=== PATIENT | male | born 1950 | race Caucasian/White ===

== ENCOUNTER 2024-04-25 08:39 | Observation (INO) ==
--- NOTE | 2024-04-25 09:16 | Emergency Department Note ---
Impression & Plan Dysphagia, Phelps esophagus ED Provider Note Provider: Hardik Daley MD DATE OF SERVICE: 04/25/2024 CHIEF COMPLAINT: Problems swallowing HISTORY OF PRESENT ILLNESS: Patient is a 73-year-old gentleman history of diverticulitis, colectomy, bowel obstruction, cholecystectomy, hypertension, Phelps's esophagus, and hiatal hernia presenting here today with after being referred by GI for evaluation today. Patient has had ongoing issues with dysphagia and swallowing. States he was here about a month ago for evaluation for similar symptoms. Having difficulty swallowing and states does not feel like things are going down the symptoms getting stuck at the base of the throat and some discomfort in the mid chest to mid upper abdomen. Denies other abdominal pain. No vomiting reported. For the last 2 weeks patient and report he has had limited food intake but has been drinking some liquid and has had a few bites of watermelon as well as protein shakes. Patient has some chronic ongoing diarrhea issues. Did have a scope by records in September 2023. History of bowel obstruction in the past but does not feel similar denies significant abdominal distention. No shortness of breath reported. Has been taking his meds but today has had a little bit of difficulty swallowing them. Feels little bit dizzy with movements and really rundown and has been losing weight according to patient and . Contacted the GI office today recommended he be evaluated here and stated that the GI team was possibly rounding in the hospital this morning as well. No fevers reported. No sinus drainage or congestion reported. PAST MEDICAL HISTORY: As noted above MEDICATIONS: Reviewed medication list SOCIAL HISTORY: No alcohol use, , currently building a house PHYSICAL EXAM: GENERAL: alert and oriented in no acute distress on stretcher Head: normocephalic and atraumatic EYES: No injection, discharge or icterus. EOMI. NECK: Trachea midline. Supple. ENT: Mucous membranes pink and moist. Pharynx without erythema or exudate. LUNGS: Airway patent. No retractions. Breath sounds clear with good air entry bilaterally. HEART: Regular rate and rhythm. No chest wall tenderness ABDOMEN: Soft some very slight epigastric tenderness but no other upper or lower abdominal tenderness. Healed surgical scar. Nondistended. SKIN: Acyanotic, warm, dry, without rashes EXTREMITIES: Without swelling, tenderness or deformity NEUROLOGICAL: No focal deficits. No aphasia. No facial droop or slurred speech. Ambulatory. EK bpm normal sinus rhythm. No PVC or PAC. No acute ST segment elevation depression with QTc of 454. Patient's laboratory studies and imaging reviewed. Differential includes Reactive airway disease, pneumonia, pneumothorax, COPD, CHF, infections, cardiac ischemia, pulmonary embolism, musculoskeletal, gastrointestinal, as well as other pathologies. IMPRESSION/MEDICAL DECISION MAKING: Patient appears somewhat fatigued but no obvious distress. Vitals noted without severe abnormalities or fever or hypotension noted. Soft abdomen. Slight epigastric tenderness. Doubt diverticulitis or obstruction. EKG and troponin completed given his age but lower suspicion this is cardiac in nature. Believe more likely esophageal but denies heartburn symptoms. Significant prescription Phelps's. Reviewed prior ER note from last month as well as GI note from January 15. History of Phelps's but no dysplasia on EGD from September by that report. CT scan completed a month ago without significant abnormalities noted. No stridor or respiratory issues I doubt this is a pharyngeal issue. Notes indicate the patient is a history of some motility issues. Had a barium swallow showing moderate esophageal dysmotility. EKG and troponin unremarkable. Doubt ACS or cardiac injury. No leukocytosis or anemia. Very borderline potassium of 3.3 but no significant electrolyte abnormalities otherwise. No significant transaminitis with a chronic bilirubin 1.2 at baseline for him. Lipase 9 not elevated doubt pancreatitis or acute hepatitis. Chest and abdominal x-ray reviewed by myself and no evidence of bowel obstruction/dilated bowel loops or acute pulmonary pulmonary process. Patient again not peritoneal with benign abdomen I do not feel we need additional abdominal imaging at this time. Did reach out discussed with GI as they referred him here today. Midlevel provider from GI did come and see the patient here in the ER. Does not seem like a food impaction. Seen by the GI team and they will try to arranged EGD in the short-term. They recommended we bring the patient in for hydration given his poor p.o. intake and hospitalist team with the consulted to evaluate the patient for further care here. DIAGNOSIS: Dysphagia DISPOSITION: Hospitalist consulted for evaluation. Patient was agreeable with this plan. Past Med/Surg History Problem List (Updated 04/25/24 @ 16:04 by Hardik Daley M.D.) Abdominal pain (Acute) Dysphagia (Acute) Postprandial nausea Lumbar facet joint syndrome Chronic low back pain ANGEL (obstructive sleep apnea) Anxiety and depression Carotid artery stenosis Phelps esophagus (Acute) Lumbar spondylosis Osteopenia Hiatal hernia with gastroesophageal reflux disease (02/09/11) HTN (hypertension) S/P cholecystectomy H/O colectomy Diverticulitis Rectal bleed (Acute) Abdominal pain (Acute) Glaucoma (Chronic) Numbness of face (Acute 04/24/14) Headache (Acute) Left shoulder pain (Acute) Stomach problems (Acute) Bronchospasm (Acute) Epigastric abdominal pain (Acute) SOBOE (shortness of breath on exertion) (Acute) Shortness of breath (Acute) Medical History Bowel obstruction Surgical History S/P hernia surgery S/P sinus surgery Family History Sister Breast cancer Cancer of spine Cancer Brother Colorectal cancer Father COPD (chronic obstructive pulmonary disease) Denies family history of Ovarian cancer Prostate cancer Myocardial infarction Social History (Updated 02/14/24 @ 11:08 by Seda Chandler LPN) Smoking Status: Never smoker Second Hand Exposure: No; Do You Dip or Chew Tobacco: No; Hx Alcohol Use: No Hx Substance Use: No Preferred Language: Luxembourger Communication Ability: Effective Visual Impairment: Limited Hearing Ability: Normal marital status: Current Living Situation: Spouse Current Living Situation Comment: worked at [employer] current occupational status: retired Feels Safe at Home: Yes Childhood Exposure to Second-Hand Smoke: Yes Diet: regular caffeine: Yes Dental Care, Regularly: Yes Physical Activity Frequency: Daily Seatbelt Use: always Sunscreen Use: No Assistive Devices: BiPap and Glasses Allergies Allergies Allergy/AdvReac Type Severity Reaction Status Date / Time cefazolin Allergy Severe CP/FELT Verified 04/25/24 14:15 LIKE THROAT CLOSING Gadolinium-Containing Allergy Severe SHORTNESS Verified 04/25/24 14:15 Contrast Medi OF BREATH aspirin Allergy Unknown PATIENT Verified 04/25/24 14:15 TOLD NOT TO TAKE BY [facility] PAVER Iodinated Contrast Media Allergy Unknown Unknown Rxn Verified 04/25/24 14:15 Penicillins Allergy Unknown PT HAS Verified 04/25/24 14:15 TOLERATED MEFOXIN IN PAST shellfish derived Allergy Unknown Unknown Verified 04/25/24 14:15 Home Meds Home Medications Medication Instructions Recorded Confirmed atorvastatin 40 mg tablet 20 mg PO HS 12/31/23 04/25/24 clotrimazole-betamethasone 1 1 applic topical BID 12/31/23 04/25/24 %-0.05 % topical cream furosemide 40 mg tablet 40 mg PO QAM 01/09/24 04/25/24 brinzolamide 1 % eye 1 drp OPB BID 04/25/24 04/25/24 drops,suspension fluoxetine 10 mg capsule 30 mg PO DAILY 04/25/24 04/25/24 Previous Rx's Medication Instructions Recorded amlodipine 10 mg tablet 10 mg PO QAM #90 tabs 12/31/23 famotidine 40 mg tablet 40 mg PO QPM #90 tabs 01/16/24 omeprazole 40 mg capsule,delayed 40 mg PO BIDWMEAL 90 days #180 caps 01/16/24 release ondansetron 8 mg disintegrating 8 mg PO Q8H PRN nausea and 01/16/24 tablet vomiting 90 days #180 tabs levothyroxine 100 mcg tablet 100 mcg PO DAILYBB #90 tabs 02/21/24 tramadol 37.5 mg-acetaminophen 325 1 tab PO Q8H PRN Pain #90 tabs 03/24/24 mg tablet dicyclomine 10 mg capsule 10 mg PO BID #60 caps 04/10/24 dorzolamide 2 % eye drops 1 drp OPB BID #30 mL 04/16/24 latanoprost 0.005 % eye drops 1 drp OPB HS #7.5 mL 04/16/24 Results & Data (ED) Vital Signs Vital Signs - 24 hr 04/25/24 08:43 04/25/24 09:05 04/25/24 09:27 Temperature 36.5 C Temperature Source Temporal Artery Scan Pulse Rate 93 H 76 68 Pulse Rate [Left Finger] Pulse Rhythm [Left Finger] Pulse Strength [Left Finger] Respiratory Rate 16 16 Respiratory Effort / Characteristics Non-Labored Spontaneous Respiratory Depth Normal Respiratory Pattern Blood Pressure 129/91 Blood Pressure [Left Arm] Blood Pressure Mean 103 Blood Pressure Mean [Left Arm] Blood Pressure Position [Left Arm] Pulse Oximetry 96 98 Oxygen Delivery Method Room Air Room Air Fraction of Inspired Oxygen Sepsis Recent Fever Within 48 Hours No Sepsis New/Unexplained Change in Mental Status No Sepsis Action Taken by Nursing No Action Required 04/25/24 10:20 04/25/24 12:00 04/25/24 13:45 Temperature Temperature Source Pulse Rate Pulse Rate [Left Finger] 63 60 67 Pulse Rhythm [Left Finger] Regular Pulse Strength [Left Finger] Normal Respiratory Rate 20 20 20 Respiratory Effort / Characteristics Non-Labored Spontaneous Respiratory Depth Normal Respiratory Pattern Regular Blood Pressure Blood Pressure [Left Arm] 145/77 H 145/72 H 141/83 H Blood Pressure Mean Blood Pressure Mean [Left Arm] 99 96 102 Blood Pressure Position [Left Arm] Pulse Oximetry 94 98 95 Oxygen Delivery Method Room Air Room Air Fraction of Inspired Oxygen Sepsis Recent Fever Within 48 Hours Sepsis New/Unexplained Change in Mental Status Sepsis Action Taken by Nursing 04/25/24 14:17 04/25/24 15:08 04/25/24 15:23 Temperature 36.6 C Temperature Source Temporal Artery Scan Pulse Rate Pulse Rate [Left Finger] 70 105 H 75 Pulse Rhythm [Left Finger] Pulse Strength [Left Finger] Normal Normal Normal Respiratory Rate 16 16 20 Respiratory Effort / Characteristics Non-Labored Non-Labored Non-Labored Respiratory Depth Normal Normal Normal Respiratory Pattern Regular Regular Regular Blood Pressure Blood Pressure [Left Arm] 162/87 H 168/100 H 146/85 H Blood Pressure Mean Blood Pressure Mean [Left Arm] 112 122 105 Blood Pressure Position [Left Arm] Semi-fowlers Semi-fowlers Semi-fowlers Pulse Oximetry 97 95 98 Oxygen Delivery Method Room Air Room Air Room Air Fraction of Inspired Oxygen Sepsis Recent Fever Within 48 Hours Sepsis New/Unexplained Change in Mental Status Sepsis Action Taken by Nursing 04/25/24 15:32 04/25/24 15:38 Temperature Temperature Source Pulse Rate Pulse Rate [Left Finger] 69 9 L Pulse Rhythm [Left Finger] Pulse Strength [Left Finger] Normal Respiratory Rate 17 20 Respiratory Effort / Characteristics Non-Labored Spontaneous Non-Labored Respiratory Depth Normal Respiratory Pattern Regular Blood Pressure Blood Pressure [Left Arm] 140/66 Blood Pressure Mean Blood Pressure Mean [Left Arm] 90 Blood Pressure Position [Left Arm] Semi-fowlers Pulse Oximetry 98 97 Oxygen Delivery Method Room Air Room Air Fraction of Inspired Oxygen 21 Sepsis Recent Fever Within 48 Hours Sepsis New/Unexplained Change in Mental Status Sepsis Action Taken by Nursing Laboratory Data 04/25/24 09:26 04/25/24 09:26 Lab Results 04/25/24 Range/Units 09:26 WBC 5.72 (4.8-10.8) K/ul RBC 4.68 L (4.70-6.10) M/uL Hgb 14.6 (14.0-18.0) g/dl Hct 42.0 (42.0-52.0) % MCV 89.7 (80.0-100.0) fL MCH 31.2 (25.0-34.0) pg MCHC 34.8 (32.0-36.0) g/dL RDW Std Deviation 39.2 (36.4-46.3) fL RDW Coeff of Yolande 12.0 (11.5-14.5) % Plt Count 158 (130-400) K/uL MPV 10.6 (9.4-12.4) fL Immature Gran % (Auto) 0.2 % Neut % (Auto) 73.0 % Lymph % (Auto) 18.9 % Preston % (Auto) 5.8 % Eos % (Auto) 1.9 % Baso % (Auto) 0.2 % Neut # (Auto) 4.18 (1.40-6.50) K/uL Lymph # (Auto) 1.08 L (1.20-3.40) K/uL Preston # (Auto) 0.33 (0.11-0.59) K/uL Eos # (Auto) 0.11 (0.00-0.50) K/uL Baso # (Auto) 0.01 (0.00-0.20) K/uL Immature Gran # (Auto) 0.01 (0.01-0.20) K/uL Sodium 140 (136-145) mmol/L Potassium 3.3 L (3.5-5.1) mmol/L Chloride 106 (98-107) mmol/L Carbon Dioxide 29 (21-32) mmol/L Anion Gap 5 (3-11) BUN 19 (6-23) mg/dl Creatinine 0.80 (0.6-1.4) mg/dl Est Cr Clr Drug Dosing 97.2 ml/min Est GFR ( Amer) 101.3 ml/min Est GFR (Non-Af Amer) 87.4 ml/min BUN/Creatinine Ratio 23.8 H (10-20) Glucose 107 H (70-99(Fasting)) mg/dl Calcium 8.8 (8.6-10.3) mg/dl Total Bilirubin 1.2 H (0.2-1.0) mg/dl AST 14 (13-39) U/L ALT 17 (7-52) U/L Alkaline Phosphatase 95 (34-104) U/L Troponin I High Sens 4.0 (0-20) pg/ml Total Protein 6.6 (6.0-8.3) gm/dl Albumin 3.8 (3.4-5.0) gm/dl Globulin 2.8 (2.5-4.0) gm/dl Albumin/Globulin Ratio 1.4 (0.9-2) Lipase 9 L (11-82) U/L Administered Medications Sodium Chloride (Nss) 500 mls @ 15 mls/hr IV .Q24H LEENA Stop: 04/26/24 07:29 Last Admin: 04/25/24 14:24 Dose: 15 mls/hr Documented By: JOSE Discontinued Medications Albuterol (Albut/Ipratrop 3mg/0.5mg Neb 3 Ml Vial) 3 ml NEB NOW STA; Protocol Stop: 04/25/24 15:20 Last Admin: 04/25/24 15:31 Dose: 3 ml Documented By: [id number] Sodium Chloride (Nss) 1,000 mls @ 999 mls/hr IV .Q1H1M STA Stop: 04/25/24 10:06 Last Infusion: 04/25/24 10:26 Dose: Infused Documented By: Admin: 04/25/24 09:25 Dose: 999 mls/hr Documented By: MARTÍN Imaging Data Radiologist's Impression: Chest/Abdomen X-ray 04/25/24 09:07 CHEST AND ABDOMEN 2 VIEWS HISTORY: pain, dysphagia COMPARISON: Abdomen and pelvis CT 03/25/2024. Chest 02/28/2015. FINDINGS: The lungs are clear. The cardiomediastinal silhouette is within normal limits. There is no pneumoperitoneum or pneumatosis. The bowel gas pattern is unremarkable. No evidence for bowel obstruction. Prior cholecystectomy. No renal or ureteral calculi. Mild degenerative changes within the bilateral hips and lumbar spine. Suture material seen within the deep pelvis. IMPRESSION: No acute cardiopulmonary process. No evidence for bowel obstruction. ACT 112: Negative or not required by law. Electronically signed by: Jason Carmona M.D. 04/25/2024 11:10 AM Discharge Plan Visit Data Chief Complaint: GI Assessment Stated Complaint: STOMACH PAINS, CANT SWALLOW, CANT EAT ED Provider: Hardik Daley Discharge Problem: Dysphagia, Phelps esophagus Patient Disposition: Admitted As Inpatient Discharge Instructions Interventions: ED Discharge Assessment Last Done: 04/25/24 14:09
[2024-04-25] MEDS: SODIUM CHLORIDE 0.9% 1,000 ML IV STA (09:25)
[2024-04-25 09:49] LABS: Basophils # (auto) 0.01 K/uL (0.00-0.20); Basophils % (auto) 0.2 %; Eosinophils # (auto) 0.11 K/uL (0.00-0.50); Eosinophils % (auto) 1.9 %; Hemoglobin 14.6 g/dl (14.0-18.0); Immature Granulocytes # (auto) 0.01 K/uL (0.01-0.20); Immature Granulocytes % (auto) 0.2 %; Lymphocytes # (auto) 1.08 K/uL (1.20-3.40); Lymphocytes % (auto) 18.9 %; Mean Corpuscular Hemoglobin 31.2 pg (25.0-34.0); Mean Corpuscular Hgb Conc 34.8 g/dL (32.0-36.0); Mean Corpuscular Volume 89.7 fL (80.0-100.0); Mean Platelet Volume 10.6 fL (9.4-12.4); Monocytes # (auto) 0.33 K/uL (0.11-0.59); Monocytes % (auto) 5.8 %; Neutrophils # (auto) 4.18 K/uL (1.40-6.50); Platelet Count 158 K/uL (130-400); RDW Standard Deviation 39.2 fL (36.4-46.3); Red Blood Count 4.68 M/uL (4.70-6.10); White Blood Count 5.72 K/ul (4.8-10.8)
--- OUTSIDE RECORDS SUMMARY | 2024-04-25 09:55 | External Medical Summary | Summary of Care ---
Author Name Unknown Organization [facility] Address [address] [place] [address] Phone [phone] Care Team Providers Care Clinical Application Consultant Name Role Phone Unavailable Primary Care Provider Unavailabl e Reason for Visit * Reason Onset Date Comments Information 04/01/2024 ? Appt. Encounter Details Date Type Department Care Team (Late st Contact Info) Description 04/01/2024 Telephone Gastroenterology, [address] [phone] Luis Alberto Milligan MD [address] [place] [address] [address] Information (? Appt. ) Allergies Active Allergy Reactions Criticality Noted Date Comments Aspirin 04/30/2003 not an allery but was told not to take by commodity loan clerk Iodine Hives 06/19/2001 CT dye (Has been pretreated and did fine) Penicillins 06/25/2001 hives documented as of this encounter (statuses as of 04/02/2024) Medications Medication Sig Dispensed Refills Start Date End Date Status levothyroxine (LEVOXYL) 100 MCG Tablet Take one tablet by mouth one time daily 90 Tab 1 01/29/2015 Active PARoxetine (PAXIL) 20 MG TabletIndications:Depre ssive disorder, not elsewhere classified TAKE 1 TABLET BY MOUTH EACH DAY FOR DEPRESSION 90 Tab 3 02/16/2015 Active MIDRIN 325-65-100 MG CapsuleIndications:Migr luis 2 at onset of clemens, may repeat 1 tab hourly for max of 5 doses in 90 Cap 3 02/16/2015 Active ondansetron (ZOFRAN) 4 MG TabletIndications:Nause a alone 1 tablet every 6 hours as needed for nausea 30 Tab 3 02/16/2015 Active clopidogrel (PLAVIX) 75 MG TabletIndications:Small vessel disease, cerebrovascular Take 1 Tab by mouth daily. 90 Tab 3 02/16/2015 Active albuterol (PROVENTIL HFA) 108 (90 BASE) MCG/ACT inhaler Inhale 2 Puffs by mouth every 4 hours as needed. For shortness of breath/wheezing. 03/05/2015 Active pantoprazole (PROTONIX) 40 MG TBEC Take 1 Tab by mouth every morning. 03/05/2015 Active dorzolamide-timolol (COSOPT OCUMETER PLUS) 2.23-0.68% ophthalmic solution Instill 1 Drop into eye 2 times a day. Active ibuprofen (ADVIL) 200 MG Tablet Take 2 Tabs by mouth 3 times a day as needed. For arthritic pain. Active amLODIPine (NORVASC) 10 MG TabletIndications:Inter stitial lung disease (HCC),HTN, goal below 140/90 Take 1 Tab by mouth every morning. 90 Tab 3 03/29/2015 Active documented as of this encounter (statuses as of 04/02/2024) Active Problems Problem Noted Date Diagnosed Date Small vessel disease, cerebrovascular 05/07/2014 BPH without obstruction/lower urinary tract symp toms 12/11/2013 Enchondroma of femur 08/17/2013 Overview: Right femur, incidental finding on plain films Cellulitis of leg 06/30/2011 Ventral hernia, unspecified, without mention of obstruction or gangrene 06/29/2011 Severe obesity with body mas s index (BMI) of 35.0 to 39.9 with serious comorbidity 06/29/2011 Overview: ICD-10 update of inactive diagnosis Calculus of gallbladder with out mention of cholecystitis or obstruction 06/29/2011 ADVANCE DIRECTIVE INFORMATION 10/19/2010 Overview: Yes, Patient instructed to provide copy of advance directive for provider to review and to be scanned into Electronic Medical Record Incisional hernia 10/19/2010 ADHESIONS ABDOMINAL 03/21/2010 BMI 35-39 ISOLATED (SEE ACTUAL BMI) 02/14/2010 Overview: Per Obesity Protocol, #19 HTN, GOAL BELOW 140/90 07/26/2009 Overview: Modified per HTN protocol #16. Patient refuses FLU and PNEUMOVAX 06/13/2009 DIVERTICULOSIS OF COLON 09/17/2006 Overview: 05/16/13: open anastomosis, diverticulosis sigmoid, deformity of the cecum, done for evaluation of constiptation Due for repeat colonoscopy 08/2013 Hypothyroidism 04/11/2006 GENERAL OSTEOARTHROSIS 11/12/2001 Esophageal reflux 11/12/2001 Other specified glaucoma Overview: Dr Caicedo documented as of this encounter (statuses as of 04/02/2024) Resolved Problems Problem Noted Date Diagnosed Date Resolved Date ACTIVE CASE MANAGEMENT Jayla Navarro RN [phone] 03/18/2010 06/20/2010 Overview: ACTIVE CASE MANAGEMENT Jayla Navarro RN [phone] HYPERTENSION NOS 11/12/2001 07/26/2009 Overview: Modified per HTN protocol #16. documented as of this encounter (statuses as of 04/02/2024) Immunizations Name Administration Dates Next Due PPD 04/06/2004 Pneumococcal Polysaccharide PPV23 (Pneumovax) 05/01/2009 Seasonal Influenza, Split, I IV3, With Preserve, Inj 06/04/2013(Deferred: Patient Refused) TDAP (age 10 and older)(Boostrix) 04/30/2014 TDAP, Age 7 and older, IM (Adacel) 07/28/2008 documented as of this encounter Social History Tobacco Use Types Packs/Day Years Used Date Smoking Tobacco: Never Smokeless Tobacco: Never Alcohol Use Standard Drinks/Week Comments No 0 (1 standard drink = 0.6 oz pur e alcohol) Sex and Gender Information Value Date Recorded Sex Assigned at Not on file Gender Identity Not on file Sexual Orientation Not on file documented as of this encounter Miscellaneous Notes * Telephone Encounter - Chayo Calderon, ANGEL - 04/02/2024 11:36 AM EDT Pt is set up for an appt on 05/13/24 at [facility]. * Telephone Encounter - Chayo Calderon OSA - 04/02/2024 11:05 AM EDT Called the office and patients wants to have a second opinion. So I will lazaro patient to setup an appt. Thank you for looking . * Telephone Encounter - Luis Alberto Milligan MD - 04/02/2024 9:02 AM EDT Can you please call them back and clarify what is the referral for, is it for G- POEM, TIF or what exactly ? Thanks. * Telephone Encounter - Yash Schaefer OSA - 04/01/2024 9:36 AM EDT Records scanned. * Telephone Encounter - Chayo Calderon OSA - 04/01/2024 9:17 AM EDT Received a referral from [facility]. Please review records and see what patient needs. documented in this encounter Plan of Treatment Upcoming Encounters Date Type Department Care Team (Late st Contact Info) Description 05/13/2024 8:00 AM EDT Office Visit Gastroenterology, [facility] [address] [place] [address] [address] Megan Stephens CRNP [address] [place] [address] [phone] Health Maintenance Due Date Last Done Comments Albumin/Creatinine Ratio 1968 Hepatitis C Screening 1968 Zoster Vaccines (1 of 2) 1998 Pneumococcal Vaccine: 65+ Years (2 of 2 - PCV) 2013 05/01/2009 *ADVANCE DIRECTIVE NOT ON FILE 09/20/2014 TSH 12/11/2014 12/11/2013, 04/03, 05/25/2010, Additional history exists Depression Screening 04/30/2015 04/30/2014 GFR 02/26/2016 02/25/2015, 08/04, 05/21/2014, Additional history exists COVID-19 Vaccine (2022- season) 2023 DTaP,Tdap,and Td Vaccines (3 - Td or Tdap) 04/30/2024 04/30/2014, 07/28/2008 Influenza Vaccine (FLU shot) (#1) 2024 Colonoscopy Discontinued 05/16/2013, 05/04, 01/04/2010, Additional history exists Colorectal Cancer Screening Discontinued Cologuard Discontinued Fecal Occult Blood Test Discontinued HPV (Gardasil) Vaccine Aged Out No lo nger eligible based on patient's age to complete this topic Hepatitis B Vaccine Aged Out No longe r eligible based on patient's age to complete this topic MENINGOCOCCAL (MENACTRA/MENVEO) Aged Out No longer eligible based on patient's age to complete this topic Sigmoidoscopy Discontinued documented as of this encounter Medical Devices Implanted Type Area Black Ash Worker Device Identifier Shelf Expiration Date Model / Serial / Lot Mesh Vicryl 6 X 6 Vkm-M - [id number] Implanted:Qty: 1 on 10/02/2011 at OR [facility] N/A: Abdomen DO NOT USE 09/03/2015 VKM-M / / [id number] Mesh 10 X 14 [id number] - [id number] Implanted:Qty: 1 on 10/02/2011 at OR [facility] N/A: Abdomen [employer] 04/02/2016 [id number] / / [id number] documented as of this encounter Advance Directives * Full Code (Latest Code Status on File) Date Activated Date Inactivated Comments 10/02/2011 1:26 PM 10/06/2011 7:00 PM This order re flects the patients wishes and were consensually agreed upon. * Full Code Date Activated Date Inactivated Comments 09/06/2011 2:59 AM 09/07/2011 6:47 PM This order ref lects the patients wishes and were consensually agreed upon. * Full Code Date Activated Date Inactivated Comments 05/06/2011 4:32 PM 05/09/2011 9:14 PM This order ref lects the patients wishes and were consensually agreed upon. Question Answer Comments Discussion of Advance Directives occurred with: Not Discussed Does the patient have a Living Will? No Does the patient have Health Care Power of Attor melvin? No * Full Code Date Activated Date Inactivated Comments 02/18/2011 4:00 AM 02/20/2011 5:52 PM This order r eflects the patients wishes and were consensually agreed upon. Question Answer Comments Discussion of Advance Directives occurred with: Not Discussed Does the patient have a Living Will? No Does the patient have Health Care Power of Attor melvin? No
[2024-04-25 10:09] LABS: Albumin Globulin Ratio 1.4 (0.9-2); Albumin Level 3.8 gm/dl (3.4-5.0); BUN Creatinine Ratio 23.8 (10-20); Bilirubin,Total 1.2 mg/dl (0.2-1.0); Calcium 8.8 mg/dl (8.6-10.3); Creatinine Clr Calc Pharmacy 97.2 ml/min; Est GFR (African American) 101.3 ml/min; Est GFR (Non-African American) 87.4 ml/min; Globulin 2.8 gm/dl (2.5-4.0); Potassium 3.3 mmol/L (3.5-5.1); Total Protein 6.6 gm/dl (6.0-8.3)
--- NOTE | 2024-04-25 10:48 | Electrocardiogram Report ---
Test Reason : Blood Pressure : */* mmHG Vent. Rate : 76 BPM Atrial Rate : 76 BPM P-R Int : 172 ms QRS Dur : 80 ms QT Int : 404 ms P-R-T Axes : 49 0 38 degrees QTcB Int : 454 ms Normal sinus rhythm Normal ECG When compared with ECG of 25-Mar-2024 09:52, Premature ventricular complexes are no longer Present Confirmed by Edmar Parker ([id number]) on 04/25/2024 10:48:22 AM Referred By: Confirmed By: Edmar Parker
--- NOTE | 2024-04-25 11:11 | XRay Report ---
CHEST AND ABDOMEN 2 VIEWS HISTORY: pain, dysphagia COMPARISON: Abdomen and pelvis CT 03/25/2024. Chest 02/28/2015. FINDINGS: The lungs are clear. The cardiomediastinal silhouette is within normal limits. There is no pneumoperitoneum or pneumatosis. The bowel gas pattern is unremarkable. No evidence for b owel obstruction. Prior cholecystectomy. No renal or ureteral calculi. Mild degenerative changes with in the bilateral hips and lumbar spine. Suture material seen within the deep pelvis. IMPRESSION: No acute cardiopulmonary process. No evidence for bowel obstruction. ACT 112: Negative or not required by law. Electronically signed by: Jason Carmona M.D. 04/25/2024 11:10 AM
--- NOTE | 2024-04-25 12:31 | Gastrointestinal Consultation ---
Date of Consultation April 25, 2024 Assessment & Plan (1) Dysphagia: 73 year old male with history of glaucoma, HTN, ANGEL, hypothyroidism, anxiety/depression, Merchant's esophagus and others below who presented through the ED w/ progressively worsening dysphagia, inability to tolerate oral intake and weight loss. Barium swallow in 2023 showing dysmotility. DDX discussed: dysmotility vs jovany vs stricture/ring/stenosis vs lesion vs others Offered EGD early next week, however, he does not feel like he can maintain his hydration/nutritional status over the weekend. TT sent to ED attending to start admission process. Keep NPO today. We can attempt to arrange EGD pending schedule availability. If not able to be completed today, please keep NPO Sunday for EGD Sunday. We appreciate assistance in the management of any serological abnormality and corrections to include: hemoglobin >7, INR <2, platelets >50,000, potassium levels >3.5 but <5.3, and sodium levels within 5 points of the reference range prior to endoscopic evaluation. Thank you for allowing us to participate in the care of this patient. Please call with any acute changes, questions or concerns. Please see addendum below with additional recommendation from my supervising physician. I spent a total of 75 minutes on the date of service in review of patient's record, and previously obtained information in person and appropriate medical visit, discussion and education of plan, with patient and/or caregiver, placing orders for tests/referral/procedures as medically necessary and documentation of pertinent clinical information in patient's medical records for their visit today. Supervising Physician Co-Signing Physician Notes I personally saw and examined the patient. I have reviewed the chart and agree with the documentation provided by the PROJECT OFFICER including discussion about the assessment, treatment and plan. Briefly, 73 year old male with history of glaucoma, HTN, ANGEL, hypothyroidism, anxiety/depression, Merchant's esophagus and others below who presented through the ED w/ progressively worsening dysphagia, inability to tolerate oral intake and weight loss. Barium swallow in 2023 showing dysmotility. DDX discussed: dysmotility vs can dida vs stricture/ring/stenosis vs lesion vs others. Unclear source of acute dysphagia. ? infectious (jovany), ulceration, less risk of malignancy but possible given barretts. EGD today. If negative, will need outpt esophageal manometery. History of Present Illness Reason for Consultation: dysphaghia Requesting Physician: Thuy Attending Physician: Thuy History of Present Illness 73 year old male with history of glaucoma, HTN, ANGEL, hypothyroidism, anxiety/depression, Merchant's esophagus and others below who presented through the ED w/ progressively worsening dysphagia, inability to tolerate oral intake and weight loss. GI was asked to evaluate. He is somewhat of a poor historian. He endorses a history of merchant's esophagus dating back 10+ years. Recall his last EGD was about 1 year ago in [facility] and was told to have a recall for Merchant's in about 3 years. Suggests his reflux has been moderately controlled until recent. Endorses epigastric pain/pressure slight burning for about 1-2 month time. Around the same time he noted onset of solids dysphagia. This has progressively worsened and now repots all he is able to tolerate is small sips of liquids. No signs of impaction. Last attempted PO intake was a bite of watermelon last evening and a small sip of water this AM. Tolerating secretions. He was seen in the GI clinic for nausea, decreased appetite. GES was consistent with delayed gastric emptying. Barium swallow was arranged as he noted a history of HH. This showed reflux, eso dysmotility but no mention of HH. He was referred for motility testing at a tertiary center. Barium swallow 2023: No esophageal mass or stricture identified. 13 mm barium tablet passed into the stomach. Moderate esophageal dysmotility. Several episodes of gastroesophageal reflux. GES 2023: Minimally delayed excretion at 2 and 4 hours as above. EGD 2023: was told to have a 3 year recall Colonoscopy 2020: was told to have a 5 year recall Allergies Allergy/AdvReac Type Severity Reaction Status Date / Time cefazolin Allergy Severe CP/FELT Verified 04/25/24 10:06 LIKE THROAT CLOSING Gadolinium-Containing Allergy Severe SHORTNESS Verified 04/25/24 10:06 Contrast Medi OF BREATH aspirin Allergy Unknown PATIENT Verified 04/25/24 10:06 TOLD NOT TO TAKE BY FAMILY AND CONSUMER EDUCATION TEACHER Iodinated Contrast Media Allergy Unknown Unknown Rxn Verified 04/25/24 10:06 Penicillins Allergy Unknown PT HAS Verified 04/25/24 10:06 TOLERATED MEFOXIN IN PAST shellfish derived Allergy Unknown Unknown Verified 04/25/24 10:06 PERFUMES Allergy Severe RESP Uncoded 04/25/24 10:06 DISTRESS Unclassified Drugs Allergy Unknown CLEANING Uncoded 04/25/24 10:06 SOLUTIONS - RESP DISTRESS Home Medications Medication Instructions Recorded Confirmed Type amlodipine 10 mg tablet 10 mg PO QAM #90 tabs 12/31/23 04/25/24 Rx atorvastatin 40 mg tablet 20 mg PO HS 12/31/23 04/25/24 History clotrimazole-betamethasone 1 1 applic topical BID 12/31/23 04/25/24 History %-0.05 % topical cream furosemide 40 mg tablet 40 mg PO QAM 01/09/24 04/25/24 History famotidine 40 mg tablet 40 mg PO QPM #90 tabs 01/16/24 04/25/24 Rx omeprazole 40 mg capsule,delayed 40 mg PO BIDWMEAL 90 days #180 caps 01/16/24 04/25/24 Rx release ondansetron 8 mg disintegrating 8 mg PO Q8H PRN nausea and 01/16/24 04/25/24 Rx tablet vomiting 90 days #180 tabs levothyroxine 100 mcg tablet 100 mcg PO DAILYBB #90 tabs 02/21/24 04/25/24 Rx tramadol 37.5 mg-acetaminophen 325 1 tab PO Q8H PRN Pain #90 tabs 03/24/24 04/25/24 Rx mg tablet dicyclomine 10 mg capsule 10 mg PO BID #60 caps 04/10/24 04/25/24 Rx dorzolamide 2 % eye drops 1 drp OPB BID #30 mL 04/16/24 04/25/24 Rx latanoprost 0.005 % eye drops 1 drp OPB HS #7.5 mL 04/16/24 04/25/24 Rx brinzolamide 1 % eye 1 drp OPB BID 04/25/24 04/25/24 History drops,suspension fluoxetine 10 mg capsule 30 mg PO DAILY 04/25/24 04/25/24 History Patient History Medical History Bowel obstruction Surgical History S/P hernia surgery S/P sinus surgery Family History (Updated 02/14/24 @ 11:07 by Seda Chandler LPN) Sister Breast cancer Cancer of spine Cancer Brother Colorectal cancer Father COPD (chronic obstructive pulmonary disease) Denies family history of Ovarian cancer Prostate cancer Myocardial infarction Social History (Updated 02/14/24 @ 11:08 by Seda Chandler LPN) Smoking Status: Never smoker Second Hand Exposure: No; Do You Dip or Chew Tobacco: No; Hx Alcohol Use: No Hx Substance Use: No Preferred Language: Azeri Communication Ability: Effective Visual Impairment: Limited Hearing Ability: Normal marital status: Current Living Situation: Spouse Current Living Situation Comment: worked at [employer] current occupational status: retired Feels Safe at Home: Yes Childhood Exposure to Second-Hand Smoke: Yes Diet: regular caffeine: Yes Dental Care, Regularly: Yes Physical Activity Frequency: Daily Seatbelt Use: always Sunscreen Use: No Assistive Devices: BiPap and Glasses Review of Systems Review of Systems: All other findings negative except as noted in HPI. Physical Exam Constitutional: WD/WN, vitals as above Respiratory: normal respiratory effort, lungs clear to auscultation Cardiovascular: Rate/Rhythm: regular rate and regular rhythm Gastrointestinal (Abdomen): normal bowel sounds, soft, nontender, no hepatosplenomegaly Skin: no rashes, warm and dry Results & Data Vital Signs (Past 12 Hours) Vital Signs Temp Pulse Pulse Resp BP BP Pulse Ox 04/25/24 12:00 60 20 145/72 H 98 04/25/24 10:20 63 20 145/77 H 94 04/25/24 09:27 68 16 98 04/25/24 09:05 76 04/25/24 08:43 36.5 C 93 H 16 129/91 96 O2 Del Method 04/25/24 12:00 04/25/24 10:20 Room Air 04/25/24 09:27 Room Air 04/25/24 09:05 04/25/24 08:43 Room Air Laboratory Results 04/25/24 Range/Units 09:26 WBC 5.72 (4.8-10.8) K/ul RBC 4.68 L (4.70-6.10) M/uL Hgb 14.6 (14.0-18.0) g/dl Hct 42.0 (42.0-52.0) % MCV 89.7 (80.0-100.0) fL MCH 31.2 (25.0-34.0) pg MCHC 34.8 (32.0-36.0) g/dL RDW Std Deviation 39.2 (36.4-46.3) fL RDW Coeff of Yolande 12.0 (11.5-14.5) % Plt Count 158 (130-400) K/uL MPV 10.6 (9.4-12.4) fL Immature Gran % (Auto) 0.2 % Neut % (Auto) 73.0 % Lymph % (Auto) 18.9 % [place] % (Auto) 5.8 % Eos % (Auto) 1.9 % Baso % (Auto) 0.2 % Neut # (Auto) 4.18 (1.40-6.50) K/uL Lymph # (Auto) 1.08 L (1.20-3.40) K/uL [place] # (Auto) 0.33 (0.11-0.59) K/uL Eos # (Auto) 0.11 (0.00-0.50) K/uL Baso # (Auto) 0.01 (0.00-0.20) K/uL Immature Gran # (Auto) 0.01 (0.01-0.20) K/uL Sodium 140 (136-145) mmol/L Potassium 3.3 L (3.5-5.1) mmol/L Chloride 106 (98-107) mmol/L Carbon Dioxide 29 (21-32) mmol/L Anion Gap 5 (3-11) BUN 19 (6-23) mg/dl Creatinine 0.80 (0.6-1.4) mg/dl Est Cr Clr Drug Dosing 97.2 ml/min Est GFR ( Amer) 101.3 ml/min Est GFR (Non-Af Amer) 87.4 ml/min BUN/Creatinine Ratio 23.8 H (10-20) Glucose 107 H (70-99(Fasting)) mg/dl Calcium 8.8 (8.6-10.3) mg/dl Total Bilirubin 1.2 H (0.2-1.0) mg/dl AST 14 (13-39) U/L ALT 17 (7-52) U/L Alkaline Phosphatase 95 (34-104) U/L Troponin I High Sens 4.0 (0-20) pg/ml Total Protein 6.6 (6.0-8.3) gm/dl Albumin 3.8 (3.4-5.0) gm/dl Globulin 2.8 (2.5-4.0) gm/dl Albumin/Globulin Ratio 1.4 (0.9-2) Lipase 9 L (11-82) U/L PG Care Time/CCT Total # of Minutes Spent Total Time Spent with Patient: Total time spent is greater than 50% in coordination of care (as documented) at patient's floor/unit and/or counseling patient: Coding Level of Care Code 72472 INT INP/OBS CARE 75MIN Diagnoses Esophageal dysphagia R13.19 Dysphagia type: esophageal phase (1) Dysphagia Dysphagia type: esophageal phase Qualified Code(s): R13.19 - Other dysphagia
--- NOTE | 2024-04-25 13:27 | History & Physical Report ---
Date of Service April 25, 2024 Assessment & Plan (1) Dysphagia: Plan: -Barium swallow study in 2023 showed no esophageal mass or stricture is identified. Did show moderate esophageal dysmotility. -History of Phelps's esophagus -progressive dysphagia and L sided neck pain. -GI consulted in the ED. Admit to medicine. NPO and try to get EGD done today. -Holding all home meds until after EGD. -Unable to tolerate liquids at this time. -Will order neck soft tissue US. -Will start on LR. -Appreciate GI recommendations. (2) Phelps esophagus: Plan: -as above. (3) Abdominal pain: Plan: -as above. (4) S/P cholecystectomy: Plan: - noted (5) HTN (hypertension): Plan: - hold home meds (6) ANGEL (obstructive sleep apnea): Plan: -CPAP qhs Plan Fluids: LR Nutrition: NPO Code status: full code Consults: GI PT/OT: None Dispo: med/surg History of Present Illness Chief Complaint: dysphagia Primary Care Provider: Solo Stock DO Patient is a 73-year-old male with past medical hx of glaucoma, HTN, ANGEL, hypothyroidism, anxiety/depression, Phelps's esophagus and others below who presented through the hospital w/ progressively worsening dysphagia, inability to tolerate oral intake and weight loss. Patient has been having trouble with swallowing. He has been also having abdominal pain for the past month. He has been eating less and less over the past couple weeks. He states that he has not been having appetite. He is also been progressively decreasing the amount of food he has been able to eat. Over the last month he is lost approximately 10 pounds. Over the past week or so he started having trouble with eating solid foods. He is only able to eat some saltine crackers and some watermelon yesterday. This caused significant amount of pain in his throat and left side of his neck. Last night he was able to get some mashed potatoes down but started to have choking and throat pain. States that the throat pain is mostly on the left side of the neck. Denies any vomiting but has had significant nausea. Declines any fevers or chills. Does state that he is having significant cough at night. Allergies Allergy/AdvReac Type Severity Reaction Status Date / Time cefazolin Allergy Severe CP/FELT Verified 04/25/24 14:15 LIKE THROAT CLOSING Gadolinium-Containing Allergy Severe SHORTNESS Verified 04/25/24 14:15 Contrast Medi OF BREATH aspirin Allergy Unknown PATIENT Verified 04/25/24 14:15 TOLD NOT TO TAKE BY AUTOMOTIVE DRIVABILITY TECHNICIAN Iodinated Contrast Media Allergy Unknown Unknown Rxn Verified 04/25/24 14:15 Penicillins Allergy Unknown PT HAS Verified 04/25/24 14:15 TOLERATED MEFOXIN IN PAST shellfish derived Allergy Unknown Unknown Verified 04/25/24 14:15 Home Medications Medication Instructions Recorded Confirmed Type amlodipine 10 mg tablet 10 mg PO QAM #90 tabs 12/31/23 04/25/24 Rx atorvastatin 40 mg tablet 20 mg PO HS 12/31/23 04/25/24 History clotrimazole-betamethasone 1 1 applic topical BID 12/31/23 04/25/24 History %-0.05 % topical cream furosemide 40 mg tablet 40 mg PO QAM 01/09/24 04/25/24 History famotidine 40 mg tablet 40 mg PO QPM #90 tabs 01/16/24 04/25/24 Rx omeprazole 40 mg capsule,delayed 40 mg PO BIDWMEAL 90 days #180 caps 01/16/24 04/25/24 Rx release ondansetron 8 mg disintegrating 8 mg PO Q8H PRN nausea and 01/16/24 04/25/24 Rx tablet vomiting 90 days #180 tabs levothyroxine 100 mcg tablet 100 mcg PO DAILYBB #90 tabs 02/21/24 04/25/24 Rx tramadol 37.5 mg-acetaminophen 325 1 tab PO Q8H PRN Pain #90 tabs 03/24/24 04/25/24 Rx mg tablet dicyclomine 10 mg capsule 10 mg PO BID #60 caps 04/10/24 04/25/24 Rx dorzolamide 2 % eye drops 1 drp OPB BID #30 mL 04/16/24 04/25/24 Rx latanoprost 0.005 % eye drops 1 drp OPB HS #7.5 mL 04/16/24 04/25/24 Rx brinzolamide 1 % eye 1 drp OPB BID 04/25/24 04/25/24 History drops,suspension fluoxetine 10 mg capsule 30 mg PO DAILY 04/25/24 04/25/24 History Past Med/Surg History Problem List (Updated 04/25/24 @ 16:04 by Hardik Daley M.D.) Abdominal pain (Acute) Dysphagia (Acute) Postprandial nausea Lumbar facet joint syndrome Chronic low back pain ANGEL (obstructive sleep apnea) Anxiety and depression Carotid artery stenosis Phelps esophagus (Acute) Lumbar spondylosis Osteopenia Hiatal hernia with gastroesophageal reflux disease (02/09/11) HTN (hypertension) S/P cholecystectomy H/O colectomy Diverticulitis Rectal bleed (Acute) Abdominal pain (Acute) Glaucoma (Chronic) Numbness of face (Acute 04/24/14) Headache (Acute) Left shoulder pain (Acute) Stomach problems (Acute) Bronchospasm (Acute) Epigastric abdominal pain (Acute) SOBOE (shortness of breath on exertion) (Acute) Shortness of breath (Acute) Medical History Bowel obstruction Surgical History S/P hernia surgery S/P sinus surgery Family History Sister Breast cancer Cancer of spine Cancer Brother Colorectal cancer Father COPD (chronic obstructive pulmonary disease) Denies family history of Ovarian cancer Prostate cancer Myocardial infarction Social History (Updated 02/14/24 @ 11:08 by Seda Chandler LPN) Smoking Status: Never smoker Second Hand Exposure: Yes (Prior years, not currently.); Do You Dip or Chew Tobacco: No; Tobacco Cessation Education Requested by Patient: No Hx Alcohol Use: No Hx Substance Use: No Preferred Language: Irish Communication Ability: Effective Visual Impairment: Limited Hearing Ability: Normal Applied Computer Science Professor Required: No Beliefs That Will Affect Care: None marital status: Current Living Situation: Spouse Current Living Situation Comment: worked at [employer] current occupational status: retired Other Information That Helps Us Care for You: No Feels Safe at Home: Yes Safety Concerns: Feels Safe At This Time Childhood Exposure to Second-Hand Smoke: Yes Diet: regular caffeine: Yes Dental Care, Regularly: Yes Physical Activity Frequency: Daily Seatbelt Use: always Sunscreen Use: No Assistive Devices: Cane and Glasses Review of Systems Review of Systems: All systems reviewed & are unremarkable except as noted in Subjective Physical Exam Physical Exam: Constitutional: well-appearing, no acute distress HEENT: NCAT, no conjunctival injection, Left side neck tenderness CV: regular rhythm, no murmur appreciated, extremities well-perfused, no LE edema Resp: CTABL, no wheezes/rales/rhonchi appreciated, no increased work of breathing GI: soft, nondistended, nontender, BS normoactive MSK: no gross deformities appreciated Skin: warm, dry, no rash appreciated Neuro: alert, oriented, no focal neurologic deficit appreciated Results & Data Results & Data Vital Signs (Past 12 Hours) Vital Signs Temp Pulse Pulse Resp BP BP Pulse Ox 04/25/24 12:00 60 20 145/72 H 98 04/25/24 10:20 63 20 145/77 H 94 04/25/24 09:27 68 16 98 04/25/24 09:05 76 04/25/24 08:43 36.5 C 93 H 16 129/91 96 O2 Del Method 04/25/24 12:00 04/25/24 10:20 Room Air 04/25/24 09:27 Room Air 04/25/24 09:05 04/25/24 08:43 Room Air Supervising Physician Co-Signing Physician Notes I personally saw and examined the patient. I verified all fernandez points and agree with resident physician Dr Woo Barber, with the following exceptions and/or additions: 73-year-old male presents to the ER on advice of his road cleaner in the outpatient clinic due to unable to tolerate liquids with dysphagia and odynophagia. Patient was seen pre and post endoscopy. Esophageal candidiasis seen on endoscopy without stricture. Since he was unable to tolerate liquids prior to endoscopy decision was made to admit the patient for intravenous fluconazole and hydration overnight. Can switch diet to full liquids post endos copy and start nystatin to help with oral candidiasis. Patient wishes to trial boost drinks therefore this was ordered. High for discharge tomorrow as long as tolerating liquids and medications. O/E HS RRR, no murmurs, Chest CTAB, Abdo mild epigastric tenderness without guarding or rebound (1) Dysphagia Dysphagia type: esophageal phase Qualified Code(s): R13.19 - Other dysphagia (3) Abdominal pain Abdominal location: unspecified location Qualified Code(s): R10.9 - Unspecified abdominal pain
[2024-04-25] MEDS ORDERED: SIMETHICONE (ENDO) IR PRN (13:53)
--- NOTE | 2024-04-25 14:00 | Anesthesiology Consultation ---
Date of Service April 25, 2024 Assessment & Plan Chart Review Chart Review: Acceptable Risk for Surgery, Patient NOT seen in Pre Admission Testing and entry table operator initiated Consults Requested none Proposed Anesthesia Anesthesia Type: MAC History Surgery Operation Date: 04/25/24 18:25 Proposed Procedures p Esophagogastroduodenoscopy Merry Sousa MD Height/Weight Height: 5 ft 10 in Weight: 105.9 kg Allergies Allergy/AdvReac Type Severity Reaction Status Date / Time cefazolin Allergy Severe CP/FELT Verified 04/25/24 10:06 LIKE THROAT CLOSING Gadolinium-Containing Allergy Severe SHORTNESS Verified 04/25/24 10:06 Contrast Medi OF BREATH aspirin Allergy Unknown PATIENT Verified 04/25/24 10:06 TOLD NOT TO TAKE BY ASSISTANT DIRECTOR OF FINANCIAL AID Iodinated Contrast Media Allergy Unknown Unknown Rxn Verified 04/25/24 10:06 Penicillins Allergy Unknown PT HAS Verified 04/25/24 10:06 TOLERATED MEFOXIN IN PAST shellfish derived Allergy Unknown Unknown Verified 04/25/24 10:06 PERFUMES Allergy Severe RESP Uncoded 04/25/24 10:06 DISTRESS Unclassified Drugs Allergy Unknown CLEANING Uncoded 04/25/24 10:06 SOLUTIONS - RESP DISTRESS Medications Home Medications Medication Instructions Recorded Confirmed Last Taken amlodipine 10 mg tablet 10 mg PO QAM #90 tabs 12/31/23 04/25/24 04/25/24 atorvastatin 40 mg tablet 20 mg PO HS 12/31/23 04/25/24 04/24/24 clotrimazole-betamethasone 1 1 applic topical BID 12/31/23 04/25/24 Unknown %-0.05 % topical cream furosemide 40 mg tablet 40 mg PO QAM 01/09/24 04/25/24 04/25/24 famotidine 40 mg tablet 40 mg PO QPM #90 tabs 01/16/24 04/25/24 04/24/24 omeprazole 40 mg capsule,delayed 40 mg PO BIDWMEAL 90 days #180 caps 01/16/24 04/25/24 04/25/24 release ondansetron 8 mg disintegrating 8 mg PO Q8H PRN nausea and 01/16/24 04/25/24 Unknown tablet vomiting 90 days #180 tabs levothyroxine 100 mcg tablet 100 mcg PO DAILYBB #90 tabs 02/21/24 04/25/24 04/25/24 tramadol 37.5 mg-acetaminophen 325 1 tab PO Q8H PRN Pain #90 tabs 03/24/24 04/25/24 Unknown mg tablet dicyclomine 10 mg capsule 10 mg PO BID #60 caps 04/10/24 04/25/24 04/25/24 dorzolamide 2 % eye drops 1 drp OPB BID #30 mL 04/16/24 04/25/24 04/25/24 latanoprost 0.005 % eye drops 1 drp OPB HS #7.5 mL 04/16/24 04/25/24 04/24/24 brinzolamide 1 % eye 1 drp OPB BID 04/25/24 04/25/24 04/25/24 drops,suspension fluoxetine 10 mg capsule 30 mg PO DAILY 04/25/24 04/25/24 04/25/24 Past Medical History Medical History Bowel obstruction Past Family History Family History Sister Breast cancer Cancer of spine Cancer Brother Colorectal cancer Father COPD (chronic obstructive pulmonary disease) Denies family history of Ovarian cancer Prostate cancer Myocardial infarction Past Surgical History Surgical History S/P hernia surgery S/P sinus surgery Social History Smoking Status: Never smoker Do You Dip or Chew Tobacco: No Hx Alcohol Use: No Alcohol type: hard liquor Hx Substance Use: No Physical Exam Vital Signs Last Vital Signs Temp 36.5 C 04/25/24 08:43 Pulse 67 04/25/24 13:45 Resp 20 04/25/24 13:45 BP 141/83 H 04/25/24 13:45 Pulse Ox 95 04/25/24 13:45 O2 Del Method Room Air 04/25/24 13:45 Testing Laboratory Results 04/25/24 09:26 04/25/24 09:26 Electrocardiogram Date: 04/25/24 Findings: + NSR @ (76 - WNL); no no change from 03/25/24 PVCs no longer present
[2024-04-25] MEDS: SODIUM CHLORIDE 0.9% 500 ML IV SCH (14:24)
--- NOTE | 2024-04-25 15:13 | GI REPORT ---
[facility] [address] Patient: CASEY BATEMAN : 1950 Sex at : Male Age: 73 Years Procedure: Upper GI endoscopy Date: 04/25/2024 Attending Physician: Jairo Sousa MD Referring MD: Referred Self Indications: - Dysphagia - Weight loss Medications: - Monitored Anesthesia Care Complications: - No immediate complications. Estimated Blood Loss: - Estimated blood loss: None. - Estimated blood loss was minimal. Procedure: - Prior to the procedure, a History and Physical was performed, and patient medications and allergies were reviewed. The patient's tolerance of previous anesthesia was also reviewed. The risks and benefits of the procedure and the sedation options and risks were discussed with the patient. All questions were answered, and informed consent was obtained. Prior Anticoagulants: The patient has taken no anticoagulant or antiplatelet agents. ASA Grade Assessment: III - A patient with severe systemic disease. After reviewing the risks and benefits, the patient was deemed in satisfactory condition to undergo the procedure. - The egd scope was introduced through the mouth and advanced to the third part of the duodenum. - The upper GI endoscopy was accomplished without difficulty. - The patient tolerated the procedure well. Findings: - A 2 cm hiatal hernia was present. - LA Grade B (one or more mucosal breaks greater than 5 mm, not extending between the tops of two mucosal folds) esophagitis with no bleeding was found at the gastroesophageal junction (on retroflexion). Biopsies were taken with a cold forceps for histology. Estimated blood loss was minimal. - Patchy, white plaques were found in the middle third of the esophagus. Biopsies were taken with a cold forceps for histology. - The cardia and gastric fundus were normal on retroflexion. - The examined duodenum was normal. Impression: - 2 cm hiatal hernia. - LA Grade B reflux esophagitis with no bleeding. Rule out Phelps's esophagus. Biopsied. - Esophageal plaques were found, suspicious for candidiasis. Biopsied. - Normal examined duodenum. Recommendation: - Discharge patient to home (ambulatory). - Resume previous diet. - Continue present medications. - Await pathology results. - Return to primary care physician as previously scheduled. - Patient has a contact number available for emergencies. The signs and symptoms of potential delayed complications were discussed with the patient. Return to normal activities tomorrow. Written discharge instructions were provided to the patient. - Diflucan for candidiasis. PPI bid. Supportive care. Pt will need outpt Esophageal Manometery. Procedure Code(s): - 30514, Esophagogastroduodenoscopy, flexible, transoral; with biopsy, single or multiple Diagnosis Code(s): - R13.10, Dysphagia, unspecified - R63.4, Abnormal weight loss - K44.9, Diaphragmatic hernia without obstruction or gangrene - K21.00, Gastro-esophageal reflux disease with esophagitis, without bleeding - K22.9, Disease of esophagus, unspecified CPT(R) - 2022 copyright [employer]. All Rights Reserved. The CPT codes, CCI edits and ICD codes generated are intended as suggestions and were generated based on input data. These codes are preliminary and upon building supervisor review may be revised to meet current compliance and payer requirements. The provider is responsible for the final determination of appropriate codes, and modifiers. Jairo Sousa MD This document has been electronically signed. Note Initiated:04/25/2024 Note Completed:04/25/2024 3:12 PM \\[email or web address]\[email or web address]\[id number]
--- NOTE | 2024-04-25 15:24 | Anesthesiology Progress Note ---
Date of Service April 25, 2024 Anesthesia Post Procedure Vital Signs Vital Signs: Temp Pulse Pulse Resp BP BP Pulse Ox 04/25/24 15:08 105 H 16 168/100 H 95 04/25/24 14:17 36.6 C 70 16 162/87 H 97 04/25/24 13:45 67 20 141/83 H 95 04/25/24 12:00 60 20 145/72 H 98 04/25/24 10:20 63 20 145/77 H 94 04/25/24 09:27 68 16 98 04/25/24 09:05 76 04/25/24 08:43 36.5 C 93 H 16 129/91 96 O2 Del Method 04/25/24 15:08 Room Air 04/25/24 14:17 Room Air 04/25/24 13:45 Room Air 04/25/24 12:00 04/25/24 10:20 Room Air 04/25/24 09:27 Room Air 04/25/24 09:05 04/25/24 08:43 Room Air Pain Intensity Upper Abdomen: Pain Intensity: 7 Transfer of Care Handoff Completed per policy Notes Mental Status: alert / awake / arousable Patient Amnestic to Procedure: Yes Nausea / Vomiting: adequately controlled Pain: adequately controlled Airway Patency, RR, SpO2: stable & adequate BP & HR: stable & adequate Hydration State: stable & adequate Anesthetic Complications: no major complications apparent and Pt Satisfied with anesthetic care Notes: post op duoneb tx
[2024-04-25] MEDS: ALBUT/IPRATROP 3MG/0.5MG NEB 3 ML VIAL NEB STA (15:31)
[2024-04-25] MEDS: LACTATED RINGER'S 1,000 ML IV SCH (17:38)
[2024-04-25] MEDS: FLUCONAZOLE 200 MG/100 ML BAG IV SCH (18:30)
[2024-04-25] MEDS: PANTOprazole 40 MG in SYRINGE 0 ML IV SCH (19:51)
[2024-04-25] MEDS: NYSTATIN SUSP 500,000 U/5 ML UDC PO SCH (21:45)
[2024-04-25] MEDS: DORZOLAMIDE HCL 2% OPH SOLN 10 ML BTL OPB SCH (21:46)
[2024-04-25] MEDS: LATANOPROST 0.005% OP SOLN 2.5 ML BTL OPB SCH (21:47)
[2024-04-25] MEDS: BRINZOLAMIDE (AZOPT) OPS 10 ML BTL OPB SCH (21:48)
--- NOTE | 2024-04-25 21:55 | Billing Data ---
Date of Service April 25, 2024 Coding Level of Care Code 50942 INT INP/OBS CARE
--- NOTE | 2024-04-25 23:56 | Ultrasound Report ---
Exam(s): US SOFT TISSUE EXAM: US Soft Tissues of the Neck CLINICAL HISTORY: Reason for exam: dysphagia, L sided neck pain. TECHNIQUE: Real-time ultrasound scan of the soft tissues of the neck with image documentation. COMPARISON: No relevant prior studies available. FINDINGS: No mass, adenopathy, or fluid collection within the left cervical soft tissues. IMPRESSION: No mass, adenopathy, or fluid collection within the left cervical soft tissues. Electronically signed by: Sudheer Griffith MD 04/25/24 23:55 PM
[2024-04-26 00:51] LABS: Appearance Urine Clear (Clear); Bilirubin Urine Negative (Negative); Blood Urine Negative (Negative); Color Urine Yellow; Glucose Urine UA Negative (Negative); Ketones Urine 1+ (Negative); Leukocyte Esterase Urine Negative (Negative); Nitrite Urine Negative (Negative); Protein Urine Negative (Negative); Specific Gravity Urine 1.022 (1.000-1.030); Urobilinogen Urine Negative (Negative); pH Urine 6.5 (4.5-7.5)
[2024-04-26 06:49] LABS: Basophils # (auto) 0.01 K/uL (0.00-0.20); Basophils % (auto) 0.2 %; Eosinophils # (auto) 0.09 K/uL (0.00-0.50); Eosinophils % (auto) 1.5 %; Hematocrit (blood only) 39.1 % (42.0-52.0); Hemoglobin 13.7 g/dl (14.0-18.0); Immature Granulocytes # (auto) 0.02 K/uL (0.01-0.20); Immature Granulocytes % (auto) 0.3 %; Lymphocytes # (auto) 1.19 K/uL (1.20-3.40); Lymphocytes % (auto) 19.4 %; Mean Corpuscular Hemoglobin 31.2 pg (25.0-34.0); Mean Corpuscular Volume 89.1 fL (80.0-100.0); Monocytes # (auto) 0.37 K/uL (0.11-0.59); Neutrophils # (auto) 4.45 K/uL (1.40-6.50); Neutrophils % (auto) 72.6 %; Platelet Count 153 K/uL (130-400); RDW Coefficient of Variation 11.8 % (11.5-14.5); RDW Standard Deviation 38.4 fL (36.4-46.3); Red Blood Count 4.39 M/uL (4.70-6.10); White Blood Count 6.13 K/ul (4.8-10.8)
[2024-04-26 07:18] LABS: Albumin Globulin Ratio 1.4 (0.9-2); Albumin Level 3.5 gm/dl (3.4-5.0); BUN Creatinine Ratio 20.6 (10-20); Calcium 8.6 mg/dl (8.6-10.3); Creatinine Clr Calc Pharmacy 114.3 ml/min; Est GFR (African American) 108.3 ml/min; Est GFR (Non-African American) 93.4 ml/min; Globulin 2.5 gm/dl (2.5-4.0); Magnesium 1.8 mg/dl (1.7-2.4); Phosphorus 2.7 mg/dl (2.5-4.9); Potassium 3.4 mmol/L (3.5-5.1)
[2024-04-26 07:33] LABS: Thyroid Stimulating Hormone 2.19 uIu/ml (0.300-4.500)
[2024-04-26] MEDS: ONDANSETRON INJ 2 MG/ML 2 ML VIAL IV PRN (09:19)
[2024-04-26] MEDS: ACETAMINOPHEN 1,000 MG/100 ML VIAL IV STA (11:06)
[2024-04-26] MEDS: FLUCONAZOLE 200 MG/100 ML BAG IV SCH (16:31)
[2024-04-26] MEDS: ACETAMINOPHEN 500 MG TAB PO PRN (18:02)
[2024-04-26] MEDS: FLUoxetine HCL 10 MG CAP PO SCH (18:10)
--- NOTE | 2024-04-26 19:18 | Hospitalist Progress Note ---
Date of Service April 26, 2024 Assessment & Plan (1) Dysphagia: Plan: -Barium swallow study in 2023 showed no esophageal mass or stricture is identified. Did show moderate esophageal dysmotility. -History of Phelps's esophagus -progressive dysphagia and L sided neck pain. -GI consulted in the ED. Admit to medicine. EGD performed and shows no esophageal stricture. There is evidence of candidiasis. Patient started on nystatin swish and swallow as well as Diflucan -Continue pantoprazole 40 mg twice daily per gastroenterology -Recommendation for outpatient esophageal manometry at [facility] -Will start to reintroduce home meds as patient is currently tolerating full liquids -Nutrition consulted and patient seen by dietitian. Appreciate recommendations. Advance diet to no more than a soft diet with small bites as tolerated -Soft tissue US with no acute findings. -Continue IV hydration with lactated Ringer's for now. Will see how patient tolerates diet and modify or discontinued IV fluids tomorrow -Appreciate GI recommendations. Patient will need outpatient follow-up on discharge (2) Phelps esophagus: Plan: -as above. (3) Abdominal pain: Plan: -as above. (4) S/P cholecystectomy: Plan: - noted (5) HTN (hypertension): Plan: - Stable. Resume home medications as tolerated (6) ANGEL (obstructive sleep apnea): Plan: -CPAP qhs (7) Headache: Plan: -Patient reports history of migraines which she is treated in the past with Tylenol with codeine -IV Tylenol ordered today -Will also resume patient's tramadol/acetaminophen -Restart patient's Prozac Plan Fluids: LR Nutrition: Heart healthy diet with soft bite sized food Code status: full code Consults: GI PT/OT: None Dispo: med/surg Admission and Anticipated Discharge Date Admission Date: April 25, 2024 Supervising Physician Co-Signing Physician Notes the patient was not seen by me. The chart was reviewed. Case discussed with VIRGINIA Boyd. Agree with assessment and plan. Subjective Attending: Dr. Liao This is a 73-year-old male that was admitted 04/25/2024 for dysphagia. He was seen by gastroenterology and an EGD was performed. There is no evidence of esophageal stricture. There was evidence of candidiasis in the oral cavity and in the esophagus. Patient was started on nystatin swish and swallow as well as Diflucan. Patient is feeling better today and was actually able to complete a full protein shake. He reports a 22 pound weight loss over the last 4 to 6 weeks. Patient advises that gastroenterology has suggested that he be evaluated at [facility] with esophageal manometry. This will be coordinated as an outpatient Patient reports he has had a severe headache all morning. He was given IV Tylenol with little effect. Analgesia will be ordered. Patient does report that he has history of migraine headaches and has taken Tylenol with codeine in the past. He denies fever, chills, shakes, sweats. No B type symptoms. No night sweats. No shortness of breath or chest pain. Review of Systems 2 Review of Systems: A total of 10 systems was reviewed and is negative other than as listed in the HPI Physical Exam 2 Physical Exam: GENERAL : No acute distress EYES: No icterus, gaze conjugate NOSE: No evidence of epistaxis MOUTH: No lesions or candidiasis NECK: Supple LUNGS: CTA B/L, no wheezes, rales or rhonchi HEART: Regular, rate controlled ABDOMEN: Soft, NT, ND, BS Present EXTREMITIES: No LE edema, pedal pulses intact NEURO: A&OX3 Results & Data Results & Data Vital Signs (Past 12 Hours) Vital Signs Temp Pulse Resp BP Pulse Ox O2 Del Method 04/26/24 15:29 36.8 C 64 18 146/84 H 94 Room Air 04/26/24 11:51 36.7 C 71 18 163/92 H 95 Room Air 04/26/24 08:00 Room Air 04/26/24 07:35 37.1 C 72 18 134/79 94 Room Air Laboratory Results 04/26/24 06:13 04/26/24 06:13 Diagnostic Findings Chest/Abdomen X-ray 04/25/24 09:07 CHEST AND ABDOMEN 2 VIEWS HISTORY: pain, dysphagia COMPARISON: Abdomen and pelvis CT 03/25/2024. Chest 02/28/2015. FINDINGS: The lungs are clear. The cardiomediastinal silhouette is within normal limits. There is no pneumoperitoneum or pneumatosis. The bowel gas pattern is unremarkable. No evidence for bowel obstruction. Prior cholecystectomy. No renal or ureteral calculi. Mild degenerative changes within the bilateral hips and lumbar spine. Suture material seen within the deep pelvis. IMPRESSION: No acute cardiopulmonary process. No evidence for bowel obstruction. ACT 112: Negative or not required by law. Electronically signed by: Jason Carmona M.D. 04/25/2024 11:10 AM L Head/Neck Ultrasound 04/25/24 13:44 Exam(s): US SOFT TISSUE EXAM: US Soft Tissues of the Neck CLINICAL HISTORY: Reason for exam: dysphagia, L sided neck pain. TECHNIQUE: Real-time ultrasound scan of the soft tissues of the neck with image documentation. COMPARISON: No relevant prior studies available. FINDINGS: No mass, adenopathy, or fluid collection within the left cervical soft tissues. IMPRESSION: No mass, adenopathy, or fluid collection within the left cervical soft tissues. Electronically signed by: Sudheer Griffith MD 04/25/24 23:55 PM PG Care Time/CCT Total # of Minutes Spent Total Time Spent with Patient: Total time spent is greater than 50% in coordination of care (as documented) at patient's floor/unit and/or counseling patient: 35 minutes over 2 visits Coding Level of Care Code 62312 SUB INP/OBS CARE 2/35MIN Medical Decision Making Low Complexity Diagnoses Esophageal dysphagia R13.10 Phelps esophagus K22.70 Abdominal pain R10.9 Abdominal location: unspecified location S/P cholecystectomy Z90.49 HTN (hypertension) I10 ANGEL (obstructive sleep apnea) G47.33 Headache R51 Time Spent (min) 35 (3) Abdominal pain Abdominal location: unspecified location Qualified Code(s): R10.9 - Unspecified abdominal pain
[2024-04-26] MEDS: ATORVASTATIN 20 MG TAB PO SCH (20:15)
[2024-04-26] MEDS: traMADol HCL 50 MG TABLET PO PRN (22:38)
--- NOTE | 2024-04-27 00:53 | Communication Note ---
Date of Service: April 27, 2024 Alerted by nursing that patient having significant headache with associated light sensitivity and dizziness. Vitals stable and orthostatic vitals negative. Does have a history of migraines, but its been some time since he's had one. Typically improves with Tylenol. Did have significant improvement with IV Tylenol, but this only lasted about 45 minutes. Has gotten 2g of Tylenol in the last 24 hours. Will order Fioricet 2 tabs now. If improvement can order that PRN. If no improvement could consider abortive therapy with a triptan or IV pain medication. Has antiemetics PRN. Patient was recently found to have esophageal candidiasis. May want to consider immunodeficiency testing/screening for risk factors for opportunist infections. Will continue to follow with patient care. Resident Activity Tracking Resident Involvement: Resident Care Provided Care Provided: Adult Hospital Medicine
[2024-04-27] MEDS: BUTALBITAL/ACETAMIN/CAFFEINE TAB PO STA (01:17)
[2024-04-27] MEDS: LEVOTHYROXINE SODIUM 100 MCG TABLET PO SCH (05:19)
[2024-04-27] MEDS: BUTALBITAL/ACETAMIN/CAFFEINE TAB PO PRN (05:19)
[2024-04-27] MEDS: FUROSEMIDE 40 MG TAB PO SCH (08:20)
[2024-04-27] MEDS: amLODIPine BESYLATE 5 MG TAB PO SCH (08:20)
[2024-04-27] MEDS ORDERED: FLUoxetine HCL 10 MG CAP PO SCH (09:00)
--- NOTE | 2024-04-27 15:03 | Hospitalist Progress Note ---
Date of Service April 27, 2024 Assessment & Plan (1) Dysphagia: Plan: -Barium swallow study in 2023 showed no esophageal mass or stricture is identified. Did show moderate esophageal dysmotility. -History of Phelps's esophagus -progressive dysphagia and L sided neck pain. -GI consulted in the ED. Admit to medicine. EGD performed and shows no esophageal stricture. There is evidence of candidiasis. Patient started on nystatin swish and swallow as well as Diflucan -Continue pantoprazole 40 mg twice daily per gastroenterology -Recommendation for outpatient esophageal manometry at [facility] -Will start to reintroduce home meds as patient is currently tolerating full liquids -Nutrition consulted and patient seen by dietitian. Appreciate recommendations. Advance diet to no more than a soft diet with small bites as tolerated -Soft tissue US with no acute findings. -Discontinue IV fluids -Appreciate GI recommendations. Patient will need outpatient follow-up on discharge (2) Weakness: Plan: Anticipated discharge home today but patient had significant weakness when walking the halls Vital signs stable No neurological deficits Most likely multifactorial to poor oral intake, bedrest, and deconditioning Electrolytes balanced PT evals ordered - await recommendation Encourage ongoing activity as tolerated with assistance (per nursing protocol) (3) Phelps esophagus: Plan: -as above. (4) Abdominal pain: Plan: -as above. (5) S/P cholecystectomy: Plan: - noted (6) HTN (hypertension): Plan: - Stable. Resume home medications as tolerated (7) ANGEL (obstructive sleep apnea): Plan: -CPAP qhs (8) Headache: Plan: -Patient reports history of migraines which he is treated in the past with Tylenol with codeine -IV Tylenol ordered today -Will also resume patient's tramadol/acetaminophen -Restart patient's Prozac -Fioricet as needed Plan Fluids: LR Nutrition: Heart healthy diet with soft bite sized food Code status: full code Consults: GI PT/OT: None Dispo: med/surg Admission and Anticipated Discharge Date Admission Date: April 25, 2024 Supervising Physician Co-Signing Physician Notes The patient was not seen by me. The chart was reviewed. Case discussed with VIRGINIA Boyd. Agree with assessment and plan Subjective Attending: Dr. Liao This is a 73-year-old male that was admitted 04/25/2024 for dysphagia. He was seen by gastroenterology and an EGD was performed. There is no evidence of esophageal stricture. There was evidence of candidiasis in the oral cavity and in the esophagus. Patient was started on nystatin swish and swallow as well as Diflucan. He reports a 22 pound weight loss over the last 4 to 6 weeks. Patient advises that gastroenterology has suggested that he be evaluated at [facility] with esophageal manometry. This will be coordinated as an outpatient Patient reports he has had a severe headache all morning. He was given IV Tylenol with little effect. Patient was prescribed fiorecet with significant improvement. When ambulating, patient felt very weak and was only able to walk a short distance. He denies fever, chills, shakes, sweats. No B type symptoms. No night sweats. No shortness of breath or chest pain. Review of Systems 2 Review of Systems: A total of 10 systems was reviewed and is negative other than as listed in the HPI Physical Exam 2 Physical Exam: GENERAL : No acute distress EYES: No icterus, gaze conjugate NOSE: No evidence of epistaxis MOUTH: No lesions or candidiasis NECK: Supple LUNGS: CTA B/L, no wheezes, rales or rhonchi HEART: Regular, rate controlled ABDOMEN: Soft, NT, ND, BS Present EXTREMITIES: No LE edema, pedal pulses intact NEURO: A&OX3 Results & Data Results & Data Vital Signs (Past 12 Hours) Vital Signs Temp Pulse Resp BP Pulse Ox O2 Del Method 04/27/24 07:32 37.1 C 61 16 136/84 93 Room Air Laboratory Results 04/26/24 06:13 04/26/24 06:13 Diagnostic Findings Chest/Abdomen X-ray 04/25/24 09:07 CHEST AND ABDOMEN 2 VIEWS HISTORY: pain, dysphagia COMPARISON: Abdomen and pelvis CT 03/25/2024. Chest 02/28/2015. FINDINGS: The lungs are clear. The cardiomediastinal silhouette is within normal limits. There is no pneumoperitoneum or pneumatosis. The bowel gas pattern is unremarkable. No evidence for bowel obstruction. Prior cholecystectomy. No renal or ureteral calculi. Mild degenerative changes within the bilateral hips and lumbar spine. Suture material seen within the deep pelvis. IMPRESSION: No acute cardiopulmonary process. No evidence for bowel obstruction. ACT 112: Negative or not required by law. Electronically signed by: Jason Carmona M.D. 04/25/2024 11:10 AM L Head/Neck Ultrasound 04/25/24 13:44 Exam(s): US SOFT TISSUE EXAM: US Soft Tissues of the Neck CLINICAL HISTORY: Reason for exam: dysphagia, L sided neck pain. TECHNIQUE: Real-time ultrasound scan of the soft tissues of the neck with image documentation. COMPARISON: No relevant prior studies available. FINDINGS: No mass, adenopathy, or fluid collection within the left cervical soft tissues. IMPRESSION: No mass, adenopathy, or fluid collection within the left cervical soft tissues. Electronically signed by: Sudheer Griffith MD 04/25/24 23:55 PM PG Care Time/CCT Total # of Minutes Spent Total Time Spent with Patient: Total time spent is greater than 50% in coordination of care (as documented) at patient's floor/unit and/or counseling patient: 30 minutes Coding Level of Care Code 15234 SUB INP/OBS CARE 1/25MIN Diagnoses Esophageal dysphagia R13.10 Weakness R53.1 Phelps esophagus K22.70 Abdominal pain R10.9 Abdominal location: unspecified location S/P cholecystectomy Z90.49 HTN (hypertension) I10 ANGEL (obstructive sleep apnea) G47.33 Headache R51 Time Spent (min) 30 (4) Abdominal pain Abdominal location: unspecified location Qualified Code(s): R10.9 - Unspecified abdominal pain
[2024-04-28 07:37] LABS: Hematocrit (blood only) 41.1 % (42.0-52.0); Mean Corpuscular Hgb Conc 34.1 g/dL (32.0-36.0); Mean Corpuscular Volume 91.1 fL (80.0-100.0); Mean Platelet Volume 10.5 fL (9.4-12.4); Platelet Count 152 K/uL (130-400); RDW Standard Deviation 39.8 fL (36.4-46.3); Red Blood Count 4.51 M/uL (4.70-6.10); White Blood Count 6.73 K/ul (4.8-10.8)
[2024-04-28 07:54] LABS: BUN Creatinine Ratio 11.4 (10-20); Calcium 8.5 mg/dl (8.6-10.3); Creatinine Clr Calc Pharmacy 98.4 ml/min; Est GFR (African American) 101.8 ml/min; Est GFR (Non-African American) 87.8 ml/min; Magnesium 1.9 mg/dl (1.7-2.4); Potassium 3.6 mmol/L (3.5-5.1)
--- NOTE | 2024-04-28 08:46 | Hospitalist Progress Note ---
Date of Service April 28, 2024 Assessment & Plan (1) Dysphagia: Plan: -Barium swallow study in 2023 showed no esophageal mass or stricture is identified. Did show moderate esophageal dysmotility. -History of Phelps's esophagus -progressive dysphagia and L sided neck pain. -GI consulted in the ED. Admit to medicine. EGD performed and shows no esophageal stricture. There is evidence of candidiasis. Patient started on nystatin swish and swallow as well as Diflucan -Continue pantoprazole 40 mg twice daily per gastroenterology -Recommendation for outpatient esophageal manometry at [facility] -Will start to reintroduce home meds as patient is currently tolerating full liquids -Nutrition consulted and patient seen by dietitian. Appreciate recommendations. Advance diet to no more than a soft diet with small bites as tolerated -Soft tissue US with no acute findings. -Discontinue IV fluids -Appreciate GI recommendations. Patient will need outpatient follow-up on discharge 04/28 Continue PPI BID, full liquid diet. Nutrition consult/supplements. Diet to soft/bite size. Will need manometry w/ outpatient in follow up w/ [facility]. Navigator to assist to arrange. WBC wnl, hgb stable. Electrolyte stable/stable renal function. Mag 1.9 (2) Weakness: Plan: Anticipated discharge home today but patient had significant weakness when walking the halls Vital signs stable No neurological deficits Most likely multifactorial to poor oral intake, bedrest, and deconditioning Electrolytes balanced PT evals ordered - await recommendation Encourage ongoing activity as tolerated with assistance (per nursing protocol) (3) Phelps esophagus: Plan: -as above. (4) Abdominal pain: Plan: -as above. (5) S/P cholecystectomy: Plan: - noted (6) HTN (hypertension): Plan: - Stable. Resume home medications as tolerated (7) ANGEL (obstructive sleep apnea): Plan: -CPAP qhs (8) Headache: Plan: -Patient reports history of migraines which he is treated in the past with Tyl enol with codeine -IV Tylenol ordered today -Will also resume patient's tramadol/acetaminophen -Restart patient's Prozac -Fioricet as needed Plan Fluids: LR Nutrition: Heart healthy diet with soft bite sized food Code status: full code Consults: GI PT/OT: None Dispo: med/surg Admission and Anticipated Discharge Date Admission Date: April 25, 2024 Results & Data Results & Data Vital Signs (Past 12 Hours) Vital Signs Temp Pulse Resp BP Pulse Ox O2 Del Method 04/28/24 07:46 36.6 C 65 16 148/92 H 94 Room Air Laboratory Results 04/28/24 Range/Units 07:04 WBC 6.73 (4.8-10.8) K/ul RBC 4.51 L (4.70-6.10) M/uL Hgb 14.0 (14.0-18.0) g/dl Hct 41.1 L (42.0-52.0) % MCV 91.1 (80.0-100.0) fL MCH 31.0 (25.0-34.0) pg MCHC 34.1 (32.0-36.0) g/dL RDW Std Deviation 39.8 (36.4-46.3) fL RDW Coeff of Yolande 12.0 (11.5-14.5) % Plt Count 152 (130-400) K/uL MPV 10.5 (9.4-12.4) fL Sodium 141 (136-145) mmol/L Potassium 3.6 (3.5-5.1) mmol/L Chloride 107 (98-107) mmol/L Carbon Dioxide 30 (21-32) mmol/L Anion Gap 4 (3-11) BUN 9 (6-23) mg/dl Creatinine 0.79 (0.6-1.4) mg/dl Est Cr Clr Drug Dosing 98.4 ml/min Est GFR ( Amer) 101.8 ml/min Est GFR (Non-Af Amer) 87.8 ml/min BUN/Creatinine Ratio 11.4 (10-20) Glucose 106 H (70-99(Fasting)) mg/dl Calcium 8.5 L (8.6-10.3) mg/dl Magnesium 1.9 (1.7-2.4) mg/dl PG Care Time/CCT Total # of Minutes Spent Total Time Spent with Patient: Total time spent is greater than 50% in coordination of care (as documented) at patient's floor/unit and/or counseling patient: Coding Diagnoses Esophageal dysphagia R13.10 Weakness R53.1 Phelps esophagus K22.70 Abdominal pain R10.9 Abdominal location: unspecified location S/P cholecystectomy Z90.49 HTN (hypertension) I10 ANGEL (obstructive sleep apnea) G47.33 Headache R51 (4) Abdominal pain Abdominal location: unspecified location Qualified Code(s): R10.9 - Unspecified abdominal pain
[2024-04-28] MEDS ORDERED: hydrALAZINE HCL 20 MG/ML VIAL IV PRN (10:51)
[2024-04-28 11:24] VITALS: BP 140/82; PULSE 67; RESP 18; TEMP 98.2; O2SAT 95
--- NOTE | 2024-04-28 11:43 | Discharge Summary ---
<Statement entered by Emily Hale MD - 04/28/24 15:19> Reviewed pathology report which resulted this afternoon after dischargebiopsy of EG junction with moderate chronic active Phelps's, no carcinoma or dysplasia, PASF stain negative for fungal hyphae and spores. Midesophagus biopsy mild chronic active reflux esophagitis again fungal hyphae and spores were not seen on PASF stain. Discharge Summary Date of Service April 28, 2024 Principal Dx & Hospital Course #1 = Principal Diagnosis (1) Dysphagia: Barium swallow study in 2023 showed no esophageal mass or stricture is identified. Did show moderate esophageal dysmotility. History of Phelps's esophagus progressive dysphagia and L sided neck pain with weight loss GI consulted in the ED. Admit to medicine. EGD performed and shows no esophageal stricture. There is evidence of candidiasis. Patient started on nystatin swish and swallow as well as Diflucan Continued pantoprazole 40 mg twice daily per gastroenterology. Recommendation for outpatient esophageal manometry at [facility] Diet ordered liquid --> advanced to soft/easy to chew diet and tolerating. Soft tissue US without acute finding Nutritional supplements provided IVF discontinued and keeping up with oral intake 04/28 Continued PPI BID converted to PO BID and continued at discharge. Fluconazole IV --> 100mg PO at discharge and plan for total 10 days. Nutrition consult/supplements continued and to continue soft/bite size diet which he was able to tolerate. Director Of Home Health Services saw/education provided while inpatient WBC wnl, hgb stable. Electrolyte stable/stable renal function. Mag 1.9 Path from EGD pending Will need manometry w/ outpatient in follow up w/ [facility]. Navigator to assist to arrange -- messaged about discharge for today to assist in arranging (2) Weakness: Improving w/ improvement in PO intake. No neurological deficits. Electrolytes wnl. Suspect 2nd to bedrest/poor oral intake/deconditioning while inpatient. PT eval w/ recs for home, patient wanting cane and rx provided. Patient reports feeling stable/wanting to go home (3) Phelps esophagus: -as above, PPI/fluconazole continued at discharge (4) Abdominal pain: Improving w/ tx as above, tolerating advancement of diet without increased discomfort. (5) S/P cholecystectomy: - noted (6) HTN (hypertension): - Stable. Resumed home medications. BP 140/82 prior to dc (7) ANGEL (obstructive sleep apnea): -CPAP qhs (8) Headache: Patient reports history of migraines which he is treated in the past with Tylenol with codeine. Given tylenol IV and resumed Fioricet w/ improvement as well as prozac. No repeat migraine reported Plan discharged home with on PPI/fluconazole, soft/easy to chew diet w/ nutritional supplementations to be continued , outpatient manometry to be arranged with [facility] GI Notes For Next Care Provider ensure reading hospital GI follow up for outpatient manometry Medication Changes From Visit PPI changed to protonix BID Fluconazole 100mg PO daily (to complete total 10 days, 6 more days left of treatment) Admission HPI Per Admitting Provider Patient is a 73-year-old male with past medical hx of glaucoma, HTN, ANGEL, hypothyroidism, anxiety/depression, Phelps's esophagus and others below who presented through the hospital w/ progressively worsening dysphagia, inability to tolerate oral intake and weight loss. Patient has been having trouble with swallowing. He has been also having abdominal pain for the past month. He has been eating less and less over the past couple weeks. He states that he has not been having appetite. He is also been progressively decreasing the amount of food he has been able to eat. Over the last month he is lost approximately 10 pounds. Over the past week or so he started having trouble with eating solid foods. He is only able to eat some saltine crackers and some watermelon yesterday. This caused significant amount of pain in his throat and left side of his neck. Last night he was able to get some mashed potatoes down but started to have choking and throat pain. States that the throat pain is mostly on the left side of the neck. Denies any vomiting but has had significant nausea. Declines any fevers or chills. Does state that he is having significant cough at night. Admission Exam Per Admitting Provider Constitutional: well-appearing, no acute distress HEENT: NCAT, no conjunctival injection, Left side neck tenderness CV: regular rhythm, no murmur appreciated, extremities well-perfused, no LE chelita a Resp: CTABL, no wheezes/rales/rhonchi appreciated, no increased work of breathing GI: soft, nondistended, nontender, BS normoactive MSK: no gross deformities appreciated Skin: warm, dry, no rash appreciated Neuro: alert, oriented, no focal neurologic deficit appreciated Discharge Exam General: 73yo male sitting up in chair, NAD, wanting to go today HEENT; head atraumatic, normocephalic, mmm, trachea midline Resp: even/unlabored, no wheezing/crackles, on room air CV: RRR, no significant m/r/g, no pitting edema GI: +BS, soft/NT : no chiu MSK/Neuro: nonfocal, answering questions appropriately, not confused, strength equal bilaterally Psych: AOx3, cooperative with exam Discharge Plan Discharge Items Patient Disposition: Home - Self-Care Reason For Visit: DYSPHAGIA Discharge Diagnosis: Dysphagia, Esophagitis Goals: You have been hospitalized for an acute medical problem. During your stay at [facility], we have made an effort to correct the problem that brought you to the hospital while keeping you as comfortable as possible. Medications were used to bring your condition under control and your discharge instructions will include directions for any medications you should take after leaving the hospital. Please make sure you see your Primary Care Provider as part of your follow up plan. Activity: As commented below Non-emergency contact: Primary Care Provider and Food Service Coordinator Call non-emergency contact if: you have any medication questions, your symptoms worsen, your pain is not controlled and your pain is unusual for you Follow-up/Referrals: Solo Stock, [Primary Care Provider] - 05/07/24 11:00 am Diet: Regular Diet Texture: Easy to Chew Addtl Attending Provider Instructions: You have been hospitalized for dysphagia (inability to tolerate oral intake/swallowing difficulty) and weight loss. Gastroenterology was consulted and you underwent EGD which showed inflammation. Biopsy was taken and pending but you have been continued on protonix twice daily by mouth and should continue this at discharge. You were also given FLUCONAZOLE for possible fungal infection. You received 4 doses (once daily) while in the hospital and should continue ONCE DAILY for another 6 days for a total of 10 days per GI. You should continue boost supplementation three times daily/with meals and continue easy to chew diet. We are working to get you follow up with outpatient GI at [facility] for manometry (measuring pressures in the throat) and this will be done as an outpatient. Please follow up with primary care in the next 7-10 days after discharge. Please return to the ER with any fevers/chills, chest pain, shortness of breath, increased difficulty swallowing/keeping up with oral intake, or for any other symptoms concerning for you. It has been a pleasure being a part of the medical team providing for you while you have been in the hospital. Take care! Pending Studies at Discharge: Yes Studies:: EGD pathology Stand-Alone Forms: My [facility], Smoking Cessation Medications and DC Order Prescriptions: New pantoprazole 40 mg tablet,delayed release (DR/EC) 40 mg PO BID Qty: 60 1RF fluconazole 100 mg tablet 100 mg PO DAILY Qty: 6 0RF Continued levothyroxine 100 mcg tablet 100 mcg PO DAILYBB Qty: 90 1RF tramadol-acetaminophen 37.5-325 mg tablet 1 tab PO Q8H MDD 3 tabs/24hr PRN (Reason: Pain) Qty: 90 0RF dicyclomine 10 mg capsule 10 mg PO BID Qty: 60 2RF latanoprost 0.005 % drops 1 drp OPB HS Qty: 7.5 1RF Rx Instructions: 1 drop into each eye at night dorzolamide 2 % drops 1 drp OPB BID Qty: 30 1RF amlodipine 10 mg tablet 10 mg PO QAM Qty: 90 3RF ondansetron 8 mg tablet,disintegrating 8 mg PO Q8H PRN (Reason: nausea and vomiting) 90 Days Qty: 180 3RF famotidine 40 mg tablet 40 mg PO QPM Qty: 90 3RF brinzolamide 1 % drops,suspension 1 drp OPB BID fluoxetine 10 mg capsule 30 mg PO DAILY atorvastatin 40 mg tablet 20 mg PO HS clotrimazole-betamethasone 1-0.05 % cream 1 applic TOPICAL BID furosemide 40 mg tablet 40 mg PO QAM Discontinued omeprazole 40 mg capsule,delayed release(DR/EC) 40 mg PO BIDWMEAL 90 Days Qty: 180 3RF Rx Instructions: 40 mg orally Discharge Orders: Discharge Order (Routine); Ordered 04/28/24 Ordered By: Florencia Romero Admission Data Admit Date/Time: 04/25/24 16:38 Attending Provider: Emily Hale Admit Provider: Woo Barber Primary Care Provider: Solo Stock Other Providers: Jairo Sousa; Dipesh Guzman Other Interventions: Discharge Summary Assessment (RN) Last Done: 04/25/24 15:37 Hospital Stay Data Consultations 04/25/24 12:34 Consult Gastroenterology Routine 04/25/24 13:38 ED Decision to Admit Stat Procedures Performed Operation Date: 04/25/24 18:25 Actual Procedures p EGD Biopsy Cytology - Jairo Sousa MD Diagnostic Imagining Performed 04/25/24 13:44 US Neck [US soft tissue head and neck] Stat Discharge Instructions Given to Patient (Per Discharging Provider) You have been hospitalized for dysphagia (inability to tolerate oral intake/swallowing difficulty) and weight loss. Gastroenterology was consulted and you underwent EGD which showed inflammation. Biopsy was taken and pending but you have been continued on protonix twice daily by mouth and should continue this at discharge. You were also given FLUCONAZOLE for possible fungal infection. You received 4 doses (once daily) while in the hospital and should continue ONCE DAILY for another 6 days for a total of 10 days per GI. You should continue boost supplementation three times daily/with meals and continue easy to chew diet. We are working to get you follow up with outpatient GI at [facility] for manometry (measuring pressures in the throat) and this will be done as an outpatient. Please follow up with primary care in the next 7-10 days after discharge. Please return to the ER with any fevers/chills, chest pain, shortness of breath, increased difficulty swallowing/keeping up with oral intake, or for any other symptoms concerning for you. It has been a pleasure being a part of the medical team providing for you while you have been in the hospital. Take care! Total Time Total Time Spent Total Time Spent (In Minutes): 60 Coding Level of Care Code 09066 INP/OBS DISCH >30 MIN Diagnoses Esophageal dysphagia R13.10 Weakness R53.1 Phelps esophagus K22.70 Abdominal pain R10.9 Abdominal location: unspecified location S/P cholecystectomy Z90.49 HTN (hypertension) I10 ANGEL (obstructive sleep apnea) G47.33 Headache R51
== END 2024-04-28 13:41 | disposition home or self-care (01) | DRG 392 ==
LOC: ED 08:39 → 3W 14:10 → OR 14:10 → SUATTDRO 16:38 → INTOOBSV 16:38 → 3W 16:38

== ENCOUNTER 2024-06-25 12:11 | Inpatient (IN) ==
[2024-06-25] MEDS: OPTIRAY 320 125ml IV ONE (12:46)
[2024-06-25 12:47] LABS: iSTAT Creatinine 0.9 mg/dl (0.6-1.3); iSTAT Hemoglobin 15.6 g/dl (14.0-18.0); iSTAT Ionized Calcium 1.16 mmol/l (1.12-1.32); iSTAT Potassium 3.9 mmol/L (3.3-5.0)
[2024-06-25] MEDS: methylPREDNISolone 125 MG/2 ML VIAL IV ONE (12:56)
[2024-06-25] MEDS: diphenhydrAMINE 50 MG/ML VIAL IV ONE (12:56)
--- NOTE | 2024-06-25 13:14 | CT Scan Report ---
CT head/brain wo con CLINICAL HISTORY: 73 years-old Male with neuro deficit, acute stroke suspected. Acute shortness Nella ngton TECHNIQUE: Multiple axial CT images of the head were obtained without contrast. A dose lowering tech nique was utilized adhering to the principles of ALARA. COMPARISON: CTA head of same day FINDINGS: No acute intracranial hemorrhage, midline shift, intracranial mass, hydrocephalus, territorial ischem ia or abnormal extra-axial collection. The calvarium is intact. There is severe near complete opacification of the left maxillary sinus. Mo derate mucosal thickening of the ethmoid and frontal sinuses. Mastoid air cells are clear. Prior bila teral lens repair. Cerebrovascular calcifications are most pronounced in the distal right vertebral a rtery. IMPRESSION: No acute intracranial abnormality. ACT 112: Negative or not required by law. The above report was generated using voice recognition software. It may contain grammatical, syntax o r spelling errors. Electronically signed by: Trey Pearson M.D. 06/25/2024 1:13 PM
[2024-06-25 13:16] LABS: Basophils # (auto) 0.04 K/uL (0.00-0.20); Basophils % (auto) 0.6 %; Eosinophils # (auto) 0.17 K/uL (0.00-0.50); Eosinophils % (auto) 2.5 %; Hematocrit (blood only) 45.2 % (42.0-52.0); Hemoglobin 15.6 g/dl (14.0-18.0); Immature Granulocytes # (auto) 0.03 K/uL (0.01-0.20); Immature Granulocytes % (auto) 0.4 %; Lymphocytes # (auto) 1.89 K/uL (1.20-3.40); Lymphocytes % (auto) 27.8 %; Mean Corpuscular Hemoglobin 31.6 pg (25.0-34.0); Mean Corpuscular Hgb Conc 34.5 g/dL (32.0-36.0); Mean Corpuscular Volume 91.7 fL (80.0-100.0); Mean Platelet Volume 10.6 fL (9.4-12.4); Monocytes # (auto) 0.44 K/uL (0.11-0.59); Monocytes % (auto) 6.5 %; Neutrophils # (auto) 4.23 K/uL (1.40-6.50); Neutrophils % (auto) 62.2 %; Platelet Count 218 K/uL (130-400); RDW Coefficient of Variation 12.4 % (11.5-14.5); RDW Standard Deviation 41.6 fL (36.4-46.3); Red Blood Count 4.93 M/uL (4.70-6.10)
--- NOTE | 2024-06-25 13:21 | CT Scan Report ---
CT ANGIOGRAM OF THE BRAIN CLINICAL HISTORY: Neurological deficit. Stroke like symptoms. COMPARISON STUDY: Unenhanced CT of the brain performed concurrently on 06/25/2024. MR angiogram of t julián brain dated 05/21/2014. TECHNIQUE: Following the IV administration of 112 cc of Optiray 320, CT angiogram of the brain was pe rformed from the skull base to the vertex. Images are reviewed in the axial, sagittal, and coronal pl anes. 3-D MIPS images are created and assessed. IV contrast was administered without complication. A dose lowering technique was utilized adhering to the principles of ALARA. FINDINGS: Brain parenchyma: There is age-related change noting mild subcortical and periventricular microangiop athic disease. There is no evidence of hemorrhage, mass effect, or acute territorial ischemia noting angiographic phase technique. There is no evidence of enhancing mass lesion on the angiogram phase im ages. No extra-axial fluid collection is seen. Mujica-white matter differentiation is preserved. Ventricles, sulci, and cisterns: Normal in configuration. CT angiogram of the brain: There is atherosclerotic calcification of the cavernous carotid and verteb ral arteries. The internal carotid arteries are widely patent, as are the anterior and middle cerebra l arteries. 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 The vertebral arteries are otherwise patent at the skull bas e, the basilar artery is clear. The posterior cerebral arteries are patent. The right vertebral arter y is dominant. There is origin of the right posterior cerebral artery. A posterior communicatin g artery is seen on the left. No aneurysm is identified throughout the intracranial circulation. Dural sinuses: Clear as visualized. Orbits: The bony orbits are intact. The orbital contents are normal as visualized noting bilateral oc ular lens implant. Sinuses and mastoids: There is evidence of previous paranasal sinus surgery. There is subtotal opacif ication of the left maxillary antrum. Moderate mucosal thickening seen in the frontal and ethmoid sin uses. There is mild mucosal thickening in the left sphenoid sinus and the right maxillary antrum. The mastoid air cells are well pneumatized. Calvarium: Unremarkable. IMPRESSION: 1. There is no evidence of hemorrhage, mass effect, or acute territorial ischemia noting angiographic phase technique. 2. 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 This may be chronic. 3. Otherwise unremarkable CT angiogram of the brain. ACT 112: Negative or not required by law. Electronically signed by: Woo Espino M.D. 06/25/2024 1:20 PM
--- NOTE | 2024-06-25 13:22 | CT Scan Report ---
CT angio neck with con CLINICAL HISTORY: neuro deficit, acute stroke suspected TECHNIQUE: CT angiography of the neck was performed following intravenous administration of iodinated contrast. Coronal and sagittal MIPS were obtained from the axial data set and were submitted for rev iew. Automated dose lowering techniques and/or adjustment according to patient size were utilized fo r this examination. All measurements were calculated based on NASCET criteria. CT DOSE: 1295.6 mGy.cm Comparison: None available at the time of this dictation. FINDINGS: Lungs and soft tissues are unremarkable. CTA Neck: The left common carotid artery shares common origin with the innominate artery. There is n o significant atherosclerotic plaque in the aortic arch or the origins of the innominate, left common carotid, and left subclavian arteries. There is partial visualization of near occlusion of the righ t V4 segment of the vertebral artery. The vertebral arteries are codominant. IMPRESSION: 1. 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 Assessment of stenosis of the internal carotid arteries is based on NASCET criteria. ACT 112: Negative or not required by law. Electronically signed by: Kenneth Maldonado M.D. 06/25/2024 1:21 PM
[2024-06-25 13:30] LABS: Alanine Aminotransferase 18 U/L (7-52); Albumin Globulin Ratio 1.3 (0.9-2); Alkaline Phosphatase 115 U/L (34-104); Anion Gap 6 (3-11); Aspartate Aminotransferase 18 U/L (13-39); BUN Creatinine Ratio 9.5 (10-20); Bilirubin,Total 1.1 mg/dl (0.2-1.0); Blood Urea Nitrogen 8 mg/dl (6-23); Carbon Dioxide 30 mmol/L (21-32); Chloride 106 mmol/L (98-107); Globulin 3.2 gm/dl (2.5-4.0); Glucose 92 mg/dl (70-99(Fasting)); Magnesium 1.9 mg/dl (1.7-2.4); Sodium 142 mmol/L (136-145); Total Protein 7.2 gm/dl (6.0-8.3)
[2024-06-25 13:36] LABS: Troponin I High Sensitivity 3.8 pg/ml (0-20)
--- NOTE | 2024-06-25 14:10 | Emergency Department Note ---
Impression & Plan Left arm weakness, Headache, Stroke-like symptoms ED Provider Note NAME: CASEY BATEMAN AGE: 73 SEX: M : 1950 ARRIVES VIA: Walk-In INFORMANT: Patient, ED PROVIDER(S): Teresa Angeles MD CHIEF COMPLAINT: Stroke alert HPI: This is a 73-year-old male present for a stroke alert. Patient reportedly was last normal at 930 last night. This when he went to bed. This when he woke up feeling jittery and weak specifically on his left side. He notes quivering to his mouth and tongue which is new for him. He notes no recent changes to medication. He does not take blood thinners. Which his primary care doctor was sent in here for further workup. ROS: See above HPI for pertinent positives & negatives. A total of 10 systems reviewed and were otherwise negative. PAST MEDICAL HISTORY: See Below PAST SURGICAL HISTORY: See Below FAMILY HISTORY: See Below SOCIAL HISTORY: See Below HOME MEDICATIONS: See Below ALLERGIES: See Below VITALS: See Below PHYSICAL EXAMINATION: General: resting comfortably in no acute distress Head: Normocephalic and atraumatic Eyes: Normal inspection, extraocular muscles intact Ear, nose, throat: Normal external exam Neck: Normal range of motion Respiratory: lungs clear to auscultation bilaterally Cardiovascular: Regular rate/rhythm, no murmur GI: soft, nontender, no guarding or rebound Extremities: nontender, moves all extremities Neuro: The patient awake and alert, appropriately conversive, no focal deficits, symmetric faces, NIH 0 Skin: Warm, dry, and intact MEDICAL DECISION MAKING: This is a 73-year-old male presenting for stroke alert patient has no current neurologic deficits on my exam. He is somewhat tremulous when his mouth and tongue but no actual weakness, facial asymmetry or cranial nerve abnormalities. He is alert and oriented otherwise. Will order stroke CT imaging. He does note slight headache at this time as well as light sensitivity. -Bloodwork is reviewed showing no significant leukocytosis, anemia, electrolyte or creatinine abnormality -CTA of the head, neck and CT head reveals a right vertebral artery occlusion, near complete, possibly chronic. -Discussed Dr. Soto, stroke neurologist to evaluate the patient but otherwise would recommend typical stroke workup with anticoagulation, statin. -I did call him back after CTs were resulted about the right vertebral artery occlusion he states that this did not warrant TNKase/thrombectomy. -Discussed care with Dr. Mustafa with patient's current history. Discussed for admission. Differential diagnosis: Stroke, TIA, complex migraine ER treatment provided: See below Independent History obtained from: Diagnostics interpreted by me: ECG: ECG independently interpreted by me with normal sinus rhythm, rate of 62, normal axis, normal NC, normal QRS, normal QTc, no ST segment elevations consistent with STEMI criteria Cardiac Monitoring: An order was placed for continuous cardiac monitoring. The monitor shows a rate of 70 with sinus rhythm. Laboratory studies: As stated above and show below. Imaging studies: See below. Critical Care Note: I have personally spent 35 minutes of critical care time in the direct management of this patient. This includes bedside care, interpretation of diagnostic studies, and testing, discussion with consultants, patient, and family members, and other required patient management activities. This 35 minutes is in excess of all separately billable procedures. Past Med/Surg History Problem List (Updated 06/25/24 @ 19:39 by Teresa Angeles MD) Stroke-like symptoms (Acute) Headache (Acute) Left arm weakness (Acute) Stroke-like symptoms Abdominal pain (Acute) Dysphagia (Acute) Postprandial nausea Lumbar facet joint syndrome Chronic low back pain ANGEL (obstructive sleep apnea) Anxiety and depression Carotid artery stenosis Phelps esophagus (Acute) Lumbar spondylosis Osteopenia Hiatal hernia with gastroesophageal reflux disease (02/09/11) HTN (hypertension) S/P cholecystectomy H/O colectomy Diverticulitis Rectal bleed (Acute) Abdominal pain (Acute) Glaucoma (Chronic) Numbness of face (Acute 04/24/14) Headache (Acute) Left shoulder pain (Acute) Stomach problems (Acute) Bronchospasm (Acute) Epigastric abdominal pain (Acute) SOBOE (shortness of breath on exertion) (Acute) Shortness of breath (Acute) Medical History Bowel obstruction Surgical History S/P hernia surgery S/P sinus surgery Family History Sister Breast cancer Cancer of spine Cancer Brother Colorectal cancer Father COPD (chronic obstructive pulmonary disease) Denies family history of Ovarian cancer Prostate cancer Myocardial infarction Social History (Updated 02/14/24 @ 11:08 by Seda Chandler LPN) Smoking Status: Never smoker Second Hand Exposure: Yes (Prior years, not currently.); Do You Dip or Chew Tobacco: No; Hx Alcohol Use: No Hx Substance Use: No Preferred Language: Arabic Communication Ability: Effective Visual Impairment: Limited Hearing Ability: Normal Pre Certification Specialist Required: No Beliefs That Will Affect Care: None marital status: Current Living Situation: Spouse Current Living Situation Comment: worked at [employer] current occupational status: retired Feels Safe at Home: Yes Childhood Exposure to Second-Hand Smoke: Yes Diet: regular caffeine: Yes Dental Care, Regularly: Yes Physical Activity Frequency: Daily Seatbelt Use: always Sunscreen Use: No Assistive Devices: None Allergies Allergies Allergy/AdvReac Type Severity Reaction Status Date / Time cefazolin Allergy Severe CP/FELT Verified 05/07/24 09:11 LIKE THROAT CLOSING Gadolinium-Containing Allergy Severe SHORTNESS Verified 05/07/24 09:11 Contrast Medi OF BREATH aspirin Allergy Unknown PATIENT Verified 05/07/24 09:11 TOLD NOT TO TAKE BY BRUSH CUTTER Iodinated Contrast Media Allergy Unknown Unknown Rxn Verified 05/07/24 09:11 Penicillins Allergy Unknown PT HAS Verified 05/07/24 09:11 TOLERATED MEFOXIN IN PAST shellfish derived Allergy Unknown Unknown Verified 05/07/24 09:11 Home Meds Home Medications Medication Instructions Recorded Confirmed brinzolamide 1 % eye 1 drp OPB BID 04/25/24 06/25/24 drops,suspension fluoxetine 10 mg capsule 30 mg PO DAILY 04/25/24 06/25/24 metoclopramide HCl 5 mg tablet 5 mg PO HS 06/25/24 06/25/24 mirtazapine 7.5 mg tablet 7.5 mg PO DAILY 06/25/24 06/25/24 ondansetron 4 mg disintegrating 4 mg PO DIRECTED PRN n/v 06/25/24 06/25/24 tablet tramadol 50 mg tablet 50 mg PO BID 06/25/24 06/25/24 Previous Rx's Medication Instructions Recorded famotidine 40 mg tablet 40 mg PO QPM #90 tabs 01/16/24 ondansetron 8 mg disintegrating 8 mg PO Q8H PRN nausea and 01/16/24 tablet vomiting 90 days #180 tabs levothyroxine 100 mcg tablet 100 mcg PO DAILYBB #90 tabs 02/21/24 dicyclomine 10 mg capsule 10 mg PO BID #60 caps 04/10/24 dorzolamide 2 % eye drops 1 drp OPB BID #30 mL 04/16/24 latanoprost 0.005 % eye drops 1 drp OPB HS #7.5 mL 04/16/24 pantoprazole 40 mg tablet,delayed 40 mg PO BID #60 tabs 04/28/24 release atorvastatin 40 mg tablet 20 mg (1/2 x 40 mg) PO HS #90 tabs 05/07/24 Results & Data (ED) Vital Signs Vital Signs - 24 hr 06/25/24 12:14 06/25/24 12:30 06/25/24 12:39 Temperature 36.5 C Temperature Source Temporal Artery Scan Pulse Rate 65 59 L Pulse Rate [Right Finger] Respiratory Rate 18 16 Respiratory Effort / Characteristics Non-Labored Spontaneous Respiratory Depth Normal Blood Pressure 208/110 H 182/103 H Blood Pressure [Right Arm] Blood Pressure Mean 142 152 Blood Pressure Mean [Right Arm] Blood Pressure Position Sitting Blood Pressure Position [Right Arm] Pulse Oximetry 98 Oxygen Delivery Method Room Air Sepsis Recent Fever Within 48 Hours No Sepsis New/Unexplained Change in Mental Status No Sepsis Action Taken by Nursing No Action Required 06/25/24 12:42 06/25/24 12:54 06/25/24 13:00 Temperature Temperature Source Pulse Rate 57 L Pulse Rate [Right Finger] Respiratory Rate 16 Respiratory Effort / Characteristics Respiratory Depth Blood Pressure 181/97 H 155/92 H Blood Pressure [Right Arm] Blood Pressure Mean 139 108 Blood Pressure Mean [Right Arm] Blood Pressure Position Blood Pressure Position [Right Arm] Pulse Oximetry Oxygen Delivery Method Sepsis Recent Fever Within 48 Hours Sepsis New/Unexplained Change in Mental Status Sepsis Action Taken by Nursing 06/25/24 13:06 06/25/24 13:18 06/25/24 13:30 Temperature Temperature Source Pulse Rate 60 70 63 Pulse Rate [Right Finger] Respiratory Rate 19 16 15 Respiratory Effort / Characteristics Respiratory Depth Blood Pressure Blood Pressure [Right Arm] Blood Pressure Mean Blood Pressure Mean [Right Arm] Blood Pressure Position Blood Pressure Position [Right Arm] Pulse Oximetry Oxygen Delivery Method Sepsis Recent Fever Within 48 Hours Sepsis New/Unexplained Change in Mental Status Sepsis Action Taken by Nursing 06/25/24 13:31 06/25/24 13:32 06/25/24 14:17 Temperature Temperature Source Pulse Rate 68 Pulse Rate [Right Finger] Respiratory Rate Respiratory Effort / Characteristics Respiratory Depth Blood Pressure 179/110 H Blood Pressure [Right Arm] Blood Pressure Mean 144 Blood Pressure Mean [Right Arm] Blood Pressure Position Blood Pressure Position [Right Arm] Pulse Oximetry 98 Oxygen Delivery Method Room Air Sepsis Recent Fever Within 48 Hours Sepsis New/Unexplained Change in Mental Status Sepsis Action Taken by Nursing 06/25/24 14:17 06/25/24 16:00 06/25/24 19:00 Temperature Temperature Source Pulse Rate Pulse Rate [Right Finger] 66 68 85 Respiratory Rate 20 18 18 Respiratory Effort / Characteristics Non-Labored Non-Labored Spontaneous Non-Labored Spontaneous Respiratory Depth Normal Blood Pressure Blood Pressure [Right Arm] 144/98 H 177/90 H 158/91 H Blood Pressure Mean Blood Pressure Mean [Right Arm] 113 119 113 Blood Pressure Position Blood Pressure Position [Right Arm] Lying Lying Pulse Oximetry 97 94 95 Oxygen Delivery Method Room Air Room Air Room Air Sepsis Recent Fever Within 48 Hours Sepsis New/Unexplained Change in Mental Status Sepsis Action Taken by Nursing Laboratory Data 06/25/24 12:28 06/25/24 12:28 Lab Results 06/25/24 06/25/24 06/25/24 Range/Units 12:28 12:34 12:39 WBC 6.80 (4.8-10.8) K/ul RBC 4.93 (4.70-6.10) M/uL Hgb 15.6 (14.0-18.0) g/dl POC Hgb 15.6 (14.0-18.0) g/dl Hct 45.2 (42.0-52.0) % POC Hct 46 (42-52) % MCV 91.7 (80.0-100.0) fL MCH 31.6 (25.0-34.0) pg MCHC 34.5 (32.0-36.0) g/dL RDW Std Deviation 41.6 (36.4-46.3) fL RDW Coeff of Yolande 12.4 (11.5-14.5) % Plt Count 218 (130-400) K/uL MPV 10.6 (9.4-12.4) fL Immature Gran % (Auto) 0.4 % Neut % (Auto) 62.2 % Lymph % (Auto) 27.8 % [place] % (Auto) 6.5 % Eos % (Auto) 2.5 % Baso % (Auto) 0.6 % Neut # (Auto) 4.23 (1.40-6.50) K/uL Lymph # (Auto) 1.89 (1.20-3.40) K/uL [place] # (Auto) 0.44 (0.11-0.59) K/uL Eos # (Auto) 0.17 (0.00-0.50) K/uL Baso # (Auto) 0.04 (0.00-0.20) K/uL Immature Gran # (Auto) 0.03 (0.01-0.20) K/uL PT Cancelled INR Cancelled APTT Cancelled PTT Ratio Cancelled POC Sodium 143 (135-144) mmol/L Sodium 142 (136-145) mmol/L POC Potassium 3.9 (3.3-5.0) mmol/L Potassium 4.0 (3.5-5.1) mmol/L POC Chloride 103 (101-112) mmol/L Chloride 106 (98-107) mmol/L Carbon Dioxide 30 (21-32) mmol/L POC Total CO2 26 (24-31) mmol/L Anion Gap 6 (3-11) POC Anion Gap 19.0 (16-25) mmol/L POC BUN 7 (7-18) mg/dl BUN 8 (6-23) mg/dl Creatinine 0.84 (0.6-1.4) mg/dl POC Creatinine 0.9 (0.6-1.3) mg/dl Est Cr Clr Drug Dosing Not Reportable eGFR 90.94 BUN/Creatinine Ratio 9.5 L (10-20) Glucose 92 (70-99(Fasting)) mg/dl POC Glucose 85 (70-99) mg/dl POC Glucose (other) 93 (70-99) mg/dl Calcium 9.0 (8.6-10.3) mg/dl POC Ioniz Calcium Mary 1.16 (1.12-1.32) mmol/l Magnesium 1.9 (1.7-2.4) mg/dl Total Bilirubin 1.1 H (0.2-1.0) mg/dl AST 18 (13-39) U/L ALT 18 (7-52) U/L Alkaline Phosphatase 115 H (34-104) U/L Troponin I High Sens 3.8 (0-20) pg/ml Total Protein 7.2 (6.0-8.3) gm/dl Albumin 4.0 (3.4-5.0) gm/dl Globulin 3.2 (2.5-4.0) gm/dl Albumin/Globulin Ratio 1.3 (0.9-2) Blood Type O Positive Antibody Screen NEGATIVE 06/25/24 Range/Units 14:07 WBC (4.8-10.8) K/ul RBC (4.70-6.10) M/uL Hgb (14.0-18.0) g/dl POC Hgb (14.0-18.0) g/dl Hct (42.0-52.0) % POC Hct (42-52) % MCV (80.0-100.0) fL MCH (25.0-34.0) pg MCHC (32.0-36.0) g/dL RDW Std Deviation (36.4-46.3) fL RDW Coeff of Yolande (11.5-14.5) % Plt Count (130-400) K/uL MPV (9.4-12.4) fL Immature Gran % (Auto) % Neut % (Auto) % Lymph % (Auto) % [place] % (Auto) % Eos % (Auto) % Baso % (Auto) % Neut # (Auto) (1.40-6.50) K/uL Lymph # (Auto) (1.20-3.40) K/uL [place] # (Auto) (0.11-0.59) K/uL Eos # (Auto) (0.00-0.50) K/uL Baso # (Auto) (0.00-0.20) K/uL Immature Gran # (Auto) (0.01-0.20) K/uL PT 10.9 INR 1.0 APTT 27 PTT Ratio 1.0 POC Sodium (135-144) mmol/L Sodium (136-145) mmol/L POC Potassium (3.3-5.0) mmol/L Potassium (3.5-5.1) mmol/L POC Chloride (101-112) mmol/L Chloride (98-107) mmol/L Carbon Dioxide (21-32) mmol/L POC Total CO2 (24-31) mmol/L Anion Gap (3-11) POC Anion Gap (16-25) mmol/L POC BUN (7-18) mg/dl BUN (6-23) mg/dl Creatinine (0.6-1.4) mg/dl POC Creatinine (0.6-1.3) mg/dl Est Cr Clr Drug Dosing eGFR BUN/Creatinine Ratio (10-20) Glucose (70-99(Fasting)) mg/dl POC Glucose (70-99) mg/dl POC Glucose (other) (70-99) mg/dl Calcium (8.6-10.3) mg/dl POC Ioniz Calcium Mary (1.12-1.32) mmol/l Magnesium (1.7-2.4) mg/dl Total Bilirubin (0.2-1.0) mg/dl AST (13-39) U/L ALT (7-52) U/L Alkaline Phosphatase (34-104) U/L Troponin I High Sens (0-20) pg/ml Total Protein (6.0-8.3) gm/dl Albumin (3.4-5.0) gm/dl Globulin (2.5-4.0) gm/dl Albumin/Globulin Ratio (0.9-2) Blood Type Antibody Screen Administered Medications Discontinued Medications Diphenhydramine HCl (Diphenhydramine 50 Mg/Ml Vial) 50 mg IV ONE ONE Stop: 06/25/24 12:28 Last Admin: 06/25/24 12:56 Dose: Not Given Documented By: DOM Diphenhydramine HCl (Diphenhydramine 50 Mg/Ml Vial) 12.5 mg IV NOW STA Stop: 06/25/24 18:15 Last Admin: 06/25/24 18:59 Dose: 12.5 mg Documented By: JUS Acetaminophen (Ofirmev) 1,000 mg in 100 mls @ 400 mls/hr IV NOW STA Stop: 06/25/24 16:11 Last Infusion: 06/25/24 17:10 Dose: Infused Documented By: Admin: 06/25/24 16:03 Dose: 400 mls/hr Documented By: JUS Prochlorperazine 10 mg/ (Syringe) 10 mls @ 5 mls/min IV ONE ONE Stop: 06/25/24 18:15 Last Admin: 06/25/24 19:06 Dose: 5 mls/min Documented By: JUS Ioversol (Optiray 320 125ml) 112 ml IV ONCE ONE Stop: 06/25/24 12:47 Last Admin: 06/25/24 12:46 Dose: 112 ml Documented By: SARITA Ketorolac Tromethamine (Ketorolac Tromethamine 15 Mg/Ml Vial) 10 mg IV NOW ONE Stop: 06/25/24 16:35 Last Admin: 06/25/24 17:58 Dose: 10 mg Documented By: JUS Lorazepam (Lorazepam 2 Mg/1 Ml Vial) 0.5 mg IV NOW STA Stop: 06/25/24 17:43 Last Admin: 06/25/24 18:00 Dose: 0.5 mg Documented By: JUS Methylprednisolone (Methylprednisolone 125 Mg/2 Ml Vial) 40 mg IV NOW ONE Stop: 06/25/24 12:28 Last Admin: 06/25/24 12:56 Dose: Not Given Documented By: DOM Imaging Data Radiologist's Impression: Head CT 06/25/24 12:26 CT head/brain wo con CLINICAL HISTORY: 73 years-old Male with neuro deficit, acute stroke suspected. Acute shortness Loving TECHNIQUE: Multiple axial CT images of the head were obtained without contrast. A dose lowering technique was utilized adhering to the principles of ALARA. COMPARISON: CTA head of same day FINDINGS: No acute intracranial hemorrhage, midline shift, intracranial mass, hydrocephalus, territorial ischemia or abnormal extra-axial collection. The calvarium is intact. There is severe near complete opacification of the left maxillary sinus. Moderate mucosal thickening of the ethmoid and frontal sinuses. Mastoid air cells are clear. Prior bilateral lens repair. Cerebrovascular calcifications are most pronounced in the distal right vertebral artery. IMPRESSION: No acute intracranial abnormality. ACT 112: Negative or not required by law. The above report was generated using voice recognition software. It may contain grammatical, syntax or spelling errors. Electronically signed by: Trey Pearson M.D. 06/25/2024 1:13 PM Head CTA 06/25/24 12:26 CT ANGIOGRAM OF THE BRAIN CLINICAL HISTORY: Neurological deficit. Stroke like symptoms. COMPARISON STUDY: Unenhanced CT of the brain performed concurrently on 06/25/2024. MR angiogram of the brain dated 05/21/2014. TECHNIQUE: Following the IV administration of 112 cc of Optiray 320, CT angiogram of the brain was performed from the skull base to the vertex. Images are reviewed in the axial, sagittal, and coronal planes. 3-D MIPS images are created and assessed. IV contrast was administered without complication. A dose lowering technique was utilized adhering to the principles of ALARA. FINDINGS: Brain parenchyma: There is age-related change noting mild subcortical and periventricular microangiopathic disease. There is no evidence of hemorrhage, mass effect, or acute territorial ischemia noting angiographic phase technique. There is no evidence of enhancing mass lesion on the angiogram phase images. No extra-axial fluid collection is seen. [place]-white matter differentiation is preserved. Ventricles, sulci, and cisterns: Normal in configuration. CT angiogram of the brain: There is atherosclerotic calcification of the cavernous carotid and vertebral arteries. The internal carotid arteries are widely patent, as are the anterior and middle cerebral arteries. There is near- complete to complete focal occlusion of the right vertebral artery at the skull base, best seen on axial image #36. The vertebral arteries are otherwise patent at the skull base, the basilar artery is clear. The posterior cerebral arteries are patent. The right vertebral artery is dominant. There is origin of the right posterior cerebral artery. A posterior communicating artery is seen on the left. No aneurysm is identified throughout the intracranial circulation. Dural sinuses: Clear as visualized. Orbits: The bony orbits are intact. The orbital contents are normal as visualized noting bilateral ocular lens implant. Sinuses and mastoids: There is evidence of previous paranasal sinus surgery. There is subtotal opacification of the left maxillary antrum. Moderate mucosal thickening seen in the frontal and ethmoid sinuses. There is mild mucosal thickening in the left sphenoid sinus and the right maxillary antrum. The mastoid air cells are well pneumatized. Calvarium: Unremarkable. IMPRESSION: 1. There is no evidence of hemorrhage, mass effect, or acute territorial ischemia noting angiographic phase technique. 2. There is age indeterminant near-complete to complete focal thrombosis of the right vertebral artery at the skull base. This may be chronic. 3. Otherwise unremarkable CT angiogram of the brain. ACT 112: Negative or not required by law. Electronically signed by: Woo Espino M.D. 06/25/2024 1:20 PM Neck CTA 06/25/24 12:26 CT angio neck with con CLINICAL HISTORY: neuro deficit, acute stroke suspected TECHNIQUE: CT angiography of the neck was performed following intravenous administration of iodinated contrast. Coronal and sagittal MIPS were obtained from the axial data set and were submitted for review. Automated dose lowering techniques and/or adjustment according to patient size were utilized for this examination. All measurements were calculated based on NASCET criteria. CT DOSE: 1295.6 mGy.cm Comparison: None available at the time of this dictation. FINDINGS: Lungs and soft tissues are unremarkable. CTA Neck: The left common carotid artery shares common origin with the innominate artery. There is no significant atherosclerotic plaque in the aortic arch or the origins of the innominate, left common carotid, and left subclavian arteries. There is partial visualization of near occlusion of the right V4 segment of the vertebral artery. The vertebral arteries are codominant. IMPRESSION: 1. 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 Assessment of stenosis of the internal carotid arteries is based on NASCET criteria. ACT 112: Negative or not required by law. Electronically signed by: Kenneth Maldonado M.D. 06/25/2024 1:21 PM Brain MRI 06/25/24 16:03 MR brain wo con CLINICAL HISTORY: Left sided facial pain/sensation deficits TECHNIQUE: Multiplanar and multisequence MR images of the brain were obtained without intravenous contrast. Comparison: Comparison is made to CTA head and neck 06/25/2024 and MRI brain 05/21/2014 FINDINGS: No abnormal restricted diffusion is identified. Foci of T2 and FLAIR hyperintensity are noted in the paraventricular areas consistent with chronic small vessel ischemic disease. The ventricular system is normal in appearance. No mass is seen. There is no mass effect or midline shift. There is no evidence of acute intraparenchymal hemorrhage. No extra axial fluid collections are seen. The corpus callosum, pituitary gland, and cerebellar tonsils appear grossly unremarkable. Flow voids of the major intracranial arterial vessels are identified. Sinus mucosal thickening is seen most prominent in the left maxillary sinus. Ethmoid air cell opacification is also seen. IMPRESSION: No acute abnormality and in particular no evidence of acute infarct. ACT 112: Negative or not required by law. Electronically signed by: Kenneth Maldonado M.D. 06/25/2024 7:17 PM Discharge Plan Visit Data Chief Complaint: Confusion Stated Complaint: CONFUSED, NECK PAIN, TAKING A MED ED Provider: Teresa Angeles Discharge Problem: Left arm weakness, Headache, Stroke-like symptoms Forms Stand Alone Forms: [facility] [email or web address] Prescriptions Prescriptions: No Action levothyroxine 100 mcg tablet 100 mcg PO DAILYBB Qty: 90 1RF dicyclomine 10 mg capsule 10 mg PO BID Qty: 60 2RF latanoprost 0.005 % drops 1 drp OPB HS Qty: 7.5 1RF Rx Instructions: 1 drop into each eye at night dorzolamide 2 % drops 1 drp OPB BID Qty: 30 1RF atorvastatin 40 mg tablet 20 mg PO HS Qty: 90 3RF ondansetron 8 mg tablet,disintegrating 8 mg PO Q8H PRN (Reason: nausea and vomiting) 90 Days Qty: 180 3RF famotidine 40 mg tablet 40 mg PO QPM Qty: 90 3RF brinzolamide 1 % drops,suspension 1 drp OPB BID fluoxetine 10 mg capsule 30 mg PO DAILY pantoprazole 40 mg tablet,delayed release (DR/EC) 40 mg PO BID Qty: 60 1RF metoclopramide HCl 5 mg tablet 5 mg PO HS Rx Instructions: per pt he takes 5 mg po hs fill history has 30 for 20 day supply ondansetron 4 mg tablet,disintegrating 4 mg PO DIRECTED PRN (Reason: n/v) mirtazapine 7.5 mg tablet 7.5 mg PO DAILY Rx Instructions: 1 hour before each meal per pt fill history shows 30 for 30 day supply tramadol 50 mg tablet 50 mg PO BID Referrals Referrals: Gail Walsh M.D. [Primary Care Provider] -
[2024-06-25 14:56] LABS: Partial Thromboplastin Time 27 Seconds (21-31); Prothrombin Time 10.9 Seconds (9.0-12.0)
--- NOTE | 2024-06-25 15:19 | History & Physical Report ---
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 CBC, BMP, fasting lipid panel, A1c (2) Headache: Plan: History of complex migraine While stroke is still in the differential, significant left-sided headache is more in line with complex migraine Will trial Toradol, Compazine, and Benadryl in the ED Fioricet p.o. as needed (once patient passes dysphagia screen) DDx at this time also includes viral meningitis in the setting of recent severe COVID infection (which patient was diagnosed with 2 weeks ago) Will hold off on ASA/Plavix in the event LP is needed (MRI pending) Please see Dr. Mustafa's attestation for any changes to treatment plan overnight (3) Postprandial nausea: Plan: Continue Reglan (4) Dysphagia: Plan: Aspiration precautions once cleared for p.o. intake Plan Disposition: Obs - Admit to PCU telemetry Full code N.p.o. pending dysphagia screen VTE PPx: SCDs History of Present Illness Chief Complaint: Confusion Primary Care Provider: Gail Zamarripa is a pleasant 73-year-old male with PMH of glaucoma, rectal bleed, diverticulitis, HTN, GERD, anxiety, depression, ANGEL, and chronic low back pain. He presented on 06/25 after waking up with left-sided body weakness, sensation deficits, neck pain, confusion, and left-sided headache. Patient reports that he felt fine when he went to bed at 0930 last night. He then woke up around 0230 to let his dog out, and noted that he was stumbling and felt like the left side of his body was much weaker. He almost fell several times. He then went back to bed, and when he woke up around 0600 he had a pounding headache and left-sided facial numbness. He reports that he could not concentrate and that everything was blurry in both eyes. He was also feeling very confused. He lives with his , who noted that he was having some slurred speech and could not lift his eyebrows up. No facial droop appreciated at that time. Patient does have a history of a TIA 15 years ago, but denies history of stroke. He was recently hospitalized at [facility] for abdominal issues and dysphagia; discharged either last Sunday or ; was scheduled for a transitional care appointment with his PCP today. When he went into his PCPs office today, they sent him in the ED due to his symptoms. Patient took his regular morning medicine today. Only recent changes in medication were that he was placed on Reglan to increase his appetite and prevent sickness after eating. Patient manages his own medicine at home. No recent injuries to the head or neck. He did have a pretty severe COVID infection 2 weeks ago, from which she feels somewhat recovered. Patient has lost around 40 pounds since February due to dysphagia and difficulty with eating. He had an EGD done for esophageal dilation, but reports still having difficulty with eating and decreased appetite. For instance he has not had anything to eat since yesterday at 4 PM. Additionally, he reports that around a month ago he had a severe complex migraine while at [facility]; it would not alleviate with morphine, tramadol, or Tylenol, but did resolve after being given caffeine. His head pain today feels constant, and he characterizes it as an aching/pounding pain on the left side of his head and posterior neck. He rates the pain 8/10, but reports that his prior migraine felt more severe than this. Despite listed aspirin allergy, he reports that he has no problem taking aspirin and was previously on aspirin 81 mg daily; he is unsure why he stopped taking it. He also reports that he is able to tolerate NSAIDs such as ibuprofen without any problems. He does have chronic left shoulder pain, but no bilateral shoulder or hip girdle pain. Patient denies smoking, tobacco use, or recent alcohol use. He is mildly hypertensive at 144/98 at time of admission; vitals otherwise stable. ED course: Diphenhydramine 50 mg IV Solu-Medrol 40 mg IV ROS: Patient endorses dizziness like the room was spinning (this morning), lightheadedness, blurry vision (in the last 24h hours), photophobia, neck pain, productive cough (yellow), and weakness in the left upper and lower legs. Patient denies fever, chills, night-sweats, syncope, recent falls, loss of vision (does have hx of glaucoma in R eye; chronic), chest pain, SOB, hemoptysis, abdominal pain, NV/D, burning with urination, blood in the urine/stool, or changes in urinary/bowel habits. Allergies Allergy/AdvReac Type Severity Reaction Status Date / Time cefazolin Allergy Severe CP/FELT Verified 05/07/24 09:11 LIKE THROAT CLOSING Gadolinium-Containing Allergy Severe SHORTNESS Verified 05/07/24 09:11 Contrast Medi OF BREATH aspirin Allergy Unknown PATIENT Verified 05/07/24 09:11 TOLD NOT TO TAKE BY SILVER PLATER Iodinated Contrast Media Allergy Unknown Unknown Rxn Verified 05/07/24 09:11 Penicillins Allergy Unknown PT HAS Verified 05/07/24 09:11 TOLERATED MEFOXIN IN PAST shellfish derived Allergy Unknown Unknown Verified 05/07/24 09:11 Home Medications Medication Instructions Recorded Confirmed Type famotidine 40 mg tablet 40 mg PO QPM #90 tabs 01/16/24 06/25/24 Rx ondansetron 8 mg disintegrating 8 mg PO Q8H PRN nausea and 01/16/24 06/25/24 Rx tablet vomiting 90 days #180 tabs levothyroxine 100 mcg tablet 100 mcg PO DAILYBB #90 tabs 02/21/24 06/25/24 Rx dicyclomine 10 mg capsule 10 mg PO BID #60 caps 04/10/24 06/25/24 Rx dorzolamide 2 % eye drops 1 drp OPB BID #30 mL 04/16/24 06/25/24 Rx latanoprost 0.005 % eye drops 1 drp OPB HS #7.5 mL 04/16/24 06/25/24 Rx brinzolamide 1 % eye 1 drp OPB BID 04/25/24 06/25/24 History drops,suspension fluoxetine 10 mg capsule 30 mg PO DAILY 04/25/24 06/25/24 History pantoprazole 40 mg tablet,delayed 40 mg PO BID #60 tabs 04/28/24 06/25/24 Rx release atorvastatin 40 mg tablet 20 mg (1/2 x 40 mg) PO HS #90 tabs 09/04/24 10/23/24 Rx metoclopramide HCl 5 mg tablet 5 mg PO HS 06/25/24 06/25/24 History mirtazapine 7.5 mg tablet 7.5 mg PO DAILY 06/25/24 06/25/24 History ondansetron 4 mg disintegrating 4 mg PO DIRECTED PRN n/v 06/25/24 06/25/24 History tablet tramadol 50 mg tablet 50 mg PO BID 06/25/24 06/25/24 History Past Med/Surg History Problem List (Updated 06/25/24 @ 19:39 by Teresa Angeles MD) Stroke-like symptoms (Acute) Headache (Acute) Left arm weakness (Acute) Stroke-like symptoms Abdominal pain (Acute) Dysphagia (Acute) Postprandial nausea Lumbar facet joint syndrome Chronic low back pain ANGEL (obstructive sleep apnea) Anxiety and depression Carotid artery stenosis Phelps esophagus (Acute) Lumbar spondylosis Osteopenia Hiatal hernia with gastroesophageal reflux disease (02/09/11) HTN (hypertension) S/P cholecystectomy H/O colectomy Diverticulitis Rectal bleed (Acute) Abdominal pain (Acute) Glaucoma (Chronic) Numbness of face (Acute 04/24/14) Headache (Acute) Left shoulder pain (Acute) Stomach problems (Acute) Bronchospasm (Acute) Epigastric abdominal pain (Acute) SOBOE (shortness of breath on exertion) (Acute) Shortness of breath (Acute) Medical History Bowel obstruction Surgical History S/P hernia surgery S/P sinus surgery Family History Sister Breast cancer Cancer of spine Cancer Brother Colorectal cancer Father COPD (chronic obstructive pulmonary disease) Denies family history of Ovarian cancer Prostate cancer Myocardial infarction Social History (Updated 02/14/24 @ 11:08 by Seda Chandler LPN) Smoking Status: Never smoker Second Hand Exposure: Yes (Prior years, not currently.); Do You Dip or Chew Tobacco: No; Hx Alcohol Use: No Hx Substance Use: No Preferred Language: Slovenian Communication Ability: Effective Visual Impairment: Limited Hearing Ability: Normal Information Management Manager Required: No Beliefs That Will Affect Care: None marital status: Current Living Situation: Spouse Current Living Situation Comment: worked at [employer] current occupational status: retired Feels Safe at Home: Yes Childhood Exposure to Second-Hand Smoke: Yes Diet: regular caffeine: Yes Dental Care, Regularly: Yes Physical Activity Frequency: Daily Seatbelt Use: always Sunscreen Use: No Assistive Devices: None Review of Systems Review of Systems: See HPI above Physical Exam Physical Exam: General: no acute distress; non-toxic appearing; well-nourished; cooperative; SpO2 97% on RA HEENT: normocephalic, atraumatic; no scleral icterus; PERRLA w/ EOMs intact; vision and hearing intact; patient reports that sensation in the forehead is intact and symmetric bilaterally, but does note that sensation in his left cheek is decreased compared to the right; he has difficulty smiling and raising his eyelid brows bilaterally; he does demonstrate ability to protrude and wiggle his tongue bilaterally Neck: supple; no lymphadenopathy; trachea midline Skin: Erythematous rashes noted in the creases of the lower abdomen bilaterally; warm, dry without signs of tenting; no cyanosis; no bruising or lesions noted CV: chest wall NTP; RRR; S1/S2 normal; no murmurs/rubs/gallops; pulses intact and symmetric at radial, DP, and PT Lungs: no acute respiratory distress; symmetrical chest wall expansion; clear breath sounds across all lung soriano w/o adventitious sounds; no wheezing ABD: Soft, NTP; BS present; no rebound/guarding; no distention MSK: no tics or fasciculations; no edema noted in the LEs b/l, nonerythematous; 5/5 scuba instructor strength 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; 5/5 strength when lifting the right leg off the bed, 4/5 strength when lifting left leg off the bed Neuro: A&Ox3; normal mood and affect; fluent speech; no slurred speech; no facial droop; patient reports decrease sensation in the left upper extremity and left lower extremity when compared to the right; pain with flexion of the neck to the chest, however negative Brudzinski sign Results & Data Results & Data Vital Signs (Past 12 Hours) Vital Signs Temp Pulse Pulse Resp BP BP Pulse Ox 06/25/24 14:17 66 20 144/98 H 97 06/25/24 14:17 98 06/25/24 13:32 68 06/25/24 13:31 179/110 H 06/25/24 13:30 63 15 06/25/24 13:18 70 16 06/25/24 13:06 60 19 06/25/24 13:00 155/92 H 06/25/24 12:54 181/97 H 06/25/24 12:42 57 L 16 06/25/24 12:39 59 L 16 06/25/24 12:30 182/103 H 06/25/24 12:14 36.5 C 65 18 208/110 H 98 O2 Del Method 06/25/24 14:17 Room Air 06/25/24 14:17 Room Air 06/25/24 13:32 06/25/24 13:31 06/25/24 13:30 06/25/24 13:18 06/25/24 13:06 06/25/24 13:00 06/25/24 12:54 06/25/24 12:42 06/25/24 12:39 06/25/24 12:30 06/25/24 12:14 Room Air Laboratory Results Abnormal lab results 06/25/24 Range/Units 12:28 BUN/Creatinine Ratio 9.5 L (10-20) Total Bilirubin 1.1 H (0.2-1.0) mg/dl Alkaline Phosphatase 115 H (34-104) U/L Diagnostic Findings Head CT 06/25/24 12:26 CT head/brain wo con CLINICAL HISTORY: 73 years-old Male with neuro deficit, acute stroke suspected. Acute shortness [place] TECHNIQUE: Multiple axial CT images of the head were obtained without contrast. A dose lowering technique was utilized adhering to the principles of ALARA. COMPARISON: CTA head of same day FINDINGS: No acute intracranial hemorrhage, midline shift, intracranial mass, hydrocephalus, territorial ischemia or abnormal extra-axial collection. The calvarium is intact. There is severe near complete opacification of the left maxillary sinus. Moderate mucosal thickening of the ethmoid and frontal sinuses. Mastoid air cells are clear. Prior bilateral lens repair. Cerebrovascular calcifications are most pronounced in the distal right vertebral artery. IMPRESSION: No acute intracranial abnormality. ACT 112: Negative or not required by law. The above report was generated using voice recognition software. It may contain grammatical, syntax or spelling errors. Electronically signed by: Trey Pearson M.D. 06/25/2024 1:13 PM Head CTA 06/25/24 12:26 CT ANGIOGRAM OF THE BRAIN CLINICAL HISTORY: Neurological deficit. Stroke like symptoms. COMPARISON STUDY: Unenhanced CT of the brain performed concurrently on 06/25/2024. MR angiogram of the brain dated 05/21/2014. TECHNIQUE: Following the IV administration of 112 cc of Optiray 320, CT angiogram of the brain was performed from the skull base to the vertex. Images are reviewed in the axial, sagittal, and coronal planes. 3-D MIPS images are created and assessed. IV contrast was administered without complication. A dose lowering technique was utilized adhering to the principles of ALARA. FINDINGS: Brain parenchyma: There is age-related change noting mild subcortical and periventricular microangiopathic disease. There is no evidence of hemorrhage, mass effect, or acute territorial ischemia noting angiographic phase technique. There is no evidence of enhancing mass lesion on the angiogram phase images. No extra-axial fluid collection is seen. Mujica-white matter differentiation is pres erved. Ventricles, sulci, and cisterns: Normal in configuration. CT angiogram of the brain: There is atherosclerotic calcification of the cavernous carotid and vertebral arteries. The internal carotid arteries are widely patent, as are the anterior and middle cerebral arteries. There is near- complete to complete focal occlusion of the right vertebral artery at the skull base, best seen on axial image #36. The vertebral arteries are otherwise patent at the skull base, the basilar artery is clear. The posterior cerebral arteries are patent. The right vertebral artery is dominant. There is origin of the right posterior cerebral artery. A posterior communicating artery is seen on the left. No aneurysm is identified throughout the intracranial circulation. Dural sinuses: Clear as visualized. Orbits: The bony orbits are intact. The orbital contents are normal as visualized noting bilateral ocular lens implant. Sinuses and mastoids: There is evidence of previous paranasal sinus surgery. There is subtotal opacification of the left maxillary antrum. Moderate mucosal thickening seen in the frontal and ethmoid sinuses. There is mild mucosal thickening in the left sphenoid sinus and the right maxillary antrum. The mastoid air cells are well pneumatized. Calvarium: Unremarkable. IMPRESSION: 1. There is no evidence of hemorrhage, mass effect, or acute territorial is chemia noting angiographic phase technique. 2. There is age indeterminant near-complete to complete focal thrombosis of the right vertebral artery at the skull base. This may be chronic. 3. Otherwise unremarkable CT angiogram of the brain. ACT 112: Negative or not required by law. Electronically signed by: Woo Espino M.D. 06/25/2024 1:20 PM Neck CTA 06/25/24 12:26 CT angio neck with con CLINICAL HISTORY: neuro deficit, acute stroke suspected TECHNIQUE: CT angiography of the neck was performed following intravenous administration of iodinated contrast. Coronal and sagittal MIPS were obtained from the axial data set and were submitted for review. Automated dose lowering techniques and/or adjustment according to patient size were utilized for this examination. All measurements were calculated based on NASCET criteria. CT DOSE: 1295.6 mGy.cm Comparison: None available at the time of this dictation. FINDINGS: Lungs and soft tissues are unremarkable. CTA Neck: The left common carotid artery shares common origin with the innominate artery. There is no significant atherosclerotic plaque in the aortic arch or the origins of the innominate, left common carotid, and left subclavian arteries. There is partial visualization of near occlusion of the right V4 segment of the vertebral artery. The vertebral arteries are codominant. IMPRESSION: 1. 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 Assessment of stenosis of the internal carotid arteries is based on NASCET criteria. ACT 112: Negative or not required by law. Electronically signed by: Kenneth Maldonado M.D. 06/25/2024 1:21 PM ECG Additional Comments: ECG revealed NSR at 62 bpm; QTc 454 Code Status & VTE Plan Code Status Full code VTE Prophylaxis Plan VTE Prophylaxis will be ordered: Yes Supervising Physician Co-Signing Physician Notes Patient seen and examined, chart reviewed, case discussed with Jason Soto PA-C and I agree with the assessment and plan as above except as otherwise noted Labs and images reviewed 73yo M who presented with L sided upper and lower extremity weakness and decreased sensation with an associated L sided headache. Hendley normal last night when he went to bed last night. 2am walked his dog felt a little off balance but was groggy and went back to sleep and then felt very abnormal waking up this morning.Patient seen at bedside. Reports he is actually at around 3 days of a consistent headache on the left side but also generalized and with posterior neck discomfort.Some generalization to the back of his occiput. He reports he has had sensitivity to light both eyes for 3 days preceding this, and has had a headache in the last day. Hendley a strength was normal going to bed last night, woke up at 2 AM to let the dog out and felt off balance but went back to sleep and then upon waking up this morning had a headache upon waking up and noticed a left-sided weakness and discomfort which is never happened to him with a migraine before. He notes that his sensitivity to light has been persistent for 3 days and this preceded the headache. He had COVID 2 weeks ago which she feels was gradually improving but still does have a residual cough. He has had some intermittent chills but no fevers, although notes that he has never generally gotten fevers with illnesses in the past. He is tender overlying the vertebral prominens, but separate to this he feels he has pain radiating into his head with neck flexion which aches more deeply into his eyes and when she does not feel it is just muscular. On initial evaluation did have some worsening of his headache with flexion at t he hip and preparation for running testing, although no substantial worsening on knee extension. Was able to flex at the neck and bring his chin to his chest but noted that this worsened his headache, did not flex at the knees in response to this and does not feel flexion at the knees affected his discomfort. Initially suspected migrainous symptoms and lower likelihood of meningitis given lack of fever or leukocytosis however following additional treatment with Benadryl x 1 and prochlorperazine push his headache and proved from a 8-5, but did not resolve and feels that his neck stiffness and pain is still present. Due to photosensitivity preceding headache by 3 days, progressive symptoms with some chills, and worsened headache on attempted neck flexion and hip flexion do feel a LP to evaluate for possible viral/aseptic meningitis is indicated, lower suspicion for bacterial meningitis given lack of fever/leukocytosis. he is not on any antiplatelet or anticoagulant agents. No overlying cellulitis or infection of his spine. He does have some erythema at the folds of his abdominal folds suspicious for intertrigo otherwise denies rash and has not had any disseminated rash does have some history of spinal stenosis. At bedside evaluation patient is with increased body habitus. On consent patient reports that his last LP several years ago was not able to be achieved using a standard depth needle and did require reintervention with an extended length LP needle. Given that he is not febrile, has no leukocytosis have a low suspicion for bacterial meningitis will defer to IR guided LP in the morning and follow fever curve overnight. PG Care Time/CCT Total # of Minutes Spent Total Time Spent with Patient: Total time spent is greater than 50% in coordination of care (as documented) at patient's floor/unit and/or counseling patient: Coding [place] [address] INT INP/OBS CARE 3/75MIN Patient Type Established Medical Decision Making High Complexity Diagnoses Stroke-like symptoms R29.90 Headache R51 Postprandial nausea R11.0 Esophageal dysphagia R13.10
[2024-06-25] MEDS ORDERED: PHARMACIST DISCHARGE MED REC CONSULT PRN (16:03)
[2024-06-25] MEDS: ACETAMINOPHEN 1,000 MG/100 ML VIAL IV STA (16:03)
[2024-06-25] MEDS: KETOROLAC TROMETHAMINE 15 MG/ML VIAL IV ONE (17:58)
[2024-06-25] MEDS: LORazepam 2 MG/1 ML VIAL IV STA (18:00)
[2024-06-25] MEDS: diphenhydrAMINE 50 MG/ML VIAL IV STA (18:59)
[2024-06-25] MEDS: PROCHLORPERAZINE 10 MG in SYRINGE 8 ML IV ONE (19:06)
--- NOTE | 2024-06-25 19:19 | Magnetic Resonance Report ---
MR brain wo con CLINICAL HISTORY: Left sided facial pain/sensation deficits TECHNIQUE: Multiplanar and multisequence MR images of the brain were obtained without intravenous con trast. Comparison: Comparison is made to CTA head and neck 06/25/2024 and MRI brain 05/21/2014 FINDINGS: No abnormal restricted diffusion is identified. Foci of T2 and FLAIR hyperintensity are noted in the paraventricular areas consistent with chronic small vessel ischemic disease. The ventricular system i s normal in appearance. No mass is seen. There is no mass effect or midline shift. There is no eviden ce of acute intraparenchymal hemorrhage. No extra axial fluid collections are seen. The corpus callos um, pituitary gland, and cerebellar tonsils appear grossly unremarkable. Flow voids of the major intracranial arterial vessels are identified. Sinus mucosal thickening is see n most prominent in the left maxillary sinus. Ethmoid air cell opacification is also seen. IMPRESSION: No acute abnormality and in particular no evidence of acute infarct. ACT 112: Negative or not required by law. Electronically signed by: Kenneth Maldonado M.D. 06/25/2024 7:17 PM
[2024-06-25] MEDS ORDERED: INFLUENZA VACC TS2024-25(65y+)/PF (IIV3) 0.5mL Syr IM ONE (23:47)
[2024-06-25] MEDS: hydrALAZINE HCL 20 MG/ML VIAL IV STA (23:49)
[2024-06-25] MEDS: traMADol HCL 50 MG TABLET PO SCH (23:55)
[2024-06-25] MEDS: LATANOPROST 0.005% OP SOLN 2.5 ML BTL OPB SCH (23:56)
[2024-06-25] MEDS: FAMOTIDINE 40 MG TABLET PO SCH (23:56)
[2024-06-25] MEDS: METOCLOPRAMIDE HCL 5 MG TABLET PO SCH (23:56)
[2024-06-25] MEDS: DICYCLOMINE HCL 10 MG CAP PO SCH (23:56)
[2024-06-25] MEDS: DORZOLAMIDE HCL 2% OPH SOLN 10 ML BTL OPB SCH (23:56)
[2024-06-25] MEDS: ATORVASTATIN 20 MG TAB PO SCH (23:56)
[2024-06-25] MEDS: BRINZOLAMIDE (AZOPT) OPS 10 ML BTL OPB SCH (23:56)
[2024-06-25] MEDS: PANTOprazole 40 MG TAB PO SCH (23:57)
--- OUTSIDE RECORDS SUMMARY | 2024-06-26 00:11 | External Medical Summary ---
Author Name Unknown Address Unknown Organization [id number]:[facility] - [address] [place] [id number] Laboratory Report Ordering Provider Test Date Status TAYLOR ALAN 06/18/2024 05:55:00 Final Observation Date Value Abnormality Reference (Units ) Status WBC, Total 06/18/2024 05:55:00 3.80 Below low normal 4.00-10.80 (K/uL) Final RBC 06/18/2024 05:55:00 4.40 4.50-5.25 (M/uL) Final Hemoglobin 06/18/2024 05:55:00 13.8 Below low normal 14.0-16.8 (g/dL) Final HCT 06/18/2024 05:55:00 40.5 40.0-48.4 (%) Final MCV 06/18/2024 05:55:00 92.0 82.0-99.5 (fL) Final MCH 06/18/2024 05:55:00 31.4 27.0-34.0 (pg) Final MCHC 06/18/2024 05:55:00 34.1 32.0-36.0 (g/dL) Final RDW 06/18/2024 05:55:00 12.7 11.5-15.5 (%) Final Platelets 06/18/2024 05:55:00 149 140-400 (K/uL) Final MPV 06/18/2024 05:55:00 10.4 6.6-11.1 (fL) Final Nucleated erythrocytes/100 leukocytes [Ratio] in Blood by Automated count 06/18/2024 05:55:00 0 <=0 (/100 WBCs) Final Performing Location [facility] - [address] [place] [id number]
--- OUTSIDE RECORDS SUMMARY | 2024-06-26 00:11 | External Medical Summary ---
Author Name Unknown Address Unknown Organization K0G:[facility] [facility] [address] [place] [id number] Laboratory Report Ordering Provider Test Date Status EVERETT GAINES 06/25/2024 11:13:38 Final Observation Date Value Abnormality Reference (Units ) Status Glucose Point of Care 06/25/2024 11:13:38 87 70-120 (mg/dL) Final Performing Location [facility] [address] [place] [id number]
--- OUTSIDE RECORDS SUMMARY | 2024-06-26 00:11 | External Medical Summary ---
Author Name Unknown Address Unknown Organization [facility] [address] [id number] Laboratory Report Ordering Provider Test Date Status TAYLOR ALAN 06/18/2024 05:55:00 Final Observation Date Value Abnormality Reference (Units ) Status BUN 06/18/2024 05:55:00 9 6-20 (mg/dL) Final Creatinine 06/18/2024 05:55:00 0.9 0.6-1.2 (mg/dL) Final Glomerular filtration rate/1.73 sq M.predicted [Volume Rate/Area] in Serum, Plasma or Blood by Creatinine-based formula (CKD-EPI) 06/18/2024 05:55:00 87 >=60 (mL/min) Final eGFR is calculated based on the CKD-EPI 2020 equation. Sodium 06/18/2024 05:55:00 142 135-146 (m mol/L) Final Potassium 06/18/2024 05:55:00 3.7 3.5-5.1 (m mol/L) Final Cl 06/18/2024 05:55:00 107 98-107 (mm ol/L) Final CO2 06/18/2024 05:55:00 25 22-32 (mmo l/L) Final Anion gap 06/18/2024 05:55:00 10 7-15 (mmol /L) Final Glucose 06/18/2024 05:55:00 94 70-120 (mg /dL) Final Calcium 06/18/2024 05:55:00 8.5 8.4-10.2 ( mg/dL) Final Performing Location [facility] [address] [id number]
--- OUTSIDE RECORDS SUMMARY | 2024-06-26 00:11 | External Medical Summary ---
Author Name Unknown Address Unknown Organization [facility] [address] [id number] Laboratory Report Ordering Provider Test Date Status TAYLOR ALAN 06/18/2024 05:55:00 Final Observation Date Value Abnormality Reference (Units ) Status Magnesium 06/18/2024 05:55:00 2.1 1.5-2.6 (m g/dL) Final Performing Location [facility] [address] [id number]
--- OUTSIDE RECORDS SUMMARY | 2024-06-26 00:11 | External Medical Summary | Summary of Care ---
Author Name Unknown Organization [facility] Address [address] [facility] [place] [address] Phone [phone] Care Team Providers Care Materials Research Engineer Name Role Phone Anna Walsh MD Primary Care Provider Reason for Visit * Reason Onset Date Comments Hospital Follow-Up 06/19/2024 MAT Encounter Details Date Type Department Care Team (Late st Contact Info) Description 06/19/2024 Telephone Family Practice [facility] [address] [place] [address] Leonila Wynne, RN Hospital Follow-Up (MAT) Allergies Active Allergy Reactions Criticality Noted Date Comments Aspirin 04/30/2003 not an allery but was told not to take by parts coordinator Clindamycin Unknown Medium 09/06/2015 Pt states hand swelling Localized Gabapentin Unknown 03/21/2023 Dizziness, made me like a zombie, couldn't walk Iodine Hives 06/19/2001 CT dye (Has been pretreated and did fine) Lorazepam Neuro complications (Please comment),Other (Please comment) 04/30/2003 not an allery but was told not to take by parts coordinator hallucinates Penicillins 06/25/2001 hives Shellfish-Derived Products Anaphylaxis,Itching High 10/12/2015 Tongue swelling Tongue swelling documented as of this encounter (statuses as of 06/19/2024) Medications Medication Sig Dispensed Refills Start Date End Date Status levothyroxine (LEVOXYL) 100 MCG Tablet Take one tablet by mouth one time daily 90 Tab 1 01/29/2015 Active ondansetron (ZOFRAN) 4 MG TabletIndications:Herson sea alone 1 tablet every 6 hours as needed for nausea 30 Tab 3 02/16/2015 Active dorzolamide-timolol (COSOPT OCUMETER PLUS) 2.23-0.68% ophthalmic solution Instill 1 Drop into eye in the morning and 1 Drop before bedtime. Active Atorvastatin Calcium 40 MG Oral Tablet (Lipitor)Indications: Phelps's esophagus without dysplasia,Dysphagia, unspecified type,Unintentional weight loss Take 1 Tablet by mouth in the morning. 05/23/2023 Active Brinzolamide 1 % Ophthalmic Suspension (Azopt)Indications:Ba rrett's esophagus without dysplasia,Dysphagia, unspecified type,Unintentional weight loss Instill 1 Drop into both eyes in the morning and 1 Drop at noon and 1 Drop before bedtime. 04/18/2024 Active Latanoprost 0.005 % Ophthalmic Solution (Xalatan)Indications: Phelps's esophagus without dysplasia,Dysphagia, unspecified type,Unintentional weight loss Instill 1 Drop into both eyes at bedtime. 04/16/2024 Active Pantoprazole Sodium 40 MG Oral Tablet Delayed Release (Protonix)Indications :Phelps's esophagus without dysplasia,Dysphagia, unspecified type,Unintentional weight loss Take 1 Tablet by mouth in the morning and 1 Tablet before bedtime. 180 Tablet 3 05/09/2024 Active FLUoxetine HCl 10 MG Oral Capsule (PROzac) Take 1 Capsule by mouth in the morning. With 20 mg for total 30 mg daily. Active FLUoxetine HCl 20 MG Oral Capsule (PROzac) Take 1 Capsule by mouth in the morning. With 10 mg for total 30 mg daily. Active traMADol HCl 50 MG Oral Tablet (Ultram)Indications:C hronic low back pain without sciatica, unspecified back pain laterality Take 1 Tablet by mouth every 8 hours as needed for severe Pain 30 Tablet 05/21/2024 Active Famotidine 40 MG Oral Tablet (Pepcid)Indications:B arrett's esophagus without dysplasia,Dysphagia, unspecified type,Unintentional weight loss,Nausea,Appetite loss Take 1 Tablet by mouth at bedtime. 90 Tablet 3 06/11/2024 Active Sucralfate 1 GM Oral Tablet (Carafate)Indications :Phelps's esophagus without dysplasia,Dysphagia, unspecified type,Unintentional weight loss,Nausea,Appetite loss Take 1 Tablet by mouth 2 times a day as needed for Heartburn. 120 Tablet 3 06/11/2024 Active Metoclopramide HCl 5 MG Oral Tablet (Reglan) Take 0.5 Tablet by mouth 3 times a day as needed to help with nausea prior to meals. 30 Tablet 06/18/2024 Active Mirtazapine 7.5 MG Oral Tablet (Remeron) Take 1 Tablet by mouth every night at bedtime. 30 Tablet 06/18/2024 Active documented as of this encounter (statuses as of 06/19/2024) Active Problems Problem Noted Date Diagnosed Date COVID-19 06/17/2024 Chronic nausea 06/17/2024 Unexplained weight loss 06/16/2024 Generalized weakness 06/16/2024 Malnutrition of moderate degree 05/12/2024 Esophageal dysmotility 05/12/2024 Phelps's esophagus without dysplasia 05/12/2024 Dysphagia 05/11/2024 Hiatal hernia 05/11/2024 Unintentional weight loss 05/11/2024 Small vessel disease, cerebrovascular 05/07/2014 BPH without obstruction/lower urinary tract symp toms 12/11/2013 Enchondroma of femur 08/17/2013 Overview: Right femur, incidental finding on plain films Cellulitis of leg 06/30/2011 Ventral hernia, unspecified, without mention of obstruction or gangrene 06/29/2011 Calculus of gallbladder with out mention of cholecystitis or obstruction 06/29/2011 ADVANCE DIRECTIVE INFORMATION 10/19/2010 Overview: Yes, Patient instructed to provide copy of advance directive for provider to review and to be scanned into Electronic Medical Record Incisional hernia 10/19/2010 ADHESIONS ABDOMINAL 03/21/2010 BMI 35-39 ISOLATED (SEE ACTUAL BMI) 02/14/2010 Overview: Per Obesity Protocol, #19 Hypertension 07/26/2009 Overview: Modified per HTN protocol #16. Patient refuses FLU and PNEUMOVAX 06/13/2009 DIVERTICULOSIS OF COLON 09/17/2006 Overview: 05/16/13: open anastomosis, diverticulosis sigmoid, deformity of the cecum, done for evaluation of constiptation Due for repeat colonoscopy 08/2013 Hypothyroidism 04/11/2006 GENERAL OSTEOARTHROSIS 11/12/2001 Esophageal reflux 11/12/2001 Other specified glaucoma Overview: Dr Caicedo documented as of this encounter (statuses as of 06/19/2024) Resolved Problems Problem Noted Date Diagnosed Date Resolved Date Epigastric pain 05/12/2024 05/13/2024 Violette esophagitis 05/11/2024 05/13/20 24 Severe obesity with body mas s index (BMI) of 35.0 to 39.9 with serious comorbidity 06/29/2011 Overview: ICD-10 update of inactive diagnosis ACTIVE CASE MANAGEMENT Jayla Navarro RN [phone] 03/18/2010 06/20/2010 Overview: ACTIVE CASE MANAGEMENT Jayla Navarro RN [phone] HYPERTENSION NOS 11/12/2001 07/26/2009 Overview: Modified per HTN protocol #16. documented as of this encounter (statuses as of 06/19/2024) Immunizations Name Administration Dates Next Due COVID-19, MRNA-LNP, 23-24, P F, 30 MCG/0.3 mL, 12 YRS AND ABOVE, IM (PFIZER-Comirnaty) 11/23/2023 Pneumococcal Polysaccharide PPV23 (Pneumovax) 05/01/2009 RSV Vac., Bivalent, Perfusio n F, Pf,0.5 Ml (Abrysvo) 09/08/2023 Seasonal Influenza Vac., MDV , IM, 0.5 mL (Fluzone) 06/04/2013(Deferred: Patient Refused) TDAP (age 10 and older)(Boostrix) 01/17/2024, TDAP, Age 7 and older, IM (Adacel) 07/28/2008 documented as of this encounter Social History Tobacco Use Types Packs/Day Years Used Date Smoking Tobacco: Never Smokeless Tobacco: Never Alcohol Use Standard Drinks/Week Comments No 0 (1 standard drink = 0.6 oz pur e alcohol) Hunger Vital Sign Answer Date Recorded Within the past 12 months, y ou worried that your food would run out before you got the money to buy more. Never true 05/14/20 24 Within the past 12 months, t he food you bought just didn't last and you didn't have money to get more. Never true 05/14/2024 Childcare Answer Date Recorded Do you feel overwhelmed with taking care of a child, family member or friend? No 05/14/2024 Does your family need help f inding childcare? (Household - for ages 0-17 years) Not on file 05/14/2024 Clothing Answer Date Recorded Have you been unable to get clothing when it was really needed? No 05/14/2024 Is your family able to get c lothes or diapers when needed? (Household - for ages 0-17 years) Not on file 05/14/2024 Personal Safety Answer Date Recorded Do you feel unsafe or have concerns for your saf ety? No 06/16/2024 Do you have concerns for you r family's safety? (Household - for ages 0-17 years) Not on file 06/16/2024 Utilities Answer Date Recorded Do you have trouble paying y our heating, water, or electric bill? No 06/16/2024 Is your family able to pay t he heat, water, or electric bill? (Household - for ages 0-17 years) Not on file 06/16/2024 Does your family have access to good internet? (Household - for ages 0-17 years) Not on file 06/16/2024 Employment Status Answer Date Recorded Are you unemployed or without regular income? No 05/14/2024 Does the household have a [facility] source of income? (Household - for ages 0-17 years) Not on file 05/14/2024 Social Connections Answer Date Recorded How often do you feel lonely or isolated from th ose around you? Never 05/14/2024 Financial Resource Strain Answer Date R ecorded Do you have any trouble payi ng for your medications, or do you think you might in the future? No 05/14/2024 Does your family have troubl e paying for medicine? (Household - for ages 0-17 years) Not on file 05/14/2024 Transportation Needs Answer Date Record ed Do you have trouble getting a ride to medical visits or work? (Adult - for ages 18 years and over) Not on file 06/16/2024 Does your family have a hard time getting a ride to doctors visits? (Household - for ages 0-17 years) Not on file 06/16/2024 Has lack of transportation k ept you from medical appointments, meetings, work, or from getting things needed for daily living? Check all that apply. No 06/16/2024 Do you (or your family) have trouble finding or paying for a ride (transportation)? (Household - for ages 0-17 years) Not on file 06/16/2024 Housing Stability Answer Date Recorded Do you currently live in a s helter or have no steady place to sleep at night? No 06/16/2024 Do you think you are at risk of becoming homeless? (Adult - for ages 18 years and over) Not on file 06/16/2024 Does your family worry about paying for your home or becoming homeless? (Household - for ages 0-17 years) Not on file 1 Are you homeless or worried that you might be in the future? No 06/16/2024 Are you (or your family) dia eless or worried that you might be in the future? (Household - for ages 0-17 years) Not on file Food Insecurity Answer Date Recorded Do you need food for this week? No 06/16/2024 Are you able to get enough f ood for your family? (Household - for ages 0-17 years) Not on file 06/16/2024 Does your family need food t his week? (Household - for ages 0-17 years) Not on file 06/16/2024 Do you always have enough fo od for your family? (Household - for ages 0-17 years) Not on file 06/16/2024 Sex and Gender Information Value Date Recorded Sex Assigned at Male 05/14/2024 11:56 AM EDT Gender Identity Male 05/14/2024 11:56 AM EDT Sexual Orientation Straight 05/14/2024 11 :56 AM EDT Job Start Date Occupation Industry Not on file Not on file Not on file documented as of this encounter Functional Status Functional Status Response Date of Assess ment Are you deaf or do you have serious difficulty h earing? No 06/16/2024 Are you blind or do you have serious difficulty seeing, even when wearing glasses? No 06/16/2024 Do you have serious difficul ty walking or climbing stairs? (5 years old or older) Yes 06/16/2024 Do you have difficulty dress ing or bathing? (5 years old or older) No 06/16/2024 Because of a physical, menta l, or emotional condition, do you have difficulty doing errands alone such as visiting a doctor s office or shopping? (15 years old or older) No 06/16/20 Cognitive Status Response Date of Assessm ent Because of a physical, menta l, or emotional condition, do you have serious difficulty concentrating, remembering, or making decisions? (5 years old or older) No 06/16/2024 documented as of this encounter Miscellaneous Notes * Telephone Encounter - Leonila Wynne RN - 06/19/2024 2:21 PM EDT Transitions of Care Note Reason for Referral:Recent Admission Phone visit for follow up: MAT Admitted to: [facility], Date: 06/16/2024 Discharged to: Home, Date: 06/18/2024 Diagnosis driving hospitalization: Unexplained weight loss Source/Contact: Patient SUBJECTIVE Consent: Verbal consent for review of hospital discharge: Yes REVIEW OF SYSTEMS Patient/Other Reports: Current patient/caregiver problems or concerns: patient states that he is still a little weak, but he is eating better since being home. Patient states that he feels as if the medications are working. Patient denies n/v/d. CV: Denies problems Pulmonary: Denies problems Chills/Sweats/Fever:Denies chills/sweats Denies fever Appetite:Denies problems such as nausea, vomiting, burning, decreased appetite Patient is eating better. Patient denies nausea or vomiting. Current diet: as tolerated Bowel: denies problems date of last BM: 06/19/2024 Bladder: denies problems Wound (If applicable): N/A Pain:Denies Sleep:Denies problems FUNCTIONAL STATUS: ADL'S: Needs Assistance With:N/A as pt is independent IADL'S: Needs Assistance With:N/A as pt is independent Cognitive and Mental Health: denies problems, alert and oriented x 3, and able to communicate, understand instructions, process information. MEDICATION RECONCILIATION Medications: Discharge med list reviewed with patient or caregiver Reviewed and updated all prescription and OTC medications in Epic New medication(s) filled since hospitalization- Jordyn Reports all medications taken as prescribed. Denies side effects ASSESSMENT Medication Risk Assessment: Taking sedatives/hypnotics/narcotic analgesics and increased fall risk Did patient fail outpatient treatment? No Discharge instructions available for review? Yes PLAN Symptom Monitoring Interventions:Member/caregiver education - signs and symptoms to contact PrimaryCare (DO NOT DELETE-Three fernandez symptoms patient is to report to PCP) 1. Fever/chills 2. N/V/D 3. Abdominal pain Civil Engineering DesignerSchool Coordinator of Care interventions/Action Plan: Medication reconciliation and 5 - 7 day follow-up with PCP in place - Date: 06/25/2024 Educated on role of MAT completed with patient/caregiver. Educated patient/caregiver on patient right to have input on MAT plan of care. Verification of Home Health/DME if indicated: NO N/A Identified Care Gaps: Yes Care Gaps closed this call: Appointment made or confirmed, Life planning discussed, Medication adherence, Medication optimization, Plan of care optimization, Post discharge appointment, and Safety and self care issues addressed Re-evaluation of Plan of Care and progress towards goals achievement: Patient education this visit: Verbal, see above Plan to follow-up as previously scheduled, instructed to call Primary Care Provider with change in symptoms or as needed before next follow-up, discharge needs met, verbalizes understanding and agrees with plan. Leonila Wynne RN documented in this encounter Plan of Treatment Upcoming Encounters Date Type Department Care Team (Latest Contact Info) Description 06/25/2024 11:00 AM EDT Office Visit Family Practice [facility] [address] [place] [address] [address] Anna Walsh MD [address] [place] [address] [address] 07/02/2024 8:30 AM EDT Nurse Only Gastroenterology, [facility] [address] [place] [address] [address] Nurse Carine Sneed [facility] [address] [facility] [place] [address] 07/14/2024 8:30 AM EST Office Visit Gastroenterology, [facility] [address] [facility] [place] [address] Megan Stephens CRNP [address] [facility] [place] [address] 08/04/2024 8:00 AM EST Imaging [facility] 2nd Floor Cardiology, [address] [place] [address] 08/04/2024 9:30 AM EST Imaging [facility] 2nd Floor Cardiology, [address] [place] [address] 08/04/2024 10:30 AM EST Imaging [facility] 2nd Floor Cardiology, [address] [place] [address] 08/04/2024 12:30 PM EST Imaging [facility] 2nd Floor Cardiology, [address] [place] [address] 09/26/2024 9:20 AM EST Office Visit Family Practice [facility] [address] [facility] [place] [address] Anna Walsh MD [address] [facility] [place] [address] 10/13/2024 10:30 AM EST Office Visit [facility] [place] [facility] [address] [place] [address] Stephanie Colon PA-C [address] [place] [address] 11/12/2024 2:00 PM EDT Hospital Encounter ENDO [facility], Endoscopy Room [facility] [address] [place] [address] Latricia Howard MD [address] [place] [address] 11/12/2024 2:00 PM EDT - 11/12/2024 2:30 PM EDT Surgery ENDO [facility], Endoscopy Room [facility] [address] [place] [address] [phone] Latricia Howard MD [address] [place] [address] COLONOSCOPY FLEXIBLE PROXIMAL DIAGNOSTIC Scheduled Procedures Name Priority Associated Diagnoses Date/Ti me COLONOSCOPY FLEXIBLE PROXIMAL DIAGNOSTIC Phelps's esophagus without dysplasia Dysphagia, unspecified type Unintentional weight loss Nausea Appetite loss 11/12/2024 2:00 PM EDT Health Maintenance Due Date Last Done Comments Albumin/Creatinine Ratio 1966 Hepatitis C Screening 1966 Zoster Vaccines (1 of 2) 1998 Pneumococcal Vaccine: 65+ Years (2 of 2 - PCV) 05/01/2010 05/01/2009 Adult Wellness Visit 2014 Depression Screening 04/30/2015 04/30/2014 COVID-19 Vaccine (2 - season) 2024 11/23/2023 Influenza Vaccine (FLU shot) (#1) 2024 TSH 05/21/2025 05/21/2024, 05/2024, 12/11/2013, Additional history exists GFR 06/18/2025 06/18/2024, 06/03, 06/16/2024, Additional history exists Phelps's Esophagus Surveilance 05/12/2027 05/12/2024, 05/12/2024, 08/15/2006 DTap/Tdap Vaccines (4 - Td or Tdap) 01/16/2034 01/17/2024, 04/30/2014, 07/28/2008 Colonoscopy Discontinued 05/16/2013, 05/04, 01/04/2010, Additional history [...] this encounter Medical Devices Implanted Type Area Thermograph Operator Device Identifier Shelf Expiration Date Model / Serial / Lot Mesh Vicryl 6 X 6 Vkm-M - [id number] Implanted:Qty: 1 on 10/02/2011 at [place] [facility] [place]A: Abdomen DO NOT USE 09/03/2015 VKM-[id number] / / [id number] Mesh 10 X 14 [id number] - [id number] Implanted:Qty: 1 on 10/02/2011 at [place] [facility] [place] N/A: Abdomen [employer] [facility] 04/02/2016 [id number] / / [id number] documented as of this encounter Additional Health Concerns Infection Onset Date Last Indicated Resolved Time COVID-19 (confirmed) 06/16/2024 06/16/2024 documented as of this encounter Advance Directives * Full Code (Latest Code Status on File) Date Activated Date Inactivated Comments 06/16/2024 3:16 PM 06/18/2024 4:05 PM This order reflects the patients wishes and were consensually agreed upon. Question Answer Comments Discussion of Advance Directives occurred with: Patient * Full Code Date Activated Date Inactivated Comments 05/11/2024 1:12 PM 05/13/2024 3:45 PM This order re flects the patients wishes and were consensually agreed upon. Question Answer Comments Discussion of Advance Directives occurred with: Patient Does the patient have a Living Will? No Does the patient have Health Care Power of Attor melvin? No * Full Code Date Activated Date Inactivated Comments 10/02/2011 1:26 [...] Health Care Power of Attor melvin? No Care Teams Materials Research Engineer Relationship Specialty Start Date End Date Anna Walsh MD [address] [place] [address] [address] PCP - General Internal Medicine 05/21/24 documented as of this encounter
--- OUTSIDE RECORDS SUMMARY | 2024-06-26 00:11 | External Medical Summary | Summary of Care ---
Author Name Unknown Organization [facility] Address [address] [place] [address] Phone [phone] Care Team Providers Care Traffic Operations Engineer Name Role Phone Anna Walsh MD Primary Care Provider Reason for Visit * Reason Comments Weight Loss * Auth/Cert Specialty Diagnoses / Procedures Referred By Contadam t Referred To Contact [facility] [address] [place] [address] Phone: [phone] Emergency Medicine [facility] [address] [place] [address] Referral ID Status Reason Start Date Expiration Date Visits Re quested Visits Authorized [id number] Encounter Details Date Type Department Care Team (Late st Contact Info) Description 06/16/2024 10:42 AM EDT - 06/18/2024 12:05 PM EDT Emergency 5A [facility] 5th Floor [address] [place] [address] Maria E Donaldson DO [address] [place] [address] Yahir Felton MD [address] [facility] [place] [address] Shaunna Noonan MD [address] [facility] [address] Von Contreras MD [address] [place], [place] [address]ist Services [place] [id number] Pt Handout (on AVS) Discharge Disposition: Home - Self Care Allergies Active Allergy Reactions Criticality Noted Date Comments Aspirin 04/30/2003 not an allery but was told not to take by traffic attendant Clindamycin Unknown Medium 09/06/2015 Pt states hand swelling Localized Gabapentin Unknown 03/21/2023 Dizziness, made me like a zombie, couldn't walk Iodine Hives 06/19/2001 CT dye (Has been pretreated and did fine) Lorazepam Neuro complications (Please comment),Other (Please comment) 04/30/2003 not an allery but was told not to take by traffic attendant hallucinates Penicillins 06/25/2001 hives Shellfish-Derived Products Anaphylaxis,Itching High 10/12/2015 Tongue swelling Tongue swelling documented as of this encounter (statuses as of 06/19/2024) Medications Medication Sig Dispensed Refills Start Date End Date Status levothyroxine (LEVOXYL) 100 MCG Tablet Take one tablet by mouth one time daily 90 Tab 1 01/29/2015 Active ondansetron (ZOFRAN) 4 MG TabletIndication s:Nausea alone 1 tablet every 6 hours as needed for nausea 30 Tab 3 02/16/2015 Active dorzolamide-giuseppe lol (COSOPT OCUMETER PLUS) 2.23-0.68% ophthalmic solution Instill 1 Drop into eye in the morning and 1 Drop before bedtime. Active Atorvastatin Calcium 40 MG Oral Tablet (Lipitor)Indicat ions:Phelps's esophagus without dysplasia,Dyspha salo, unspecified type,Unintention al weight loss Take 1 Tablet by mouth in the morning. 05/23/2023 Active Brinzolamide 1 % Ophthalmic Suspension (Azopt)Indicatio ns:Phelps's esophagus without dysplasia,Dyspha salo, unspecified type,Unintention al weight loss Instill 1 Drop into both eyes in the morning and 1 Drop at noon and 1 Drop before bedtime. 04/18/2024 Active Latanoprost 0.005 % Ophthalmic Solution (Xalatan)Indicat ions:Phelps's esophagus without dysplasia,Dyspha salo, unspecified type,Unintention al weight loss Instill 1 Drop into both eyes at bedtime. 04/16/2024 Active Pantoprazole Sodium 40 MG Oral Tablet Delayed Release (Protonix)Indica tions:Phelps's esophagus without dysplasia,Dyspha salo, unspecified type,Unintention al weight loss Take 1 Tablet by mouth [...] Active traMADol HCl 50 MG Oral Tablet (Ultram)Indicati ons:Chronic low back pain without sciatica, unspecified back pain laterality Take 1 Tablet by mouth every 8 hours as needed for severe Pain 30 Tablet 05/21/2024 Active Famotidine 40 MG Oral Tablet (Pepcid)Indicati ons:Phelps's esophagus without dysplasia,Dyspha salo, unspecified type,Unintention al weight loss,Nausea,Appe tite loss Take 1 Tablet by mouth at bedtime. 90 Tablet 3 06/11/2024 Active Sucralfate 1 GM Oral Tablet (Carafate)Indica tions:Phelps's esophagus without dysplasia,Dyspha salo, unspecified type,Unintention al weight loss,Nausea,Appe tite loss Take 1 Tablet by mouth 2 [...] night at bedtime. 30 Tablet 06/18/2024 Active Clotrimazole 10 MG Mouth/Throat Vasyl (Mycelex Vasyl)Indicatio ns:Oral jovany Take 1 Lozenge by mouth 5 times a day for 14 days. Allow tablet to slowly dissolve in your mouth 70 Vasyl 05/21/2024 06/18/20 24 Discontinued Nirmatrelvir&Rit onavir 300/100 20 x 150 MG & 10 x 100MG Oral Tablet Therapy Pack (Paxlovid (300/100))Indica tions:COVID-19 virus infection Take 2 pink tablets of Nirmatrelvir and 1 white tablet of Ritonavir two times a day by mouth. Hold atorvastatin while taking Paxlovid, restart when complete. 30 Tablet 06/12/2024 06/17/20 24 Discontinued documented as of this encounter (statuses as [...] Date Resolved Date Epigastric pain 05/12/2024 05/13/2024 Jovany esophagitis 05/11/2024 05/13/20 24 Severe obesity with body mas s index (BMI) of 35.0 to 39.9 with serious comorbidity 06/29/2011 Overview: ICD-10 update of inactive diagnosis ACTIVE CASE MANAGEMENT Jayla Navarro RN [phone] 03/18/2010 06/20/2010 Overview: ACTIVE CASE MANAGEMENT Jayla Navarro RN [phone] HYPERTENSION NOS 11/12/2001 07/26/2009 Overview: Modified per [...] No 05/14/2024 Does the household have a [facility] source of income? (Household - for ages [...] on file documented as of this encounter Last Filed Vital Signs Vital Sign Reading Time Taken Comments Blood Pressure 117/71 06/18/2024 11:01 AM EDT Pulse 70 06/18/2024 11:01 AM EDT Temperature 36.6 C (97.9 F) 06/18/2024 11:01 AM E DT Respiratory Rate 18 06/18/2024 11:01 AM EDT Oxygen Saturation 96% 06/18/2024 11:01 AM EDT Inhaled Oxygen Concentration - - Weight 101.6 kg (224 lb) 06/18/2024 5:41 AM EDT Height 175.3 cm (5' 9") 06/16/2024 3:29 PM EDT Body Mass Index 33.08 06/16/2024 3:29 PM EDT documented in this encounter Functional Status Functional Status Response [...] No 06/16/2024 documented as of this encounter Discharge Summaries * Von Contreras MD - 06/18/2024 10:41 AM EDT Images from the original note were not included. [facility] [address] Admission Date: 06/16/2024 Discharge Date: 06/18/2024 RECOMMENDED TO DO FOR NEXT PROVIDER(S): Followup with PCP Follow-up with nutrition, GI Patient has esophageal manometry scheduled for next week. REASON(S) FOR MEDICATION CHANGE(S): Mirtazapine started for appetite stimulation Reglan 2.5 three times daily with meals DISPOSITION ON DISCHARGE: home Active Hospital Problems Diagnosis *Principal Diagnosis - Unexplained weight loss COVID-19 Chronic nausea Generalized weakness Phelps's esophagus without dysplasia Hiatal hernia Hypertension Hypothyroidism Esophageal reflux Resolved Hospital Problems No resolved problems to display. ADMISSION HISTORY & PHYSICAL EXAM (focused): Per Dr Felton Patient with PMHX: GERD, esophageal dysmotility, Phelps's esophagus, obesity and as listed who presents to [facility] for ongoing unintentional weight loss that has been ongoing since February 2024. Reportshe has lost about 40 lbs. He has been seeing local GI and had numerous studies done without real cause for his issues. Most recently he had his esophagus dilated which helped his dysphagia. He is swallowing without issue, but as soon as food "hits my stomach" he gets severely nauseated, some indigestion and left sided abdominal pain. He has no appetite. His has to remind his to eat something. Yesterday, he ate yogurt, applesauce and Ramen noodles. He feels very weak. He now has to use a walking stick. Ears: External ears normal Oropharynx: mucous membranes moist without erythema or exudates Neck: supple, nontender, no cervical adenopathy palpable Heart: regular rate & rhythm and no murmur appreciated Lungs: no respiratory distress, CTA, without wheeze, rhonchi or crackles Abdomen: + BS, soft, + LLQ tenderness, nondistended, no rebound tenderness or guarding HOSPITAL COURSE (focused): 73 yo M patient with hx of Barretts esophagus, Esophageal dysmotlity, hiatal hernia, hypertension, hypothyroidism, ANGEL with BiPAP noncompliance was sent from [facility] GI department for further workup - reports poor PO intake. Labs unremarkable. he is fearful that he may have cancer - MRI abdomen was unremarkable (0.6cm liver cyst noted. Patient was started on reglan PO TID with meals and mirtazipine for appetite stimulation. Patient able totolerate diet. Advised followup with GI, Nutrition outpatient. He is scheduled to get esophageal man ometry study outpatient Operations & Procedures: none Complications: none significant Significant Lab and Imaging Results: As mentioned above Results Pending at Discharge: Lab Results Pending at Discharge: None MEDICATION UPDATES AT DISCHARGE START taking these medications INSTRUCTIONS metoclopramide 5 MG Tablet Commonly known as: Reglan Take 0.5 Tablets by mouth 3 times a day as needed for Other (to help with nausea prior to meals). Mirtazapine 7.5 MG Tablet Commonly known as: Remeron Take 1 Tablet by mouth every night at bedtime. CONTINUE taking these medications INSTRUCTIONS atorvaSTATin 40 MG Tablet Commonly known as: Lipitor Take 1 Tablet by mouth in the morning. brinZOLamide 1 % ophthalmic suspension Commonly known as: Azopt Instill 1 Drop into both eyes in the morning and 1 Drop at noon and 1 Drop before bedtime. dorzolamide-timolol 2.23-0.68% ophthalmic solution Commonly known as: Cosopt Ocumeter Plus Instill 1 Drop into eye in the morning and 1 Drop before bedtime. Famotidine 40 MG Tablet Commonly known as: Pepcid Take 1 Tablet by mouth at bedtime. Latanoprost 0.005 % ophthalmic solution Commonly known as: Xalatan Instill 1 Drop into both eyes at bedtime. levothyroxine 100 MCG Tablet Commonly known as: Levoxyl Take one tablet by mouth one time daily ondansetron 4 MG Tablet Commonly known as: Zofran 1 tablet every 6 hours as needed for nausea pantoprazole 40 MG Tbec Commonly known as: Protonix Take 1 Tablet by mouth in the morning and 1 Tablet before bedtime. * PROzac 10 MG Capsule Generic drug: FLUoxetine Take 1 Capsule by mouth in the morning. With 20 mg for total 30 mg daily. * PROzac 20 MG Capsule Generic drug: FLUoxetine Take 1 Capsule by mouth in the morning. With 10 mg for total 30 mg daily. Sucralfate 1 GM Tablet Commonly known as: Carafate Take 1 Tablet by mouth 2 times a day as needed for Heartburn. traMADol 50 MG Tablet Commonly known as: Ultram Take 1 Tablet by mouth every 8 hours as needed for severe Pain * This list has 2 medication(s) that are the same as other medications prescribed for you. Read thedirections carefully, and ask your doctor or other care provider to review them with you. STOP taking these medications Clotrimazole 10 MG vasyl Commonly known as: Mycelex Vasyl SCHEDULED FOLLOW-UP: Future Appointments Appt Date/Time Provider Department 07/02/2024 8:30 AM Nurse Carine Lujan Gastroenterology, [facility] 07/14/2024 8:30 AM Megan Stephens CRNP Gastroenterology, [facility] 08/04/2024 8:00 AM [facility] [place] 08/04/2024 9:30 AM MD1 CARLOS Razo Lujan II 2nd Floor Cardiology, [place] 08/04/2024 10:30 AM NM1 CARLOS RAMÍREZS Carlos Lujan II 2nd Floor Cardiology, [place] 08/04/2024 12:[address] [facility] II 2nd Floor Cardiology, [place] 09/26/2024 9:20 AM Anna Walsh [facility] 10/13/2024 10:30 AM Stephanie Colon PA-C Allergy/Immunology [facility] Other Information Indwelling Devices: LINES ALL Duration Peripheral Line Right Hand 22 Gauge 2 days Vital Signs (last recorded): Most Recent Systolic BP: 149 mmHg (06/18/24709) Most Recent Diastolic BP: 86 mmHg (06/18/24709) Pulse: 60 (06/18/24709) Resp: 18 (06/18/24709) Most Recent Temperature: 36.89 C (06/18/24709) Weight: 101.6 kg (224 lb) (06/18/24 0541) SpO2: 97 % (06/18/24709) Allergies: Shellfish-derived products, Clindamycin, Aspirin, Gabapentin, Iodine, Lorazepam, and Penicillins Activity: as tolerated Diet: age appropriate diet Code Status: Full Code Condition on Discharge: stable Isolation status: None Cognition: normal HOSPITAL CONSULTS ORDERED: NUTRITION SERVICES (DIETITIAN) CONSULT IP ADULT PHYSICAL THERAPY CONSULT IP ADULT OCCUPATIONAL THERAPY CONSULT IP REFERRING PHYSICIAN: REF: SELF NO STREET ADDRESS AVAILABLE PRIMARY CARE PROVIDER: PCP: Anna Walsh MD [address] [place] [address] / [place] [phone] (office) [phone] (fax) Note: To contact a physician responsible for this patients hospital care, please call [facility] [phone]. I spent a total of 45 minutes coordinating, documenting, and providing care for this patient excluding time spent in the performance of separately billed services. documented in this encounter Discharge Instructions * Discharge Instr - AVS* Von Contreras MD - 06/18/2024 10:36 AM EDT Discharge Date: 06/18/2024 The information below provides you with the instructions and the list of medications you need to betaking following discharge from the hospital. If you have any questions, please ask before leaving. If you have questions after leaving, you can reach us at the numbers below. YOUR HOSPITAL PROVIDERS: Discharging Provider: Von Contreras MD Provider Department: Hospital Medicine To reach this Provider Sunday through Sunday (8:00 AM to 4:30 PM) for any questions or test results: Call [phone] For after-hours concerns: Call [phone] and have your provider paged, or the provider dimensional integration engineer for the Department of Hospital Medicine paged. Please note, the discharging provider will not be able to provide you with any medications refills.Please discuss these with your primary care provider. Worsening Symptoms: If you have new symptoms, or your symptoms get worse, please contact your Discharge Provider or Primary Care Provider (PCP). If these providers are not available, you can go to your [facility] during their business hours. In an EMERGENCY situation: Call [phone] or go to the nearest emergency room. A BRIEF SUMMARY OF YOUR HOSPITAL STAY: You came to the hospital with: poor oral intake Your main diagnosis at discharge was: Ongoing indigestion Operations & Procedures performed: none Complications: none significant Inpatient test results that are pending at discharge: none Advance Directive Documented: Advance Directive Does the Patient have an Advance Directive? Yes YOUR FOLLOW UP APPOINTMENTS: Primary Care Provider Information: PCP: Anna Walsh MD [address] [place] [address] / [place] [phone] (office) [phone] (fax) An appointment was requested with your PCP (Anna Walsh MD) within 7 days. (Please take this form to this visit with your primary care physician.) You need the following studies in the future: Esophageal manometry INSTRUCTIONS: Diet: Soft diet Activity: As tolerated - You are started on mirtazapine for appetite stimulation - You are started on reglan 2.5mg thrice a day with meals to help with nausea Additional Instructions:- Please followup with PCP, GI outpatient documented in this encounter Progress Notes * Shaunna Noonan MD - 06/17/2024 11:26 AM EDT Images from the original note were not included. [facility] 5A-5106/W INTERVAL HISTORY: 73 year old man with h/o GERD, esophageal dysmotility, Phelps's esophagus, obesity and as listed who presents to [facility] for ongoing unintentional weight loss and intractable nausea Patient has been undergoing GI workup outpatient: 05/12/2024 Upper GI: tortuous esophagus, HH, dilation performed 01/23/2024 NM gastric emptying: minimally delayed excretion at 2 and 4 hours. 02/13/2024 barium swallow: no esophageal mass or stricture. Moderate esophageal dysmotility. Severalepisodes of GERD 11/16/2023: CT AP- no acute findings. Patient seen and examined Reports intractable nausea whenever he eats even though he has appetite Reports dysphagia resolved after dilatation last month Reports GERD symptoms/heartburn occasionally Reports cough from recent COVID which he stated is improving. Denied any SOB Denied other symptoms on ROS Objective Physical Exam Most Recent Vital Signs: BP: 139 mmHg/78 mmHg (06/17/24 1052) Pulse: 56 (06/17/24 1052) Resp: 16 (06/17/24 105) Temp: 36.61 C (06/17/24 105) Temp Summary: Temp Min: 36.6 C (97.9 F) Max: 36.6 C (97.9 F) SpO2: 97 % (06/17/24 105) O2 flow rate: Supplemental O2 Delivery: Room Air, None (06/17/241051) Constitutional: no acute distress HEENT: normal: normocephalic, atraumatic; no masses, tenderness, or adenopathy Eyes: sclera and conjunctiva normal CV: normal rate, normal rhythm Chest: normal respiratory effort, lungs clear to auscultation and percussion Abdomen: normal: soft, bowel sounds normal, no masses, tenderness or organomegaly Musculoskeletal: No pedal edema Neuro: alert, oriented to person, place, and time, normal mental status exam, sensory normal Psych: normal mood and affect, nonsuicidal Peripheral Line Right Hand 22 Gauge (Active) Number of days: 1 STUDIES: Encounter Orders Labs and other studies reviewed with pertinent findings noted below: Lab results within last 7 days (see chart for full results) Units 06/17/24 0625 06/16/24 1133 SODIUM mmol/L 140 138 POTASSIUM mmol/L 3.6 3.8 CHLORIDE mmol/L 107 106 CO2 mmol/L 23 22 BUN mg/dL 7 9 CREATININE mg/dL 0.9 0.9 Lab results within last 7 days (see chart for full results) Units 06/17/24 0625 06/16/24 1133 06/11/24 1000 HGB g/dL 13.9* 14.6 14.9 HCT % 40.3 43.5 44.1 WBC K/uL 3.52* 4.14 5.25 PLT K/uL 148 144 161 MRI ABDOMEN WO CONTRAST Final Result EXAM MRI ABDOMEN WO CONTRAST-06/17/2024 7:57 am HISTORY unexplained weight loss, ongoing abdominal pain and nausea with eating little food COMPARISON CT abdomen and pelvis dated 05/06/2013 TECHNIQUE Multiplanar, multisequential MR imaging of the abdomen was performed without administration of intravenous contrast. FINDINGS The heart is normal in size. There are no pleural effusions in the visualized lung bases. The liver is normal in size. There is a tiny cyst in the left hepatic lobe measuring 0.6 cm. The gallbladder is absent. There is no biliary ductal dilation. The pancreas is unremarkable. The spleen is unremarkable. The adrenal glands are unremarkable. The kidneys are symmetric in size. There is no hydronephrosis. The abdominal aorta is normal in size. There are no enlarged lymph nodes. There are no fluid collections. The stomach is unremarkable. There is no evidence of small bowel obstruction. Colonic diverticula are noted. There is no evidence of colitis. The colon is otherwise not adequately evaluated for masses or polyps with CT. IMPRESSION IMPRESSION The exam is limited without IV contrast. The gallbladder is absent. No biliary ductal dilation. No acute abnormality seen on this exam. XR CHEST 1 VIEW Final Result PROCEDURE INFORMATION: Exam: XR Chest Exam date and time: 06/16/2024 11:22 AM Age: 73 years old Clinical indication: Other: Unexplained weight loss TECHNIQUE: Imaging protocol: Radiologic exam of the chest. Views: 1 view. COMPARISON: CT CHEST W CONTRAST 05/11/2024 10:54 AM FINDINGS: Lungs: Lungs clear. Pleural spaces: No definite pneumothorax. No pleural effusion. Heart/Mediastinum: Cardiac silhouette and pulmonary vasculature within normal limits. Bones/Joints: Osseous structures are unchanged. IMPRESSION IMPRESSION: No acute cardiopulmonary abnormality. THIS DOCUMENT HAS BEEN ELECTRONICALLY SIGNED BY PADDY HANSON MD Assessment and Plan IMPRESSION : Principal Problem: Unexplained weight loss Active Problems: Esophageal reflux Hypothyroidism Hypertension Hiatal hernia Phelps's esophagus without dysplasia Generalized weakness COVID-19 Resolved Problems: * No resolved hospital problems. * DIFFERENTIAL AND PLAN: Weight loss and persistent nausea affecting feeding Admitting team had discussed with GI who do not recommend any further inpt testing at this time. Patient has manometry planned outpatient. Nutrition consult Reports zofran not helping After discussion with pharm, will try reglan 2.5mg AC. Monitor for side effects Continue other home meds PHARMACOLOGIC VTE PROPHYLAXIS: Enoxaparin CODE STATUS: Full Code EXPECTED DISCHARGE DATE: 06/18/2024 I spent a total of 50 minutes coordinating, documenting, and providing care for this patient excluding time spent in the performance of separately billed services or time spent by another provider/QHP. documented in this encounter H&P Notes * Anya Bay CRNP - 06/16/2024 3:26 PM EDT Images from the original note were not included. [facility] 5A-5106/W PRESENTING PROBLEM: weight loss, weakness HPI: Patient with PMHX: GERD, esophageal dysmotility, Phelps's esophagus, obesity and as listed who presents to [facility] for ongoing unintentional weight loss that has been ongoing since February 2024. Reports he has lost about 40 lbs. He has been seeing local GI and had numerous studies done without real cause for his issues. Most recently he had his esophagus dilated which helped his dysphagia. He is swallowing without issue, but as soon as food "hits my stomach" he gets severely nauseated, some indigestion and left sided abdominal pain. He has no appetite. His has to remind his to eat something. Yesterday, he ate yogurt, applesauce and Ramen noodles. He feels very weak. He now has to usea walking stick. GI studies: 05/12/2024 Upper GI: tortuous esophagus, HH, dilation performed 01/23/2024 NM gastric emptying: minimally delayed excretion at 2 and 4 hours. 02/13/2024 barium swallow: no esophageal mass or stricture. Moderate esophageal dysmotility. Severalepisodes of GERD 11/16/2023: CT AP- no acute findings. Reports UTD on colonoscopy. I can't find records. Per GI- last colonoscopy 2020: "tubular adenoma. Was told to have 5 year recall" He is fearful he may have cancer. States something similar happened to his mother where she couldn't eat, lost weight and ultimately . Unclear cause. Thinks she had cancer. She at 78.His brother has end stage colon cancer and sister has end stage breast cancer with mets. States, "everyone in my family dies in August." He denies overwhelming feeling or psychological reasons for his symptoms. He denies depression. He would like his liver investigated. Reports he was at [facility] last week. He was delirious. Noted to have COVID and elevated NH3. He was d/c. He denies fever, chills, chest pain, SOB, dysuria, leg swelling. +occasional cough. + occasional LH, dizziness when moving In the ED, workup essentially unremarkable. Noted to be hypertensive. Patient reports he was recently taken off his Norvasc - unsure why- thinks maybe his blood pressure was on the low side of normal. GI plans for no further inpt testing. Subjective Patient's past history, medications, and allergies were reviewed. Objective Physical Exam Most Recent Vital Signs: BP: 165 mmHg/89 mmHg (06/16/24 1529) Pulse: 64 (06/16/24 1529) Resp: 18 (06/16/24 1529) Temp: 36.61 C (06/16/24 1529) Temp Summary: Temp Min: 36.6 C (97.9 F) Max: 37.7 C (99.9 F) SpO2: 96 % (06/16/24 1529) O2 flow rate: Supplemental O2 Delivery: Room Air, None (06/16/24 1529) General: Pt in bed, alert, in no acute distress Head: Normocephalic, No masses, lesions, tenderness or abnormalities Eye Exam: EOMI, Conjunctiva are pink and non-injected, sclera clear Ears: External ears normal Oropharynx: mucous membranes moist without erythema or exudates Neck: supple, nontender, no cervical adenopathy palpable Heart: regular rate & rhythm and no murmur appreciated Lungs: no respiratory distress, CTA, without wheeze, rhonchi or crackles Abdomen: + BS, soft, + LLQ tenderness, nondistended, no rebound tenderness or guarding Lower Extremities: without pitting edema, no calf tenderness, no stasis changes noted STUDIES: Encounter Orders Labs and other studies reviewed with pertinent findings noted below: XR CHEST 1 VIEW Final Result PROCEDURE INFORMATION: Exam: XR Chest Exam date and time: 06/16/2024 11:22 AM Age: 73 years old Clinical indication: Other: Unexplained weight loss TECHNIQUE: Imaging protocol: Radiologic exam of the chest. Views: 1 view. COMPARISON: CT CHEST W CONTRAST 05/11/2024 10:54 AM FINDINGS: Lungs: Lungs clear. Pleural spaces: No definite pneumothorax. No pleural effusion. Heart/Mediastinum: Cardiac silhouette and pulmonary vasculature within normal limits. Bones/Joints: Osseous structures are unchanged. IMPRESSION IMPRESSION: No acute cardiopulmonary abnormality. THIS DOCUMENT HAS BEEN ELECTRONICALLY SIGNED BY PADDY HANSON MD MRI ABDOMEN WO CONTRAST (Results Pending) Results for orders placed or performed during the hospital encounter of 06/16/24 COMPREHENSIVE METABOLIC PANEL Result Value Ref Range BUN 9 6 - 20 mg/dL CREATININE 0.9 0.6 - 1.2 mg/dL EGFR 89 >=60 mL/min SODIUM 138 135 - 146 mmol/L POTASSIUM 3.8 3.5 - 5.1 mmol/L CHLORIDE 106 98 - 107 mmol/L CO2 22 22 - 32 mmol/L ANION GAP 10 7 - 15 mmol/L GLUCOSE 97 70 - 120 mg/dL Albumin 3.3 (L) 3.8 - 5.0 g/dL AST 18 10 - 50 U/L Alkaline Phosphatase 99 35 - 130 U/L Bilirubin, Total 0.5 <=1.2 mg/dL CALCIUM 8.5 8.4 - 10.2 mg/dL Protein 6.2 6.0 - 8.3 g/dL ALT 17 10 - 50 U/L TROPONIN T, HIGH SENSITIVITY Result Value Ref Range Troponin T, High Sensitivity 8 <=22 ng/L LACTATE Result Value Ref Range Lactate 0.9 0.4 - 2.0 mmol/L LIPASE Result Value Ref Range Lipase 9 (L) 13 - 60 U/L CBC Result Value Ref Range WBC 4.14 4.00 - 10.80 K/uL RBC 4.64 4.50 - 5.25 M/uL HGB 14.6 14.0 - 16.8 g/dL HCT 43.5 40.0 - 48.4 % MCV 93.8 82.0 - 99.5 fL MCH 31.5 27.0 - 34.0 pg MCHC 33.6 32.0 - 36.0 g/dL RDW 12.6 11.5 - 15.5 % PLT 144 140 - 400 K/uL MPV 10.2 6.6 - 11.1 fL nRBCs 0 <=0 /100 WBCs DIFFERENTIAL, AUTOMATED Result Value Ref Range WBC 4.14 4.00 - 10.80 K/uL Neutrophils % 54.7 40.0 - 75.0 % Lymphocytes % 34.5 18.0 - 42.0 % Monocytes % 7.7 1.0 - 11.0 % Eosinophils % 2.4 0.0 - 6.0 % Basophils % 0.5 0.0 - 2.0 % Immature Granulocytes % 0.2 0.0 - 2.0 % Absolute Neutrophils 2.26 1.80 - 7.70 K/uL Absolute Lymphocytes 1.43 1.00 - 4.80 K/ul Absolute Monocytes 0.32 0.00 - 1.10 K/uL Absolute Eosinophils 0.10 0.00 - 0.70 K/uL Absolute Basophils 0.02 0.00 - 0.20 K/uL Absolute Immature Granulocytes 0.01 0.00 - 0.20 K/uL Assessment and Plan IMPRESSION/PLAN OF CARE: Principal Problem: Unexplained weight loss Active Problems: Esophageal reflux Hypothyroidism Hypertension Hiatal hernia Phelps's esophagus without dysplasia Generalized weakness Resolved Problems: * No resolved hospital problems. * Patient with PMHX: GERD, esophageal dysmotility, Phelps's esophagus, obesity and as listed p/w ongoing unintentional weight loss that has been ongoing since February 2024. Unable to eat much d/t severe nausea, dry heaving and abdominal pain shortly after eating. He has had extensive testing done by GI. Med/surg obs Secure TT with BRENT Aguilera with GI- no additional testing to be done inpatient. He has upcoming manometry. This can't be done inpatient. MRCP to see if any intraabdominal causes can be identified Encourage least restrictive diet. Nutrition Consult PRN anti emetics. GI advises caution with Reglan d/t [employer] PPI Restart Carafate- pt stopped taking. Gentle IV fluids- D5 1/ NSS Consult PT/OT for generalized weakness Will try Remeron to see if that helps stimulate his appetite. Calorie counts. Daily weights. If no other causes can be found, could consider Psych Consult Noted to be hypertensive in ED, monitor. May need to restart Norvasc that was recently d/c PHARMACOLOGIC VTE PROPHYLAXIS:Enoxaparin CODE STATUS: Full Code EXPECTED DISCHARGE DATE: 06/18/2024 I spent a total of 75 minutes coordinating, documenting, and providing care for this patient excluding time spent in the performance of separately billed services or time spent by another provider/QHP. BRENT Alfaro Associated attestation - Yahir Felton MD - 06/16/2024 7:13 PM EDT I have reviewed the advanced practitioner's documentation on the date of service referenced in note, and I agree with, and take responsibility for the plan of care. Patient with poor po tolerance. I suspect an IBS component to his symptoms. He comment that the main issue is nausea, poor appetite and abdominal pain. Mechanically he has been able to eat since his last esophageal dilation but not really holding or attempt much down due to his symptoms. He continues to drop in weight. He is concerned because a lot of people in his family have had cancer. Will get MRI abdomen. However, his symptoms are likely in part psychosomatic. Will add Remeron to stimulateappetite, and decrease Fluoxetine dose in effort to help with possible IBS. Will add emend for nausea. documented in this encounter Consult Notes * Colleen Jackson, OT - 06/18/2024 11:17 AM EDTAssociated Order(s): ADULT OCCUPATIONAL THERAPY CONSULT IP OT consult noted, chart reviewed. The pt's mobility AM-PAC score is 21. Per pt's care nurse, the ptis independent in the room. The care nurse, Derik Hatfield LPN, denied concerns indicating need for OT consult and was agreeable to discontinue OT at this time. * Tariq Syed, PT - 06/17/2024 4:19 PM EDTAssociated Order(s): ADULT PHYSICAL THERAPY CONSULT IP GENERAL EVALUATION - Physical Therapy [address] [address] Name: Dallin Reed Location: [id number] Date: 06/17/2024 Time: 1618 Dallin Reed is a/an 73 year old male. Patient Status: Observation Insurance: Payor: [employer] Plan: [employer] Product Type:*No Product type* Payor: [employer] MEDICARE ADVANTAGE Plan: [employer] PPO Product Type: *No Product type* Patient Seen: at bedside, nursing cleared patient for therapy Patient Identified By: Name, ID Band and Date Diagnosis: Gait dysfunction, generalized weakness, unexplained weight loss (06/17/241618) Status of treatment: Evaluation completed (06/17/241618) Orders: PT evaluation and treatment (06/17/241618) Weight Bearing Status: Weight bearing as tolerated (06/17/241618) Precautions: Falls;Safety;Isolation (06/17/241618) Total Treatment Time--free text: 44 minutes (06/17/241618) HPI: Per chart review: "Patient with PMHX: GERD, esophageal dysmotility, Phelps's esophagus, obesity and as listed who presents to [facility]ED for ongoing unintentional weight loss that has been ongoing since February 2024. Reports he has lost about 40 lbs. He has been seeing local GI and had numerous studies done without real cause for his issues. Most recently he had his esophagus dilated which helped his dysphagia. He is swallowing without issue, but as soon as food "hits my stomach" he gets severely nauseated, some indigestion and left sided abdominal pain. He has no appetite. His has to remind his to eat something. Yesterday, he ate yogurt, applesauce and Ramen noodles. He feels very weak. He now has to use a walking stick. GI studies: 05/12/2024 Upper GI: tortuous esophagus, HH, dilation performed 01/23/2024 NM gastric emptying: minimally delayed excretion at 2 and 4 hours. 02/13/2024 barium swallow: no esophageal mass or stricture. Moderate esophageal dysmotility. Severalepisodes of GERD 11/16/2023: CT AP- no acute findings. Reports UTD on colonoscopy. I can't find records. Per GI- last colonoscopy 2020: "tubular adenoma. Was told to have 5 year recall" He is fearful he may have cancer. States something similar happened to his mother where she couldn't eat, lost weight and ultimately . Unclear cause. Thinks she had cancer. She at 78.His brother has end stage colon cancer and sister has end stage breast cancer with mets. States, "everyone in my family dies in August." He denies overwhelming feeling or psychological reasons for his symptoms. He denies depression. He would like his liver investigated. Reports he was at [facility] last week. He was delirious. Noted to have COVID and elevated NH3. He was d/c. He denies fever, chills, chest pain, SOB, dysuria, leg swelling. +occasional cough. + occasional LH, dizziness when moving In the ED, workup essentially unremarkable. Noted to be hypertensive. Patient reports he was recently taken off his Norvasc - unsure why- thinks maybe his blood pressure was on the low side of normal. GI plans for no further inpt testing. " Past Medical History: Past Medical History: Diagnosis Date Abdominal pain, left lower quadrant 07/2005 Depressive disorder, not elsewhere classified Diverticulosis of colon 08/2007 left colon, seen on colonoscopy GERD (gastroesophageal reflux disease) HTN, goal to be determined Hypothyroidism Obesity, Class I, BMI 30.0-34.9 (see actual BMI) Other specified glaucoma 2006 Dr Caicedo Past Surgical History: Past Surgical History: Procedure Laterality Date COLONOSCOPY COLONOSCOPY, DIAGNOSTIC (RECTUM) 08/19/2008 inflammation, ulcer bed, repeat in 5 yrs COLONOSCOPY, DIAGNOSTIC (RECTUM) 01/04/2010 patent , COLONOSCOPY, DIAGNOSTIC (RECTUM) 05/16/2013 COLONOSCOPY FLEXIBLE PROXIMAL DIAGNOSTIC performed by Latricia Howard MD at [facility] COLONOSCOPY, GI REFERRAL OP 05/14/2006 diverticulosis noted, with internal hemorrhoids, repeat in 2016 EGD, FLEXIBLE, DIAGNOSTIC N/A 05/12/2024 ESOPHAGOGASTRODUODENOSCOPY (EGD), FLEXIBLE, TRANSORAL, DIAGNOSTIC performed by Dawit Fernando, DObrody [facility] EGD, FLEXIBLE, W/BIOPSY 08/15/2006 [facility], jovany esophagitis, neg for H pylori EXPLORATION OF ABDOMEN 10/06/2010 Exploratory laparotomy; extensive adhesiolysis; incisional hernia x 3 Dr Beltran 10/06/2010 [facility] EXPLORATION OF ABDOMEN 12/29/2010 1.Exploratory Laparotomy. 2. Removal of infected mesh. 3. Closure with wound VAC. Dr Beltran 12/29/2010 [facility] EXPLORATION OF ABDOMEN 02/09/2011 1.Exploratory laparotomy 2. Extensive lysis of adhesions 3. Removal of infected mesh 4. Enterotomy repair X 4 5. Closure of abdominal wound. Dr Beltran 02/09/2011 [facility] IMPLANT MESH W/ ABD HERNIA REPR/DEBRIDE 10/02/2011 IMPLANTATION MESH WITH INCISIONAL/VENTRAL HERNIA performed by NAMRATA WAGNER at [place] [facility] [place] INFORMATION fx back LAPAROSCOPY; CHOLECYSTECTOMY 08/12/2011 LAPAROSCOPIC CHOLECYSTECTOMY performed by NAMRATA WAGNER at OR [facility] [place] OTHER 07/27/2009 exploratory laparotomy. extensive adhesiolysis. Partial small bowel resection with primary anastomosis. Incision hernia repair (primary), 07/27/09, Dr. Beltran OTHER 09/15/2009 exploratory laparotomy, extensive lysis of adhesions (greater than 3 hours), partial small bowel resection with primiary anastomosis (30 cm of jejunum): partial small bowel resection with primary anastomosis (25 cm of distal ileum):incisional hernia repair (primary): omentectomy 09/15/09 [facility], Dr. Aicha harley PARTIAL COLECTOMY W/ANASTOMOSIS 08/22/2007 Sigmoid colectomy w/ primary anastomosis and completion proctoscopy/MDJOSEPH/ REMOVAL OF RUPTURED APPENDIX 09/03/1981 Appendectomy, Rupt Appendx+Abscess REPAIR INITIAL INCISIONAL OR VENTRAL HERNIA; REDUCIBLE 10/02/2011 REPAIR INITIAL INCISIONAL /VENTRAL HERNIA REDUCIBLE performed by NAMRATA WAGNER at OR [facility] [place] TMJ ARTHROSCOPY DEBRIDEMENT Right 02/2023 [facility] ENDOSCOPY Subjective: Pt expressed willingness to participate in PT consult. Pt reported that his knees felt week during gait training. Social History/Disposition Lives with: Spouse (06/17/241618) Assistance available: Yes (from spouse) (06/17/241618) Dwelling type: Other - Describe (temporarily in RV while house is being built) (06/17/241618) Entry steps: Other - Describe (7steps w/ B rails) (06/17/241618) Inside steps: None (06/17/241618) Bedroom location: 1st floor (06/17/241618) Bath location: 1st floor shower (06/17/241618) Prior Level of Function Reported by: Patient (06/17/241618) Ambulation: Ambulatory without device;Ambulatory with device (06/17/241618) Ambulatory Device: (no device inside, walking stick outside) (06/17/241618) Devices at home: Other - describe (walking stick) (06/17/241618) Observations Consciousness: Alert (06/17/241618) Orientation: Oriented times 4 (06/17/241618) Psychosocial: Patient can communicate basic needs;Patient can converse in a social setting (06/17/241618) Other Findings: Yes (06/17/241618) Findings: Light touch sensation;Coordination;Tone (06/17/241618) Light Touch Sensation Results: Intact;LUE;RUE;LLE;RLE (06/17/241618) Coordination Results: Intact;LUE;RUE;LLE;RLE (06/17/241618) Tone Results: Intact;LUE;RUE;LLE;RLE (06/17/241618) Sitting Posture: Forward head;Rounded shoulders (06/17/241618) Standing Posture: Forward head;Rounded shoulders (06/17/241618) Pain: No complaints of pain Range of Motion Range of Motion: WFL (06/17/241618) Strength Assessment Strength Assessment: Deficits noted (06/17/241618) WNL, except: LUE;RUE;LLE;RLE (06/17/241618) LUE: 4+/5;Shoulder;5/5;Elbow;Wrist;Grasp (06/17/241618) RUE: 4+/5;Shoulder;5/5;Elbow;Wrist;Grasp (06/17/241618) LLE: 4+/5;Hip;Knee;5/5;Ankle (06/17/241618) RLE: 4+/5;Hip;Knee;5/5;Ankle (06/17/241618) Transfers Sit-Stand: Modified Independent (06/17/241618) Stand-Sit: Modified Independent (06/17/241618) Ambulation: Distance ambulated (feet): 150 feet w/ rolling walker, 20 feet w/ trekking pole Assist: modified independent w/ rolling walker and CGA to supervision 1 w/ trekking pole Gait Characteristics: Decreased speed, Decreased step length, fatigues easily, but steady gait w/ no loss of balance for forward amb, turning 180 degrees in each direction and backing up to sit w/ rolling walker. However, increased trunk sway and gait slower when ambulating w/ 1 trekking pole. Balance Sit (Static): Good (06/17/241618) Sit (Dynamic): Good (06/17/241618) Stand (Static): Fair (06/17/241618) Stand (Dynamic): Fair (06/17/241618) Patient and or Family Goal(s): to get well and to return home Patient Education Review of Precautions: Safety;Fall (no amb or transfers at [facility] w/o nursing assistance w/o permission from nurse) (06/17/241618) Safety Awareness: Patient verbalizes insight of current deficits;Patient demonstrates carryover of insight during functional tasks;Patient can communicate basic needs (06/17/241618) Preferred learning method: Combination (06/17/241618) Barriers to learning: Medical Status (06/17/241618) Method of Education: Verbalized to patient;Patient demonstrated task;Written information provided to patient;Demonstrated to patient (06/17/241618) Topic of Education: Safety with mobility, Goals/plan of care, Use of assistive device, and Fall prevention at current level of function if discharged home, pt advised to use a rolling walker or rollator for transfers and ambulation. Method of Education: Verbal discussion and explanation provided to pt: verbalized understanding andor agreement of this information and demonstrated the exercise and or task Demonstrated the above task to pt: verbalized understanding and or agreement of this information and demonstrated the exercise and or task Extremity Exercise Sitting: Hip;Knee;Ankle;Isometrics (06/17/241618) Hip : Bilateral LE;Abduction;Adduction;Flexion (5 reps) (06/17/241618) Knee : Bilateral LE;Extension (5 reps) (06/17/241618) Ankle: Bilateral LE;1 set of 10;Dorsiflexion;Plantar flexion (06/17/241618) Isometrics: Bilateral LE;Quad sets;Glute sets (5 reps) (06/17/241618) Treatment Provided: Therapeutic Activities 5 minutes: transfer training Fall prevention education. Balance activity to improve strength, endurance and standing tolerance/safety: static standing w/ rolling walker and pt demonstrating modified independence and static standing w/ trekking pole and supervision 1 Gait Training 12 minutes: gait training with rolling walker and 1 trekking pole Therapeutic Exercises: 12 minutes Evaluation Moderate Complexity 15 minutes - 06682: Patient was cooperative, pleasant, motivated, and alert during treatment session. Moderate complexity evaluation performed and 1-2 personal factors or comorbidities were identified that will impact plan of care, including multiple steps at home, obesity, and evolving clinical presentation. Patient presents with limitations in strength, bed mobility, transfers, gait, elevations, balance, endurance, and safety, which will impact plan of care. These limitations will be addressed by the goals set for this patient. Alarm Status Patient positioned in: Chair (recliner, foot rest elevated, brakes locked) (06/17/241618) With: Call coleman in reach (06/17/241618) Treatment Status: Treatment at bedside (06/17/241618) Goals: Demonstrate Bed Mobility with: Supine to Sit: modified independent (with device or slow) Sit to supine: modified independent (with device or slow) Demonstrate Transfers with: Sit to stand: modified independent (with device or slow) Stand to sit: modified independent (with device or slow) Bed to chair: modified independent (with device or slow) Chair to bed: modified independent (with device or slow) Demonstrate Ambulation: assistive device: least restrictive assistive device needed distance in feet: 200 or greater level of assistance on level surface: modified independent (with device or slow) Demonstrate Stairclimbing: Number of steps: 7, two rails, and Level of Assistance: contact guard Increase Safety: w/ functional mobility Time Frame: 10 sessions Assessment: Pt presents w/ deficits in strength, balance, endurance and functional mobility but pt demonstrated modified independence for transfers and amb on level surfaces w/ rolling walker, AM PAC21. At discharge would consider post acute services which may include out patient therapy or home health. The level of care will be determined in collaboration with the patient, family/caregiver and careteam members. Skilled PT at [facility] is warranted to address deficits in strength, endurance, balance and functional mobility and to continue to assess discharge needs. Deficits requiring P.T. treatment needs: Safety;Mobility;Balance;Weakness;Endurance (06/17/241618) Equipment Needs: Equipment needs: Rolling walker;Rollator (rollator vs rolling walker vs B trekking poles) (619) Treatment Plan: Bed mobility training, Transfer training, Gait training, Elevation training, Strengthening exercises: B LE, Balance activities, and Educate on safety with functional mobility Anticipated Frequency (on eval): (1-5 times per week) (06/17/241618) AM PAC Score with Stairs: 21 * Florencia Carrillo RDN - 06/17/2024 11:02 AM EDTAssociated Order(s): NUTRITION SERVICES (DIETITIAN) CONSULT IP CLINICAL NUTRITION CONSULT/PROGRESS NOTE [facility] [address] Name: Dallin Reed Location: [facility] 5A-5106/W Date: 06/17/2024 Time: 11:02 AM How patient was identified (select 2): date and Name Discussed in interdisciplinary rounds: Yes Dallin Reed is a 73 year old male being seen for calorie count, consult by provider, reduced dietary intake, significant unintentional weight loss, and history of moderate malnutrition Primary Diagnosis: NKFA Other pertinent information: Met with patient at bedside to assess nutritional status. Patient reports that since February his intakes have not been the best due to nausea. Patient reports that he gets nauseous and dry heaves when he eats, but does not vomit. He reports that he sometimes does not even want to eat due to the nausea. Patient saw outpatient RDN in May who recommended fortified high protein foods. Patient reported that he was doing the carnation instant breakfast for a while but then he started to feel sick so he stopped. Patient reports following a softer diet due to dysphagia, however, he reports he has not been having any issues swallowing since having his esophagus stretched last month. He states he did well with the sherbet he was given on his trays. Food preferences relayed to food services. He reports consuming apple sauce, instant mashed potatoes, yogurt, and drinking Gatorade. Patient reports he has also tried Boost in the past and tolerated it. Patient is agreeable to super mashed potatoes with gravy and Boost Very High Calorie TID. Patient reports that he do es not consume a lot of meat anymore due to having issues with swallowing it previously. Encouragedpt to continue to consume high protein/fortified foods at home. Patient ordered calorie counts--will add supplements to aid in intakes. He reports his usual body weight is around 260 lbs but that he has been losing weight. Per care everywhere, pt has had 11% weight loss x ~ 6 months which is significant. Performed a nutrition focused physical exam, patient presents with mild fat loss. Due to mildfat loss, reduced intakes, and weight loss, patient currently continues to meet criteria for moderate malnutrition. Patient had no other nutritional questions or concerns at this time. Will continue to monitor pt intakes/calorie counts and weight. NUTRITION ASSESSMENT: Past medical/surgical history and medications reviewed. Food/Nutrition-Related History Nutrition Support: None Diet: Soft & Bite Sized Food, Level 6 Previously followed diet: Regular/soft foods Food Allergies/Intolerances: Shellfish Adult Energy Intake: Less than 75% of estimated energy requirement for greater than 1 month (moderate/severe, chronic illness). Percentage of meal intake: 50% Oral Nutrition Supplement (ONS): None Pertinent medications/vitamins/minerals/supplements: remeron, pantoprazole Pertinent Biochemical Data: There are no biochemical abnormalities requiring a change in the nutrition plan of care. Nutrition-Focused Physical Findings: Appearance: Ill-appearing Respiratory support: Supplemental O2 Delivery: Room Air, None Nasal/Oral: Swallow function, compromised or painful Digestive: Appetite poor and Nausea Last Bowel Movement: 06/16/24 (06/16/24 1931) Cognition: Awake, alert and Oriented Skin: Intact Enteral access: None Nutrition Focused Physical Exam: NFPE completed on 06/17/24 Subcutaneous Fat Loss: Orbital fat pads: Mild-Moderate Buccal fat: Mild Tricep: WNL Muscle Loss: Temples: WNL Clavicles: WNL Shoulders: WNL Interosseous: Mild Quadriceps: WNL Calves: WNL Anthropometrics Measurements Height: 175.3 cm (5' 9") (06/16/24 1529) Admission weight: 102.5 kg Weight: 101.9 kg (224 lb 11.2 oz) (06/17/24 0508) BMI: 33.08 (06/16/24 1529) Usual Body Weight: 118.2 kg per pt [place] weight: 76.5 kg [place] Weight Based on BMI: 24.9 Interpretation of Weight Change Prior to Admission: Greater than 10% weight loss in 6 months (Severe); 11% weight loss x ~6 months per EHR Weight Changes Since Admission: Weight stable Nutrition Prescription: Energy needs: 22-25 Kcal/kg Kcal/day: 5789-8930 Based on current weight Protein needs: 1.0-1.2 gm/kg Protein: 102-122 Based on current weight Fluid needs: 30 ml/kg Fluid: 3057 ml/day Based on current weight Malnutrition: Malnutrition Present: Yes (06/17/24 1306) Adult Malnutrition Classification: Moderate (06/17/24 1306) Malnutrition Characteristics: Fat loss;Inadequate energy intake;Weight loss (06/17/24 1306) Malnutrition Care Plan: Patient meets ASPEN/AND criteria for moderate malnutrition. Plan to meet 75% of estimated calorie and 75% of estimated protein requirements via therapeutic diet and a nutrition intervention of oral nutrition supplements. If patient unable to achieve estimatedrequirements over next 5-7 days, will need to consider enteral nutrition. Dietitian Action: Oral nutritional supplement ordered/adjusted (06/17/24 1306) Super Mashed Potatoes with Gravy (1/2 cup plus 1 oz, 265 calories, 8 grams protein, 23 grams carbohydrate) BID Boost Very High Calorie (237 mL, 530 calories, 22 grams protein, 52 grams carbohydrate) TID NUTRITION DIAGNOSIS: Malnutrition moderate related to chronic illness as evidenced by patient consuming less than 75% ofestimated energy requirements x 1 month, greater than 10% weight loss x 6 month, and mild fat loss. Swallowing difficulty related to dysphagia as evidenced by need for altered textured diet Goals: Patient to consume greater than 50 % of daily meals and 75% of daily supplements within 5 days. NUTRITION INTERVENTION/PLAN: Orders: Oral nutrition supplement added Super Mashed Potatoes with Gravy (1/2 cup plus 1 oz, 265 calories, 8 grams protein, 23 grams carbohydrate) Boost Very High Calorie (237 mL, 530 calories, 22 grams protein, 52 grams carbohydrate) TID Relayed information to food specialist Clinical Nutrition Recommendations: Diet: Continue current nutrition plan NUTRITION MONITORING AND EVALUATION: Nursing documentation flowsheets for percent meal intake Tolerance of supplement per patient/nursing report Weight for trends Plan follow-up: Will follow and adjust nutrition plan of care as medical condition requires. Please contact for change(s) in patient condition requiring earlier intervention. Florencia Carrillo MS, RDN, LDN Clinical Nutrition [facility] Available via Nav[employer] Text [phone] documented in this encounter Nursing Notes * Darcy Penny NA/KRISTIN - 06/18/2024 11:07 AM EDT Anna Walsh MD [facility] [phone] [address] [address] Tuesday June 25, 2024 @ 11:00 a.m. [facility] [phone] [address] [address] Sunday July 14, 2024 @ 8:30 a.m. * Loly Ritter RN - 06/17/2024 7:40 PM EDT Pt resting quietly in bedside chair upon entering room. Pt alert and oriented x4 with no complaintsof pain or nausea at this time. Pt notes he notices tenderness in abdomen after eating but has not ate anything since dinner time. No nausea voiced at this time. Assessment charted by this RN. No needs voiced at this time. Call coleman in reach * Michael Villasenor RN - 06/16/2024 4:06 PM EDT Pt arrived to floor @ 1527. Pt ambulated from w/c to chair and standing weight was obtained. Admission questions completed with the virtual nurse. Dual skin and admission assessments completed. Pt oriented to room and call coleman system. * Michael Villasenor RN - 06/16/2024 4:05 PM EDT Dual Licensed Skin Assessment completed by Cordell Villasenor RN and Aixa Ferro RN. The patient is/has a N/A Skin Breakdown (includes non blanchable erythema): No * Dia Farah RN - 06/16/2024 3:46 PM EDT VIRTUAL RN [facility] [id number] Name: Dallin Reed Location: [facility] [id number] Date: 06/16/2024 Time: 3:47 PM I completed the Admission Navigator. The patient was in the hospital. I was not in a hospital or clinic location. After connecting through [employer], the patient was identified by name and date of and / or wristband checked. Patient (or authorized legal customer service representative teacher) was then informed that this was a Virtual Nurse visit and was being conducted confidentially over secure lines. My office door was closed. No one else was in the room with me. Patient acknowledged consent and understanding of privacy and security of the Virtual Nurse visit. I presented the opportunity for the patient or authorized legal customer service representative teacher to ask any questions regarding the visit today. The patient or authorized legal customer service representative teacher agreed to participate. documented in this encounter ED Notes * Maria E Donaldson, - 06/16/2024 11:15 AM EDT HISTORY OF PRESENT ILLNESS Dallin Reed is a 73 year old male who presents to the ED for evaluation of Weight Loss. The patient was seen at 06/16/24 1059. Patient is a 73-year-old male who presents a chief complaint of generalized fatigue and weight loss. States he has past medical history of Phelps's esophagus, GERD, hypothyroidism, hypertension. Patient states that since February he has lost at least 40 lb if not more. Hehas had recent EGD that did show Phelps's esophagus and a tortuous esophagus. He was on Protonix and states that he was still having pain after eating small amounts. He was only eating about 500 calories. He did have scans done that did not show any abnormality of the chest or neck. States he was f eeling increasingly weak due to not eating a lot and he also was diagnosed with the COVID a week ago. He contacted the GI office who recommended he come in for evaluation to the emergency department.He was scheduled to have manometry done of his esophagus. History provided by: patient trader fixed income used: No Review of Systems Constitutional: Positive for fatigue and unexpected weight change. HENT: Negative for congestion, rhinorrhea, sinus pressure, sinus pain, sneezing and sore throat. Eyes: Negative for photophobia and visual disturbance. Respiratory: Negative for cough, shortness of breath and wheezing. Cardiovascular: Negative for chest pain and palpitations. Gastrointestinal: Positive for abdominal pain and nausea. Negative for constipation and diarrhea. Genitourinary: Negative for dysuria, frequency and hematuria. Musculoskeletal: Negative for back pain, neck pain and neck stiffness. Skin: Negative for rash and wound. Neurological: Negative for dizziness, light-headedness and headaches. The patient's allergies, past history, and medications were reviewed. PHYSICAL EXAM Initial Vitals (see all): BP 163/95 | Pulse 88 | Resp 19 | Temp 99.9 | O2 97 %, Room Air, None | Weight 102.51 kg | Height 175.3 cm | BMI 33.37 kg/m2 Initial Pain Assessment (see all): 5 (moderate pain)/10, location: abdomen ([facility] Adult Scale 0-10) Physical Exam Constitutional: General: He is not in acute distress. Appearance: He is not toxic-appearing. HENT: Head: Normocephalic. Nose: Nose normal. Mouth/Throat: Mouth: Mucous membranes are dry. Eyes: General: No scleral icterus. Pupils: Pupils are equal, round, and reactive to light. Cardiovascular: Rate and Rhythm: Normal rate. Pulmonary: Effort: No respiratory distress. Breath sounds: Normal breath sounds. No wheezing. Comments: Clear breath sounds in all lung soriano. No acute respiratory distress. Pulse ox 97% on room air. Abdominal: General: There is no distension. Palpations: Abdomen is soft. Tenderness: There is abdominal tenderness. Comments: Upper abdominal tenderness palpation. Abdomen otherwise is soft and nondistended. No guarding or rigidity. Midline scar below the umbilicus from previous surgery. Musculoskeletal: General: No swelling or deformity. Normal range of motion. Cervical back: No rigidity. Lymphadenopathy: Cervical: No cervical adenopathy. Skin: General: Skin is warm. Capillary Refill: Capillary refill takes less than 2 seconds. Coloration: Skin is not jaundiced. Findings: No bruising. Neurological: Mental Status: He is alert and oriented to person, place, and time. Cranial Nerves: No cranial nerve deficit. Motor: No weakness. PROCEDURES AND TREATMENTS ED Orders | ED Results MEDICAL DECISION MAKING Nursing notes and vital signs were reviewed. ED Course as of 06/16/24 1435 Mon Jun 16, 2024 1237 I did message GI for recommendations. [MS] 1337 I did speak with Ale AGUILA. Discussed the case. She recommends giving the patient Deepa cocktail and trialing with a p.o. challenge. States that there is an order to schedule his gastric emptying study. She reviewed his labs and also spoke with the provider that saw him in the office, does not feel that there is any criteria for admission at this time. She does recommend that he sta rt taking his Carafate which he has not been taking. [MS] 1344 I updated the patient on my conversation from GI. We will trial a GI cocktail to see if he cantolerate anything by mouth. [MS] 1404 We attempted a p.o. challenge after the GI cocktail and the patient could not tolerate and started spitting up. [MS] 1407 I did message with the hospitalist team for admission. [MS] 1430 Spoke with the hospitalist team and they are in agreement for admission observation. [MS] ED Course User Index [MS] Maria E Donaldson, DO Patient is a 73 year old male who presents with a chief complaint increasing weight loss. He was lost about 40 lb since February and states he has a down aphasia and also abdominal pain. He also admits to nausea. He has seen GI and has had a thorough workup. He has had imaging done of the neck and chest that is not show any abnormality. He had a EGD done in May that did show a torturous esophagus but otherwise stable Phelps's esophagus. He had biopsies done in April through [facility] and it did not show any evidence of dysplasia. Patient's labs are stable in the emergency department but he was not able to tolerate anything orally. I did give him a GI cocktail after speaking with GI a nd they recommendations. He was not able to tolerate p.o. intake and with his weight loss I did speak with the hospitalist team for admission. There was no plans to re scope him after speaking with GI. He was going to be set up with a gastric emptying study and he has an appointment for manometry. Amount and/or Complexity of Data Reviewed Labs: ordered. Radiology: ordered. Risk OTC drugs. Prescription drug management. Decision regarding hospitalization. Clinical Impressions Odynophagia Disposition Admitted. I discussed the management of this patient with the admitting provider and I made a decision to admit the patient. Admission Order Ordered Status . 06/16/24 1431 Assign to Observation ONCE Ordered Maria E Donaldson * Gracia Spencer RN - 06/16/2024 10:41 AM EDT Patient was sent by [facility] GI department for a further work up. Patient was recently seen by them and is to follow up in another 6 weeks. 40 lb weight loss since February. Increased weakness becauseof this. Has not been able to eat despite using zofran. Family reports patient eating less than 500calories a day. Patient reporting abdominal pain. documented in this encounter Miscellaneous Notes * Care Plan - Loly Ritter RN - 06/18/2024 6:08 AM EDT Pt will be free from falls this shift Possible barriers to meeting goal(s)/advancing plan of care: Pt wear from poor nutritional status Stability of the patient: Moderately stable - low risk of patient condition declining or worsening Summary regarding today's goal(s): Met: Pt had no falls this shift Recommendations: Remind pt to continue to ring with ambulation and to wear skid socks * Pt Handout (on AVS) - Lizy Rose RN - 06/17/2024 5:27 PM EDT [id number] Metoclopramide Brand Name(s): Clopra, Maxolon, Metozolv ODT, Reglan; also available generically IMPORTANT WARNING: Taking metoclopramide may cause you to develop a muscle problem called tardive dyskinesia. If you develop tardive dyskinesia, you will move your muscles, especially the muscles in your face in unusual ways. You will not be able to control or stop these movements. Tardive dyskinesia may not go away even after you stop taking metoclopramide. The longer you take metoclopramide, the greater the risk that you will develop tardive dyskinesia. Therefore, your doctor will probably tell you not to take metoclopramide for longer than 12 weeks. The risk that you will develop tardive dyskinesia is also greater if you are taking medications for mental illness, if you have diabetes, or if you are elderly, especially if you are a woman. Call your doctor immediately if you develop any uncontrollable bodymovements, especially lip smacking, mouth puckering, chewing, frowning, scowling, sticking out yourtongue, blinking, eye movements, or shaking arms or legs. Your doctor or pharmacist will give you the electronics teacher's patient information sheet (Medication Guide) when you begin treatment with metoclopramide and each time you refill your prescription. Read the information carefully and ask your doctor or pharmacist if you have any questions. You can also visit the Food and Drug Administration (FDA) website (https://www.fda.gov/Drugs/DrugSafety/tba296886.htm) or the electronics teacher's website to obtain the Medication Guide. Talk to your doctor about the risks of taking metoclopramide. WHY is this medicine prescribed? Metoclopramide is used to relieve heartburn and speed the healing of ulcers and sores in the esophagus (tube that connects the mouth to the stomach) in people who have gastroesophageal reflux disease(GERD; condition in which backward flow of acid from the stomach causes heartburn and injury of theesophagus) that did not get better with other treatments. Metoclopramide is also used to relieve sym ptoms caused by slow stomach emptying in people who have diabetes. These symptoms include nausea, vomiting, heartburn, loss of appetite, and feeling of fullness that lasts long after meals. Metoclopramide is in a class of medications called prokinetic agents. It works by speeding the movement of food through the stomach and intestines. HOW should this medicine be used? Metoclopramide comes as a tablet, an orally disintegrating (dissolving) tablet, and a solution (liquid) to take by mouth. It is usually taken 4 times a day on an empty stomach, 30 minutes before eachmeal and at bedtime. When metoclopramide is used to treat symptoms of GERD, it may be taken less frequently, especially if symptoms only occur at certain times of day. Follow the directions on your pr escription label carefully, and ask your doctor or pharmacist to explain any part you do not understand. Take metoclopramide exactly as directed. Do not take more or less of it or take it more often than prescribed by your doctor. If you are taking the orally disintegrating tablet, use dry hands to remove the tablet from the package just before you take your dose. If the tablet breaks or crumbles, dispose of it and remove a new tablet from the package. Gently remove the tablet and immediately place it on the top of your tongue. The tablet will usually dissolve in about one minute and can be swallowed with saliva. If you are taking metoclopramide to treat the symptoms of slow stomach emptying caused by diabetes,you should know that your symptoms will not improve all at once. You may notice that your nausea improves early in your treatment and continues to improve over the next 3 weeks. Your vomiting and loss of appetite may also improve early in your treatment, but it may take longer for your feeling of fullness to go away. Continue to take metoclopramide even if you feel well. Do not stop taking metoclopramide without talking to your doctor. You may experience withdrawal symptoms such as dizziness, nervousness, and headaches when you stop taking metoclopramide. Are there OTHER USES for this medicine? Metoclopramide is also sometimes used to treat the symptoms of slowed stomach emptying in people who are recovering from certain types of surgery, and to prevent nausea and vomiting in people who arebeing treated with chemotherapy for cancer. Ask your doctor about the risks of using this medication to treat your condition. This medication may be prescribed for other uses; ask your doctor or pharmacist for more information. What SPECIAL PRECAUTIONS should I follow? Before taking metoclopramide, tell your doctor and pharmacist if you are allergic to metoclopramide, any other medications, orany of the ingredients in metoclopramide tablets or solution. Ask your doctor or pharmacist or check the Medication Guide for a list of the ingredients. tell your doctor and pharmacist what prescription and nonprescription medications, vitamins, nutritional supplements and herbal products you are taking or plan to take. Be sure to mention any of the following: acetaminophen (Tylenol, others); antihistamines; aspirin; atropine (in Lonox, in Lomotil); cyclosporine (Gengraf, Neoral, Sandimmune); barbiturates such as pentobarbital (Nembutal), phenobarbital (Luminal), and secobarbital (Seconal); digoxin (Lanoxicaps, Lanoxin); haloperidol (Haldol);insulin; ipratropium (Atrovent); lithium (Eskalith, Lithobid); levodopa (in Sinemet, in Stalevo); medications for anxiety, blood pressure, irritable bowel disease, motion sickness, nausea, Parkinson's disease, ulcers, or urinary problems; monoamine oxidase (MAO) inhibitors, including isocarboxazid (Marplan), phenelzine (Nardil), selegiline (Eldepryl, Emsam, Zelapar), and tranylcypromine (Parnate); narcotic medications for pain; sedatives; sleeping pills; tetracycline (Bristacycline, Sumycin); or tranquilizers. Your doctor may need to change the doses of your medications or monitor you more carefully for side effects. tell your doctor if you have or have ever had blockage, bleeding, or a tear in your stomach or intestines; pheochromocytoma (tumor on a small gland near the kidneys); or seizures. Your doctor willprobably tell you not to take metoclopramide. tell your doctor if you have or have ever had Parkinson's disease (PD; a disorder of the nervoussystem that causes difficulties with movement, muscle control, and balance); high blood pressure; depression; breast cancer; asthma;svsioog-2-bcylaommx dehydrogenase (G-6PD) deficiency (an inherited blood disorder); NADH cytochrome B5 reductase deficiency (an inherited blood disorder); or heart, liver, or kidney disease. tell your doctor if you are , plan to become , or are . If you become while taking metoclopramide, call your doctor. talk to your doctor about the risks and benefits of taking metoclopramide if you are 65 years ofage or older. Older adults should not usually take metoclopramide, unless it is used to treat slow stomach emptying, because it is not as safe or effective as other medications that can be used to treat those conditions. if you are having surgery, including dental surgery, tell the doctor or dentist that you are taking metoclopramide. you should know that this medication may make you drowsy. Do not drive a car or operate machinery until you know how this medication affects you. ask your doctor about the safe use of alcohol while you are taking this medication. Alcohol can make the side effects of metoclopramide worse. What SPECIAL DIETARY instructions should I follow? Unless your doctor tells you otherwise, continue your regular diet. What should I do IF I FORGET to take a dose? Take the missed dose as soon as you remember it. However, if it is almost time for the next dose, skip the missed dose and continue your regular dosing schedule. Do not take a double dose to make up for a missed one. What SIDE EFFECTS can this medicine cause? Metoclopramide may cause side effects. Tell your doctor if any of these symptoms are severe or do not go away: drowsiness excessive tiredness weakness headache dizziness diarrhea nausea vomiting breast enlargement or discharge missed menstrual period decreased sexual ability frequent urination inability to control urination Some side effects can be serious. If you experience any of the following symptoms, or those mentioned in the IMPORTANT WARNING section, call your doctor immediately: tightening of the muscles, especially in the jaw or neck speech problems depression thinking about harming or killing yourself fever muscle stiffness confusion fast, slow, or irregular heartbeat sweating restlessness nervousness or jitteriness agitation difficulty falling asleep or staying asleep pacing foot tapping slow or stiff movements blank facial expression uncontrollable shaking of a part of the body difficulty keeping your balance rash hives swelling of the eyes, face, lips, tongue, mouth, throat, arms, hands, feet, ankles, or lower legs sudden weight gain difficulty breathing or swallowing high-pitched sounds while breathing vision problems Metoclopramide may cause other side effects. Call your doctor if you have any unusual problems while you are taking this medication. If you experience a serious side effect, you or your doctor may send a report to the Food and Drug Administration's (FDA) MedWatch Adverse Event Reporting program online (https://www.fda.gov/Safety/MedWatch) or by phone ( ). What should I know about STORAGE and DISPOSAL of this medication? Keep this medication in the container it came in, tightly closed, and out of reach of children. Store it at room temperature and away from excess heat and moisture (not in the bathroom). It is important to keep all medication out of sight and reach of children as many containers (such as weekly pill minders and those for eye drops, creams, patches, and inhalers) are not child-resistant and young children can open them easily. To protect young children from poisoning, always lock safety caps and immediately place the medication in a safe location - one that is up and away and out of their sight and reach. https://www.upandaway.org Unneeded medications should be disposed of in special ways to ensure that pets, children, and otherpeople cannot consume them. However, you should not flush this medication down the toilet. Instead,the best way to dispose of your medication is through a medicine take-back program. Talk to your pharmacist or contact your local garbage/recycling department to learn about take-back programs in your community. See the FDA's Safe Disposal of Medicines website (https://goo.gl/c4Rm4p) for more information if you do not have access to a take-back program. What should I do in case of OVERDOSE? In case of overdose, call the poison control helpline at . Information is also available online at https://www.poisonhelp.org/help. If the victim has collapsed, had a seizure, has trouble breathing, or can't be awakened, immediately call emergency services at 459. Symptoms of overdose may include the following: drowsiness confusion seizures unusual, uncontrollable movements lack of energy bluish coloring of the skin headache shortness of breath What OTHER INFORMATION should I know? Keep all appointments with your doctor. Do not let anyone else take your medication. Ask your pharmacist any questions you have about refilling your prescription. It is important for you to keep a written list of all of the prescription and nonprescription (plxw-swv-pfkhpep) medicines you are taking, as well as any products such as vitamins, minerals, or otherdietary supplements. You should bring this list with you each time you visit a doctor or if you areadmitted to a hospital. It is also important information to carry with you in case of emergencies. This report on medications is for your information only, and is not considered individual patient advice. Because of the changing nature of drug information, please consult your physician or pharmacist about specific clinical use. The [employer] represents that the information provided hereunder was formulated with a reasonable standard of care, and in conformity with professional standards in the field. The [employer] makes no representations or warranties, express or implied, including, but not limited to, any implied warranty of merchantability and/or fitness for a particular purpose, with respect to such information and specifically disclaims all such warranties. Users are advised that decisions regarding drug therapy are complex medical decisions requiring the independent, informed decision of an appropriate health child day care teacher, and the information is provided for informational purposes only. The entire monograph for a drug should be reviewed for a thorough understanding of the drug's actions, uses and side effects. The [employer] does not endorse or recommend the use of any drug.The information is not a substitute for medical care. [facility] Patient Medication Information?. Copyright, 2023. [employer], [facility], [address], [place], [place]. All Rights Reserved. Duplication for commercial use must be authorized by [facility]. Selected Revisions: June 17, 2018. [facility] Patient Medication Information?. Copyright, 2023 * Pt Handout (on AVS) - Lizy Rose RN - 06/17/2024 5:23 PM EDT [id number] Metoclopramide Injection Brand Name(s): Reglan I.V.; also available generically IMPORTANT WARNING: Receiving metoclopramide injection may cause you to develop a muscle problem called tardive dyskinesia. If you develop tardive dyskinesia, you will move your muscles, especially the muscles in your face in unusual ways. You will not be able to control or stop these movements. Tardive dyskinesia maynot go away even after you stop receiving metoclopramide injection. The longer you receive metoclopramide injection, the greater the risk that you will develop tardive dyskinesia. Therefore, your doctor will probably tell you not to receive metoclopramide injection for longer than 12 weeks. The risk that you will develop tardive dyskinesia is also greater if you are taking medications for mental illness, if you have diabetes, or if you are elderly, especially if you are a woman. Call your doctor immediately if you develop any uncontrollable body movements, especially lip smacking, mouth puckering, chewing, frowning, scowling, sticking out your tongue, blinking, eye movements, or shaking arms or legs. Your doctor or pharmacist will give you the electronics teacher's patient information sheet (Medication Guide) when you begin treatment with metoclopramide injection and each time you refill your prescription. Read the information carefully and ask your doctor or pharmacist if you have any questions. You can also visit the Food and Drug Administration (FDA) website (https://www.fda.gov/Drugs/DrugSafety/sqt355226.htm) to obtain the Medication Guide. Talk to your doctor about the risk of receiving metoclopramide injection. WHY is this medicine prescribed? Metoclopramide injection is used to relieve symptoms caused by slow stomach emptying in people who have diabetes. These symptoms include nausea, vomiting, heartburn, loss of appetite, and feeling of fullness that lasts long after meals. Metoclopramide injection is also used to prevent nausea and vomiting caused by chemotherapy or that may occur after surgery. Metoclopramide injection is also sometimes used to empty the intestines during certain medical procedures. Metoclopramide injection is letitia class of medications called prokinetic agents. It works by speeding the movement of food through the stomach and intestines. HOW should this medicine be used? Metoclopramide injection comes as a liquid to be injected into a muscle or into a vein. When metoclopramide injection is used to treat slowed stomach emptying due to diabetes, it may be given up to four times a day. When metoclopramide injection is used to prevent nausea and vomiting due to chemotherapy, it is usually given 30 minutes before the chemotherapy, then once every 2 hours for two doses, then once every 3 hours for three doses. Metoclopramide injection is also sometimes given during surgery. If you are injecting metoclopramide injection at home, inject it at around the same times every day. Follow the directions on your prescription label carefully, and ask your doctor or pharmacist to explain any part you do not understand. Use metoclopramide injection exactly as directed. Do not inject more or less of it or inject it more often than prescribed by your doctor. Are there OTHER USES for this medicine? Metoclopramide injection is also sometimes used to relieve nausea and vomiting caused by migraine headaches. Talk to your doctor about the risks of using this medication for your condition. This medication may be prescribed for other uses; ask your doctor or pharmacist for more information. What SPECIAL PRECAUTIONS should I follow? Before receiving metoclopramide injection, tell your doctor and pharmacist if you are allergic to metoclopramide injection, any other medications, or any of the ingredients in metoclopramide injection. Ask your pharmacist for a list of theingredients. tell your doctor and pharmacist what prescription and nonprescription medications, vitamins, nutritional supplements, and herbal products you are taking or plan to take while receiving metoclopramide injection. Your doctor may need to change the doses of your medications or monitor you carefullyfor side effects.. the following nonprescription products may interact with metoclopramide injection: allergy medications (diphenhydramine, loratadine, fexofenadine, chlorpheniramine, or cetirizine). Be sure to let your doctor and pharmacist know that you are taking these medications before you start receiving metoclopramide injection. Do not start any of these medications while taking metoclopramide injection without discussing with your healthcare provider. tell your doctor if you have or have ever had blockage or bleeding in your stomach or intestines, pheochromocytoma (tumor on a small gland near the kidneys); or seizures. Your doctor will probablytell you not to take metoclopramide. tell your doctor if you have or have ever had Parkinson's disease (PD; a disorder of the nervoussystem that causes difficulties with movement, muscle control, and balance); high blood pressure; depression; breast cancer; asthma;dbtofpd-1-zexuhpsng dehydrogenase (G-6PD) deficiency (an inherited blood disorder); NADH cytochrome B5 reductase deficiency (an inherited blood disorder); or heart, liver, or kidney disease. tell your doctor if you are , plan to become , or are . If you become while receiving metoclopramide injection, call your doctor. talk to your doctor about the risks and benefits of receiving metoclopramide injection if you are 65 years of age or older. Older adults should not usually receive metoclopramide injection, unlessit is used to treat slow stomach emptying, because it is not as safe or effective as other medications that can be used to treat those conditions. you should know that metoclopramide injection may make you drowsy. Do not drive a car or operateColondeehinery until you know how this medication affects you. ask your doctor about the safe use of alcoholic beverages while you are receiving metoclopramideinjection. Alcohol can make the side effects from metoclopramide injection worse. What SPECIAL DIETARY instructions should I follow? Unless your doctor tells you otherwise, continue your normal diet. What should I do IF I FORGET to take a dose? If you are injecting metoclopramide injection at home, inject the missed dose as soon as you remember it. However, if it is almost time for the next dose, skip the missed dose and continue your regular dosing schedule. Do not inject a double dose to make up for a missed one. What SIDE EFFECTS can this medicine cause? Metoclopramide injection may cause side effects. Tell your doctor if any of these symptoms are severe or do not go away: drowsiness excessive tiredness weakness headache dizziness restlessness nervousness or jitteriness agitation difficulty falling asleep or staying asleep pacing foot tapping slow or stiff movements blank facial expression diarrhea nausea breast enlargement or discharge missed menstrual period decreased sexual ability frequent urination urinary incontinence flushing Some side effects can be serious. If you experience any of these symptoms or those listed in theIMPORTANT WARNING section, call your doctor immediately: tightening of the muscles, especially in the jaw or neck speech problems depression thinking about harming or killing yourself fever muscle stiffness confusion fast, slow, or irregular heartbeat sweating seizures rash hives swelling of the eyes, face, lips, tongue, mouth, throat, arms, hands, feet, ankles, or lower legs difficulty breathing or swallowing high-pitched sounds while breathing vision problems Metoclopramide injection may cause other side effects. Call your doctor if you have any unusual problems while receiving this medication. If you experience a serious side effect, you or your doctor may send a report to the Food and Drug Administration's (FDA) MedWatch Adverse Event Reporting program online (https://www.fda.gov/Safety/MedWatch) or by phone ( ). What should I know about STORAGE and DISPOSAL of this medication? Your healthcare provider will tell you how to store your medication. Store your medication only as directed. Make sure you understand how to store your medication properly. Keep your supplies in a clean, dry place that is out of the reach of children when you are not using them. Your healthcare provider will tell you how to dispose of used needles, syringes, tubing, andcontainers to avoid accidental injury. Unneeded medications should be disposed of in special ways to ensure that pets, children, and otherpeople cannot consume them. However, you should not flush this medication down the toilet. Instead,the best way to dispose of your medication is through a medicine take-back program. Talk to your pharmacist or contact your local garbage/recycling department to learn about take-back programs in your community. See the FDA's Safe Disposal of Medicines website (https://goo.gl/c4Rm4p) for more information if you do not have access to a take-back program. What should I do in case of OVERDOSE? In case of overdose, call the poison control helpline at . Information is also available online at https://www.poisonhelp.org/help. If the victim has collapsed, had a seizure, has trouble breathing, or can't be awakened, immediately call emergency services at 711. Symptoms of overdose may include the following: drowsiness confusion unusual, uncontrollable movements What OTHER INFORMATION should I know? Keep all appointments with your doctor. Do not let anyone else use your medication. Ask your pharmacist if you have any questions about refilling your prescription. It is important for you to keep a written list of all of the prescription and nonprescription (cyum-qcj-ohgiqam) medicines you are taking, as well as any products such as vitamins, minerals, or otherdietary supplements. You should bring this list with you each time you visit a doctor or if you areadmitted to a hospital. It is also important information to carry with you in case of emergencies. This report on medications is for your information only, and is not considered individual patient advice. Because of the changing nature of drug information, please consult your physician or pharmacist about specific clinical use. The [employer] represents that the information provided hereunder was formulated with a reasonable standard of care, and in conformity with professional standards in the field. The [employer] [employer] makes no representations or warranties, express or implied, including, but not limited to, any implied warranty of merchantability and/or fitness for a particular purpose, with respect to such information and specifically disclaims all such warranties. Users are advised that decisions regarding drug therapy are complex medical decisions requiring the independent, informed decision of an appropriate health child day care teacher, and the information is provided for informational purposes only. The entire monograph for a drug should be reviewed for a thorough understanding of the drug's actions, uses and side effects. The [employer] [employer] does not endorse or recommend the use of any drug.The information is not a substitute for medical care. [facility] Patient Medication Information?. Copyright, 2023. The [employer], [address], [address], [place], [place]. All Rights Reserved. Duplication for commercial use must be authorized by [facility]. Selected Revisions: February 21, 2024. [facility] Patient Medication Information?. Copyright, 2023 * Care Plan - Lizy Roes RN - 06/17/2024 5:21 PM EDT Clinical Goal(s): Pt will have no falls this shift (06/17/24 0900) Possible barriers to meeting goal(s)/advancing plan of care: Weakness Stability of the patient: Moderately stable - low risk of patient condition declining or worsening Summary regarding today's goal(s): Met: No falls this shift Recommendations: Ensure all fall protocols are implemented * Care Plan - Batsheva Suh RN - 06/17/2024 5:00 AM EDT Clinical Goal(s): Patient will remain free from falls this shift. (06/16/24 193) Possible barriers to meeting goal(s)/advancing plan of care: weakness, nausea Stability of the patient: Moderately stable - low risk of patient condition declining or worsening Summary regarding today's goal(s): Met: Patient remained free from falls this shift. Recommendations: Maintain fall precautions when OOB. Continue plan of care. * Pt Handout (on AVS) - Mckenzie Ascencio RN - 06/16/2024 10:12 PM EDT Images from the original note were not included. [id number] Dysphagia (Adult) Dysphagia is trouble swallowing. If you have dysphagia, you may have symptoms that include: Choking or coughing when you eat or drink Food getting stuck Drooling Inability to swallow Pain behind the breastbone after swallowing Vomiting after you eat or drink Inhaling into the lungs (aspirating) foods or liquids when you swallow The main causes of dysphagia are problems that affect the mouth, throat or tongue. Dysphagia may becaused by a problem with the tube (esophagus) that carries food from the mouth to the stomach. These include blockage, swelling, or irritation from acid reflux or injury. An infection of the esophagus or an allergic reaction in the esophagus can also cause dysphagia. Problems in the brain, such as a stroke or Parkinson disease, can affect the muscles that coordinate swallowing. Dysphagia is treated by treating the cause. Your healthcare provider may evaluate you using X-ray, special esophagus monitors, a fiber optic look at swallowing, or an upper endoscopy. This test uses a thin, lighted tube (catheter) sent through your mouth to the esophagus. You may be given medicine t o reduce stomach acid or control muscle spasms. If the problem doesn't go away, you may have a procedure to widen (dilate) the esophagus. If you have muscle or nerve problems, you may be advised to see a speech or occupational therapist. They may give you exercises and instructions to help make eating safer. If you have an infection or allergic condition, your healthcare provide will prescribe medicine for it. Home care To help ease the symptoms of dysphagia: Take any medicine you?ve been given exactly as directed. Ask for thickened liquid medicines if you need them. To make eating easier: o Eat slowly. o Eat in a relaxed setting. o Don?t talk while you eat. o Take small bites. Chew slowly and completely before you swallow. o Sit upright during and after meals. Chewing food releases enzymes in your mouth that start the digestive process. Chew soft foods at least 5 to10 times. Chew more dense food, such as meats and vegetables, up to 30 times before swallowing. Count the number of times you chew until you get a sense of how soft the food needs to be before swallowing. o Don't eat dry bread products or meat fibers. o Puree solid foods if needed. Thicken liquids with milk, juice, broth, gravy, or starch to make them easier to swallow. o Ask your healthcare provider if a liquid diet may be better for you. o Ask for a referral to a information clerk cashier if you are losing weight or having trouble getting enough food each day Follow-up care Follow up with your healthcare provider or as directed. Your healthcare provider can give you information about tests you may need. When to get medical advice Call your healthcare provider or get medical care right away for any of the following: Inability to keep down food or liquid Symptoms get worse quickly Coughing that won't stop Continuing to lose weight Fever of 100.4F (38C) or higher, or as directed by your provider Other symptoms as directed by your provider Call 911 Call 911 for any of the following: Trouble breathing Inability to talk Drooling, inability to control secretions Loss of consciousness Last Reviewed Date: 2024 00:00:00 [id number] [employer]. All rights reserved. This information is not intended as a substitute for professional medical care. Always follow your healthcare professional's instructions. * Care Plan - Gracia Davidson RN - 06/16/2024 6:53 PM EDT Clinical Goal(s): Pt will have no falls this shift. (06/16/241529) Possible barriers to meeting goal(s)/advancing plan of care: hospital environment Stability of the patient: Moderately stable - low risk of patient condition declining or worsening Summary regarding today's goal(s): Met: pt free of falls during this shift Recommendations: continue to implement fall precautions * Care Plan - Michael Villasenor RN - 06/16/2024 5:17 PM EDT Clinical Goal(s): Pt will have no falls this shift. (06/16/24 1530) Possible barriers to meeting goal(s)/advancing plan of care: fall risk Stability of the patient: Moderately stable - low risk of patient condition declining or worsening Summary regarding today's goal(s): Met: pt had no falls this shift. Recommendations: continue to implement fall precautions * ED Coremaker Floor Note - James Isidro RN - 06/16/2024 2:49 PM EDT Did call and give verbal report to 5A for pts transfer to that unit. * Medical Necessity - Ruby Xiong RN - 06/16/2024 2:34 PM EDT AdmissionCare Guideline: General Observation - OBS, Observation Based on the indications selected for the patient, the bed status of Observation was determined to be MET The following indications were selected as present at the time of evaluation of the patient: - Observation Care Admission Criteria - Observation care is indicated for ALL of the following: - Clinical care needed is not appropriate for lower level of care (ie, discharge to outpatient setting not appropriate). - Clinical care (eg, testing, monitoring, or treatment) needed beyond usual emergency department time frame (eg, 3 to 4 hours) - Patient has clinical condition for which observation care is needed, as indicated by 1 or more ofthe following: - Other condition or finding (eg, laboratory test, imaging study, sign, symptom) that suggests a need for continued care, as indicated by 1 or more of the following: - Acute need to establish diagnosis (eg, repeat or continued testing or clinical assessments are needed) Additional Information: CC:generalized fatigue and weight loss AdmissionCare documentation entered by: Ruby Xiong [facility] [employer], 28th edition, Copyright 2023 [facility] [employer] All Rights Reserved. [id number]:34:22-04:00 Solely for purpose of utilization review and payment; not a diagnostic tool * ED Coremaker Floor Note - Juliet Hatfield RN - 06/16/2024 1:59 PM EDT Medicated pt per MAR at this time. Pt stated that his throat felt like it was closing and was not able to swallow secretions. Dr. Donaldson made aware. * ED Coremaker Floor Note - Juliet Hatfield RN - 06/16/2024 1:06 PM EDT Pt presents to the ED complaints of weight loss since February. Pt was sent from GI due to the 40lb weight loss. Pt states he hasn't been able to eat more than 500 calories a day and is nauseous and vomits after eating. Pt states he has needed to have his esophagus stretched in the past. Pt states he has L sided abd pain. Denies CP, SOB, fever/chills, cough, congestion. Pt is AOx4, respirations even a nd unlabored, heart regular, lungs clear, abd soft, non distended, non tender. Pt resting on stretcher with call coleman in reach. documented in this encounter Plan of Treatment Upcoming Encounters Date Type Department Care Team (Latest Contact Info) Description 06/25/2024 11:00 AM EDT Office Visit Family Practice [facility] [address] [facility] [place] [id number] Anna Walsh MD [address] [facility] [place] [address] 07/02/2024 8:30 AM EDT [facility] [address] [facility] [place] [address] Nurse Carine Lujan [address] [facility] [place] [address] 07/14/2024 8:30 AM EST Office Visit [facility], [facility] [address] Megan Stephens CRNP [address] [facility] [place] [address] 08/04/2024 8:00 AM EST Imaging [facility] 2nd Floor Cardiology, [address] [phone] 08/04/2024 9:30 AM EST Imaging [facility] 2nd Floor Cardiology, [address] [address] 08/04/2024 10:30 AM EST Imaging [facility] 2nd Floor Cardiology, [address] [place] [address] 08/04/2024 12:30 PM EST Imaging [facility] 2nd Floor Cardiology, [place] [facility] [address] 09/26/2024 9:20 AM EST Office Visit Family Practice [facility] [address] [facility] [place] [address] Anna Walsh MD [address] [facility] [place] [address] 10/13/2024 10:30 AM EST Office Visit Allergy/Immunology [facility] [address] [place] [address] Stephanie Colon PA-C [address] [place] [address] 11/12/2024 2:00 PM EDT Hospital Encounter ENDO [facility], Endoscopy Room [facility] [address] [facility] [place] [phone] Latricia Howadr MD [address] [facility] [place] [address] 11/12/2024 2:00 PM EDT - 11/12/2024 2:30 PM EDT Surgery ENDO [facility], Endoscopy Room [facility] [address] [place] [phone] Latricia Howard MD [address] [place] [address] COLONOSCOPY FLEXIBLE PROXIMAL DIAGNOSTIC Scheduled Procedures Name [...] this encounter Medical Devices Implanted Type Area Financial Institution Treasurer Device Identifier Shelf Expiration Date Model / Serial / Lot Mesh Vicryl 6 X 6 Vkm-M - [id number] Implanted:Qty: 1 on 10/02/2011 at [place] [facility] [place] N/A: Abdomen DO NOT USE 09/03/2015 VKM-M / / [id number] Mesh 10 X 14 [id number] - [id number] Implanted:Qty: 1 on 10/02/2011 at [place] [facility] [place] N/A: Abdomen [employer] 04/02/2016 [id number] / / [id number] documented as of this encounter Procedures Procedure Name Priority Date/Time Associated Diagnosis Comments BASIC METABOLIC PANEL Routine 06/18/2024 5:55 AM EDT PHOSPHORUS Routine 06/18/2024 5:55 AM EDT CBC Routine 06/18/2024 5:55 AM EDT MAGNESIUM Routine 06/18/2024 5:55 AM EDT MRI ABDOMEN WO CONTRAST Routine 06/17/2024 7:57 AM EDT COMPREHENSIVE METABOLIC PANEL Routine 06/17/2024 6:25 AM EDT PHOSPHORUS Routine 06/17/2024 6:25 AM EDT CBC Routine 06/17/2024 6:25 AM EDT MAGNESIUM Routine 06/17/2024 6:25 AM EDT URINALYSIS, REFLEX TO CULTURE STAT 06/16/2024 4:15 PM EDT URINALYSIS, REFLEX TO CULTURE (CUP ONLY) STAT 06/16/2024 4:15 PM EDT URINALYSIS, REFLEX TO CULTURE (NOT FOR NEUTROPENIC PATIENTS) STAT 06/16/2024 4:15 PM EDT CULTURE, URINE, QUANTITATIVE STAT 06/16/2024 4:15 PM EDT RESPIRATORY PATHOGEN PANEL, PCR Routine 06/16/2024 3:56 PM EDT DIFFERENTIAL, AUTOMATED STAT 06/16/2024 11:33 AM EDT TROPONIN T, HIGH SENSITIVITY STAT 06/16/2024 11:33 AM EDT COMPREHENSIVE METABOLIC PANEL STAT 06/16/2024 11:33 AM EDT CBC STAT 06/16/2024 11:33 AM EDT LIPASE STAT 06/16/2024 11:33 AM EDT LACTATE Routine 06/16/2024 11:33 AM EDT CBC STAT 06/16/2024 11:33 AM EDT XR CHEST 1 VIEW STAT 06/16/2024 11:28 AM EDT Abnormal weight loss documented in this encounter Results * PHOSPHORUS (06/18/2024 5:55 AM EDT) Phosphorus 2.9 2.5 - 4.8 mg/dL 06/18/2024 7:04 AM EDT LABORATORY [facility] Blood Venous blood specimen / Unknown Venipuncture / Unknown 06/18/2024 5:55 AM EDT 06/18/2024 6:26 AM EDT Shaunna Noonan MD LAB BLOOD OR DERABLES LABORATORY [address] [address] * MAGNESIUM (06/18/2024 5:55 AM EDT) Pathologist [facility] Magnesium 2.1 1.5 - 2.6 mg/dL 06/18/2024 7:04 AM EDT LABORATORY [facility] Blood Venous blood specimen / Unknown Venipuncture / Unknown 06/18/2024 5:55 AM EDT 06/18/2024 6:26 AM EDT Shaunna Noonan MD LAB BLOOD OR DERABLES Performing Organization Address City/[facility]/ZIP Co de Phone Number LABORATORY [facility] [address] [place], [place] [id number] * BASIC METABOLIC PANEL (06/18/2024 5:55 AM EDT) Pathologist [facility] BUN 9 6 - 20 mg/dL 06/18/2024 7:04 AM EDT LABORATORY GL CREATININE 0.9 0.6 - 1.2 mg/dL 06/18/2024 7:04 AM EDT LABORATORY [facility] EGFR 87 >=60 mL/min 06/18/2024 7:04 AM EDT LAB[facility]ATORY [facility] Comment:eGFR is calculated b ased on the CKD-EPI 2020 equation. SODIUM 142 135 - 146 mmol/L 06/18/2024 7:04 AM EDT LAB[facility]ATORY [facility] POTASSIUM 3.7 3.5 - 5.1 mmol/L 06/18/2024 7:04 AM EDT LAB[facility]ATORY [facility] CHLORIDE 107 98 - 107 mmol/L 06/18/2024 7:04 AM EDT LABORATORY [facility] CO2 25 22 - 32 mmol/L 06/18/2024 7:04 AM EDT LABORATORY [facility] ANION GAP 10 7 - 15 mmol/L 06/18/2024 7:04 AM EDT LABORATORY [facility] GLUCOSE 94 70 - 120 mg/dL 06/18/2024 7:04 AM EDT LABORATORY [facility] CALCIUM 8.5 8.4 - 10.2 mg/dL 06/18/2024 7:04 AM EDT LABORATORY [facility] Blood Venous blood specimen / Unknown Venipuncture / Unknown 06/18/2024 5:55 AM EDT 06/18/2024 6:26 AM EDT Shaunna Noonan MD LAB BLOOD OR DERABLES LABORATORY [facility] [address] [place] [address] * (ABNORMAL) CBC (06/18/2024 5:55 AM EDT) WBC 3.80(L) 4.00 - 10.80 K/uL 06/18/2024 6:33 AM EDT LABORATORY [facility] RBC 4.40 4.50 - 5.25 M/uL 06/18/2024 6:33 AM EDT LABORATORY [facility] HGB 13.8(L) 14.0 - 16.8 g/dL 06/18/2024 6:33 AM EDT LABORATORY [facility] HCT 40.5 40.0 - 48.4 % 06/18/2024 6:33 AM EDT LABORATORY [facility] MCV 92.0 82.0 - 99.5 fL 06/18/2024 6:33 AM EDT LABORATORY [facility] MCH 31.4 27.0 - 34.0 pg 06/18/2024 6:33 AM EDT LABORATORY [facility] MCHC 34.1 32.0 - 36.0 g/dL 06/18/2024 6:33 AM EDT LABORATORY [facility] RDW 12.7 11.5 - 15.5 % 06/18/2024 6:33 AM EDT LABORATORY [facility] PLT 149 140 - 400 K/uL 06/18/2024 6:33 AM EDT LABORATORY [facility] MPV 10.4 6.6 - 11.1 fL 06/18/2024 6:33 AM EDT LABORATORY [facility] nRBCs 0 <=0 /100 WBCs 06/18/2024 6:33 AM EDT LABORATORY [facility] Blood Venous blood specimen / Unknown Venipuncture / Unknown 06/18/2024 5:55 AM EDT 06/18/2024 6:26 AM EDT Shaunna Noonan MD LAB BLOOD OR DERABLES LABORATORY [facility] [address] [place] [address] * MRI ABDOMEN WO CONTRAST (06/17/2024 7:57 AM EDT) Anatomical Region Laterality Modality Abdomen Magnetic Resonan ce 06/17/2024 9:44 AM EDT Impressions 06/17/2024 9:42 AM EDT IMPRESSION The exam is limited without IV contrast. The gallbladder is absent. No biliary ductal dilation. No acute abnormality seen on this exam. Narrative 06/17/2024 9:42 AM EDT EXAM MRI ABDOMEN WO CONTRAST-06/17/2024 7:57 am HISTORY unexplained weight loss, ongoing abdominal pain and nausea with eating little food COMPARISON CT abdomen and pelvis dated 05/06/2013 TECHNIQUE Multiplanar, multisequential MR imaging of the abdomen was performed without administration of intravenous contrast. FINDINGS The heart is normal in size. There are no pleural effusions in the visualized lung bases. The liver is normal in size. There is a tiny cyst in the left hepatic lobe measuring 0.6 cm. The gallbladder is absent. There is no biliary ductal dilation. The pancreas is unremarkable. The spleen is unremarkable. The adrenal glands are unremarkable. The kidneys are symmetric in size. There is no hydronephrosis. The abdominal aorta is normal in size. There are no enlarged lymph nodes. There are no fluid collections. The stomach is unremarkable. There is no evidence of small bowel obstruction. Colonic diverticula are noted. There is no evidence of colitis. The colon is otherwise not adequately evaluated for masses or polyps with CT. Procedure Note Mouna Lopez MD - 06/17/2024 EXAM MRI ABDOMEN WO CONTRAST-06/17/2024 7:57 am HISTORY unexplained weight loss, ongoing abdominal pain and nausea with eatinglittle food COMPARISON CT abdomen and pelvis dated 05/06/2013 TECHNIQUE Multiplanar, multisequential MR imaging of the abdomen was performedwithout administration of intravenous contrast. FINDINGS The heart is normal in size. There are no pleural effusions in thevisualized lung bases. The liver is normal in size. There is a tiny cyst in the left hepaticlobe measuring 0.6 cm. The gallbladder is absent. There is no biliaryductal dilation. The pancreas is unremarkable. The spleen is unremarkable. The adrenal glands are unremarkable. The kidneys are symmetric in size. There is no hydronephrosis. The abdominal aorta is normal in size. There are no enlarged lymph nodes. There are no fluid collections. The stomach is unremarkable. There is no evidence of small bowelobstruction. Colonic diverticula are noted. There is no evidence ofcolitis. The colon is otherwise not adequately evaluated for masses orpolyps with CT. IMPRESSION IMPRESSION The exam is limited without IV contrast. The gallbladder is absent. Nobiliary ductal dilation. No acute abnormality seen on this exam. Anya Hayes Phu [facility] * (ABNORMAL) COMPREHENSIVE METABOLIC PANEL (06/17/2024 6:25 AM EDT) Pathologist [facility] BUN 7 6 - 20 mg/dL 06/17/2024 7:21 AM EDT LABORATORY [facility] CREATININE 0.9 0.6 - 1.2 mg/dL 06/17/2024 7:21 AM EDT LABORATORY [facility] EGFR 90 >=60 mL/min 06/17/2024 7:21 AM EDT LABORATORY [facility] Comment:eGFR is calculated b ased on the CKD-EPI 2020 equation. SODIUM 140 135 - 146 mmol/L 06/17/2024 7:21 AM EDT LABORATORY [facility] POTASSIUM 3.6 3.5 - 5.1 mmol/L 06/17/2024 7:21 AM EDT LABORATORY [facility] CHLORIDE 107 98 - 107 mmol/L 06/17/2024 7:21 AM EDT LABORATORY [facility] CO2 23 22 - 32 mmol/L 06/17/2024 7:21 AM EDT LABORATORY [facility] ANION GAP 10 7 - 15 mmol/L 06/17/2024 7:21 AM EDT LABORATORY [facility] GLUCOSE 98 70 - 120 mg/dL 06/17/2024 7:21 AM EDT LABORATORY [facility] Albumin 3.2(L) 3.8 - 5.0 g/dL 06/17/2024 7:21 AM EDT LABORATORY [facility] AST 17 10 - 50 U/L 06/17/2024 7:21 AM EDT LABORATORY [facility] Alkaline Phosphatase 92 35 - 130 U/L 06/17/2024 7:21 AM EDT LABORATORY [facility] Bilirubin, Total 0.6 <=1.2 mg/dL 06/17/2024 7:21 AM EDT LABORATORY [facility] CALCIUM 8.2(L) 8.4 - 10.2 mg/dL 06/17/2024 7:21 AM EDT LABORATORY [facility] Protein 5.8(L) 6.0 - 8.3 g/dL 06/17/2024 7:21 AM EDT LABORATORY [facility] ALT 16 10 - 50 U/L 06/17/2024 7:21 AM EDT LABORATORY [facility] Blood Venous blood specimen / Unknown Venipuncture / Unknown 06/17/2024 6:25 AM EDT 06/17/2024 6:43 AM EDT Anya Bergermiguel WELDING MACHINE OPERATOR [employer] LAB BLOOD OR DERABLES Performing Organization Address City/[facility]/ZIP Co de Phone Number LABORATORY [address] [address] * PHOSPHORUS (06/17/2024 6:25 AM EDT) Phosphorus 2.9 2.5 - 4.8 mg/dL 06/17/2024 7:21 AM EDT LABORATORY GL Blood Venous blood specimen / Unknown Venipuncture / Unknown 06/17/2024 6:25 AM EDT 06/17/2024 6:43 AM EDT Anya Abigail Bergermiguel WELDING MACHINE OPERATOR [employer] LAB BLOOD OR DERABLES Performing Organization Address [facility] Co de Phone Number LABORATORY [address] [address] * MAGNESIUM (06/17/2024 6:25 AM EDT) Magnesium 2.1 1.5 - 2.6 mg/dL 06/17/2024 7:21 AM EDT LABORATORY GL Blood Venous blood specimen / Unknown Venipuncture / Unknown 06/17/2024 6:25 AM EDT 06/17/2024 6:43 AM EDT Anya Bergermiguel WELDING MACHINE OPERATOR [employer] LAB BLOOD OR DERABLES Performing Organization Address City/[facility]/ZIP Co de Phone Number LABORATORY [address] [phone] * (ABNORMAL) CBC (06/17/2024 6:25 AM EDT) WBC 3.52(L) 4.00 - 10.80 K/uL 06/17/2024 6:55 AM EDT LABORATORY [facility] RBC 4.38 4.50 - 5.25 M/uL 06/17/2024 6:55 AM EDT LABORATORY [facility] HGB 13.9(L) 14.0 - 16.8 g/dL 06/17/2024 6:55 AM EDT LABORATORY [facility] HCT 40.3 40.0 - 48.4 % 06/17/2024 6:55 AM EDT LABORATORY [facility] MCV 92.0 82.0 - 99.5 fL 06/17/2024 6:55 AM EDT LABORATORY [facility] MCH 31.7 27.0 - 34.0 pg 06/17/2024 6:55 AM EDT LABORATORY [facility] MCHC 34.5 32.0 - 36.0 g/dL 06/17/2024 6:55 AM EDT LABORATORY [facility] RDW 12.7 11.5 - 15.5 % 06/17/2024 6:55 AM EDT LABORATORY [facility] PLT 148 140 - 400 K/uL 06/17/2024 6:55 AM EDT LABORATORY [facility] MPV 10.1 6.6 - 11.1 fL 06/17/2024 6:55 AM EDT LABORATORY [facility] nRBCs 0 <=0 /100 WBCs 06/17/2024 6:55 AM EDT LABORATORY [facility] Blood Venous blood specimen / Unknown Venipuncture / Unknown 06/17/2024 6:25 AM EDT 06/17/2024 6:43 AM EDT Anya KENNEDY LAB BLOOD OR DERABLES LABORATORY [facility] [address] [place] [address] * CULTURE, URINE, QUANTITATIVE (06/16/2024 4:15 PM EDT) Culture Growth No significant growth 06/17/2024 3:01 PM EDT LABORATORY [facility] Urine Urine specimen obtained by clean catch procedure / Unknown Non-blood Collection / Unknown 06/16/2024 4:15 PM EDT 06/16/2024 4:18 PM EDT Maria E Osoriokylee DO LAB MICRO - GE NERAL ORDERABLES LABORATORY [facility] [place] [address] [place] [address] * (ABNORMAL) URINALYSIS, REFLEX TO CULTURE (06/16/2024 4:15 PM EDT) Color, Urine Yellow Light Yellow, Yellow, Dark Yellow 06/16/2024 5:04 PM EDT LABORATORY [facility] Clarity, Urine Clear Clear 06/16/2024 5:04 PM EDT LABORATORY [facility] Glucose, Urine Negative Negative mg/dL 06/16/2024 5:04 PM EDT LABORATORY [facility] Bilirubin, Urine Small(A) Negative 06/16/2024 5:04 PM EDT LABORATORY [facility] Ketone, Urine Negative Negative mg/dL 06/16/2024 5:04 PM EDT LABORATORY [facility] Specific Billings[place], Urine 1.019 1.003 - 1.030 06/16/2024 5:04 PM EDT LABORATORY [facility] Blood, Urine Negative Negative 06/16/2024 5:04 PM EDT LABORATORY [facility] pH, Urine 6.0 5.0 - 7.5 Units 06/16/2024 5:04 PM EDT LABORATORY [facility] Protein, Urine Trace(A) Negative mg/dL 06/16/2024 5:04 PM EDT LABORATORY [facility] Urobilinogen, Urine 1.0 0.2, 1.0 mg/dL 06/16/2024 5:04 PM EDT LABORATORY [facility] Nitrite, Urine Negative Negative 06/16/2024 5:04 PM EDT LABORATORY [facility] Esterase, Urine Negative Negative 06/16/2024 5:04 PM EDT LABORATORY [facility] RBC, Urine 0-2 0 - 2 /HPF 06/16/2024 5:04 PM EDT LABORATORY [facility] WBC, Urine 0-2 0 - 2 /HPF 06/16/2024 5:04 PM EDT LABORATORY [facility] Bacteria, Urine 26-50(A) 0 - 25 /HPF 06/16/2024 5:04 PM EDT LABORATORY [facility] Mucus, Urine Many(A) None /HPF 06/16/2024 5:04 PM EDT LABORATORY [facility] Culture, Urine 06/16/2024 5:04 PM EDT LABORATORY [facility] Comment:Quantitative urine c ulture to be performed Urine Urine specimen obtained by clean catch procedure / Unknown Non-blood Collection / Unknown 06/16/2024 4:15 PM EDT 06/16/2024 4:18 PM EDT Maria E Donaldson [facility] URINE ORDFawad MONTES Performing Organization Address City/[facility]/ZIP Co de Phone Number LABORATORY [address] [address] * URINALYSIS, REFLEX TO CULTURE (CUP ONLY) (06/16/2024 4:15 PM EDT) Urinalysis, Reflex to Culture Specimen Specimen collected and received 06/16/2024 6:01 PM EDT LABORATORY [facility] Urine Urine specimen obtained by clean catch procedure / Unknown Non-blood Collection / Unknown 06/16/2024 4:15 PM EDT 06/16/2024 4:18 PM EDT Maria E Donaldson [facility] URINE ORDE SIMON Performing Organization Address City/[facility]/ZIP Co de Phone Number LABORATORY [address] [phone] * (ABNORMAL) RESPIRATORY PATHOGEN PANEL, PCR (06/16/2024 3:56 PM EDT) Adenovirus by PCR Negative Negative 024 5:12 PM EDT LABORATORY [facility] Coronavirus 229E by PCR Negative Negative 06/16/2024 5:12 PM EDT LABORATORY [facility] Coronavirus HKU1 by PCR Negative Negative 06/16/2024 5:12 PM EDT LABORATORY [facility] Coronavirus NL63 by PCR Negative Negative 06/16/2024 5:12 PM EDT LABORATORY [facility] Coronavirus OC43 by PCR Negative Negative 06/16/2024 5:12 PM EDT LABORATORY [facility] Coronavirus SARS-CoV-2 by PCR Positive(A) Negative 06/16/2024 5:12 PM EDT LABORATORY [facility] Comment:Coronavirus SARS det ected by PCR (amplified probe). Test results reported to [facility]. Human Metapneumovirus by PCR Negative Negative 06/16/2024 5:12 PM EDT LABORATORY [facility] Rhinovirus/Enterov irus by PCR Negative Negative 06/16/2024 5:12 PM EDT LABORATORY [facility] Influenza A Virus by PCR Negative Negative 06/16/2024 5:12 PM EDT LABORATORY [facility] Influenza B Virus by PCR Negative Negative 06/16/2024 5:12 PM EDT LABORATORY [facility] Parainfluenza Virus 1 by PCR Negative Negative 06/16/2024 5:12 PM EDT LABORATORY [facility] Parainfluenza Virus 2 by PCR Negative Negative 06/16/2024 5:12 PM EDT LABORATORY [facility] Parainfluenza Virus 3 by PCR Negative Negative 06/16/2024 5:12 PM EDT LABORATORY [facility] Parainfluenza Virus 4 by PCR Negative Negative 06/16/2024 5:12 PM EDT LABORATORY [facility] Respiratory Syncytial Virus by PCR Negative Negative 06/16/2024 5:12 PM EDT LABORATORY [facility] Bordetella pertussis by PCR Negative Negative 06/16/2024 5:12 PM EDT LABORATORY [facility] Chlamydia pneumoniae by PCR Negative Negative 06/16/2024 5:12 PM EDT LABORATORY [facility] Mycoplasma pneumoniae by PCR Negative Negative 06/16/2024 5:12 PM EDT LABORATORY [facility] Bordetella parapertussis by PCR Negative Negative 06/16/2024 5:12 PM EDT LABORATORY [facility] Comment: The primers that detect Rhinovirus may cross react with some Enterorviruses. The validation of bronchial specimens, tracheal aspirates, and throats for this assay was developed and performance characteristics determined by [employer]. The validation of alternate specimen types has not been cleared or approved by the U.S. Food and Drug Administration (FDA). It has been determined that such clearance or approval is not necessary. Upper Respiratory Mid-turbinate nasal swab / Unknown Non-blood Collection / Unknown 06/16/2024 3:56 PM EDT 06/16/2024 4:00 PM EDT Anya Hayes Phu KENNEDY LAB MICRO - GENERAL ORDERABLES LABORATORY GL [address] [place] [address] * DIFFERENTIAL, AUTOMATED (06/16/2024 11:33 AM EDT) WBC 4.14 4.00 - 10.80 K/uL 06/16/2024 11:45 AM EDT LABORATORY [facility] Neutrophils % 54.7 40.0 - 75.0 % 06/16/2024 11:45 AM EDT LABORATORY [facility] Lymphocytes % 34.5 18.0 - 42.0 % 06/16/2024 11:45 AM EDT LABORATORY [facility] Monocytes % 7.7 1.0 - 11.0 % 06/16/2024 11:45 AM EDT LABORATORY [facility] Eosinophils % 2.4 0.0 - 6.0 % 06/16/2024 11:45 AM EDT LABORATORY [facility] Basophils % 0.5 0.0 - 2.0 % 06/16/2024 11:45 AM EDT LABORATORY [facility] Immature Granulocytes % 0.2 0.0 - 2.0 % 06/16/2024 11:45 AM EDT LABORATORY [facility] Absolute Neutrophils 2.26 1.80 - 7.70 K/uL 06/16/2024 11:45 AM EDT LABORATORY [facility] Absolute Lymphocytes 1.43 1.00 - 4.80 K/ul 06/16/2024 11:45 AM EDT LABORATORY [facility] Absolute Monocytes 0.32 0.00 - 1.10 K/uL 06/16/2024 11:45 AM EDT LABORATORY [facility] Absolute Eosinophils 0.10 0.00 - 0.70 K/uL 06/16/2024 11:45 AM EDT LABORATORY [facility] Absolute Basophils 0.02 0.00 - 0.20 K/uL 06/16/2024 11:45 AM EDT LABORATORY [facility] Absolute Immature Granulocytes 0.01 0.00 - 0.20 K/uL 06/16/2024 11:45 AM EDT LABORATORY [facility] Blood Venous blood specimen / Unknown Venipuncture / Unknown 06/16/2024 11:33 AM EDT 06/16/2024 11:37 AM EDT Maria E Donaldson LAB BLOOD ORDFawad MONTES Performing Organization Address City/[facility]/ZIP Co de Phone Number LABORATORY [facility] [address] [place] [address] * CBC (06/16/2024 11:33 AM EDT) Pathologist [facility] WBC 4.14 4.00 - 10.80 K/uL 06/16/2024 11:45 AM EDT LABORATORY GL RBC 4.64 4.50 - 5.25 M/uL 06/16/2024 11:45 AM EDT LABORATORY GL HGB 14.6 14.0 - 16.8 g/dL 06/16/2024 11:45 AM EDT LABORATORY GL HCT 43.5 40.0 - 48.4 % 06/16/2024 11:45 AM EDT LABORATORY GL MCV 93.8 82.0 - 99.5 fL 06/16/2024 11:45 AM EDT LABORATORY [facility] MCH 31.5 27.0 - 34.0 pg 06/16/2024 11:45 AM EDT LABORATORY [facility] MCHC 33.6 32.0 - 36.0 g/dL 06/16/2024 11:45 AM EDT LABORATORY [facility] RDW 12.6 11.5 - 15.5 % 06/16/2024 11:45 AM EDT LABORATORY GL PLT 144 140 - 400 K/uL 06/16/2024 11:45 AM EDT LABORATORY [facility] MPV 10.2 6.6 - 11.1 fL 06/16/2024 11:45 AM EDT LABORATORY GL nRBCs 0 <=0 /100 WBCs 06/16/2024 11:45 AM EDT LABORATORY GL Blood Venous blood specimen / Unknown Venipuncture / Unknown 06/16/2024 11:33 AM EDT 06/16/2024 11:37 AM EDT Maria E Donaldson LAB BLOOD EDWINA MONTES Performing Organization Address City/[facility]/ZIP Co de Phone Number LABORATORY [address] [address] * (ABNORMAL) LIPASE (06/16/2024 11:33 AM EDT) Lipase 9(L) 13 - 60 U/L 06/16/2024 12:07 PM EDT LABORATORY [facility] Blood Venous blood specimen / Unknown Venipuncture / Unknown 06/16/2024 11:33 AM EDT 06/16/2024 11:37 AM EDT Maria E Ariadne Osoriokylee DO LAB BLOOD ORDFawad MONTES LABORATORY [address] [address] * LACTATE (06/16/2024 11:33 AM EDT) Pathologist [facility] Lactate 0.9 0.4 - 2.0 mmol/L 06/16/2024 12:01 PM EDT LABORATORY [facility] Blood Venous blood specimen / Unknown Venipuncture / Unknown 06/16/2024 11:33 AM EDT 06/16/2024 11:37 AM EDT Maria E Ariadne Osoriokylee [facility] LAB BLOOD ORDFawad MONTES LABORATORY [address] [address] * TROPONIN T, HIGH SENSITIVITY (06/16/2024 11:33 AM EDT) Pathologist [facility] Troponin T, High Sensitivity 8 <=22 ng/L 06/16/2024 12:06 PM EDT LABORATORY [facility] Blood Venous blood specimen / Unknown Venipuncture / Unknown 06/16/2024 11:33 AM EDT 06/16/2024 11:37 AM EDT Maria E Ariadne Osoriokylee [facility] LAB BLOOD ORDFawad MONTES LABORATORY [address] [address] * (ABNORMAL) COMPREHENSIVE METABOLIC PANEL (06/16/2024 11:33 AM EDT) BUN 9 6 - 20 mg/dL 06/16/2024 12:07 PM EDT LABORATORY GL CREATININE 0.9 0.6 - 1.2 mg/dL 06/16/2024 12:07 PM EDT LABORATORY GL EGFR 89 >=60 mL/min 06/16/2024 12:07 PM EDT LABORATORY GL Comment:eGFR is calculated b ased on the CKD-EPI 2020 equation. SODIUM 138 135 - 146 mmol/L 06/16/2024 12:07 PM EDT LABORATORY GLH POTASSIUM 3.8 3.5 - 5.1 mmol/L 06/16/2024 12:07 PM EDT LABORATORY GL[facility] CHLORIDE 106 98 - 107 mmol/L 06/16/2024 12:07 PM EDT LABORATORY GL[facility] CO2 22 22 - 32 mmol/L 06/16/2024 12:07 PM EDT LABORATORY GL ANION GAP 10 7 - 15 mmol/L 06/16/2024 12:07 PM EDT LABORATORY GL[facility] GLUCOSE 97 70 - 120 mg/dL 06/16/2024 12:07 PM EDT LABORATORY [facility] Albumin 3.3(L) 3.8 - 5.0 g/dL 06/16/2024 12:07 PM EDT LABORATORY GL[facility] AST 18 10 - 50 U/L 06/16/2024 12:07 PM EDT LABORATORY [facility] Alkaline Phosphatase 99 35 - 130 U/L 06/16/2024 12:07 PM EDT LABORATORY GL Bilirubin, Total 0.5 <=1.2 mg/dL 06/16/2024 12:07 PM EDT LABORATORY GL[facility] CALCIUM 8.5 8.4 - 10.2 mg/dL 06/16/2024 12:07 PM EDT LABORATORY [facility] Protein 6.2 6.0 - 8.3 g/dL 06/16/2024 12:07 PM EDT LABORATORY GL[facility] ALT 17 10 - 50 U/L 06/16/2024 12:07 PM EDT LABORATORY GL Blood Venous blood specimen / Unknown Venipuncture / Unknown 06/16/2024 11:33 AM EDT 06/16/2024 11:37 AM EDT Maria E Donaldson DO LAB BLOOD ORDE SIMON LABORATORY [address] [address] * XR CHEST 1 VIEW (06/16/2024 11:28 AM EDT) Anatomical Region Laterality Modality Chest Digital Radiogra phy 06/16/2024 11:2 2 AM EDT Impressions 06/16/2024 12:06 PM EDT IMPRESSION: No acute cardiopulmonary abnormality. THIS DOCUMENT HAS BEEN ELECTRONICALLY SIGNED BY PADDY HANSON MD Narrative 06/16/2024 12:06 PM EDT PROCEDURE INFORMATION: Exam: XR Chest Exam date and time: 06/16/2024 11:22 AM Age: 73 years old Clinical indication: Other: Unexplained weight loss TECHNIQUE: Imaging protocol: Radiologic exam of the chest. Views: 1 view. COMPARISON: CT CHEST W CONTRAST 05/11/2024 10:54 AM FINDINGS: Lungs: Lungs clear. Pleural spaces: No definite pneumothorax. No pleural effusion. Heart/Mediastinum: Cardiac silhouette and pulmonary vasculature within normal limits. Bones/Joints: Osseous structures are unchanged. Procedure Note Paddy Hanson MD - 06/16/2024 PROCEDURE INFORMATION: Exam: XR Chest Exam date and time: 06/16/2024 11:22 AM Age: 73 years old Clinical indication: Other: Unexplained weight loss TECHNIQUE: Imaging protocol: Radiologic exam of the chest. Views: 1 view. COMPARISON: CT CHEST W CONTRAST 05/11/2024 10:54 AM FINDINGS: Lungs: Lungs clear. Pleural spaces: No definite pneumothorax. No pleural effusion. Heart/Mediastinum: Cardiac silhouette and pulmonary vasculature withinnormal limits. Bones/Joints: Osseous structures are unchanged. IMPRESSION IMPRESSION: No acute cardiopulmonary abnormality. THIS DOCUMENT HAS BEEN ELECTRONICALLY SIGNED BY PADDY HANSON MD Maria E Donaldson DO RADIOLOGY (RAD GENERAL) documented in this encounter Visit Diagnoses Diagnosis Unexplained weight loss- Primary Loss of weight Odynophagia Dysphagia, unspecified Chest pain Chest pain, unspecified Abnormal weight loss Loss of weight Esophageal reflux Hypothyroidism Unspecified hypothyroidism Hypertension Unspecified essential hypertension Hiatal hernia Diaphragmatic hernia without mention of obstruction or gangrene Phelps's esophagus without dysplasia Phelps's esophagus Generalized weakness Other malaise and fatigue COVID-19 Chronic nausea Nausea alone Phelps's esophagus without dysplasia Phelps's esophagus Dysphagia, unspecified type Unintentional weight loss Loss of weight Nausea Nausea alone Appetite loss Anorexia documented in this encounter Administered Medications Inactive Administered Medications - up to 3 most recent administrations Medication Order MAR Action Action Date Dose Rate Site Acetaminophen (Tylenol) tab 975 mg 975 mg, Oral, Q6H PRN Pain, Mild, Fever >38C(100.5F), Starting on Sun06/16/24 at 1515, Until Sun06/18/24 at 1605, Maximum of 4 grams (4000 mg) per day. Aprepitant (Emend) cap 40 mg 40 mg, Oral, Q8H PRN Other, nausea, prior to food, Starting on Sun06/16/24 at 1628, Until Sun06/17/24 at 1316 Given 06/17/2024 11:38 AM EDT 40 mg Given 06/16/2024 5:09 PM EDT 40 mg atorvaSTATin (Lipitor) tab 40 mg 40 mg, Oral, Daily(AM), First dose on Sun06/17/24 at 0900, Until Discontinued Given 06/18/2024 8:35 AM EDT 40 mg Given 06/17/2024 9:30 AM EDT 40 mg Bisacodyl (Dulcolax) supp 10 mg 10 mg, Rectal, DAILY PRN Constipation, Starting on Sun06/19/24 at 1515, Until Sun06/18/24 at 1605, Administer if no bowel movement within past 72 hours and patient unable to take oral medications. Bisacodyl (Dulcolax) tab 5 mg 5 mg, Oral, DAILY PRN Constipation, Starting on Sun06/19/24 at 1515, Until Sun06/18/24 at 1605, Administer in addition to polyethylene glycol and senna-docusate if no bowel movement in past 72 hours. brinZOLamide (Azopt) 1 % ophthalmic suspension 1 Drop 1 Drop, Both eyes, TID(AM/NOON/HS), First dose on Sun06/16/24 at 2200, Until Discontinued Given 06/18/2024 8:36 AM EDT 1 Drop Given 06/18/2024 5:40 AM EDT 1 Drop Given 06/17/2024 9:07 PM EDT 1 Drop calcium CARBonate (Tums E-X) tab CHEW 750 mg 750 mg, Oral, BID PRN Indigestion, Starting on Sun06/16/24 at 1515, Until Sun06/18/24 at 1605 D51/2 NSS infusion Intravenous, at 75 mL/hr, CONTINUOUS, Starting on Sun06/16/24 at 1615, Until Sun06/17/24 at 0714 New Bag 06/16/2024 4:31 PM EDT 75 mL/hr dorzolamide-timolol (Cosopt Ocumeter Plus) ophthalmic solution 1 Drop 1 Drop, Both eyes, BID (.AM/PM), First dose on Sun06/16/24 at 2100, Until Discontinued Given 06/18/2024 8:37 AM EDT 1 Drop Given 06/17/2024 9:31 AM EDT 1 Drop Enoxaparin (Lovenox) inj 40 mg 40 mg, Subcutaneous, Daily(AM), First dose on Sun06/17/24 at 0900, Until Discontinued, If patient is on warfarin, inform provider if daily INR value is 2 or greater! Given 06/18/2024 8:36 AM EDT 40 mg Abdom en Left Lower Given 06/17/2024 9:31 AM EDT 40 mg Ab domen Right Lower Famotidine (Pepcid) tab 20 mg 20 mg, Oral, HS, First dose on Sun06/16/24 at 2200, Until Discontinued Given 06/16/2024 9:07 PM EDT 20 mg Famotidine (Pepcid) tab 40 mg 40 mg, Oral, HS, First dose (after last modification) on Sun06/17/24 at 2200, Until Discontinued Given 06/17/2024 9:06 PM EDT 40 mg FLUoxetine (PROzac) cap 20 mg 20 mg, Oral, Daily(AM), First dose (after last modification) on Sun06/17/24 at 0900, Until Discontinued Given 06/18/2024 8:35 AM EDT 20 mg Given 06/17/2024 9:30 AM EDT 20 mg house antacid (Mi-Acid II) oral susp 30 mL 30 mL, Oral, ONCE, On Sun06/16/24 at 1415, For 1 dose, SHAKE WELL Given 06/16/2024 1:46 PM EDT 30 mL hydrOXYzine HCl tab 25 mg 25 mg, Oral, Q8H PRN Anxiety, Other, FOR MRI, Starting on Sun06/16/24 at 1627, Until Sun06/18/24 at 1605 Given 06/16/2024 4:39 PM EDT 25 mg Latanoprost (Xalatan) 0.005 % ophthalmic solution 1 Drop 1 Drop, Both eyes, HS, First dose on Sun06/16/24 at 2200, Until Discontinued Given 06/17/2024 9:08 PM EDT 1 Drop Given 06/16/2024 9:32 PM EDT 1 Drop levothyroxine (Levoxyl) tab 100 mcg 100 mcg, Oral, [id number], First dose on Sun06/17/24 at 0630, Until Discontinued Given 06/18/2024 5:39 AM EDT 100 mcg Given 06/17/2024 5:33 AM EDT 100 mcg Lidocaine Viscous 2 % topical solution 15 mL 15 mL, Oral mucosal membrane, ONCE, On Sun06/16/24 at 1415, For 1 dose, See nursing care plan. Dose not to exceed 4.5 mg/kg/dose. MAX dose 300 mg (15 mL). Given 06/16/2024 1:46 PM EDT 15 mL melatonin tab 3 mg 3 mg, Oral, HS PRN Insomnia, Starting on Sun06/16/24 at 1515, Until Sun06/18/24 at 1605 metoclopramide (Reglan) oral soln 2.5 mg 2.5 mg, Oral, AC, First dose on Sun06/17/24 at 1630, Until Discontinued, WASTE INFO: Return waste medication to pharmacy in zip lock bag - SPC container. Given 06/18/2024 11:23 AM EDT 2.5 mg Given 06/18/2024 5:39 AM EDT 2.5 mg Given 06/17/2024 4:15 PM EDT 2.5 mg Mirtazapine (Remeron) tab 7.5 mg 7.5 mg, Oral, QHS, First dose on Sun06/16/24 at 2200, Until Discontinued Given 06/17/2024 9:06 PM EDT 7.5 mg Given 06/16/2024 9:07 PM EDT 7.5 mg NSS 0.9% 1,000 mL bolus infusion Intravenous, at 1,000 mL/hr Administer over 60 Minutes, Administer entire volume within 60 minutes or less., ONCE, 1 dose, On Sun06/16/24 at 1200 New Bag 06/16/2024 1:04 PM EDT 1,000 mL 1000 mL/hr ondansetron (Zofran) inj 4 mg 4 mg, IV Push, ONCE, On Sun06/16/24 at 1200, For 1 dose Given 06/16/2024 1:00 PM EDT 4 mg ondansetron (Zofran) inj 4 mg 4 mg, IV Push, Q6H PRN Nausea, Starting on Sun06/16/24 at 1515, Until Sun06/18/24 at 1605 Given 06/16/2024 10:32 PM EDT 4 mg pantoprazole (Protonix) tab 40 mg 40 mg, Oral, BID (.AM/PM), First dose on Sun06/16/24 at 2100, Until Discontinued, This med should NOT be Crushed or Chewed Given 06/18/2024 8:36 AM EDT 40 mg Given 06/17/2024 9:06 PM EDT 40 mg Given 06/17/2024 9:30 AM EDT 40 mg Polyethylene Glycol 3350 (Miralax) oral powder 17 g 17 g (1 Packet), Oral, DAILY PRN Constipation, Starting on Sun06/16/24 at 1515, Until Sun06/18/24 at 1605, Administer if no bowel movement within past 24 hours. senna-docusate (Senokot-S) 1 Tablet 1 Tablet, Oral, BID PRN Constipation, Starting on Sun06/18/24 at 1515, Until Sun06/18/24 at 1605, Administer in addition to polyethylene glycol if no bowel movement within past 48 hours. sodium chloride 0.9 % flush/inj 3 mL 3 mL, IV Push, PRN Other, Line Patency, Starting on Sun06/16/24 at 1514, Until Sun06/18/24 at 1605, Do not flush if lock, PICC, or central line not in place, IV infusing or unable to flush Sucralfate (Carafate) tab 1 g 1 g, Oral, BID (0730,1630), First dose on Sun06/16/24 at 1630, Until Discontinued Given 06/18/2024 5:39 AM EDT 1 g Given 06/17/2024 4:15 PM EDT 1 g Given 06/17/2024 6:40 AM EDT 1 g traMADol (Ultram) tab 50 mg 50 mg, Oral, Q8H PRN Pain, Severe, Starting on Sun06/16/24 at 1511, Until Sun06/18/24 at 1605 Given 06/18/2024 10:23 AM EDT 50 mg Given 06/16/2024 4:22 PM EDT 50 mg documented in this encounter Active and Recently Administered Medications Times are shown in EDT. Scheduled Medication Order 06/16/2024 06/17/2024 06/18/2024 atorvaSTATin (Lipitor) tab 40 mg 40 mg, Oral, Daily(AM), First dose on Sun06/17/24 at 0900, Until Discontinued 929 (Given - Provider: Lizy Rose RN) 0835 (Given - Provider: Marni Hatfield LPN) brinZOLamide (Azopt) 1 % ophthalmic suspension 1 Drop 1 Drop, Both eyes, TID(AM/NOON/HS), First dose on Sun06/16/24 at 2200, Until Discontinued 2107 (Given - Provider: Batsheva Suh RN) 0534 (Given - Provider: Batsheva Suh RN)1133 (Given - Provider: Lizy Rose RN)2106 (Given - Provider: Loly Ritter RN) 0540 (Given - Provider: Loly Ritter RN)0836 (Given - Provider: Marni Hatfield LPN) dorzolamide-timolol (Cosopt Ocumeter Plus) ophthalmic solution 1 Drop 1 Drop, Both eyes, BID (.AM/PM), First dose on Sun06/16/24 at 2100, Until Discontinued 2107 (Not Given - Provider: Batsheva Suh RN - Reason: Refused-Notify Provider) 0931 (Given - Provider: Lizy Rose RN)2100 (Not Given - Provider: Loly Ritter RN - Reason: Refused-Notify Provider - Comment: pt takes daily) 0837 (Given - Provider: Marni Hatfield LPN) Enoxaparin (Lovenox) inj 40 mg 40 mg, Subcutaneous, Daily(AM), First dose on Sun06/17/24 at 0900, Until Discontinued, If patient is on warfarin, inform provider if daily INR value is 2 or greater! 0931 (Given - Provider: Lizy Rose RN) 0836 (Given - Provider: Marni Hatfield LPN) Famotidine (Pepcid) tab 20 mg (CANCELED) 20 mg, Oral, HS, First dose on Sun06/16/24 at 2200, Until Discontinued 2106 (Given - Provider: Batsheva Suh RN) Famotidine (Pepcid) tab 40 mg 40 mg, Oral, HS, First dose (after last modification) on Sun06/17/24 at 2200, Until Discontinued 2105 (Given - Provider: Loly Ritter RN) FLUoxetine (PROzac) cap 20 mg 20 mg, Oral, Daily(AM), First dose (after last modification) on Sun06/17/24 at 0900, Until Discontinued 929 (Given - Provider: Lizy Rose RN) 0835 (Given - Provider: Marni Hatfield LPN) house antacid (Mi-Acid II) oral susp 30 mL (COMPLETED) 30 mL, Oral, ONCE, On Sun06/16/24 at 1415, For 1 dose, SHAKE WELL 1346 (Given - Provider: Juliet Hatfield RN) Latanoprost (Xalatan) 0.005 % ophthalmic solution 1 Drop 1 Drop, Both eyes, HS, First dose on Sun06/16/24 at 2200, Until Discontinued 2131 (Given - Provider: Batsheva Suh RN) 2107 (Given - Provider: Loly Ritter RN) levothyroxine (Levoxyl) tab 100 mcg 100 mcg, Oral, [id number], First dose on Sun06/17/24 at 0630, Until Discontinued 532 (Given - Provider: Batsheva Suh RN) 538 (Given - Provider: Loly Ritter RN) Lidocaine Viscous 2 % topical solution 15 mL (COMPLETED) 15 mL, Oral mucosal membrane, ONCE, On Sun06/16/24 at 1415, For 1 dose, See nursing care plan. Dose not to exceed 4.5 mg/kg/dose. MAX dose 300 mg (15 mL). 1346 (Given - Provider: Juliet Hatfield RN) metoclopramide (Reglan) oral soln 2.5 mg 2.5 mg, Oral, AC, First dose on Sun06/17/24 at 1630, Until Discontinued, WASTE INFO: Return waste medication to pharmacy in zip lock bag - SPC container. 1615 (Given - Provider: Lizy Rose RN) 0539 (Given - Provider: Loly Ritter RN)1123 (Given - Provider: Marni Hatfield LPN) Mirtazapine (Remeron) tab 7.5 mg 7.5 mg, Oral, QHS, First dose on Sun06/16/24 at 2200, Until Discontinued 2106 (Given - Provider: Batsheva Suh RN) 2105 (Given - Provider: Loly Ritter RN) NSS 0.9% 1,000 mL bolus infusion (COMPLETED) Intravenous, at 1,000 mL/hr Administer over 60 Minutes, Administer entire volume within 60 minutes or less., ONCE, 1 dose, On Sun06/16/24 at 1200 1304 (New Bag - Provider: Juliet Hatfield RN)2011 (Stopped - Provider: Batsheva Suh RN) ondansetron (Zofran) inj 4 mg (COMPLETED) 4 mg, IV Push, ONCE, On Sun06/16/24 at 1200, For 1 dose 1300 (Given - Provider: Juliet Hatfield RN) pantoprazole (Protonix) tab 40 mg 40 mg, Oral, BID (.AM/PM), First dose on Sun06/16/24 at 2100, Until Discontinued, This med should NOT be Crushed or Chewed 2106 (Given - Provider: Batsheva Suh RN) 0930 (Given - Provider: Lizy Rose RN)2105 (Given - Provider: Loly Ritter RN) 0836 (Given - Provider: Marni Hatfield LPN) Sucralfate (Carafate) tab 1 g 1 g, Oral, BID (0730,1630), First dose on Sun06/16/24 at 1630, Until Discontinued 1622 (Given - Provider: Michael Villasenor RN) 0640 (Given - Provider: Batsheva Suh, MARGARET)1615 (Given - Provider: Lizy Rose, MARGARET) 0539 (Given - Provider: Loly Ritter RN) Continuous Medication Order 06/16/2024 06/17/2024 06/18/2024 D51/2 NSS infusion Intravenous, at 75 mL/hr, CONTINUOUS, Starting on Sun06/16/24 at 1615, Until Sun06/17/24 at 0714 1631 (New Bag - Provider: Michael Villasenor RN) PRN Medication Order 06/16/2024 06/17/2024 06/18/2024 Acetaminophen (Tylenol) tab 975 mg 975 mg, Oral, Q6H PRN Pain, Mild, Fever >38C(100.5F), Starting on Sun06/16/24 at 1515, Until Sun06/18/24 at 1605, Maximum of 4 grams (4000 mg) per day. Aprepitant (Emend) cap 40 mg (CANCELED) 40 mg, Oral, Q8H PRN Other, nausea, prior to food, Starting on Sun06/16/24 at 1628, Until Sun06/17/24 at 1316 1709 (Given - Provider: Michael Villasenor RN) 1138 (Given - Provider: Lizy Rose RN) Bisacodyl (Dulcolax) supp 10 mg(Linked Group 1) 10 mg, Rectal, DAILY PRN Constipation, Starting on Sun06/19/24 at 1515, Until Sun06/18/24 at 1605, Administer if no bowel movement within past 72 hours and patient unable to take oral medications. Bisacodyl (Dulcolax) tab 5 mg(Linked Group 1) 5 mg, Oral, DAILY PRN Constipation, Starting on Sun06/19/24 at 1515, Until Sun06/18/24 at 1605, Administer in addition to polyethylene glycol and senna-docusate if no bowel movement in past 72 hours. calcium CARBonate (Tums E-X) tab CHEW 750 mg 750 mg, Oral, BID PRN Indigestion, Starting on Sun06/16/24 at 1515, Until Sun06/18/24 at 1605 hydrOXYzine HCl tab 25 mg 25 mg, Oral, Q8H PRN Anxiety, Other, FOR MRI, Starting on Sun06/16/24 at 1627, Until Sun06/18/24 at 1605 1639 (Given - Provider: Michael Villasenor RN) melatonin tab 3 mg 3 mg, Oral, HS PRN Insomnia, Starting on Sun06/16/24 at 1515, Until Sun06/18/24 at 1605 ondansetron (Zofran) inj 4 mg 4 mg, IV Push, Q6H PRN Nausea, Starting on Sun06/16/24 at 1515, Until Sun06/18/24 at 1605 1400 (Not Given - Provider: Michael Villasenor RN - Reason: Other- Please add reason in Comments - Comment: pulled med and sue up, not given d/t another nausea order added that pt would prefer)2231 (Given - Provider: Batsheva Suh RN) Polyethylene Glycol 3350 (Miralax) oral powder 17 g(Linked Group 1) 17 g (1 Packet), Oral, DAILY PRN Constipation, Starting on Sun06/16/24 at 1515, Until Sun06/18/24 at 1605, Administer if no bowel movement within past 24 hours. senna-docusate (Senokot-S) 1 Tablet(Linked Group 1) 1 Tablet, Oral, BID PRN Constipation, Starting on Sun06/18/24 at 1515, Until Sun06/18/24 at 1605, Administer in addition to polyethylene glycol if no bowel movement within past 48 hours. sodium chloride 0.9 % flush/inj 3 mL 3 mL, IV Push, PRN Other, Line Patency, Starting on Sun06/16/24 at 1514, Until Sun06/18/24 at 1605, Do not flush if lock, PICC, or central line not in place, IV infusing or unable to flush traMADol (Ultram) tab 50 mg 50 mg, Oral, Q8H PRN Pain, Severe, Starting on Sun06/16/24 at 1511, Until Sun06/18/24 at 1605 1622 (Given - Provider: Michael Villasenor RN) 1023 (Given - Provider: Marni Hatfield LPN) Linked Groups Order Group 1: Polyethylene Glycol 3350 (Miralax) oral powder 17 gJump to med 17 g (1 Packet), Oral, DAILY PRN Constipation, Starting on 06/16/24 at 1515, Until 06/18/24 at 1605, Administer if no bowel movement within past 24 hours. And senna-docusate (Senokot-S) 1 TabletJump to med 1 Tablet, Oral, BID PRN Constipation, Starting on 06/18/24 at 1515, Until Sun06/18/24 at 1605, Administer in addition to polyethylene glycol if no bowel movement within past 48 hours. And Bisacodyl (Dulcolax) tab 5 mgJump to med 5 mg, Oral, DAILY PRN Constipation, Starting on Karime 06/19/24 at 1515, Until Sun06/18/24 at 1605, Administer in addition to polyethylene glycol and senna- docusate if no bowel movement in past 72 hours. And Bisacodyl (Dulcolax) supp 10 mgJump to med 10 mg, Rectal, DAILY PRN Constipation, Starting on Karime 06/19/24 at 1515, Until Sun06/18/24 at 1605, Administer if no bowel movement within past 72 hours and patient unable to take oral medications. documented in this encounter Additional Health Concerns Infection Onset Date Last Indicated Resolved Time Respiratory Rule-Out 06/16/2024 06/16/2024 024 5:12 PM EDT COVID-19 (confirmed) 06/16/2024 06/16/2024 documented as of [...] Power of Attor melvin? No Care Teams Traffic Operations Engineer Relationship Specialty Start Date End Date Anna Walsh MD [address] [place] [address] [id number] PCP - General Internal Medicine 05/21/24 documented as of this encounter
--- OUTSIDE RECORDS SUMMARY | 2024-06-26 00:12 | External Medical Summary | Summary of Care ---
Author Name Unknown Organization [facility] [address] [facility] [address] Phone [phone] Care Team Providers Care Tug Boat Engineer Name Role Phone Anna Walsh MD Primary Care Provider Reason for Visit * Reason Onset Date Comments Advice 06/16/2024 Encounter Details Date Type Department Care Team (Late st Contact Info) Description 06/16/2024 Telephone Gastroenterology, [facility] [address] [place] [address] [address] AngeloMegan pérez CRNP [address] [place] [address] Advice Allergies Active Allergy Reactions Criticality Noted Date Comments Aspirin 04/30/2003 not an allery but was told not to take by him coder Clindamycin Unknown Medium 09/06/2015 Pt states hand swelling Localized Gabapentin Unknown 03/21/2023 Dizziness, made me like a zombie, couldn't walk Iodine Hives 06/19/2001 CT dye (Has been pretreated and did fine) Lorazepam Neuro complications (Please comment),Other (Please comment) 04/30/2003 not an allery but was told not to take by him coder hallucinates Penicillins 06/25/2001 hives Shellfish-Derived Products Anaphylaxis,Itching High 10/12/2015 Tongue swelling Tongue swelling documented as of this encounter (statuses as of 06/17/2024) Medications Medication Sig Dispensed Refills Start Date End Date Status levothyroxine (LEVOXYL) 100 MCG Tablet Take one tablet by mouth one time daily 90 Tab 1 01/29/2015 Suspended Additional Information ondansetron (ZOFRAN) 4 MG TabletIndications :Nausea alone 1 tablet every 6 hours as needed for nausea 30 Tab 3 02/16/2015 Suspended Additional Information dorzolamide-timol ol (COSOPT OCUMETER PLUS) 2.23-0.68% ophthalmic solution Instill 1 Drop into eye in the morning and 1 Drop before bedtime. Suspended Atorvastatin Calcium 40 MG Oral Tablet (Lipitor)Indicati ons:Phelps's esophagus without dysplasia,Dysphag ia, unspecified type,Unintentiona l weight loss Take 1 Tablet by mouth in the morning. 05/23/2023 Suspended Brinzolamide 1 % Ophthalmic Suspension (Azopt)Indication s:Phelps's esophagus without dysplasia,Dysphag ia, unspecified type,Unintentiona l weight loss Instill 1 Drop into both eyes in the morning and 1 Drop at noon and 1 Drop before bedtime. 04/18/2024 Suspended Latanoprost 0.005 % Ophthalmic Solution (Xalatan)Indicati ons:Phelps's esophagus without dysplasia,Dysphag ia, unspecified type,Unintentiona l weight loss Instill 1 Drop into both eyes at bedtime. 04/16/2024 Suspended Pantoprazole Sodium 40 MG Oral Tablet Delayed Release (Protonix)Indicat ions:Phelps's esophagus without dysplasia,Dysphag ia, unspecified type,Unintentiona l weight loss Take 1 Tablet by mouth in the morning and 1 Tablet before bedtime. 180 Tablet 3 05/09/2024 Suspended Additional Information FLUoxetine HCl 10 MG Oral Capsule (PROzac) Take 1 Capsule by mouth in the morning. With 20 mg for total 30 mg daily. Suspended FLUoxetine HCl 20 MG Oral Capsule (PROzac) Take 1 Capsule by mouth in the morning. With 10 mg for total 30 mg daily. Suspended traMADol HCl 50 MG Oral Tablet (Ultram)Indicatio ns:Chronic low back pain without sciatica, unspecified back pain laterality Take 1 Tablet by mouth every 8 hours as needed for severe Pain 30 Tablet 05/21/2024 Suspended Additional Information Famotidine 40 MG Oral Tablet (Pepcid)Indicatio ns:Phelps's esophagus without dysplasia,Dysphag ia, unspecified type,Unintentiona l weight loss,Nausea,Appet ite loss Take 1 Tablet by mouth at bedtime. 90 Tablet 3 06/11/2024 Suspended Additional Information Sucralfate 1 GM Oral Tablet (Carafate)Indicat ions:Phelps's esophagus without dysplasia,Dysphag ia, unspecified type,Unintentiona l weight loss,Nausea,Appet ite loss Take 1 Tablet by mouth 2 times a day as needed for Heartburn. 120 Tablet 3 06/11/2024 Suspended Additional Information Nirmatrelvir&Tab navir 300/100 20 x 150 MG & 10 x 100MG Oral Tablet Therapy Pack (Paxlovid (300/100))Indicat ions:COVID-19 virus infection Take 2 pink tablets of Nirmatrelvir and 1 white tablet of Ritonavir two times a day by mouth. Hold atorvastatin while taking Paxlovid, restart when complete. 30 Tablet 06/12/2024 Suspended Additional Information documented as of this encounter (statuses as of 06/17/2024) Active Problems Problem Noted Date Diagnosed Date COVID-19 06/17/2024 Unexplained weight loss 06/16/2024 Generalized weakness [...] as of this encounter (statuses as of 06/17/2024) Resolved Problems Problem Noted Date Diagnosed Date Resolved Date Epigastric pain 05/12/2024 05/13/2024 Violette esophagitis 05/11/2024 05/13/20 24 Severe obesity with body mas s index (BMI) of 35.0 to 39.9 with serious comorbidity 06/29/2011 Overview: ICD-10 update of inactive diagnosis ACTIVE CASE MANAGEMENT Jayla Navarro RN [phone] 03/18/2010 06/20/2010 Overview: ACTIVE CASE MANAGEMENT Jayla Navarro RN [phone] HYPERTENSION NOS 11/12/2001 07/26/2009 Overview: Modified per HTN protocol #16. documented as of this encounter (statuses as of 06/17/2024) Immunizations Name Administration Dates Next Due COVID-19, MRNA-LNP, 23-24, P F, 30 MCG/0.3 mL, 12 YRS AND ABOVE, IM (PFIZER-Comirnaty) 11/23/2023 PPD 04/06/2004 Pneumococcal Polysaccharide PPV23 (Pneumovax) 05/01/2009 RSV Vac., [...] No 05/14/2024 Does the household have a re gular source of income? (Household - for ages [...] encounter Miscellaneous Notes * Telephone Encounter - Felicity Heredia LPN - 06/17/2024 10:46 AM EDT Admitted to [facility] * Telephone Encounter - Felicity Heredia LPN - 06/16/2024 9:08 AM EDT Spoke with Yvonne. She reports that Dallin has continued to lose another 5-7 pounds in the past 5 days. He is only able to eat roughly 500 calories/day. He is weak and is having difficulty walking. She requested that he be seen. I advised that she take him to [place] ED for evaluation. She agreedand will transport him to [facility] ED. Report called to Johnson in [facility] ED. documented in this encounter Plan of Treatment Upcoming Encounters Date Type Department Care Team (Latest Contact Info) Description 07/02/2024 8:30 AM EDT Nurse [facility] [address] [facility] [place] [address] Nurse Carine Sneed Dung [address] [facility] [place] [address] 07/14/2024 8:30 AM EST [facility] [address] [facility] [place] [address] Megan Stephens CRNP [address] [facility] [address] 08/04/2024 8:00 AM EST Imaging [facility] 2nd Floor Cardiology, [place] [facility] [address] [address] [address] 08/04/2024 9:30 AM EST Imaging [facility] 2nd Floor Cardiology, [place] [address] [facility] [address] 08/04/2024 10:30 AM EST Imaging [facility] 2nd Floor Cardiology, [address] [place] [address] 08/04/2024 12:30 PM EST Imaging [facility] 2nd Floor Cardiology, [address] [address] 09/26/2024 9:20 AM EST Office Visit Family Practice [facility] [address] [facility] [place] [address] Anna Walsh MD [address] [facility] [place] [address] [address] 10/13/2024 10:30 AM EST Office Visit Allergy/Immunology [facility] [place] [address] [place] [address] Stephanie Colon PA-C [address] [place] [address] 11/12/2024 2:00 PM EDT Hospital Encounter ENDO [facility], Endoscopy Room [facility] [address] [place], [place] [phone] Latricia Howard MD [address] [place] [address] 11/12/2024 2:00 PM EDT - 11/12/2024 2:30 PM EDT Surgery ENDO [facility], Endoscopy Room [facility] [address] [place] [phone] Latricia Howard MD [address] [place] [address] COLONOSCOPY FLEXIBLE PROXIMAL DIAGNOSTIC Scheduled Procedures Name [...] 05/21/2024, 05/2024, 12/11/2013, Additional history exists GFR 06/17/2025 06/17/2024, 06/03, 05/13/2024, Additional history exists Phelps's Esophagus Surveilance 05/12/2027 [...] this encounter Medical Devices Implanted Type Area Product Safety Technician Device Identifier Shelf Expiration Date Model / Serial / Lot Mesh Vicryl 6 X 6 Vkm-M - [id number] [place]02[place] [facility] [place] Abdomen DO NOT USE 09/03/2015 VKM-M / / [id number] Mesh 10 X 14 [id number] - [id number] [place]planted:Qty: 1 on 10/02/2011 [place] [facility] [place]: Abdomen [employer] 04/02/2016 [id number] / / [id number] documented as of this encounter Additional Health Concerns Infection Onset Date Last Indicated Resolved Time Respiratory Rule-Out 06/16/2024 06/16/2024 024 5:12 PM EDT COVID-19 (confirmed) 06/16/2024 06/16/2024 documented as of this encounter Advance Directives * Full Code (Latest Code Status on File) Date Activated Date Inactivated Comments 06/16/2024 3:16 PM This order re flects the patients [...] Power of Attor melvin? No Care Teams Tug Boat Engineer Relationship Specialty Start Date End Date Anna Walsh MD [address] [place] [address] [address] PCP - General Internal Medicine 05/21/24 documented as of this encounter
--- OUTSIDE RECORDS SUMMARY | 2024-06-26 00:12 | External Medical Summary ---
Author Name Unknown Address Unknown Organization [facility] - [address] [address] Laboratory Report Ordering Provider Test Date Status NEFTALI BERMUDEZ 06/17/2024 06:25:00 Final Observation Date Value Abnormality Reference (Units ) Status Phosphate 06/17/2024 06:25:00 2.9 2.5-4.8 (m g/dL) Final Performing Location [facility] - [address] [address]
--- OUTSIDE RECORDS SUMMARY | 2024-06-26 00:12 | External Medical Summary ---
Author Name Unknown Address Unknown Organization [facility] - [address] [facility] [place] [address] Laboratory Report Ordering Provider Test Date Status SHYAM LARIOS 06/16/2024 11:33:00 Final Observation Date Value Abnormality Reference (Units ) Status SYNC LEUKOCYTES IN BLOOD BY AUTOMATED COUNT 06/16/2024 11:33:00 4.14 4.00-10.80 (K/uL) Final Segs 06/16/2024 11:33:00 54.7 40.0-75.0 (%) Final Lymphs % 06/16/2024 11:33:00 34.5 18.0-42.0 (%) Final Monos 06/16/2024 11:33:00 7.7 1.0-11.0 (%) Final Eosinophils 06/16/2024 11:33:00 2.4 0.0-6.0 (%) Final Basos 06/16/2024 11:33:00 0.5 0.0-2.0 (%) Final Immature Granulocyte, Percent 06/16/2024 11:33:00 0.2 0.0-2.0 (%) Final Absolute Segs 06/16/2024 11:33:00 2.26 1.80-7.70 (K/uL) Final Lymphs, absolute 06/16/2024 11:33:00 1.43 1.00-4.80 (K/ul) Final Monos, Abs 06/16/2024 11:33:00 0.32 0.00-1.10 (K/uL) Final Eos, Abs 06/16/2024 11:33:00 0.10 0.00-0.70 (K/uL) Final Basos, Abs 06/16/2024 11:33:00 0.02 0.00-0.20 (K/uL) Final Immature Granulocytes, Number 06/16/2024 11:33:00 0.01 0.00-0.20 (K/uL) Final Performing Location [facility]ORY [facility] - [address] [place] [address]
--- OUTSIDE RECORDS SUMMARY | 2024-06-26 00:12 | External Medical Summary | Summary of Care ---
Author Name Unknown Organization [facility] Address [address] [facility] [facility] [place] [address] Phone [phone] Care Team Providers Care Agricultural Sciences Professor Name Role Phone Anna Walsh MD Primary Care Provider Encounter Details Date Type Department Care Team (Late st Contact Info) Description 06/13/2024 Orders Only PATIENT PORTAL DO NOT DELETE THIS DEPT USED BY [place] [phone] Allergies Active Allergy Reactions Criticality Noted Date Comments Aspirin 04/30/2003 not an allery but was told not to take by sales development coordinator Clindamycin Unknown Medium 09/06/2015 Pt states hand swelling Localized Gabapentin Unknown 03/21/2023 Dizziness, made me like a zombie, couldn't walk Iodine Hives 06/19/2001 CT dye (Has been pretreated and did fine) Lorazepam Neuro complications (Please comment),Other (Please comment) 04/30/2003 not an allery but was told not to take by sales development coordinator hallucinates Penicillins 06/25/2001 hives Shellfish-Derived Products Anaphylaxis,Itching High 10/12/2015 Tongue swelling Tongue swelling documented as of this encounter (statuses as of 06/13/2024) Medications Medication Sig Dispensed Refills Start Date End Date Status levothyroxine (LEVOXYL) 100 MCG Tablet Take one tablet by mouth one time daily 90 Tab 1 01/29/2015 Active ondansetron (ZOFRAN) 4 MG TabletIndications: Nausea alone 1 tablet every 6 hours as needed for nausea 30 Tab 3 02/16/2015 Active dorzolamide-timolo l (COSOPT OCUMETER PLUS) 2.23-0.68% ophthalmic solution Instill 1 Drop into eye in the morning and 1 Drop before bedtime. Active Atorvastatin Calcium 40 MG Oral Tablet (Lipitor)Indicatio ns:Phelps's esophagus without dysplasia,Dysphagi a, unspecified type,Unintentional weight loss Take 1 Tablet by mouth in the morning. 05/23/2023 Active Brinzolamide 1 % Ophthalmic Suspension (Azopt)Indications :Phelps's esophagus without dysplasia,Dysphagi a, unspecified type,Unintentional weight loss Instill 1 Drop into both eyes in the morning and 1 Drop at noon and 1 Drop before bedtime. 04/18/2024 Active Latanoprost 0.005 % Ophthalmic Solution (Xalatan)Indicatio ns:Phelps's esophagus without dysplasia,Dysphagi a, unspecified type,Unintentional weight loss Instill 1 Drop into both eyes in the morning. 04/16/2024 Active Pantoprazole Sodium 40 MG Oral Tablet Delayed Release (Protonix)Indicati ons:Phelps's esophagus without dysplasia,Dysphagi a, unspecified type,Unintentional weight loss Take 1 Tablet [...] Active traMADol HCl 50 MG Oral Tablet (Ultram)Indication s:Chronic low back pain without sciatica, unspecified back pain laterality Take 1 Tablet by mouth every 8 hours as needed for severe Pain 30 Tablet 05/21/2024 Active Famotidine 40 MG Oral Tablet (Pepcid)Indication s:Phelps's esophagus without dysplasia,Dysphagi a, unspecified type,Unintentional weight loss,Nausea,Appeti te loss Take 1 Tablet by mouth at bedtime. 90 Tablet 3 06/11/2024 Active Sucralfate 1 GM Oral Tablet (Carafate)Indicati ons:Phelps's esophagus without dysplasia,Dysphagi a, unspecified type,Unintentional weight loss,Nausea,Appeti te loss Take 1 Tablet by mouth 2 times a day as needed for Heartburn. 120 Tablet 3 06/11/2024 Active Nirmatrelvir&Riton avir 300/100 20 x 150 MG & 10 x 100MG Oral Tablet Therapy Pack (Paxlovid (300/100))Indicati ons:COVID-19 virus infection Take 2 pink tablets of Nirmatrelvir and 1 white tablet of Ritonavir two times a day by mouth. Hold atorvastatin while taking Paxlovid, restart when complete. 30 Tablet 06/12/2024 Active documented as of this encounter (statuses as of 06/13/2024) Active Problems Problem Noted Date Diagnosed Date Malnutrition of moderate degree 05/12/2024 Esophageal dysmotility [...] as of this encounter (statuses as of 06/13/2024) Resolved Problems Problem Noted Date Diagnosed Date Resolved Date Epigastric pain 05/12/2024 05/13/2024 Violette esophagitis 05/11/2024 05/13/20 Severe obesity with body mas s index (BMI) of 35.0 to 39.9 with serious comorbidity 06/29/2011 Overview: ICD-10 update of inactive diagnosis ACTIVE CASE MANAGEMENT Jayla Navarro RN [phone] 03/18/2010 06/20/2010 Overview: ACTIVE CASE MANAGEMENT Jayla Navarro RN [phone] HYPERTENSION NOS 11/12/2001 07/26/2009 Overview: Modified per HTN protocol #16. documented as of this encounter (statuses as of 06/13/2024) Immunizations Name Administration Dates Next Due COVID-19, [...] have concerns for your saf ety? No 05/14/2024 Do you have concerns for you r family's safety? (Household - for ages 0-17 years) Not on file 05/14/2024 Utilities Answer Date Recorded Do you have trouble paying y our heating, water, or electric bill? No 05/14/2024 Is your family able to pay t he heat, water, or electric bill? (Household - for ages 0-17 years) Not on file 05/14/2024 Does your family have access to good internet? (Household - for ages 0-17 years) Not on file 05/14/2024 Employment Status Answer Date Recorded Are you [...] 18 years and over) Not on file 05/14/2024 Does your family have a hard time getting a ride to doctors visits? (Household - for ages 0-17 years) Not on file 05/14/2024 Has lack of transportation k ept you from medical appointments, meetings, work, or from getting things needed for daily living? Check all that apply. No 05/14/2024 Do you (or your family) have trouble finding or paying for a ride (transportation)? (Household - for ages 0-17 years) Not on file 05/14/2024 Housing Stability Answer Date Recorded Do you currently live in a s helter or have no steady place to sleep at night? No 05/14/2024 Do you think you are at risk of becoming homeless? (Adult - for ages 18 years and over) Not on file 05/14/2024 Does your family worry about paying for your home or becoming homeless? (Household - for ages 0-17 years) Not on file 0 05/14/2024 Are you homeless or worried that you might be in the future? No 05/14/2024 Are you (or your family) dia eless or worried that you might be in the future? (Household - for ages 0-17 years) Not on file Food Insecurity Answer Date Recorded Do you need food for this week? No 05/14/2024 Are you able to get enough f ood for your family? (Household - for ages 0-17 years) Not on file 05/14/2024 Does your family need food t his week? (Household - for ages 0-17 years) Not on file 05/14/2024 Do you always have enough fo od for your family? (Household - for ages 0-17 years) Not on file 05/14/2024 Sex and Gender Information Value Date Recorded [...] you have serious difficulty h earing? No 05/11/2024 Are you blind or do you have serious difficulty seeing, even when wearing glasses? Yes 05/11/2024 Do you have serious difficul ty walking or climbing stairs? (5 years old or older) Yes 05/11/2024 Do you have difficulty dress ing or bathing? (5 years old or older) No 05/11/2024 Because of a physical, menta l, or emotional condition, do you have difficulty doing errands alone such as visiting a doctor s office or shopping? (15 years old or older) Yes 05/11/20 Cognitive Status Response Date of Assessm ent Because of a physical, menta l, or emotional condition, do you have serious difficulty concentrating, remembering, or making decisions? (5 years old or older) No 05/11/2024 documented as of this encounter Plan of Treatment Upcoming Encounters Date Type Department Care Team (Latest Contact Info) Description 06/18/2024 8:30 AM EDT [facility] [address] [place] [address] Naren Nurse Carine [facility] [address] [place] [address] 08/04/2024 8:00 AM EST Imaging [facility] 2nd Floor Cardiology, [place] [address] [place] [address] 08/04/2024 9:30 AM EST Imaging [facility] 2nd Floor Cardiology, [place] [address] 08/04/2024 10:30 AM EST Imaging [facility] 2nd Floor Cardiology, [place] [address] 08/04/2024 12:30 PM EST Imaging [facility] 2nd Floor Cardiology, [place] [phone] 09/26/2024 9:20 AM EST Office Visit Family Practice [facility] [place] [address] Anna Walsh MD [address] [place] [address] 10/13/2024 10:30 AM EST Office Visit Allergy/Immunology [employer] [address] [place], [place] [address] Stephanie Colon PA-C [address] [place] [address] 11/12/2024 2:00 PM EDT Hospital Encounter [facility], Endoscopy Room [facility] [address] [place] [address] Latricia Howard MD [address] [place] [address] 11/12/2024 2:00 PM EDT - 11/12/2024 2:30 PM EDT Surgery [facility]O [facility], Endoscopy Room [facility] [address] [place] [phone] Latricia Howard MD [address] [place] [address] COLONOSCOPY FLEXIBLE PROXIMAL DIAGNOSTIC Scheduled Procedures Name [...] 11/23/2023 Influenza Vaccine (FLU shot) (#1) 2024 GFR 05/13/2025 05/13/2024, 05/2024, 05/11/2024, Additional history exists TSH 05/21/2025 05/21/2024, 05/2024, 12/11/2013, Additional history exists Phelps's Esophagus Surveilance 05/12/2027 [...] this encounter Medical Devices Implanted Type Area Photocomposing Keyboard Operator Device Identifier Shelf Expiration Date Model / Serial / Lot Mesh Vicryl 6 X 6 Vkm-M - [id number] Implanted:Q[place]: 1 on 10[place]02[place]2011 [place] [facility] [place] Abdomen DO NOT USE 09/03/2015 VKM-M / / [id number] Mesh 10 X 14 [id number] - [id number] Implanted:Qty: 1 on 10/02/2011 [place] [facility] [place]: [facility]domen [facility] 04/02/2016 [id number] / / [id number] documented as of this encounter Advance Directives * Full Code (Latest Code Status on File) Date Activated Date Inactivated Comments 05/11/2024 1:12 [...] Power of Attor melvin? No Care Teams Agricultural Sciences Professor Relationship Specialty Start Date End Date Anna Walsh MD [address] [place] [address] PCP - General Internal Medicine 05/21/24 documented as of this encounter
--- OUTSIDE RECORDS SUMMARY | 2024-06-26 00:12 | External Medical Summary ---
Author Name Unknown Address Unknown Organization K1F:LAB[facility]ATORY [facility] - [address] [facility] [place] [address] Laboratory Report Ordering Provider Test Date Status NEFTALI BERMUDEZ 06/16/2024 15:56:01 Final Observation Date Value Abnormality Reference (Units ) Status Adenovirus DNA [Presence] in Nasopharynx by ABRAM with non-probe detection 06/16/2024 15:56:01 Negative Negative Final Human coronavirus 229E RNA [Presence] in Nasopharynx by ABRAM with non-probe detection 06/16/2024 15:56:01 Negative Negative Final Human coronavirus HKU1 RNA [Presence] in Nasopharynx by ABRAM with non-probe detection 06/16/2024 15:56:01 Negative Negative Final Human coronavirus NL63 RNA [Presence] in Nasopharynx by ABRAM with non-probe detection 06/16/2024 15:56:01 Negative Negative Final Human coronavirus OC43 RNA [Presence] in Nasopharynx by ABRAM with non-probe detection 06/16/2024 15:56:01 Negative Negative Final SARS-CoV-2 (COVID-19) RNA [Presence] in Nasopharynx by ABRAM with non-probe detection 06/16/2024 15:56:01 Positive Abnormal Negative Final Coronavirus SARS detected by PCR (amplified probe). Test results reported to [facility]. Human metapneumovirus RNA [P resence] in Nasopharynx by ABRAM with non-probe detection 06/16/2024 15:56:01 Negative Negative Final Rhinovirus+Enterovirus RNA [ Presence] in Nasopharynx by ABRAM with non-probe detection 06/16/2024 15:56:01 Negative Negative Final Influenza virus A RNA [Prese nce] in Nasopharynx by ABRAM with non-probe detection 06/16/2024 15:56:01 Negative Negative Final Influenza virus B RNA [Prese nce] in Nasopharynx by ABRAM with non-probe detection 06/16/2024 15:56:01 Negative Negative Final Parainfluenza virus 1 RNA [P resence] in Nasopharynx by ABRAM with non-probe detection 06/16/2024 15:56:01 Negative Negative Final Parainfluenza virus 2 RNA [P resence] in Nasopharynx by ABRAM with non-probe detection 06/16/2024 15:56:01 Negative Negative Final Parainfluenza virus 3 RNA [P resence] in Nasopharynx by ABRAM with non-probe detection 06/16/2024 15:56:01 Negative Negative Final Parainfluenza virus 4 RNA [P resence] in Nasopharynx by ABRAM with non-probe detection 06/16/2024 15:56:01 Negative Negative Final Respiratory syncytial virus RNA [Presence] in Nasopharynx by ABRAM with non-probe detection 06/16/2024 15:56:01 Negative Negative F inal Bordetella pertussis.pertuss is toxin promoter region [Presence] in Nasopharynx by ABRAM with non-probe detection 06/16/2024 15:56:01 Negative Negative Final Chlamydophila pneumoniae DNA [Presence] in Nasopharynx by ABRAM with non-probe detection 06/16/2024 15:56:01 Negative Negative Final Mycoplasma pneumoniae DNA [P resence] in Nasopharynx by ABRAM with non-probe detection 06/16/2024 15:56:01 Negative Negative Final Bordetella parapertussis IS1 001 DNA [Presence] in Nasopharynx by ABRAM with non-probe detection 06/16/2024 15:56:01 Negative Negative F inal
The primers that detect Rhinovirus may cross react with some Enterorviruses. The validation of bronchial specimens, tracheal aspirates, and throats for this assay was developed and performance characteristics determined by [employer]. The validation of alternate specimen types has not been cleared or approved by the U.S. Food and Drug Administration (FDA). It has been determined that such clearance or approval is not necessary. [place] [id number] [place] [address]
--- OUTSIDE RECORDS SUMMARY | 2024-06-26 00:12 | External Medical Summary ---
Author Name Unknown Address Unknown Organization K1F:LABORATORY [facility] - [address] [place] [address] Laboratory Report Ordering Provider Test Date Status NEFTALI BERMUDEZ 06/17/2024 06:25:00 Final Observation Date Value Abnormality Reference (Units ) Status BUN 06/17/2024 06:25:00 7 6-20 (mg/dL) Final Creatinine 06/17/2024 06:25:00 0.9 0.6-1.2 (mg/dL) Final Glomerular filtration rate/1.73 sq M.predicted [Volume Rate/Area] in Serum, Plasma or Blood by Creatinine-based formula (CKD-EPI) 06/17/2024 06:25:00 90 >=60 (mL/min) Final eGFR is calculated based on the CKD-EPI 2020 equation. Sodium 06/17/2024 06:25:00 140 135-146 (m mol/L) Final Potassium 06/17/2024 06:25:00 3.6 3.5-5.1 (m mol/L) Final Cl 06/17/2024 06:25:00 107 98-107 (mm ol/L) Final CO2 06/17/2024 06:25:00 23 22-32 (mmo l/L) Final Anion gap 06/17/2024 06:25:00 10 7-15 (mmol /L) Final Glucose 06/17/2024 06:25:00 98 70-120 (mg /dL) Final Albumin 06/17/2024 06:25:00 3.2 Below low normal 3.8 -5.0 (g/dL) Final AST (Aspartate aminotransferase) 06/17/2024 06:25:00 17 10-50 (U/L) Fin al Alk Phos 06/17/2024 06:25:00 92 35-130 (U/ L) Final Bilirubin, Total 06/17/2024 06:25:00 0.6 <=1 .2 (mg/dL) Final Calcium 06/17/2024 06:25:00 8.2 Below low normal 8.4 -10.2 (mg/dL) Final Protein 06/17/2024 06:25:00 5.8 Below low normal 6.0 -8.3 (g/dL) Final ALT (Alanine aminotransferase) 06/17/2024 06:25:00 16 10-50 (U/L) Gama goodson Performing Location LABORATORY [facility] - [address] [place], [place] [address]j[address] [place] [address]
--- OUTSIDE RECORDS SUMMARY | 2024-06-26 00:12 | External Medical Summary ---
Author Name Unknown Address Unknown Organization K1F:LABORATORY [facility] - [address] [place] [address] Laboratory Report Ordering Provider Test Date Status SHYAM LARIOS 06/16/2024 11:33:00 Final Observation Date Value Abnormality Reference (Units ) Status Troponin T 06/16/2024 11:33:00 8 <=22 (ng/ L) Final Performing Location LAB[facility]ATORY [facility] - [address] [place] [address]
--- OUTSIDE RECORDS SUMMARY | 2024-06-26 00:12 | External Medical Summary ---
Author Name Unknown Address Unknown Organization K1F:[facility] - [address] [facility] [place] [address] Laboratory Report Ordering Provider Test Date Status SHYAM LARIOS 06/16/2024 16:15:01 Final Observation Date Value Abnormality Reference (Units ) Status Color of Urine by Auto 06/16/2024 16:15:01 Yellow Light Yellow, Yellow, Dark Yellow Final Clarity, Urine 06/16/2024 16:15:01 Clear Clear Final Glucose [Mass/volume] in Urine by Automated test strip 06/16/2024 16:15:01 Negative Negative (mg/dL) Final Bilirubin.total [Presence] in Urine by Automated test strip 06/16/2024 16:15:01 Small Abnormal Negative Final Ketones [Mass/volume] in Urine by Automated test strip 06/16/2024 16:15:01 Negative Negative (mg/dL) Final Specific gravity, Urine 06/16/2024 16:15:01 1.019 1.003-1.030 Final Hemoglobin [Presence] in Urine by Automated test strip 06/16/2024 16:15:01 Negative Negative Final pH, Urine 06/16/2024 16:15:01 6.0 5.0-7.5 (Units) Final Protein [Mass/volume] in Urine by Automated test strip 06/16/2024 16:15:01 Trace Abnormal Negative (mg/dL) Final Urobilinogen [Mass/volume] in Urine by Automated test strip 06/16/2024 16:15:01 1.0 0.2, 1.0 (mg/dL) Final Nitrite [Presence] in Urine by Automated test strip 06/16/2024 16:15:01 Negative Negative Final Leukocyte esterase [Presence] in Urine by Automated test strip 06/16/2024 16:15:01 Negative Negative Final RBC, Urine 06/16/2024 16:15:01 0-2 0-2 (/HPF) Final WBC, Urine 06/16/2024 16:15:01 0-2 0-2 (/HPF) Final Bacteria [#/area] in Urine sediment by Microscopy high power field 06/16/2024 16:15:01 26-50 Abnormal 0-25 (/HPF) Final Mucus, Urine 06/16/2024 16:15:01 Many Abnormal None (/HPF) Final CULTURE, URINE - [facility] 06/16/2024 16:15:01 Final Quantitative urine culture t o be performed Performing Location LABORATORY [facility] - [facility] [place] [address]
--- OUTSIDE RECORDS SUMMARY | 2024-06-26 00:12 | External Medical Summary ---
Author Name Unknown Address Unknown Organization K1F:LAB[facility]ATORY [facility] - [address] [place] [address] Laboratory Report Ordering Provider Test Date Status SHYAM LARIOS 06/16/2024 11:33:00 Final Observation Date Value Abnormality Reference (Units ) Status Lactic Acid 06/16/2024 11:33:00 0.9 0.4-2.0 (mmol/L) Final Performing Location LABORATORY [facility] - [address] [place] [address]
--- OUTSIDE RECORDS SUMMARY | 2024-06-26 00:12 | External Medical Summary ---
Author Name Unknown Address Unknown Organization K1F:LAB[facility]ORY [facility] - [address] [place] [address] Laboratory Report Ordering Provider Test Date Status NEFTALI BERMUDEZ 06/17/2024 06:25:00 Final Observation Date Value Abnormality Reference (Units ) Status Magnesium 06/17/2024 06:25:00 2.1 1.5-2.6 (m g/dL) Final Performing Location LABORATORY [facility] - [address] [place] [address]
--- OUTSIDE RECORDS SUMMARY | 2024-06-26 00:12 | External Medical Summary ---
Author Name Unknown Address Unknown Organization K1F:LABORATORY [facility] - [address] [place] [address] Laboratory Report Ordering Provider Test Date Status SHYAM LARIOS 06/16/2024 11:33:00 Final Observation Date Value Abnormality Reference (Units ) Status Lipase 06/16/2024 11:33:00 9 Below low normal 13- 60 (U/L) Final Performing Location LABORATORY [facility] - [address] [place] [address]
--- OUTSIDE RECORDS SUMMARY | 2024-06-26 00:12 | External Medical Summary | Summary of Care ---
Author Name Unknown Organization [facility] Address [address] [facility] [place] [address] Phone [phone] Care Team Providers Care Distribution Specialist Name Role Phone Anna Walsh MD Primary Care Provider Reason for Visit * Reason Onset Date Comments Advice 06/16/2024 Encounter Details Date Type Department Care Team (Late st Contact Info) Description 06/16/2024 Telephone Gastroenterology, [facility] [address] [place] [address] AngeloMegan pérez CRNP [address] [place] [address] [address] Advice Allergies Active Allergy Reactions Criticality Noted Date Comments Aspirin 04/30/2003 not an allery but was told not to take by card room manager Clindamycin Unknown Medium 09/06/2015 Pt states hand swelling Localized Gabapentin Unknown 03/21/2023 Dizziness, made me like a zombie, couldn't walk Iodine Hives 06/19/2001 CT dye (Has been pretreated and did fine) Lorazepam Neuro complications (Please comment),Other (Please comment) 04/30/2003 not an allery but was told not to take by card room manager hallucinates Penicillins 06/25/2001 hives Shellfish-Derived Products Anaphylaxis,Itching High 10/12/2015 Tongue swelling Tongue swelling documented as of this encounter (statuses as of 06/16/2024) Medications Medication Sig Dispensed Refills Start Date [...] as of this encounter (statuses as of 06/16/2024) Active Problems Problem Noted Date Diagnosed Date [...] as of this encounter (statuses as of 06/16/2024) Resolved Problems Problem Noted Date Diagnosed Date Resolved Date Epigastric pain 05/12/2024 05/13/2024 Violette esophagitis 05/11/2024 05/13/20 Severe obesity with body mas s index (BMI) of 35.0 to 39.9 with serious comorbidity 06/29/2011 Overview: ICD-10 update of inactive diagnosis ACTIVE CASE MANAGEMENT Jayla Navarro RN [phone] 03/18/2010 06/20/2010 Overview: ACTIVE CASE MANAGEMENT Jayla Navarro RN [phone] HYPERTENSION NOS 11/12/2001 07/26/2009 Overview: Modified per HTN protocol #16. documented as of this encounter (statuses as of 06/16/2024) Immunizations Name Administration Dates Next Due COVID-19, [...] No 05/11/2024 documented as of this encounter Miscellaneous Notes [...] I advised that she take him to [facility] for evaluation. She agreedand will transport him to [facility]. Report called to Johnson in [facility]. documented in this encounter Plan of Treatment Upcoming Encounters Date Type Department Care Team (Latest Contact Info) Description 07/02/2024 8:30 AM EDT [facility] [address] [facility] [place] [address] Nurse Carine Sneed [facility] [place] [address] 08/04/2024 8:00 AM EST Imaging [facility] 2nd Floor Cardiology, [place] [address] [place] [address] 08/04/2024 9:30 AM EST Imaging [facility] 2nd Floor Cardiology, [place] [address] [place], [place] [address] 08/04/2024 10:30 AM EST Imaging [facility] 2nd [facility], [place] [address] [place] [address] 08/04/2024 12:30 PM EST Imaging [address] Cardiology, [place] [address] [place] [address] 09/26/2024 9:20 AM EST Office Visit Family [facility] [address] [place] [address] [address] Anna Walsh MD [address] [place] [address] 10/13/2024 10:30 AM EST Office Visit Allergy/Immunology [facility] [place] [address] [place] [address] Stephanie Colon PA-C [address] [place] [address] 11/12/2024 2:00 PM EDT Hospital Encounter ENDO [facility], Endoscopy Room [facility] [address] [place] [address] Latricia Howard MD [address] [place] [address] 11/12/2024 2:00 PM EDT - 11/12/2024 2:30 PM EDT Surgery ENDO [facility], Endoscopy Room [facility] [address] [place] [phone] Latricia Howard MD [address] [place] [address] COLONOSCOPY FLEXIBLE PROXIMAL DIAGNOSTIC Scheduled Procedures Name [...] this encounter Medical Devices Implanted Type Area Drawer In Jacquard Loom Device Identifier Shelf Expiration Date Model / Serial / Lot Mesh Vicryl 6 X 6 Vkm-M - [id number] Implanted:Qty: 1 on 10/02/2011 [place] [facility] [place] N/A: Abdomen DO NOT USE 09/03/2015 VKM-M / / [id number] Mesh 10 X 14 [id number] - [id number] Implanted:Qty: 1 on 10/02/2011 at [place] [facility] [place] N/A: Abdomen [facility] [facility] 04/02/2016 [id number] / / [id number] documented as of this encounter Advance Directives [...] Power of Attor melvin? No Care Teams Distribution Specialist Relationship Specialty Start Date End Date Anna Walsh MD [address] [place] [address] PCP - General Internal Medicine 05/21/24 documented as of this encounter
--- OUTSIDE RECORDS SUMMARY | 2024-06-26 00:12 | External Medical Summary ---
Author Name Unknown Address Unknown Organization K1F:LABORATORY [facility] - [address] [address] Laboratory Report Ordering Provider Test Date Status NEFTALI BERMUDEZ 06/17/2024 06:25:00 Final Observation Date Value Abnormality Reference (Units ) Status WBC, Total 06/17/2024 06:25:00 3.52 Below low normal 4.00-10.80 (K/uL) Final RBC 06/17/2024 06:25:00 4.38 4.50-5.25 (M/uL) Final Hemoglobin 06/17/2024 06:25:00 13.9 Below low normal 14.0-16.8 (g/dL) Final HCT 06/17/2024 06:25:00 40.3 40.0-48.4 (%) Final MCV 06/17/2024 06:25:00 92.0 82.0-99.5 (fL) Final MCH 06/17/2024 06:25:00 31.7 27.0-34.0 (pg) Final MCHC 06/17/2024 06:25:00 34.5 32.0-36.0 (g/dL) Final RDW 06/17/2024 06:25:00 12.7 11.5-15.5 (%) Final Platelets 06/17/2024 06:25:00 148 140-400 (K/uL) Final MPV 06/17/2024 06:25:00 10.1 6.6-11.1 (fL) Final Nucleated erythrocytes/100 leukocytes [Ratio] in Blood by Automated count 06/17/2024 06:25:00 0 <=0 (/100 WBCs) Final Performing Location LABORATORY [facility] - [address] [address]
--- OUTSIDE RECORDS SUMMARY | 2024-06-26 00:12 | External Medical Summary ---
Author Name Unknown Address Unknown Organization K1F:[facility]ORY [facility] - [address] [facility] [address] [place] [address] Laboratory Report Ordering Provider Test Date Status SHYAM LARIOS 06/16/2024 11:33:00 Final Observation Date Value Abnormality Reference (Units ) Status BUN 06/16/2024 11:33:00 9 6-20 (mg/dL) Final Creatinine 06/16/2024 11:33:00 0.9 0.6-1.2 (mg/dL) Final Glomerular filtration rate/1.73 sq M.predicted [Volume Rate/Area] in Serum, Plasma or Blood by Creatinine-based formula (CKD-EPI) 06/16/2024 11:33:00 89 >=60 (mL/min) Final eGFR is calculated based on the CKD-EPI 2020 equation. Sodium 06/16/2024 11:33:00 138 135-146 (m mol/L) Final Potassium 06/16/2024 11:33:00 3.8 3.5-5.1 (m mol/L) Final Cl 06/16/2024 11:33:00 106 98-107 (mm ol/L) Final CO2 06/16/2024 11:33:00 22 22-32 (mmo l/L) Final Anion gap 06/16/2024 11:33:00 10 7-15 (mmol /L) Final Glucose 06/16/2024 11:33:00 97 70-120 (mg /dL) Final Albumin 06/16/2024 11:33:00 3.3 Below low normal 3.8 -5.0 (g/dL) Final AST (Aspartate aminotransferase) 06/16/2024 11:33:00 18 10-50 (U/L) Fin al Alk Phos 06/16/2024 11:33:00 99 35-130 (U/ L) Final Bilirubin, Total 06/16/2024 11:33:00 0.5 <=1 .2 (mg/dL) Final Calcium 06/16/2024 11:33:00 8.5 8.4-10.2 ( mg/dL) Final Protein 06/16/2024 11:33:00 6.2 6.0-8.3 (g /dL) Final ALT (Alanine aminotransferase) 06/16/2024 11:33:00 17 10-50 (U/L) Gama goodson Performing Location LABORATORY [facility] - [address] [place], [place] [address] [address]
--- OUTSIDE RECORDS SUMMARY | 2024-06-26 00:12 | External Medical Summary ---
Author Name Unknown Address Unknown Organization K01:LABORATORY [facility] - [address] [place] [id number] Laboratory Report Ordering Provider Test Date Status SHYAM LARIOS 06/16/2024 16:15:01 Final Observation Date Value Abnormality Reference (Units) Status Bacteria identified in Specimen by Culture 06/16/2024 16:15:01 No significant growth Final Test: Culture, Urine, Quanti tative
Specimen Source: Urine, Clean Catch
Specimen Type: Urine
Specimen Date: 06/16/2024 1615
Result Date: 06/17/2024 1501
Result Status: Final result
Resulting Lab: LABORATORY [facility]
[address]
[place] [address]

CULTURE

No significant growth

null Performing Location LABORATORY [facility] - [address] [place] [id number]
--- OUTSIDE RECORDS SUMMARY | 2024-06-26 00:12 | External Medical Summary ---
Author Name Unknown Address Unknown Organization K1F:LABORATORY [facility] - [address] [address] Laboratory Report Ordering Provider Test Date Status SHYAM LARIOS 06/16/2024 11:33:00 Final Observation Date Value Abnormality Reference (Units ) Status WBC, Total 06/16/2024 11:33:00 4.14 4.00-10.80 (K/uL) Final RBC 06/16/2024 11:33:00 4.64 4.50-5.25 (M/uL) Final Hemoglobin 06/16/2024 11:33:00 14.6 14.0-16.8 (g/dL) Final HCT 06/16/2024 11:33:00 43.5 40.0-48.4 (%) Final MCV 06/16/2024 11:33:00 93.8 82.0-99.5 (fL) Final MCH 06/16/2024 11:33:00 31.5 27.0-34.0 (pg) Final MCHC 06/16/2024 11:33:00 33.6 32.0-36.0 (g/dL) Final RDW 06/16/2024 11:33:00 12.6 11.5-15.5 (%) Final Platelets 06/16/2024 11:33:00 144 140-400 (K/uL) Final MPV 06/16/2024 11:33:00 10.2 6.6-11.1 (fL) Final Nucleated erythrocytes/100 leukocytes [Ratio] in Blood by Automated count 06/16/2024 11:33:00 0 <=0 (/100 WBCs) Final Performing Location LABORATORY [facility] - [address] [address]
--- OUTSIDE RECORDS SUMMARY | 2024-06-26 00:12 | External Medical Summary | Summary of Care ---
Author Name Unknown Organization [facility] Address [address] [facility] [place] [address] Phone [phone] Care Team Providers Care Trimmer Loader Name Role Phone Anna Walsh MD Primary Care Provider Reason for Visit * Reason Onset Date Comments Med Request 06/12/2024 Covid + Encounter Details Date Type Department Care Team (Late st Contact Info) Description 06/12/2024 Telephone Family Practice [facility] [address] [place] [address] [address] nAna Walsh MD [address] [place] [address] [address] Med Request (Covid + ) Allergies Active Allergy Reactions Criticality Noted Date Comments Aspirin 04/30/2003 not an allery but was told not to take by system support specialist Clindamycin Unknown Medium 09/06/2015 Pt states hand swelling Localized Gabapentin Unknown 03/21/2023 Dizziness, made me like a zombie, couldn't walk Iodine Hives 06/19/2001 CT dye (Has been pretreated and did fine) Lorazepam Neuro complications (Please comment),Other (Please comment) 04/30/2003 not an allery but was told not to take by system support specialist hallucinates Penicillins 06/25/2001 hives Shellfish-Derived Products Anaphylaxis,Itching [...] diagnosis ACTIVE CASE MANAGEMENT Jayla Navarro RN [phone] 03/18/2010 06/20/2010 Overview: ACTIVE CASE MANAGEMENT Jayla Navarro RN [phone] HYPERTENSION NOS 11/12/2001 07/26/2009 Overview: Modified per [...] (15 years old or older) Yes 05/11/20 24 Cognitive Status Response Date of Assessm ent Because of a physical, menta l, or emotional condition, do you have serious difficulty concentrating, remembering, or making decisions? (5 years old or older) No 05/11/2024 documented as of this encounter Miscellaneous Notes * Telephone Encounter - Ame Quinones LPN - 06/13/2024 12:15 PM EDT Called , says that pt calculated his days wrong and technically yesterday was day five, and decided he would power through without med. Cancelled script at pharmacy. * Telephone Encounter - Anna Walsh MD - 06/12/2024 5:56 PM EDT High-risk by age, BMI, hypertension Normal renal function We have evidence of 1 COVID-19 vaccine On atorvastatin, hold while taking. Prescription sent * Telephone Encounter - Danelle Alford OSA - 06/12/2024 4:58 PM EDT Patient calling in to check on the status of previous message. * Telephone Encounter - Emily Griffin LPN - 06/12/2024 3:26 PM EDT Patient calling to request Paxlovid. Date of positive Covid test: 06/11 Symptoms started: 06/09 What symptoms are you experiencing? Headache congestion cough body aches nausea Date of last fever:today Did you have 2 vaccines: Yes Boosters: Yes What have you tried OTC: tylenol What pharmacy do you use: confirmed * Telephone Encounter - Elmer Hoffmann OSA - 06/12/2024 3:25 PM EDT Reason for patient's call: Pt's calling regarding Paxlovid for pt. Caller was transferred to Emily at the nurse line. * Telephone Encounter - Tameka Espitia OSA - 06/12/2024 2:37 PM EDT Pt goes to [facility], unable to reach dedicated nurse line to help with covid call, please call pt back to help with medication request. * Telephone Encounter - Drea Smith LPN - 06/12/2024 12:30 PM EDT Please route to correct dept. * Telephone Encounter - Tameka Espitia OSA - 06/12/2024 12:22 PM EDT Reason for patient call/what is patient requesting? medication Have you had symptoms of COVID-19 such as fever, sore throat, shortness of breath? COVID19 Symptoms:yes Date of first symptoms: 4 days ago Date of last fever: 06/11 Date of last symptoms: current Have you had close exposure to someone who tested positive for COVID-19? COVID19 Exposure: yes Date of first exposure: lives with who is + Date of last exposure: current Testing location requested: [facility] Positive COVID 19 test in the past 90 days? Clinic Test [facility] Did you have 2 vaccines yes Boosters yes Call Details are Required documented in this encounter Plan of Treatment Upcoming Encounters Date Type Department Care Team (Latest Contact Info) Description 06/18/2024 8:30 AM EDT Nurse Only Gastroenterology, [facility] [address] [facility] [place] [address] [place], Nurse Gastro [address] [place] [address] [address] 08/04/2024 8:00 AM EST Imaging [facility] 2nd Floor Cardiology, [address] [place] [address] [address] 08/04/2024 9:30 AM EST Imaging [facility] 2nd Floor Cardiology, [address] [place] [address] 08/04/2024 10:30 AM EST Imaging [facility] 2nd Floor Cardiology, [place] [address] [facility] [place] [address] [address] 08/04/2024 12:30 PM EST Imaging [facility] 2nd Floor Cardiology, [address] [place] [address] 09/26/2024 9:20 AM EST Office Visit Family Practice [facility] [address] [facility] [place] [address] [address] Anna Walsh MD [address] [place] [address] [address] 10/13/2024 10:30 AM EST Office Visit Allergy/Immunology [facility] [address] [facility] [address] [place], [place] [address] Stephanie Colon PA-C [address] [place] [address] 11/12/2024 2:00 PM EDT Hospital Encounter ENDO [facility], Endoscopy Room [facility] [address] [place], [place] [phone] Latricia Howard MD [address] [place], [place] [address] 11/12/2024 2:00 PM EDT - 11/12/2024 2:30 PM EDT Surgery ENDO [facility], Endoscopy Room [facility] [address] [place] [address] Latricia Howard MD [address] [place], [place] [address] COLONOSCOPY FLEXIBLE PROXIMAL DIAGNOSTIC Scheduled Procedures Name [...] 05/11/2024, Additional history exists TSH 05/21/2025 05/21/2024, 0 05/2024, 12/11/2013, Additional history exists Phelps's Esophagus [...] this encounter Medical Devices Implanted Type Area Extrusion Die Template Maker Device Identifier Shelf Expiration Date Model / Serial / Lot Mesh Vicryl 6 X 6 Vkm-M - [id number] Implanted:Qty: 1 on 10[place]02[place] [facility]: Abdomen DO NOT USE 09/03/2015 VKM-M / / [id number] Mesh 10 X 14 [id number] - [id number] Implanted:Qty: 1 on 10/02/2011 [place] [facility] [place]A: Abdomen [employer] 04/02/2016 [id number] / / [id number] documented as of this encounter Visit Diagnoses Diagnosis COVID-19 virus infection- Primary Phelps's esophagus without dysplasia Phelps's esophagus Dysphagia, unspecified type Unintentional weight loss Loss of weight Nausea Nausea alone Appetite loss Anorexia documented in this encounter Advance Directives * Full Code [...] Power of Attor melvin? No Care Teams Trimmer Loader Relationship Specialty Start Date End Date Anna Walsh MD [address] [place] [address] [address] PCP - General Internal Medicine 05/21/24 documented as of this encounter
--- OUTSIDE RECORDS SUMMARY | 2024-06-26 00:12 | External Medical Summary ---
Author Name Unknown Address Unknown Organization K1F:LABORATORY [facility] - [address] [address] Laboratory Report Ordering Provider Test Date Status TAYLOR ALAN 06/18/2024 05:55:00 Final Observation Date Value Abnormality Reference (Units ) Status Phosphate 06/18/2024 05:55:00 2.9 2.5-4.8 (m g/dL) Final Performing Location LABORATORY [facility] - [address] [address]
--- OUTSIDE RECORDS SUMMARY | 2024-06-26 00:12 | External Medical Summary | Summary of Care ---
Author Name Unknown Organization [facility] Address [address] [facility] [place] [address] Phone [phone] Care Team Providers Care Environmental Projects Advisor Name Role Phone Anna Walsh MD Primary Care Provider Reason for Visit * Reason Onset Date Comments Medication Problem 06/11/2024 Encounter Details Date Type Department Care Team (Late st Contact Info) Description 06/11/2024 Telephone Gastroenterology, [facility] [address] [place] [address] [address] AngeloMegan pérez CRNP [address] [place] [address] [address] Medication Problem Allergies Active Allergy Reactions Criticality Noted Date Comments Aspirin 04/30/2003 not an allery but was told not to take by field care coordinator Clindamycin Unknown Medium 09/06/2015 Pt states hand swelling Localized Gabapentin Unknown 03/21/2023 Dizziness, made me like a zombie, couldn't walk Iodine Hives 06/19/2001 CT dye (Has been pretreated and did fine) Lorazepam Neuro complications (Please comment),Other (Please comment) 04/30/2003 not an allery but was told not to take by field care coordinator hallucinates Penicillins 06/25/2001 hives Shellfish-Derived Products Anaphylaxis,Itching High 10/12/2015 Tongue swelling Tongue swelling documented as of this encounter (statuses as of 06/11/2024) Medications Medication Sig Dispensed Refills Start Date [...] for Heartburn. 120 Tablet 3 06/11/2024 Active documented as of this encounter (statuses as of 06/11/2024) Active Problems Problem Noted Date Diagnosed Date [...] as of this encounter (statuses as of 06/11/2024) Resolved Problems Problem Noted Date Diagnosed Date Resolved Date Epigastric pain 05/12/2024 05/13/2024 Violette esophagitis 05/11/2024 05/13/20 Severe obesity with body mas s index (BMI) of 35.0 to 39.9 with serious comorbidity 06/29/2011 Overview: ICD-10 update of inactive diagnosis ACTIVE CASE MANAGEMENT Jayla Navarro RN [phone] 03/18/2010 06/20/2010 Overview: ACTIVE CASE MANAGEMENT Jayal Navarro RN [phone] HYPERTENSION NOS 11/12/2001 07/26/2009 Overview: Modified per HTN protocol #16. documented as of this encounter (statuses as of 06/11/2024) Immunizations Name Administration Dates Next Due COVID-19, [...] No 05/14/2024 Does the household have a [facility] hospit[facility] source of income? (Household - for [...] Telephone Encounter - Felicity Heredia LPN - 06/11/2024 3:53 PM EDT Phone call placed to [facility]. They cannot fill the Sucralfate d/t it was filled by anotherpharmacy on 05/13/2024. They will fill when they are able * Telephone Encounter - Nia Nguyen OSA - 06/11/2024 9:19 AM EDT Frequency for he medicine as they need something to bill insurance on the medication documented in this encounter Plan of Treatment Upcoming Encounters Date Type Department Care Team (Latest Contact Info) Description 06/18/2024 8:30 AM EDT Nurse Only Gastroenterology, [facility] [address] [place] [address] Nurse Carine [place] [place] [address] [address] 08/04/2024 8:00 AM EST Imaging [facility] 2nd Floor Cardiology, [address] [place] [phone] 08/04/2024 9:30 AM EST Imaging [facility] 2nd Floor Cardiology, [address] [place] [phone] 08/04/2024 10:30 AM EST Imaging [facility] 2nd Floor Cardiology, [address] [place] [address] [address] 08/04/2024 12:30 PM EST Imaging [facility] [address] [place] [address] [address] 09/26/2024 9:20 AM EST Office Visit Family Practice [facility] [address] [place] [address] [address] Anna Walsh MD [address] [place] [address] [address] 10/13/2024 10:30 AM EST Office Visit Allergy/Immunology [facility] [address] [place] [address] Stephanie Colon PA-C [address] [place] [address] 11/12/2024 2:00 PM EDT Hospital Encounter ENDO [facility], Endoscopy Room [facility] [address] [place] [phone] Latricia Howard MD [address] [place] [address] [address] 11/12/2024 2:00 PM EDT - 11/12/2024 2:30 PM EDT Surgery ENDO [facility], Endoscopy Room [facility] [address] [place] [address] [phone] Latricia Howard MD [address] [place] [address] [address] COLONOSCOPY FLEXIBLE PROXIMAL DIAGNOSTIC Scheduled Procedures Name [...] (FLU shot) (#1) 2024 GFR 05/13/2025 05/13/2024, /0 05/2024, 05/11/2024, Additional history exists TSH 05/21/2025 05/21/2024, 09/0 05/2024, 12/11/2013, Additional history exists Phelps's Esophagus [...] this encounter Medical Devices Implanted Type Area Syrup Maker Cook Device Identifier Shelf Expiration Date Model / Serial / Lot Mesh Vicryl 6 X 6 Vkm-M - [id number] Implanted:Qty: 1 on 10/02/2011 at [place] [facility] N/A: Abdomen DO NOT USE 09/03/2015 VKM-M / / [id number] Mesh 10 X 14 [id number] - [id number] Implanted:Qty: 1 on 10/02/2011 at [place] [facility] N/A: Abdomen [employer] 04/02/2016 [id number] / / [id number] documented as of this encounter Advance Directives [...] Power of Attor melvin? No Care Teams Environmental Projects Advisor Relationship Specialty Start Date End Date Anna Walsh MD [address] [place] [address] [address] PCP - General Internal Medicine 05/21/24 documented as of this encounter
--- OUTSIDE RECORDS SUMMARY | 2024-06-26 00:13 | External Medical Summary | Summary of Care ---
Author Name Unknown Organization [facility] Address [address] [place] [address] Phone [phone] Care Team Providers Care Emulsion Operator Name Role Phone Eder Walsh MD Primary Care Provider Reason for Visit * Reason Comments Allergy New Pt * Evaluate & Treat - Unlimited Visits (Within 10 days (routine)) - Pending Review Specialty Diagnoses / Procedures Referred By Contac t Referred To Contact Allergy & Immunology / Allergy and Immunology Diagnoses Esophageal candidiasis (HCC) Eder Walsh MD [address] [place] [address] Referral ID Status Reason Start Date Expiration Date Visits Requested Visits Authorized [id number] Pending Review Specialty Services Required 05/25/[phone] Encounter Details Date Type Department Care Team (Late st Contact Info) Description 06/10/2024 1:00 PM EDT Office [facility] [address] [facility] [place] [address] Edmond Saleem MD [address] [facility] [place] [address] Selective IgM deficiency (HCC)*; Candidiasis Allergies Active Allergy Reactions Criticality Noted Date Comments Aspirin 04/30/2003 not an allery but was told not to take by women's health care nurse practitioner Clindamycin Unknown Medium 09/06/2015 Pt states hand swelling Localized Gabapentin Unknown 03/21/2023 Dizziness, made me like a zombie, couldn't walk Iodine Hives 06/19/2001 CT dye (Has been pretreated and did fine) Lorazepam Neuro complications (Please comment),Other (Please comment) 04/30/2003 not an allery but was told not to take by women's health care nurse practitioner hallucinates Penicillins 06/25/2001 hives Shellfish-Derived Products Anaphylaxis,Itching High 10/12/2015 Tongue swelling Tongue swelling documented as of this encounter (statuses as of 06/10/2024) Medications Medication Sig Dispensed Refills Start Date [...] mg for total 30 mg daily. Active Dicyclomine HCl 10 MG Oral Capsule (Bentyl) Take 1 Capsule by mouth in the morning and 1 Capsule before bedtime. 05/12/2024 Active Famotidine 40 MG Oral Tablet (Pepcid) Take 1 Tablet by mouth daily. Active traMADol HCl 50 MG Oral Tablet (Ultram)Indications:C hronic low back pain without sciatica, unspecified back pain laterality Take 1 Tablet by mouth every 8 hours as needed for severe Pain 30 Tablet 05/21/2024 Active documented as of this encounter (statuses as of 06/10/2024) Active Problems Problem Noted Date Diagnosed Date [...] as of this encounter (statuses as of 06/10/2024) Resolved Problems Problem Noted Date Diagnosed Date Resolved Date Epigastric pain 05/12/2024 05/13/2024 Jovany esophagitis 05/11/2024 05/13/20 Severe obesity with body mas s index (BMI) of 35.0 to 39.9 with serious comorbidity 06/29/2011 Overview: ICD-10 update of inactive diagnosis ACTIVE CASE MANAGEMENT Jayla Navarro RN [phone] 03/18/2010 06/20/2010 Overview: ACTIVE CASE MANAGEMENT Jayla Navarro RN [phone] HYPERTENSION NOS 11/12/2001 07/26/2009 Overview: Modified per HTN protocol #16. documented as of this encounter (statuses as of 06/10/2024) Immunizations Name Administration Dates Next Due COVID-19, [...] Date Smoking Tobacco: Never Smokeless Tobacco: Never Tobacco Cessation:Counseling Given: Not Answered Alcohol Use Standard Drinks/Week Comments No 0 [...] Sign Reading Time Taken Comments Blood Pressure 128/76 06/10/2024 12:22 PM EDT Pulse 63 06/10/2024 12:22 PM EDT Temperature - - Respiratory Rate 16 06/10/2024 12:22 PM EDT Oxygen Saturation 97% 06/10/2024 12:22 PM EDT Inhaled Oxygen Concentration - - Weight 103.4 kg (228 lb) 06/10/2024 12:22 PM EDT Height - - Body Mass Index 35.71 05/21/2024 8:58 AM EDT documented in this encounter Functional Status [...] No 05/11/2024 documented as of this encounter Progress Notes * Edmond Saleem MD - 06/10/2024 12:26 PM EDT REASON FOR VISIT: Chief Complaint Patient presents with Allergy New Pt HPI: Dallin is a pleasant 73-year-old male who presents to our office as a new patient after being referred by Eder Walsh MD for initial consultation of abnormal blood work. The patient reports that over the course of the last 12 months, he has had recurrent bouts of candidiasis. He states that he has had oral candidiasis in addition to candidiasis of his esophagus, sinuses, and possibly lungs. However he was unsure in regards to candidiasis of the lungs. Per chart review, he has had multiple chest x-rays and multiple CTs of the chest which did show pneumonia on 1 occasion around 1 year ago but we could not finding definitive evidence of candidiasis of the lungs. He states that he has been treated around 8-10 times for this including most recently Mycelex troches around 3 weeks ago. The primarily reason for today's visit is that he was found to have a low IgM level of 23 around 3 weeks ago. IgG level returned normal. IgA level was slightly elevated at 407. HIV testing returned negative. Upon further questioning, he has had documented pneumonias just once about 1 year ago. He does get sinus infections around 1-2 times per year. He was not prone to getting viral upper respiratory infections. He has never had sepsis, endocarditis, bacteremia, meningitis, osteomyelitis, nor recurrent cellulitis. The patient does have a history of being on an inhaled corticosteroid but this was discontinued 1 year ago. He states that his oral candidiasis at that time may have been secondary to the inhaled corticosteroid. However he has not been on any inhaled corticosteroid since then. He does not wear any dentures and he has not been treated with antibiotics, chemotherapy nor radiation therapy to the head and neck. 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 He will be seeing them tomorrow and there is an upcoming GI motility test planned. He did have a recent hospital admission to [facility] for dysphagia in early May. There he was diagnosed with Jovany esophagitis and was put on IV Diflucan for 5 days. Repeat upper endoscopy showed no evidence of candidiasis but there was evidence of a tortuous esophagus and a hiatal hernia. Dilation was performed and the oral Diflucan was discontinued. REVIEW OF SYSTEMS Skin: No history of hives or atopic dermatitis. Eyes: negative Ears/Nose/Throat: negative Respiratory: No history of cough, wheezing, chest tightness or shortness of breath Cardiovascular: negative Gastrointestinal: Positive history of acid reflux disease., dysphagia Genitourinary: prostate enlargement Musculoskeletal: pt denies significant joint pain or stiffness Neurologic: negative Psychiatric: negative Hematologic/Lymphatic/Immunologic: negative Endocrine: negative Constitutional: none Past Medical History: Diagnosis Date Abdominal pain, left lower quadrant 07/2005 Depressive disorder, not elsewhere classified Diverticulosis of colon 08/2007 left colon, seen on colonoscopy GERD (gastroesophageal reflux disease) HTN, goal to be determined Hypothyroidism Obesity, Class I, BMI 30.0-34.9 (see actual BMI) Other specified glaucoma 2006 Dr Caicedo Past Surgical History: Procedure Laterality Date COLONOSCOPY COLONOSCOPY, DIAGNOSTIC (RECTUM) 08/19/2008 inflammation, ulcer bed, repeat in 5 yrs COLONOSCOPY, DIAGNOSTIC (RECTUM) 01/04/2010 patent , COLONOSCOPY, DIAGNOSTIC (RECTUM) 05/16/2013 COLONOSCOPY FLEXIBLE PROXIMAL DIAGNOSTIC performed by Latricia Howard MD at [facility] COLONOSCOPY, GI REFERRAL OP 05/14/2006 diverticulosis noted, with internal hemorrhoids, repeat in 2016 EGD, FLEXIBLE, DIAGNOSTIC N/A 05/12/2024 ESOPHAGOGASTRODUODENOSCOPY (EGD), FLEXIBLE, TRANSORAL, DIAGNOSTIC performed by Dawit Fernando, [facility] EGD, FLEXIBLE, W/BIOPSY 08/15/2006 [facility], jovany esophagitis, neg for H pylori EXPLORATION OF ABDOMEN 10/06/2010 Exploratory laparotomy; extensive adhesiolysis; incisional hernia x 3 Dr Beltran 10/06/2010 [facility] EXPLORATION OF ABDOMEN 12/29/2010 1.Exploratory Laparotomy. 2. Removal of infected mesh. 3. Closure with wound VAC. Dr Beltran 12/29/2010 [facility] EXPLORATION OF ABDOMEN 02/09/2011 1.Exploratory laparotomy 2. Extensive lysis of adhesions 3. Removal of infected mesh 4. Enterotomy repair X [address] 5. Closure of abdominal wound. Dr Beltran 02/09/2011 [facility] IMPLANT MESH W/ ABD HERNIA REPR/DEBRIDE 10/02/2011 IMPLANTATION MESH WITH INCISIONAL/VENTRAL HERNIA performed [place] NAMRATA WAGNER [place] [facility] INFORMATION fx back LAPAROSCOPY; CHOLECYSTECTOMY 08/12/2011 LAPAROSCOPIC CHOLECYSTECTOMY performed [place] NAMRATA WAGNER [place] [facility] OTHER 07/27/2009 exploratory laparotomy. extensive adhesiolysis. Partial small bowel resection with primary anastomosis. Incision hernia repair (primary), 07/27/09, Dr. Beltran OTHER 09/15/2009 exploratory laparotomy, extensive lysis of adhesions (greater than 3 hours), partial small bowel resection with primiary anastomosis (30 cm of jejunum): partial small bowel resection with primary anastomosis (25 cm of distal ileum):incisional hernia repair (primary): omentectomy 09/15/09 [facility], Dr. Aicha harley PARTIAL COLECTOMY W/ANASTOMOSIS 08/22/2007 Sigmoid colectomy w/ primary anastomosis and completion proctoscopy/[facility]/ REMOVAL OF RUPTURED APPENDIX 09/03/1981 Appendectomy, Rupt Appendx+Abscess REPAIR INITIAL INCISIONAL OR VENTRAL HERNIA; REDUCIBLE 10/02/2011 REPAIR INITIAL INCISIONAL /VENTRAL HERNIA REDUCIBLE performed [place] NAMRATA WAGNER [place] [facility]J ARTHROSCOPY DEBRIDEMENT Right 02/2023 [facility] GI ENDOSCOPY Current Outpatient Medications Medication Sig Dispense Refill levothyroxine (LEVOXYL) 100 MCG Tablet Take one tablet by mouth one time daily 90 Tab 1 ondansetron (ZOFRAN) 4 MG Tablet 1 tablet every 6 hours as needed for nausea 30 Tab 3 dorzolamide-timolol (COSOPT OCUMETER PLUS) 2.23-0.68% ophthalmic solution Instill 1 Drop into eye in the morning and 1 Drop before bedtime. Atorvastatin Calcium 40 MG Oral Tablet (Lipitor) Take 1 Tablet by mouth in the morning. Brinzolamide 1 % Ophthalmic Suspension (Azopt) Instill 1 Drop into both eyes in the morning and 1 Drop at noon and 1 Drop before bedtime. Latanoprost 0.005 % Ophthalmic Solution (Xalatan) Instill 1 Drop into both eyes in the morning. Pantoprazole Sodium 40 MG Oral Tablet Delayed Release (Protonix) Take 1 Tablet by mouth in the morning and 1 Tablet before bedtime. 180 Tablet 3 FLUoxetine HCl 10 MG Oral Capsule (PROzac) Take 1 Capsule by mouth in the morning. With 20 mg for total 30 mg daily. FLUoxetine HCl 20 MG Oral Capsule (PROzac) Take 1 Capsule by mouth in the morning. With 10 mg for total 30 mg daily. Dicyclomine HCl 10 MG Oral Capsule (Bentyl) Take 1 Capsule by mouth in the morning and 1 Capsule before bedtime. Famotidine 40 MG Oral Tablet (Pepcid) Take 1 Tablet by mouth daily. traMADol HCl 50 MG Oral Tablet (Ultram) Take 1 Tablet by mouth every 8 hours as needed for severe Pain 30 Tablet 0 No current facility-administered medications for this visit. Allergies as of 06/10/2024 - Reviewed 06/10/2024 Allergen Reaction Noted Shellfish-derived products Anaphylaxis and Itching 10/12/2015 Clindamycin Unknown 09/06/2015 Aspirin 04/30/2003 Gabapentin Unknown 03/21/2023 Iodine Hives 06/19/2001 Lorazepam Neuro complications (Please comment) and Other (Please comment) 04/30/2003 Penicillins 06/25/2001 Family History Problem Relation Name Age of Onset Cancer Mother type unknown Diabetes Mother Lung cancer Father Macular degeneration Father Diabetes Father Breast Cancer Sister 65 Bone cancer Sister 68 Colon cancer Brother 78 stage 4 Cancer Grandfather (Paternal) colon Diabetes Son Brando No Known Problems Son No Known Problems Son Social History Socioeconomic History Marital status: Spouse name: Angelica Russell Number of children: 3 Years of education: Not on file Highest education level: Not on file Occupational History Occupation: retired Employer: [employer] Comment: [employer] Occupation: unknown Employer: [employer] Tobacco Use Smoking status: Never Smokeless tobacco: Never Vaping Use Vaping status: Never Used Substance and Sexual Activity Alcohol use: No Drug use: No Sexual activity: Not Currently Other Topics Concern Service Not Asked Blood Transfusions Yes Caffeine Concern Not Asked Occupational Exposure No Hobby Hazards Not Asked Sleep Concern Not Asked Stress Concern Not Asked Weight Concern Not Asked Special Diet Not Asked Back Care Not Asked Exercise Not Asked Bike Helmet Not Asked Seat Belt Not Asked Self-Exams Not Asked Social History Narrative Lives with spouse Retired from [employer], works at [employer] Social Determinants of Health Financial Resource Strain: Low Risk (05/14/2024) Financial Resource Strain Do you have any trouble paying for your medications, or do you think you might in the future? (Adult - for ages 18 years and over): No Does your family have trouble paying for medicine? (Household - for ages 0-17 years): Not on file Food Insecurity: No Food Insecurity (05/14/2024) Food Insecurity Do you need food for this week? (Adult - for ages 18 years and over): No Are you able to get enough food for your family? (Household - for ages 0-17 years): Not on file Does your family need food this week? (Household - for ages 0-17 years): Not on file Do you always have enough food for your family? (Household - for ages 0-17 years): Not on file Transportation Needs: No Transportation Needs (05/14/2024) Transportation Needs Do you have trouble getting a ride to medical visits or work? (Adult - for ages 18 years and over):Not on file Does your family have a hard time getting a ride to doctors visits? (Household - for ages 0-17 years): Not on file Has lack of transportation kept you from medical appointments, meetings, work, or from getting things needed for daily living? Check all that apply. (Adult - for ages 18 years and over): No Do you (or your family) have trouble finding or paying for a ride (transportation)? (Household - for ages 0-17 years): Not on file Social Connections: Socially Integrated (05/14/2024) Social Connections How often do you feel lonely or isolated from those around you? (Adult - for ages 18 years and over): Never Housing Stability: Low Risk (05/14/2024) Housing Stability Do you currently live in a intermediate or have no steady place to sleep at night? (Adult - for ages 18 years and over): No Do you think you are at risk of becoming homeless? (Adult - for ages 18 years and over): Not on file Does your family worry about paying for your home or becoming homeless? (Household - for ages 0-17 years): Not on file Are you homeless or worried that you might be in the future? (Adult - for ages 18 years and over): No Are you (or your family) homeless or worried that you might be in the future? (Household - for ages0-17 years): Not on file Social history: The patient is currently retired. He did live in [facility] then moved [facility] prior to moving back to [place] 1 year ago. BP 128/76 | Pulse 63 | Resp 16 | Wt 103.4 kg (228 lb) | SpO2 97% | BMI 35.71 kg/m | BSA 2.21 m PHYSICAL EXAM: GENERAL: No acute distress. HEAD AND FACE: No sinus tenderness noted EYES: EOMI, PERRLA; Conjunctiva- normal; Eyelids - normal EARS: TM's - clear NOSE:Pale mucosa; mild turbinate edema; no nasal polyps or mucopus; Septum - normal OROPHARYNX: Teeth and gums - normal; Mild erythema, no cobblestoning; No lesions, exudates NECK: Supple; No thyroid enlargment or cervical adenopathy RESPIRATORY: Clear to A and P; No wheezes; Good air movement bilaterally; No intercostal retractions or accessory muscle use CARDIOVASCULAR: RRR; No gallops, rubs, clicks, or murmurs. GASTROINTESTINAL: Abdomen is soft and non-tender; BS - normal; No palpable masses or organomegaly LYMPHATIC: No significant adenopathy noted MUSCULOSKELETAL: No significant joint swelling, tenderness EXTREMITIES: No cyanosis, clubbing or peripheral edema SKIN: No evidence atopic dermatitis; no urticaria or angioedema; Normal skin quality NEUROLOGIC/PSYCHIATRIC: Mental status - Oriented x's 3; Mood and affect - normal OBJECTIVE DATA: Component Latest Ref Rng 05/13/2024 05/21/2024 WBC 4.00 - 10.80 K/uL 5.66 RBC 4.50 - 5.25 M/uL 4.71 HGB 14.0 - 16.8 g/dL 15.1 HCT 40.0 - 48.4 % 44.1 MCV 82.0 - 99.5 fL 93.6 MCH 27.0 - 34.0 pg 32.1 MCHC 32.0 - 36.0 g/dL 34.2 RDW 11.5 - 15.5 % 12.2 PLT 140 - 400 K/uL 209 MPV 6.6 - 11.1 fL 10.5 nRBCs <=0 /100 WBCs 0 HIV Antigen & Antibody Negative Negative IgA 70 - 400 mg/dL 407 (H) IgG 700 - 1,600 mg/dL 822 IgE <=214.0 kU/L 21.5 IgM 40 - 230 mg/dL 23 (L) ASSESSMENT AND PLAN: ICD-10-CM 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 Candidiasis B37.9 In summary, Dallin presents with selective IgM deficiency given his low IgM level and normal IgG level and mildly elevated IgA level. In regards to the mildly elevated IgA level, this is likely compensating for the slightly low IgM level. The patient himself has not had a significant amount of bacterial nor viral infections and he has not had any severe infections in general. Many patients with IgM or IgA deficiency are often asymptomatic overall. In addition we did review that there is no replacement for IgM antibodies. In regards to his recurrent candidiasis, this is likely not related to a low IgM level. If recurrent infections or seen, this is likely due to increased susceptibility to use Staphylococcus aureus, encapsulated pathogens, and viral infections and not necessarily fungal infections. We will continue to monitor for any frequent sinopulmonary infections. For further evaluation and management, we will recheck his quantitative immunoglobulins, recheck a CBC with differential, and assess his response to vaccines by checking pneumococcal titers, diphtheria titers and pertussis titers. Of note, he did get the pneumonia vaccine in September of 2023 to his k nowledge even though it is not listed in our system. He did have a Tdap vaccine in January of 2024. At the present moment it was unclear if he has had truly recurrent bouts of candidiasis. He states that he had candidiasis in his lungs but we could not clarify that overall. He will continue to follow up with Gastroenterology both for his GI motility issues and for Shyann of the esophagus. He is unlikely to have chronic mucocutaneous candidiasis as this is a rare syndrome that usually occurs in childhood. In addition, the patient does not wear dentures and he was not been treated with antibiotics often nor chemotherapy nor radiation therapy to the head and neck. He previously was on inhaled glucocorticoids but this was discontinued 12 months ago. However to complete his immune workup, we will be checking a CBC with differential as noted above in addition to checking a T4 T8 lymphocyte subset panel. Of note, HIV testing has already returned negative. Thank you very much for allowing myself to participate in the care of your patient. Please do not hesitate to contact our office should you have any questions or concerns. Edmond Saleem MD Allergy/Immunology I spent a total of Greater than 55 mins (exact time 62 mins) on the date of service in preparation,delivery, and documentation of the care provided to Dallin Reed excluding any time spent in the performance of separately billed services or time spent by another provider/QHP. (This note was completed using the dictation program Fluency Direct. As such, there may be misspellings, word substitutions, or other variations that should not change the essence of the clinical content of this encounter note.If there is need for further clarification, please direct questions to the provider listed above.) PCP: EDER WALSH [address] [place] [address] [phone] documented in this encounter Nursing Notes * Poppy Feliz LPN - 06/10/2024 12:19 PM EDT The pt has been properly identified by confirmation of name and date of . Pt presents as a new pt. documented in this encounter Plan of Treatment Upcoming Encounters Date Type Department Care Team (Late st Contact Info) Description 06/11/2024 9:00 AM EDT Office Visit Gastroenterology, [facility] [address] [facility] [place] [address] Megan Stephens [facility] [place] [address] 09/26/2024 9:20 AM EST Office Visit [facility] [address] [facility] [place] [address] Eder Walsh MD [address] [facility] [place] [address] 10/13/2024 10:30 AM EST Office Visit Allergy/Immunology [facility] [address] [facility] [address] Stephanie Colon PA-C [address] [place] [address] Scheduled Orders Name Type Priority Associated Diagnoses Orde r Schedule IMMUNOGLOBULIN QUANTITATIVE Lab Routine Selective IgM deficiency (HCC) Expected: 06/10/2024, Expires: 06/10/2025 DIPHTHERIA AND TETANUS ANTITOXOIDS Lab Routine Selective IgM deficiency (HCC) Expected: 06/10/2024, Expires: 06/10/2025 S. PNEUMONIAE AB (IGG) (23 SEROTYPES), MAID Lab Routine Selective IgM deficiency (HCC) Expected: 06/10/2024, Expires: 06/10/2025 CBC WITH WBC DIFFERENTIAL Lab Routine Selective IgM deficiency (HCC) Expected: 06/10/2024, Expires: 06/10/2025 T4 T8 LYMPHOCYTE SUBSET PANEL, FLOW CYTOMETRY PANEL Lab Routine Selective IgM deficiency (HCC) Expected: 06/10/2024, Expires: 06/10/2025 Health Maintenance Due Date Last Done Comments [...] this encounter Medical Devices Implanted Type Area Passenger Car Upholsterer Apprentice Device Identifier Shelf Expiration Date Model / Serial / Lot Mesh Vicryl 6 X 6 Vkm-M - [id number] Implanted:Qty: 1 on 10/02/2011 [place] [facility] N/A: Abdomen DO NOT USE 09/03/2015 VKM-M / / [id number] Mesh 10 X 14 [id number] - [id number] Implanted:Qty: 1 on 10/02/2011 at [facility] N/A: Abdomen [employer] 04/02/2016 [id number] / / [id number] documented as of this encounter Visit Diagnoses Diagnosis 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 No Care Teams Emulsion Operator Relationship Specialty Start Date End Date Eder Walsh MD [address] [place] [id number] PCP - General Internal Medicine 05/21/24 documented as of this encounter"
--- OUTSIDE RECORDS SUMMARY | 2024-06-26 00:13 | External Medical Summary ---
Author Name Unknown Address Unknown Organization [id number] [address] [place] [address] Laboratory Report Ordering Provider Test Date Status EVERETT GAINES 05/21/2024 10:17:32 Final Observation Date Value Abnormality Reference (Units ) Status PSA 05/21/2024 10:17:32 1.20 <4.10 (ng/ mL) Final Performing Location [facility] [address] [place] [address] [address]
--- OUTSIDE RECORDS SUMMARY | 2024-06-26 00:13 | External Medical Summary ---
Author Name Unknown Address Unknown Organization [id number] [address] [place] [address] Laboratory Report Ordering Provider Test Date Status PAKO DELAROSA 06/11/2024 10:00:05 Final Observation Date Value Abnormality Reference (Units ) Status IgG 06/11/2024 10:00:05 [phone] ( mg/dL) Final IgA 06/11/2024 10:00:05 387 70-400 (mg /dL) Final IgM 06/11/2024 10:00:05 23 Below low normal 40- 230 (mg/dL) Final Performing Location [facility] [address] [place] [address]
--- OUTSIDE RECORDS SUMMARY | 2024-06-26 00:13 | External Medical Summary | Summary of Care ---
Author Name Unknown Organization [facility] Address [address] [facility] [facility] [place] [address] Phone [phone] Care Team Providers Care Entry Level Lab Technician Name Role Phone Anna Walsh MD Primary Care Provider Reason for Visit * Reason Comments NEW PATIENT Encounter Details Date Type Department Care Team (Late st Contact Info) Description 05/21/2024 9:00 AM EDT Office Visit Family [facility] [address] [place] [address] [address] Anna Walsh MD [address] [place] [address] [address] Esophageal candidiasis (HCC)*; Oral jovany; Phelps's esophagus without dysplasia; Dysphagia, unspecified type; Unintentional weight loss; Chronic low back pain without sciatica, unspecified back pain laterality; Hypothyroidism, unspecified type; Screening for prostate cancer; B12 deficiency Allergies Active Allergy Reactions Criticality Noted Date Comments Aspirin 04/30/2003 not an allery but was told not to take by 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 loader operator Clindamycin Unknown Medium 09/06/2015 Pt states hand swelling Localized Gabapentin Unknown 03/21/2023 Dizziness, made me like a zombie, couldn't walk Iodine Hives 06/19/2001 CT dye (Has been pretreated and did fine) Lorazepam Neuro complications (Please comment),Other (Please comment) 04/30/2003 not an allery but was told not to take by 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 loader operator hallucinates Penicillins 06/25/2001 hives Shellfish-Derived Products Anaphylaxis,Itching High 10/12/2015 Tongue swelling Tongue swelling documented as of this encounter (statuses as of 05/21/2024) Medications Medication Sig Dispensed Refills Start Date End Date Status levothyroxine (LEVOXYL) 100 MCG Tablet Take one tablet by mouth one time daily 90 Tab 1 01/29/2015 Active ondansetron (ZOFRAN) 4 MG TabletIndications :Nausea alone 1 tablet every 6 hours as needed for nausea 30 Tab 3 02/16/2015 Active dorzolamide-timol ol (COSOPT OCUMETER PLUS) 2.23-0.68% ophthalmic solution Instill 1 Drop into eye in the morning and 1 Drop before bedtime. Active Atorvastatin Calcium 40 MG Oral Tablet (Lipitor)Indicati ons:Phelps's esophagus without dysplasia,Dysphag ia, unspecified type,Unintentiona l weight loss Take 1 Tablet by mouth in the morning. 05/23/2023 Active Brinzolamide 1 % Ophthalmic Suspension (Azopt)Indication s:Phelps's esophagus without dysplasia,Dysphag ia, unspecified type,Unintentiona l weight loss Instill 1 Drop into both eyes in the morning and 1 Drop at noon and 1 Drop before bedtime. 04/18/2024 Active Latanoprost 0.005 % Ophthalmic Solution (Xalatan)Indicati ons:Phelps's [...] Take 1 Tablet by mouth daily. 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 Allow tablet to slowly dissolve in your mouth 70 Acacia 05/21/2024 4 Active traMADol HCl 50 MG Oral Tablet (Ultram)Indicatio ns:Chronic low back pain without sciatica, unspecified back pain laterality Take 1 Tablet by mouth every 8 hours as needed for severe Pain 30 Tablet 05/21/2024 Active traMADol-Acetamin ophen 37.5-325 MG Oral Tablet (Ultracet)Indicat ions:Phelps's esophagus without dysplasia,Dysphag ia, unspecified type,Unintentiona l weight loss Take 1 Tablet by mouth every 4 hours as needed. 4 Discontinued amLODIPine Besylate 10 MG Oral Tablet (Norvasc)Indicati ons:Interstitial lung disease (HCC),HTN, goal below 140/90 Take 0.5 Tablets by mouth every morning. 05/13/2024 4 Discontinued Sucralfate 1 GM Oral Tablet (Carafate)Indicat ions:Unintentiona l weight loss,Phelps's esophagus without dysplasia,Dysphag ia, unspecified type Take 1 Tablet by mouth 2 times a day as needed for Other (abdominal pain or acid reflux). 120 Tablet 3 05/13/2024 4 Discontinued documented as of this encounter (statuses as of 05/21/2024) Active Problems Problem Noted Date Diagnosed Date [...] as of this encounter (statuses as of 05/21/2024) Resolved Problems Problem Noted Date Diagnosed Date Resolved Date Epigastric pain 05/12/2024 05/13/2024 Jovany esophagitis 05/11/2024 05/13/20 24 Severe obesity with body mas s index (BMI) of 35.0 to 39.9 with serious comorbidity 06/29/2011 Overview: ICD-10 update of inactive diagnosis ACTIVE CASE MANAGEMENT Jayla Navarro RN [phone] 03/18/2010 06/20/2010 Overview: ACTIVE CASE MANAGEMENT Jayla Navarro RN [phone] HYPERTENSION NOS 11/12/2001 07/26/2009 Overview: Modified per HTN protocol #16. documented as of this encounter (statuses as of 05/21/2024) Immunizations Name Administration Dates Next Due COVID-19, MRNA-LNP, 23-24, P F, 30 MCG/0.3 mL, 12 YRS AND ABOVE, IM (PFIZER-Comirnaty) 11/23/2023 Pneumococcal Polysaccharide PPV23 (Pneumovax) 05/01/2009 RSV Vac., Bivalent, Perfusio n F, Pf,0.5 Ml (Abrysvo) 09/08/2023 Seasonal Influenza, Trivalen t, (IIV3), with Preserv, (Fluzone) 06/04/2013(Deferred: Patient Refused) TDAP (age 8 [...] Sign Reading Time Taken Comments Blood Pressure 104/60 05/21/2024 8:58 AM EDT Pulse 75 05/21/2024 8:58 AM EDT Temperature 36.7 C (98 F) 05/21/2024 8:58 AM EDT Respiratory Rate 16 05/21/2024 8:58 AM EDT Oxygen Saturation 98% 05/21/2024 8:58 AM EDT Inhaled Oxygen Concentration - - Weight 102.4 kg (225 lb 12.8 oz) 05/21/2024 8:58 AM EDT Height 170.2 cm (5' 7") 05/21/2024 8:58 AM EDT Body Mass Index 35.37 05/21/2024 8:58 AM EDT documented in this [...] No 05/11/2024 documented as of this encounter Patient Instructions * Patient Instructions* Anna Walsh MD - 05/21/2024 9:29 AM EDT Look into using [place] Instant Breakfast with Whole Milk or use Boost Plus or Boost High Calorieor Boost High Protein. Those are good ways to increase calories. documented in this encounter Progress Notes * Anna Walsh MD - 05/21/2024 9:08 AM EDT Images from the original note were not included. History of Present Illness Dallin Reed is a 73 year old male that presents for NEW PATIENT Recent hospital admission to [facility] for dysphagia. This was after an admission to [facility] 2 weeks prior for dysphagia, diagnosed with Jovany esophagitis, IV Diflucan X 5 days. Repeat EGD showed no evidence of Jovany but a tortuous esophagus and hiatal hernia. Dilation performed, able to tolerate liquids, scrambled eggs ingrown meat without pain afterwards. Oral Diflucan was stopped. HIV negative. Has follow-up with GI in a few weeks. Eating solid foods, appetite not back yet. Nothing getting stuck. Energy levels fair, not yet back to normal. Mouth feels like thrush is returning. Notes that this has been a problem ongoing since the beginning of the year, prior to returning from [place] in December. No night sweats. No fevers. Occasional coughing spell at night. Honey cough drop helps. Hoarse all the time. Occasional reflux pain. Moving bowels, diarrhea 90% of the time. New since dysphagia issue. ANGEL - stopped wearing BiPap in December when moved back. Plans to restart when they are in their house. Currently living in an . Hypertension - amlodipine 5. No positional orthostasis. Hypothyroidism - levothyroxine 100, TSH 3.1 in November Barretts esophagus - famotidine 40, pantoprazole 40 Esophageal dysmotility Vitamin-D deficiency - level 28 in November Vitamin B12 deficiency - used to give shots. level 303 in November Low back pain - Tramadol for back pain. Takes 1-2x/day. Bad fall 2000, fracture, hospitalized. Anxiety: Prozac 30mg. 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 February 2023. PSA - doesn't think has been checked recently Colonoscopy - 3yrs ago in [place], Dr Connor [place]. Thinks was repeat 5yrs. Nicotine: none Cannabis: none. Hx medical MJ, didn't help, 4yrs ago. Alcohol: none. Never a problem. Current medications and allergies reviewed. Past medical history and problem list reviewed. Physical Exam Vitals: 05/21/24 0858 Temp: 36.7 C (98 F) Pulse: 75 Resp: 16 SpO2: 98% BP: 104/60 BMI: 35.36 BP Readings from Last 3 Encounters: 05/21/24 104/60 05/13/24 122/78 05/09/24 125/79 Wt Readings from Last 3 Encounters: 05/21/24 102.4 kg (225 lb 12.8 oz) 05/16/24 104 kg (229 lb 4.8 oz) 05/13/24 102.9 kg (226 lb 12.8 oz) Physical Exam Vitals and nursing note reviewed. Constitutional: General: He is not in acute distress. Appearance: Normal appearance. He is not ill-appearing. HENT: Head: Normocephalic and atraumatic. Right Ear: Tympanic membrane, ear canal and external ear normal. There is no impacted cerumen. Left Ear: Tympanic membrane, ear canal and external ear normal. There is no impacted cerumen. Nose: Nose normal. Mouth/Throat: Mouth: Mucous membranes are moist. Pharynx: Oropharynx is clear. No oropharyngeal exudate. Comments: Tonsils surgically absent Small flesh-colored plaque on posterior oropharynx Eyes: General: No scleral icterus. Right eye: No discharge. Left eye: No discharge. Conjunctiva/sclera: Conjunctivae normal. Pupils: Pupils are equal, round, and reactive to light. Neck: Thyroid: No thyroid mass, thyromegaly or thyroid tenderness. Cardiovascular: Rate and Rhythm: Normal rate and regular rhythm. Heart sounds: No murmur heard. Pulmonary: Effort: Pulmonary effort is normal. Breath sounds: Normal breath sounds. Musculoskeletal: Right lower leg: No edema. Left lower leg: No edema. Lymphadenopathy: Cervical: No cervical adenopathy. Skin: General: Skin is warm and dry. Neurological: Mental Status: He is alert. Psychiatric: Mood and Affect: Mood normal. Behavior: Behavior normal. I have reviewed the following results: CMP, Hemoglobin A1C, TSH, and CBC HIV EGD report Assessment and Plan Esophageal candidiasis (HCC) HIV is negative. CBC with differential normal. No clear reason for why he is getting recurrent or Jovany or esophageal Jovany. Will start by getting IgG levels. Will send Ask-A-Doc once we have results. May need to see Allergy/immunology. - IGA; Future - IGG; Future - IGE; Future - IGM; Future Oral jovany Start with clotrimazole acacia. If symptoms worsen can consider restarting Diflucan orally. 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 Allow tablet to slowly dissolve in your mouth Phelps's esophagus without dysplasia Dysphagia, unspecified type Has follow-up with GI in a few weeks Unintentional weight loss Imaging of neck, chest and abdomen does not show any masses or malignancies that maybe the cause. Will update TSH. May be result of dysphagia. Chronic low back pain without sciatica, unspecified back pain laterality I have reviewed the patient's controlled substance dispensing history in the Prescription Drug Monitoring Program in compliance with the [facility] regulations before prescribing a controlled substance. Medication management agreement reviewed and signed. Patient given copy to take home for his review. Switched to formulation that is tramadol alone so that can mix with Tylenol if needed. Slight increase in tramadol dose as there is not a plain 37.5 mg dose. - traMADol HCl 50 MG Oral Tablet (Ultram); Take 1 Tablet by mouth every 8 hours as needed for severe Pain Hypothyroidism, unspecified type - TSH WITH FREE T4 IF INDICATED; Future Screening for prostate cancer - PSA; Future B12 deficiency - VITAMIN B12; Future - METHYLMALONIC ACID, SERUM; Future Wrap-Up Follow Up: Return in about 4 months (around 09/20/2024) for Labs Today, Return with Nico. | For: Labs Today, Return with Nico Time: I spent a total of Greater than 55 mins (exact time 60 mins) on the date of service in preparation,delivery, and documentation of the care provided to Dallin Reed excluding any time spent in the performance of separately billed services. documented in this encounter Nursing Notes * Yoli Grissom LPN - 05/21/2024 8:51 AM EDT Establish care documented in this encounter Plan of Treatment Upcoming Encounters Date Type Department Care Team (Late st Contact Info) Description 06/11/2024 9:00 AM EDT Office Visit Gastroenterology, [facility] [address] [place] [address] Megan Stephens CRNP [address] [place] [address] [address] 07/18/2024 9:30 AM EST Nutrition Services Nutrition, [facility] [address] [place] [address] Marilee Escudero RDN [address] [address] [address] 09/26/2024 9:20 AM EST Office Visit Family Practice [facility] [address] [address] Anna Walsh MD [address] [address] [address] Pending Results Name Type Priority Associated Diagnoses Date /Time VITAMIN B12 Lab Routine B12 deficiency 05/21/2024 10:17 AM EDT METHYLMALONIC ACID, SERUM Lab Routine B12 deficiency 05/21/2024 10:17 AM EDT PSA Lab Routine Screening for prostate cancer 05/21/2024 10:17 AM EDT TSH WITH FREE T4 IF INDICATED Lab Routine Hypothyroidism, unspecified type 05/21/2024 10:17 AM EDT IGA Lab Routine Esophageal candidiasis (HCC) 05/21/2024 10:17 AM EDT IGG Lab Routine Esophageal candidiasis (HCC) 05/21/2024 10:17 AM EDT IGE Lab Routine Esophageal candidiasis (HCC) 05/21/2024 10:17 AM EDT IGM Lab Routine Esophageal candidiasis (HCC) 05/21/2024 10:17 AM EDT Scheduled Orders Name Type Priority Associated Diagnoses Orde r Schedule VITAMIN B12 Lab Routine B12 deficiency Expected: 05/21/2024, Expires: 05/21/2025 METHYLMALONIC ACID, SERUM Lab Routine B12 deficiency Expected: 05/21/2024 (Approximate), Expires: 05/21/2025 PSA Lab Routine Screening for prostate cancer Expected: 05/21/2024 (Approximate), Expires: 05/21/2025 TSH WITH FREE T4 IF INDICATED Lab Routine Hypothyroidism, unspecified type Expected: 05/21/2024, Expires: 05/21/2025 IGA Lab Routine Esophageal candidiasis (HCC) Expected: 05/21/2024 (Approximate), Expires: 05/21/2025 IGG Lab Routine Esophageal candidiasis (HCC) Expected: 05/21/2024 (Approximate), Expires: 05/21/2025 IGE Lab Routine Esophageal candidiasis (HCC) Expected: 05/21/2024 (Approximate), Expires: 05/21/2025 IGM Lab Routine Esophageal candidiasis (HCC) Expected: 05/21/2024 (Approximate), Expires: 05/21/2025 Health Maintenance Due Date Last Done Comments Albumin/Creatinine Ratio 1968 Hepatitis C Screening 1968 Zoster Vaccines (1 of 2) 1998 Pneumococcal Vaccine: 65+ Years (2 of 2 - PCV) 05/01/2010 05/01/2009 Depression Screening 04/30/2015 04/30/2014 COVID-19 Vaccine (2 - season) 2024 11/23/2023 Influenza Vaccine (FLU shot) (#1) 2024 TSH 05/12/2025 05/12/2024, 04/, 04/12/2012, Additional history exists GFR 05/13/2025 05/13/2024, 0905/2024, 05/11/2024, Additional history exists Phelps's Esophagus Surveilance 05/12/2027 05/12/2024, 08/15/2006 DTap/Tdap Vaccines (4 - Td [...] this encounter Medical Devices Implanted Type Area Decorative Cutting Machine Tender Device Identifier Shelf Expiration Date Model / Serial / Lot Mesh Vicryl 6 X 6 Vkm-M - [id number] Implanted:Qty: 1 on 10/02/2011 at [facility] [place] [place] N/A: Abdomen DO NOT USE 09/03/2015 VKM-M / / [id number] Mesh 10 X 14 [id number] - [id number] Implanted:Qty: 1 on 10/02/2011 at [facility] [place] [place] N/A: Abdomen [employer] 04/02/2016 [id number] / / [id number] documented as of this encounter Visit Diagnoses Diagnosis Esophageal candidiasis (HCC)- Primary Candidiasis of the esophagus Oral jovany Candidiasis of mouth Phelps's esophagus without dysplasia Phelps's esophagus Dysphagia, unspecified type Unintentional weight loss Loss of weight Chronic low back pain without sciatica, unspecified back pain laterality Hypothyroidism, unspecified type Screening for prostate cancer Special screening for malignant neoplasm of prostate B12 deficiency Other B-complex deficiencies documented in this encounter Advance Directives * Full Code (Latest Code Status on File) Date Activated Date Inactivated Comments 05/11/2024 1:12 PM 05/13/2024 3:45 PM This order r eflects the patients wishes and were consensually agreed upon. Question Answer Comments Discussion of Advance Directives occurred with: Patient Does the patient have a Living Will? No Does the patient have Health Care Power of Attor melvin? No * Full Code Date Activated Date Inactivated Comments 10/02/2011 1:26 PM 10/06/2011 7:00 PM This order r eflects the patients [...] Power of Attor melvin? No Care Teams Entry Level Lab Technician Relationship Specialty Start Date End Date Anna Walsh MD [address] [address] PCP - General Internal Medicine 05/21/24 documented as of this encounter
--- OUTSIDE RECORDS SUMMARY | 2024-06-26 00:13 | External Medical Summary ---
Author Name Unknown Address Unknown Organization [id number][facility] [place] [address] [facility] [address] [place] [address] Laboratory Report Ordering Provider Test Date Status PAKO DELAROSA 06/11/2024 10:00:05 Final Observation Date Value Abnormality Reference (Units ) Status WHITE BLOOD CELL COUNT FLOW 06/11/2024 10:00:05 5.2 4.0-10.8 (K/uL) Final PERCENT LYMPHS FLOW 06/11/2024 10:00:05 19.0 18.0-42.0 (%) Final ABSOLUTE LYMPHS FLOW 06/11/2024 10:00:05 988 Below low normal [phone] (cells/uL) Final CD3 (T Cells), percent 06/11/2024 10:00:05 84 61-88 (%) Final CD3 (T Cells), absolute 06/11/2024 10:00:05 [phone] (cells/uL) Final CD3+CD8+ (T8 suppressor cells) cells/100 cells in Blood 06/11/2024 10:00:05 31 13-35 (%) Final CD3+CD8+ (T8 suppressor cells) cells [#/volume] in Blood 06/11/2024 10:00:05 307 150-790 (cells/uL) Final CD3+CD4+ (T4 helper) cells/100 cells in Blood 06/11/2024 10:00:05 52 35-62 (%) Final CD3+CD4+ (T4 helper) cells [#/volume] in Blood 06/11/2024 10:00:05 [phone] (cells/uL) Final CD3+CD4+ (T4 helper) cells/CD3+CD8+ (T8 suppressor cells) cells [# Ratio] in Blood 06/11/2024 10:00:05 1.7 0.8-3.5 (%) Final CD3-CD16+CD56+ (Natural killer) cells/100 cells in Blood 06/11/2024 10:00:05 12 3-21 (%) Final CD3-CD16+CD56+ (Natural killer) cells [#/volume] in Blood 06/11/2024 10:00:05 123 50-400 (cells/uL) Final CD3-CD19+ cells/100 cells in Blood 06/11/2024 10:00:05 2 Below low normal 4-21 (%) Final CD3-CD19+ cells [#/volume] in Blood 06/11/2024 10:00:05 25 Below low normal 33-550 (cells/uL) Final Performing Location [facility] [place] [address] [facility] [address]
--- OUTSIDE RECORDS SUMMARY | 2024-06-26 00:13 | External Medical Summary | Summary of Care ---
Author Name Unknown Organization [facility] Address [address] [facility] [place] [address] Phone [phone] Care Team Providers Care Fitter Hand Name Role Phone Unavailable Primary Care Provider Unavailabl e Reason for Visit * Reason Comments Medical Nutrition Therapy * Evaluate & Treat - Unlimited Visits (Within 10 days (routine)) - Pending Review Specialty Diagnoses / Procedures Referred By Contadam t Referred To Contact Dietitian / Nutrition Services Diagnoses Malnutrition of moderate degree (HCC) Unintentional weight loss Hiatal hernia Shana Ellison PA-C [address] [place] [address] [place] [address] Referral ID Status Reason Start Date Expiration Date Visits Requested Visits Authorized [id number] Pending Review Specialty Services Required 05/13/[phone] Encounter Details Date Type Department Care Team (Latest Contact Info) Description 05/16/2024 9:00 AM EDT Nutrition Services [facility] [address] [place] [address] [address] Marilee Escudero RDN [address] [place] [address] [address] Malnutrition of moderate degree (HCC)*; Esophageal dysphagia; Unintentional weight loss; Esophageal dysmotility; Phelps's esophagus without dysplasia; Hiatal hernia [K44.9] Allergies Active Allergy Reactions Criticality Noted Date Comments Aspirin 04/30/2003 not an allery but was told not to take by wastewater plant operator Clindamycin Unknown Medium 09/06/2015 Pt states hand swelling Localized Gabapentin Unknown 03/21/2023 Dizziness, made me like a zombie, couldn't walk Iodine Hives 06/19/2001 CT dye (Has been pretreated and did fine) Lorazepam Neuro complications (Please comment),Other (Please comment) 04/30/2003 not an allery but was told not to take by wastewater plant operator hallucinates Penicillins 06/25/2001 hives Shellfish-Derived Products Anaphylaxis,Itching High 10/12/2015 Tongue swelling Tongue swelling documented as of this encounter (statuses as of 05/16/2024) Medications Medication Sig Dispensed Refills Start Date [...] both eyes in the morning. 04/16/2024 Active traMADol-Acetaminophe n 37.5-325 MG Oral Tablet (Ultracet)Indications :Phelps's esophagus without dysplasia,Dysphagia, unspecified type,Unintentional weight loss Take 1 Tablet by mouth every 4 hours as needed. Active Pantoprazole Sodium 40 MG Oral Tablet [...] and 1 Capsule before bedtime. 05/12/2024 Active amLODIPine Besylate 10 MG Oral Tablet (Norvasc)Indications: Interstitial lung disease (HCC),HTN, goal below 140/90 Take 0.5 Tablets by mouth every morning. 05/13/2024 Active Sucralfate 1 GM Oral Tablet (Carafate)Indications :Unintentional weight loss,Phelps's esophagus without dysplasia,Dysphagia, unspecified type Take 1 Tablet by mouth 2 times a day as needed for Other (abdominal pain or acid reflux). 120 Tablet 3 05/13/2024 Active documented as of this encounter (statuses as of 05/16/2024) Active Problems Problem Noted Date Diagnosed Date [...] as of this encounter (statuses as of 05/16/2024) Resolved Problems Problem Noted Date Diagnosed Date Resolved Date Epigastric pain 05/12/2024 05/13/2024 Violette esophagitis 05/11/2024 05/13/20 24 ACTIVE CASE MANAGEMENT Jayla Navarro RN [phone] 03/18/2010 06/20/2010 Overview: ACTIVE CASE MANAGEMENT Jayla Navarro RN [phone] HYPERTENSION NOS 11/12/2001 07/26/2009 Overview: Modified per HTN protocol #16. documented as of this encounter (statuses as of 05/16/2024) Immunizations Name Administration Dates Next Due Pneumococcal Polysaccharide PPV23 (Pneumovax) 05/01/2009 Seasonal Influenza, Trivalen t, (IIV3), with Preserv, [...] 05/14/2024 Does the household have a re lar source of income? (Household - for ages [...] Sign Reading Time Taken Comments Blood Pressure - - Pulse - - Temperature - - Respiratory Rate - - Oxygen Saturation - - Inhaled Oxygen Concentration - - Weight 104 kg (229 lb 4.8 oz) 05/16/2024 9:07 AM EDT Height 172.7 cm (5' 8") 05/16/2024 9:07 AM EDT Body Mass Index 34.86 05/16/2024 9:07 AM EDT documented in this encounter Functional [...] this encounter Patient Instructions * Patient Instructions* Marilee Escudero RDN - 05/16/2024 9:55 AM EDT Patient will consume at least 2 servings of [place] shakes or homemade shake daily (see recipes for other ideas). Patient will include high-calorie, high-fat foods to what you are already eating, such as butter topotatoes or macaroni & cheese, or whipping topping to fruit or pudding or cheese to potatoes ormacaroni & cheese, or non-fat milk powder to milk shakes. (See handout for other ideas.) Patient will continue to drink high-calorie fluids such as "flat" sodas, milk, milk shakes, proteindrinks, smoothies, juice, Gatorade, etc. documented in this encounter Progress Notes * Marilee Escudero RDN - 05/16/2024 9:07 AM EDT NUTRITION CONSULT - OUTPATIENT [facility] Name: Dallin Reed Location: [facility] Date: 05/16/2024 Time: 9:07 AM Patient was identified by name and date. Patient was seen [id number] in the clinic. Reason for Referral: Malnutrition, Phelps's esophagus NUTRITION ASSESSMENT: Client History Patient is a 73 year old male being seen for above issues. He is accompanied by his , Angelica. He had a hospital stay at [facility] due to dysphagia and esophagitis; he was discharged home on Sunday05/13/24. Support System: Spouse Barriers To Learning: Impaired vision Special Education Needs: None, can read regular print most of the time, sometimes needs large print Food/Nutrition-Related History Describes typical diet history/24 hr recall Breakfast: [place] shake and applesauce Snacks: none Lunch: leftover spaghetti with sauce and a little tuna Snacks: none Dinner: instant mashed potatoes, macaroni & cheese, rice pudding Snacks: none Drinks: mode mercedes, coke, Gatorade Restaurant meals: rare Alcohol: None Tobacco Use: No Diet Recall/Food Logs Indicate: AREAS FOR IMPROVEMENT: Poor meal distribution Inadequate calorie intake Inadequate protein intake Food and Nutrient Intake and other pertinent information: Patient reports he has no appetite; states he has to force himself to eat. States his esophagus was stretched recently. reports they arecurrently living in an -they are building another house. Her meal preparation is limited to a stove (no oven). Patient reports his oral intake has improved slightly since being discharged home. Food allergies and/or food intolerances: shellfish Pertinent Medications (Current): Current Outpatient Medications Medication Sig Dispense Refill levothyroxine (LEVOXYL) 100 MCG Tablet Take one tablet by mouth one time daily 90 Tab 1 ondansetron (ZOFRAN) 4 MG Tablet 1 tablet every 6 hours as needed for nausea 30 Tab 3 dorzolamide-timolol (COSOPT OCUMETER PLUS) 2.23-0.68% ophthalmic solution Instill 1 Drop into eye in the morning and 1 Drop before bedtime. (Patient not taking: Reported on 05/11/2024) Atorvastatin Calcium 40 MG Oral Tablet (Lipitor) Take 1 Tablet by mouth in the morning. Brinzolamide 1 % Ophthalmic Suspension (Azopt) Instill 1 Drop into both eyes in the morning and 1 Drop at noon and 1 Drop before bedtime. Latanoprost 0.005 % Ophthalmic Solution (Xalatan) Instill 1 Drop into both eyes in the morning. traMADol-Acetaminophen 37.5-325 MG Oral Tablet (Ultracet) Take 1 Tablet by mouth every 4 hours as needed. Pantoprazole Sodium 40 MG Oral Tablet Delayed [...] the morning and 1 Capsule before bedtime. amLODIPine Besylate 10 MG Oral Tablet (Norvasc) Take 0.5 Tablets by mouth every morning. Sucralfate 1 GM Oral Tablet (Carafate) Take 1 Tablet by mouth 2 times a day as needed for Other (abdominal pain or acid reflux). 120 Tablet 3 No current facility-administered medications for this visit. Patient states he is not taking sucralfate. Supplements: None. [place] Instant Breakfast with whole milk 2-3 servings daily Prior Nutrition Counseling: saw dietitian at [facility] and [facility] while an inpatient Physical Activity: decreased due to decreased oral intake but improving since hospital stay Anthropometric Measurements Ht 1.727 m (5' 8") | Wt 104 kg (229 lb 4.8 oz) | BMI 34.86 kg/m | BSA 2.23 m Wt Readings from Last 5 Encounters: 05/16/24 104 kg (229 lb 4.8 oz) 05/13/24 102.9 kg (226 lb 12.8 oz) 05/09/24 103.4 kg (228 lb) 03/29/15 124.8 kg (275 lb 1.3 oz) 02/16/15 123.8 kg (273 lb) Weight Change: decreased by 30 pounds in the past 3 months Interpretation of weight change: greater than 7.5% weight loss in 3 months (severe)-11.7% in past 3months per pt report BMI: BMI Readings from Last 1 Encounters: 05/16/24 34.86 kg/m Nutrition-Focused Physical Findings Overall appearance: overweight/obese Digestive system: Abdominal pain/tenderness, Appetite: fair, Early satiety, Epigastric pain, Feeling of food 'stuck', Swallow function, compromised or painful Nerves and cognition: Awake, alert and Oriented Biochemical Data, Medical Tests, and Procedures Hospital labs from 05/13/24 all WNL NUTRITION DIAGNOSIS Suboptimal oral intake related to lack of appetite, dysphagia, pain with eating as evidenced by Reported diet and/or activity recall, weight loss of 30 lbs in past 3 months per pt report NUTRITION INTERVENTION: NUTRITION EDUCATION Initial/brief nutrition education NUTRITION COUNSELING Strategies Other Education Material: Academy [employer] Nutrition Care Manual Handout -Minced and Moist Nutrition Therapy, Underweight Nutrition Therapy , How to Make a High Calorie, High Protein Shake Other: High calorie beverage recipes Nutrition Prescription: Diet: Good Nutrition High calorie/High protein Minced & Moist Daily Calorie Needs: 5006-7489 Kcals Daily Protein Needs: 80-85 Grams protein Goals: Patient will consume at least 2 servings of [place] shakes or homemade shake daily (see recipes for other ideas). Patient will include high-calorie, high-fat foods to what you are already eating, such as butter topotatoes or macaroni & cheese, or whipping topping to fruit or pudding or cheese to potatoes ormacaroni & cheese, or non-fat milk powder to milk shakes. (See handout for other ideas.) Patient will continue to drink high-calorie fluids such as "flat" sodas, milk, milk shakes, proteindrinks, smoothies, juice, Gatorade, etc. Dietitian Action: Encouraged patient to eat small amounts frequently throughout the day. Encouragedhim to consume at last 2 servings of [place] shakes or other high-protein supplements. Discussed ways to increase calories to foods he is already eating-suggestions provided. Reviewed foods allowedand those to avoid on Minced & Moist diet. Encouraged him to choose foods that can be easily mas hed with a fork and that can be cut into small, bite-sized pieces. Encouraged him to drink fluids that contain calories. Encouraged him to let carbonation in soda go flat before drinking. Recommendations to Ordering Provider: Continue current plan of nutrition care. NUTRITION MONITORING AND EVALUATION: The following will be monitored and evaluated at the next visit: Monitor weight. Monitor goals and progress. Plan:Patient scheduled to return in 2 months; Encouraged pt to contact me via My G if any questionsor concerns arise. 60 minutes Medical Nutrition Therapy 15 min (8-22 min) 30 min (23-37 min) 45 min (38-52 min) 60 min (53-67 min) 75 min (68-82 min) 90 min (83-97 min) 105 min (98-113 min) Time In: 0906 (05/16/24 1045) Time Out: 1004 (05/16/24 1045) Marilee Escudero RDN NUTRITION, [facility] documented in this encounter Plan of Treatment Upcoming Encounters Date Type Department Care Team (Late st Contact Info) Description 05/21/2024 9:00 AM EDT Office Visit Family Practice [facility] [address] [place] [address] [address] Anna Walsh MD [address] [place] [address] [address] 06/11/2024 9:00 AM EDT Office Visit Gastroenterology, [facility] [address] [place] [address] [address] Megan Stephens CRNP [address] [place] [address] [address] 07/18/2024 9:30 AM EST [facility] [address] [place] [address] [address] Marilee Escudero, RDN [address] [place] [address] Scheduled Referrals Name Type Priority Associated Diagnoses Orde r Schedule NUTRITION-CLINICAL DIETITIAN REFERRAL OP Referral Within 10 days (routine) Malnutrition of moderate degree (HCC) Unintentional weight loss Hiatal hernia Ordered: 05/13/2024 Health Maintenance Due Date Last Done Comments Albumin/Creatinine Ratio 1968 Hepatitis C Screening 1968 Zoster Vaccines (1 of 2) 1998 Pneumococcal Vaccine: 65+ Years (2 of 2 - PCV) 05/01/2010 05/01/2009 Depression Screening 04/30/2015 04/30/2014 DTap/Tdap Vaccines (3 - Td or Tdap) 04/30/2024 04/30/2014, 07/28/2008 COVID-19 Vaccine ( season) 2024 Influenza Vaccine (FLU shot) (#1) 2024 TSH 05/12/2025 05/12/2024, 12/02, 04/12/2012, Additional history exists GFR 05/13/2025 05/13/2024, 05/2024, 05/11/2024, Additional history exists Phelps's Esophagus Surveilance 05/12/2027 05/12/2024, 08/15/2006 Colonoscopy Discontinued 05/16/2013, 05/04, 01/04/2010, Additional history [...] this encounter Medical Devices Implanted Type Area Tourist Agent Device Identifier Shelf Expiration Date Model / Serial / Lot Mesh Vicryl 6 X 6 Vkm-M - [id number] Implanted:Qty: 1 on 10/02/2011 [place] [facility] [place]/A: Abdomen DO NOT USE 09/03/2015 VKM-M / / [id number] Mesh 10 X 14 [id number] - [id number] Implanted:Qty: 1 on 10/02/2011 at [place] [facility] N/A: Abdomen [employer] 04/02/2016 [id number] / / [id number] documented as of this encounter Visit Diagnoses Diagnosis Malnutrition of moderate degree (HCC)- Primary Malnutrition of moderate degree Esophageal dysphagia Dysphagia, pharyngoesophageal phase Unintentional weight loss Loss of weight Esophageal dysmotility Dyskinesia of esophagus Phelps's esophagus without dysplasia Phelps's esophagus Hiatal hernia [K44.9] Diaphragmatic hernia without mention of obstruction or gangrene documented in this encounter Advance Directives * [...]
--- OUTSIDE RECORDS SUMMARY | 2024-06-26 00:13 | External Medical Summary | Summary of Care ---
Author Name Unknown Organization [facility] Address [address] [facility] [place] [address] Phone [phone] Care Team Providers Care Resident Care Technician Name Role Phone Anna Walsh MD Primary Care Provider Reason for Visit * Reason Comments Outpatient Testing Encounter Details Date Type Department Care Team (Late st Contact Info) Description 06/11/2024 10:40 AM EDT Laboratory [facility], [facility] [address] [facility] [place] [address] [facility] [address] [facility] [place] [address] Hypertension; Selective IgM deficiency (HCC) Allergies Active Allergy Reactions Criticality Noted Date Comments Aspirin 04/30/2003 not an allery but was told not to take by bear keeper Clindamycin Unknown Medium 09/06/2015 Pt states hand swelling Localized Gabapentin Unknown 03/21/2023 Dizziness, made me like a zombie, couldn't walk Iodine Hives 06/19/2001 CT dye (Has been pretreated and did fine) Lorazepam Neuro complications (Please comment),Other (Please comment) 04/30/2003 not an allery but was told not to take by bear keeper hallucinates Penicillins 06/25/2001 hives Shellfish-Derived Products Anaphylaxis,Itching [...] diagnosis ACTIVE CASE MANAGEMENT Jayla Navarro RN [phone] 03/18/2010 06/20/2010 Overview: ACTIVE CASE MANAGEMENT Jayla Navarro RN [phone] HYPERTENSION NOS 11/12/2001 07/26/2009 Overview: Modified per [...] No 05/14/2024 Does the household have a [facility] hospitall[facility] source of income? (Household - [...] 06/18/2024 8:30 AM EDT Nurse Only Gastroenterology, [address] [place] [address] Naren Nurse Carine [address] [place] [address] 08/04/2024 8:00 AM EST Imaging [facility] 2nd Floor Cardiology, [address] [place] [address] [address] 08/04/2024 9:30 AM EST Imaging [facility] 2nd Floor Cardiology, [address] [place] [address] [address] 08/04/2024 10:30 AM EST Imaging [facility] 2nd Floor Cardiology, [address] [place] [address] [address] 08/04/2024 12:30 PM EST Imaging [facility] 2nd Floor Cardiology, [place] [facility] [place] [address] [address] 09/26/2024 9:20 AM EST Office Visit Family Practice [facility] [address] [facility] [place] [address] Anna Walsh MD [address] [place] [address] [address] 10/13/2024 10:30 AM EST Office Visit [facility] [address] [place], [place] [address] Stephanie Colon PA-C [address] [facility] [address] 11/12/2024 2:00 PM EDT Hospital Encounter ENDO [facility], Endoscopy Room [facility] [address] [place], [place] [phone] Latricia Howard MD [address] [place] [address] 11/12/2024 2:00 PM EDT - 11/12/2024 2:30 PM EDT Surgery ENDO [facility], Endoscopy Room [facility] [address] [place], [place] [phone] Latricia Howard MD [address] [place] [address] COLONOSCOPY FLEXIBLE PROXIMAL DIAGNOSTIC Pending Results Name Type Priority Associated Diagnoses Date /Time IMMUNOGLOBULIN QUANTITATIVE Lab Routine Selective IgM deficiency ([facility]) 06/11/2024 10:00 AM EDT DIPHTHERIA AND TETANUS ANTITOXOIDS Lab Routine Selective IgM deficiency ([facility]) 06/11/2024 10:00 AM EDT S. PNEUMONIAE AB (IGG) (23 SEROTYPES), MAID Lab Routine Selective IgM deficiency ([facility]) 06/11/2024 10:00 AM EDT CBC WITH WBC DIFFERENTIAL Lab Routine Selective IgM deficiency ([facility]) 06/11/2024 10:00 AM EDT T4 T8 LYMPHOCYTE SUBSET PANEL, FLOW CYTOMETRY PANEL Lab Routine Selective IgM deficiency ([facility]) 06/11/2024 10:00 AM EDT CBC Lab Routine Selective IgM deficiency ([facility]) 06/11/2024 10:00 AM EDT DIFFERENTIAL, AUTOMATED Lab Routine Selective IgM deficiency ([facility]) 06/11/2024 10:00 AM EDT T4 T8 LYMPHOCYTE SUBSET PANEL, FLOW CYTOMETRY Lab Routine Selective IgM deficiency ([facility]) 06/11/2024 10:00 AM EDT WBC/%LYMPH, FLOW CYTOMETRY Lab Routine Selective IgM deficiency ([facility]) 06/11/2024 10:00 AM EDT Scheduled Orders Name Type Priority Associated Diagnoses Orde r Schedule ALBUMIN / CREATININE RATIO, URINE Lab Routine Hypertension Expected: 06/11/2024, Expires: 06/11/2025 Scheduled Procedures Name Priority Associated Diagnoses Date/Ti [...] (FLU shot) (#1) 2024 GFR 05/13/2025 05/13/2024, 0 05/2024, 05/11/2024, Additional history exists TSH 05/21/2025 [...] this encounter Medical Devices Implanted Type Area Professional Golf Tournament Player Device Identifier Shelf Expiration Date Model / Serial / Lot Mesh Vicryl 6 X 6 Vkm-M - [id number] Implanted:Qty: 1 on 10[place]02/2011 [place] [facility] [place]/A: Abdomen DO NOT USE 09/03/2015 VKM-M / / [id number] Mesh 10 X 14 [id number] - [id number] Implanted:Qty: 1 on 10/02/2011 [place] [facility] N/A: Abdomen [employer] 04/02/2016 [id number] / / [id number] documented as of this encounter Visit Diagnoses Diagnosis Hypertension Unspecified essential hypertension 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 No Care Teams Resident Care Technician Relationship Specialty Start Date End Date Anna Walsh MD [address] [place] [address] [address] PCP - General Internal Medicine 05/21/24 documented as of this encounter
--- OUTSIDE RECORDS SUMMARY | 2024-06-26 00:13 | External Medical Summary ---
Author Name Unknown Address Unknown Organization [facility] [address] [place] [address] Laboratory Report Ordering Provider Test Date Status EVERETT GAINES 05/21/2024 10:17:32 Final Observation Date Value Abnormality Reference (Units ) Status IgM 05/21/2024 10:17:32 23 Below low normal 40- 230 (mg/dL) Final Performing Location [facility] [address] [place] [address]
--- OUTSIDE RECORDS SUMMARY | 2024-06-26 00:13 | External Medical Summary ---
Author Name Unknown Address Unknown Organization [facility] [address] [place] [address] Laboratory Report Ordering Provider Test Date Status EVERETT GAINES 05/21/2024 10:17:32 Final Observation Date Value Abnormality Reference (Units ) Status Vitamin B12 05/21/2024 10:17:32 736 082-1139 (pg/mL) Final Performing Location [facility] [address] [place] [address]
--- OUTSIDE RECORDS SUMMARY | 2024-06-26 00:13 | External Medical Summary ---
Author Name Unknown Address Unknown Organization [facility] [address] [place] [address] Laboratory Report Ordering Provider Test Date Status EVERETT GAINES 05/21/2024 10:17:32 Final Observation Date Value Abnormality Reference (Units ) Status IgG 05/21/2024 10:17:32 [phone] ( mg/dL) Final Performing Location [facility] [address] [place] [address]
--- OUTSIDE RECORDS SUMMARY | 2024-06-26 00:13 | External Medical Summary | Summary of Care ---
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 [place] [address] [address] Referral ID Status Reason Start Date Expiration Date V isits Requested Visits Authorized [id number] Pending Review 06/11/2024 999 999 Reason for Visit * Reason Comments Follow Up Pt reports that noth ing has changed. He is still not eating, because he does not have an appetite. He feels that everything just lays in his stomach, then he gets nauseous. Encounter Details Date Type Department Care Team (Late st Contact Info) Description 06/11/2024 9:00 AM EDT Office Visit Gastroenterology, [facility] [address] [address] Megan Stephens CRNP [address] [address] [address] Phelps's esophagus without dysplasia*; Dysphagia, unspecified type; Unintentional weight loss; Nausea; Appetite loss Allergies Active Allergy Reactions Criticality Noted Date Comments Aspirin 04/30/2003 not an allery but was told not to take by quality assurance analyst Clindamycin Unknown Medium 09/06/2015 Pt states hand swelling Localized Gabapentin Unknown 03/21/2023 Dizziness, made me like a zombie, couldn't walk Iodine Hives 06/19/2001 CT dye (Has been pretreated and did fine) Lorazepam Neuro complications (Please comment),Other (Please comment) 04/30/2003 not an allery but was told not to take by quality assurance analyst hallucinates Penicillins 06/25/2001 hives Shellfish-Derived Products Anaphylaxis,Itching [...] for Heartburn. 120 Tablet 3 06/11/2024 Active Dicyclomine HCl 10 MG Oral Capsule (Bentyl) Take 1 Capsule by mouth in the morning and 1 Capsule before bedtime. 05/12/2024 4 Discontinued(Mary ent preference/discon tinuation) Famotidine 40 MG Oral Tablet (Pepcid) Take 1 Tablet by mouth daily. 4 Discontinued(Refi ll) Sucralfate 1 GM Oral Tablet (Carafate)Indica tions:Phelps's esophagus without dysplasia,Dyspha salo, unspecified type,Unintention al weight loss,Nausea,Appe tite loss Take 1 Tablet by mouth as needed for Heartburn. 120 Tablet 3 06/11/2024 4 Discontinued documented as of this encounter [...] diagnosis ACTIVE CASE MANAGEMENT Jayla Navarro RN [phone] 03/18/2010 06/20/2010 Overview: ACTIVE CASE MANAGEMENT Jayla Navarro RN [phone] HYPERTENSION NOS 11/12/2001 07/26/2009 Overview: Modified per [...] Sign Reading Time Taken Comments Blood Pressure 150/91 06/11/2024 8:52 AM EDT Pulse 80 06/11/2024 8:52 AM EDT Temperature 36.7 C (98.1 F) 06/11/2024 8:52 AM ED T Respiratory Rate - - Oxygen Saturation - - Inhaled Oxygen Concentration - - Weight 102.6 kg (226 lb 1.6 oz) 06/11/2024 8:52 AM EDT Height - - Body Mass Index 35.41 05/21/2024 8:58 AM EDT documented in this [...] this encounter Patient Instructions * Patient Instructions* Megan Stephens CRNP - 06/11/2024 9:10 AM EDT Gastroparesis diet: Eat 4 to 5 small meals during the day, instead of 2 or 3 big ones. Put food in the blender snuff before eating it. Cut down on foods that have a lot of fat, such as cheese and fried foods. Cut down on foods that have a lot of "insoluble" fiber, such as some fruits, vegetables, and beans. Avoid fizzy drinks, like soda. They can cause more bloating and gas. Recommend lean meats. Instead of large chunks of chicken and turkey try ground chicken and turkey or lean ground beef. Other dietary tips to help ease gastroparesis symptoms include: eating foods low in salt avoiding hard, chewy foods chewing your food well before swallowing it drinking plenty of water throughout the day walking after eating to promote digestion Heres a list of suggested foods that may help keep your gastroparesis in check: Protein: eggs, poultry, smooth or creamy peanut butter, lean ground meat, low fat yogurt Carbohydrates: white breads, low fiber or refined cereals, low fat crackers Fruits and vegetables (canned, peeled, cooked, or pureed): cherries, mangos, melon, plums, pineapple, zucchini, [place] peppers, carrots, white potatoes Beverages: soups, smoothies, meal replacement shakes, protein shakes Foods to avoid if you have gastroparesis: high fat meats nuts and seeds whole grains high fiber fruits, such as apples, coconuts, berries, and figs high fiber vegetables, such as broccoli, cauliflower, beets, and [place] sprouts beans and legumes carbonated beverages high fat dairy, such as butter, cheese, and heavy cream Acid reflux recommendations Lifestyle and dietary modification: Selective limitation of dietary triggers - Common dietary triggers include carbonated beverages, spicy foods, fatty or fried foods, excess coffee, and peppermint Behavioral changes for nocturnal symptoms Avoid late meals - Patients with symptoms when recumbent should maintain a three-hour interval between a meal and lying down. Sleeping in the left side moves the puddle of gastric contents away from the gastroesophageal junction and may minimize reflux that occurs while supine Elevation of the head of the bed - Elevation of the head end of the bed may improve nocturnal reflux-like symptoms.Patients can use six- to eight-inch blocks under the legs at the head of the bed or a foam wedge under the mattress. Weight loss - We encourage weight loss for individuals with overweight or obesity and those who have recently gained weight. Evidence suggests that weight loss reduces reflux-like symptoms Smoking cessation - We encourage all individuals who smoke tobacco to quit. Tobacco smoking increases the risk of reflux-like symptoms by reducing lower esophageal sphincter pressure, triggering coughing, and diminishing salivation. Avoidance of alcohol-- which reduces lower esophageal sphincter pressure Avoidance of tight-fitting garments to prevent increases in intragastric pressure and the gastroesophageal pressure gradient (see "Pathophysiology of gastroesophageal reflux disease", section on 'Theantireflux barrier') documented in this encounter Progress Notes * Megan Stephens CRNP - 06/11/2024 9:00 AM EDT Images from the original note were not included. Gastroenterology Outpatient Visit 06/11/2024 Referring physician:Tameka Ruiz PA-C PCP: Solo Stock DO Past medical history: Barretts esophagus, dx approximally 2013 Dysphagia status post esophageal dilation, 05/2024 Esophageal dysmotility per barium swallow, 2023 Hiatal hernia Diverticulosis Status post cholecystectomy Hypertension Hypothyroidism CC: Esophageal reflux and dysphagia HPI: Very pleasant 73-year-old male presents today to the gastroenterology office in routine follow-up. In April 22, 2024 patient had worsening dysphagia and was admitted to [facility]. A upper endoscopy was performed (04/2024) showing a 2 cm, LA grade B reflux esophagitis with no bleeding. Biopsies taken- results showed moderate chronic active Phelps's esophagitis with diffuse intestinal metaplasia, no dysplasia or carcinoma seen. Esophageal plaque was suspicious for candidiasis-- biopsy taken; fungal spores were not seen Duodenum was normal. Patient was placed on PPI twice daily as well as Diflucan (x10 days) for candidiasis, recommendations for an esophageal manometry noted. At his last appointment on 05/09/2024 he was having significant dysphagia and painful swallowing. Because of this he had a very poor appetite and was losing a significant amount of weight, down 30 lbsince February. Pantoprazole was increased to 40 mg twice daily, famotidine was continued at 20 mg daily. Diflucan was continued for thrush. Carafate was added. Presented to [facility] on 05/11/2024 and was admitted until05/13/2024. Patient was initially started on IV fluconazole. Underwent an EGD on 05/12/2024--imaging revealed a tortuous esophagus with a 2 cm hiatal hernia. Prior esophagitis resolved. No evidence of esophageal candidiasis. No specimens were collected. Patient was dilated with improvement in symptoms. Today the patient presents with concerns regarding ongoing nausea and low appetite. Following his esophageal dilation swallowing difficulty significantly improved but he does still have a globus sensation. He continues to eat a soft diet mostly in carbs. Notes that he has not eaten any protein or meats in quite some time. He tried protein shakes but thought that they may be makinghim more gassy. He was evaluated by dietary nutrition on 05/16. Feels when he does eat the food sits in his stomach and he becomes nauseated about 10-30 minutes after eating. Does not vomit. Zofran resolves his symptoms. He has been trying to eat small snacks every 3 hours. His weight has been stable between 225 and 226 lb over the last month. He continues to have some indigestion-- has been on PPI twice daily and famotidine nightly. Not been using the Carafate. Moves bowels 2 to 3 times a week. Can be formed or loose. No diarrhea. GI studies: Last colonoscopy: 05/12/2024 Last EGD: 09/2019 in [place], per the patient polyp removal--records not available for review. Current Outpatient Medications Medication Sig Dispense Refill [...] 10 mg for total 30 mg daily. traMADol HCl 50 MG Oral Tablet (Ultram) Take 1 Tablet by mouth every 8 hours as needed for severe Pain 30 Tablet 0 Famotidine 40 MG Oral Tablet (Pepcid) Take 1 Tablet by mouth at bedtime. 90 Tablet 3 Sucralfate 1 GM Oral Tablet (Carafate) Take 1 Tablet by mouth 2 times a day as needed for Heartburn. 120 Tablet 3 No current facility-administered medications for this visit. Past Medical History: Diagnosis Date Abdominal pain, [...] by Latricia Howard MD at [facility] COLONOSCOPY, GI REFERRAL OP 05/14/2006 diverticulosis noted, with internal hemorrhoids, repeat in 2016 EGD, FLEXIBLE, DIAGNOSTIC N/A 05/12/2024 ESOPHAGOGASTRODUODENOSCOPY (EGD), FLEXIBLE, TRANSORAL, DIAGNOSTIC performed by Dawit Fernando DOat [facility] EGD, FLEXIBLE, W/BIOPSY 08/15/2006 [facility], jovany esophagitis, neg for H pylori EXPLORATION OF ABDOMEN 10/06/2010 Exploratory laparotomy; extensive adhesiolysis; incisional hernia x 3 Dr Beltran 10/06/2010 [facility] EXPLORATION OF ABDOMEN 12/29/2010 1.Exploratory Laparotomy. 2. Removal of infected mesh. 3. Closure with wound VAC. Dr Beltran 12/29/2010 [facility] EXPLORATION OF ABDOMEN 02/09/2011 1.Exploratory laparotomy 2. Extensive lysis of adhesions 3. Removal of infected mesh 4. Enterotomy repair X 4 5. Closure of abdominal wound. Dr Beltran 02/09/2011 [facility] IMPLANT MESH W/ ABD HERNIA REPR/DEBRIDE 10/02/2011 IMPLANTATION MESH WITH INCISIONAL/VENTRAL HERNIA performed by NAMRATA WAGNER at [facility] INFORMATION fx back LAPAROSCOPY; CHOLECYSTECTOMY 08/12/2011 LAPAROSCOPIC CHOLECYSTECTOMY performed by NAMRATA WAGNER at OR [facility] OTHER 07/27/2009 exploratory laparotomy. extensive adhesiolysis. Partial small bowel resection with primary anastomosis. Incision hernia repair (primary), 07/27/09, Dr. Beltran OTHER 09/15/2009 exploratory laparotomy, extensive lysis of adhesions (greater than 3 hours), partial small bowel resection with primiary anastomosis (30 cm of jejunum): partial small bowel resection with primary anastomosis (25 cm of distal ileum):incisional hernia repair (primary): omentectomy 09/15/09 [facility], Dr. Aicha harley PARTIAL COLECTOMY W/ANASTOMOSIS 08/22/2007 Sigmoid colectomy w/ primary anastomosis and completion proctoscopy/[facility]/ REMOVAL OF RUPTURED APPENDIX 09/03/1981 Appendectomy, Rupt Appendx+Abscess REPAIR INITIAL INCISIONAL OR VENTRAL HERNIA; REDUCIBLE 10/02/2011 REPAIR INITIAL INCISIONAL /VENTRAL HERNIA REDUCIBLE performed by NAMRATA WAGNER at OR [facility] TMJ ARTHROSCOPY DEBRIDEMENT Right 02/2023 UPPER GI ENDOSCOPY Social History Tobacco Use Smoking status: Never Smokeless tobacco: Never Vaping Use Vaping status: Never Used Substance Use Topics Alcohol use: No Drug use: No Review of patient's allergies indicates: Allergen Reactions Shellfish-Derived Products Anaphylaxis and Itching Tongue swelling Tongue swelling Clindamycin Unknown Pt states hand swelling Localized Aspirin not an allery but was told not to take by quality assurance analyst Gabapentin Unknown Dizziness, made me like a zombie, couldn't walk Iodine Hives CT dye (Has been pretreated and did fine) Lorazepam Neuro complications (Please comment) and Other (Please comment) not an allery but was told not to take by quality assurance analyst hallucinates Penicillins hives Review of Systems: See HPI for pertinent positives. All others negative, other than those noted in HPI. Physical Exam: BP 150/91 | Pulse 80 | Temp 36.7 C (98.1 F) | Wt 102.6 kg (226 lb 1.6 oz) | BMI 35.41 kg/m | BSA 2.2 m GENERAL: No acute distress. SKIN: No rashes, ulcers, jaundice or spider angiomata. HEENT: Normocephalic, sclera clear, pharynx normal. NECK: Supple, no lymphadenopathy, no masses or thyroid enlargement. LUNGS: Clear to auscultation bilaterally, no respiratory distress or accessory muscles used. HEART: Regular rate & rhythm, no murmurs and no gallops. ABDOMEN: Normal bowel sounds, soft. Non-tender. No masses or hepatosplenomegaly. EXTREMITIES: No palmar erythema, no ankle edema, no skin discoloration, no clubbing, no cyanosis. NEURO: No lateralizing findings. Sensory/Motor grossly normal. Lab data/imaging study review: EGD 05/12/2024 Impression: - Tortuous esophagus. - 2 cm hiatal hernia. - Normal gastric fundus, gastric body, incisura and antrum. - Normal examined duodenum. - No specimens collected. - Dilation performed EGD at [facility] 04/25/2024 EGD Biopsy at [facility] 04/25/2024 Impression/Plan: This is a(n) 73 year old male who is being evaluated in the office for ongoing care/risk managementfor the below diagnoses. 1. Phelps's esophagus without dysplasia 2. Dysphagia, unspecified type -Chronic active Phelps's esophagitis with diffuse intestinal metaplasia, no dysplasia or carcinomaseen, per EGD 04/2024 -Worsening dysphagia and throat discomfort, status post dilation with improvement in symptoms. Ongoing indigestion symptoms. Continue pantoprazole to 40 mg twice daily, PPI will be lifelong. Continue famotidine 40 mg nightly Restart Carafate 1 g as needed for indigestion. Now that dysphagia has resolved will proceed with esophageal manometry. Given Barretts esophagus will need EGD every 3 years, possibly sooner pending clinical course. Can consider re dilation with return of dysphagia symptoms. 3. Unintentional weight loss 4. Nausea 5. Appetite loss -30 lb weight loss since 02/2024--weight has been steady over the month of May (225-226 lbs) -CT of abdomen and pelvis at [facility] 03/2024 negative for acute findings - No contrast used due to contrast dye allergy Thankfully weight loss has stabilized--recommend increase in protein intake and small frequent meals. We did discuss gastroparesis diet and GERD interventions for indigestion. Gastric emptying study ordered to assess for gastroparesis Colonoscopy ordered due to unintentional weight loss. Encouraged high-protein snacks, meals, and drinks. Okay to use Zofran as needed. Will defer to PCP regarding appetite stimulant. The patient agrees to the above plan and will call with additional questions or concerns. ER with all emergencies advised. Follow-up: Return in about 6 weeks (around 07/23/2024). | Check-out note: -KUB today -GES & Esophageal manometry-- follow up after -Colon -Print instructions I spent a total of 40-54 minutes (exact time 40 mins) on the date of service in preparation, delivery, and documentation of the care provided to Dallin Reed excluding any time spent in the performance of separately billed services or time spent by another provider/QHP. BRENT Gutierrez [facility] Gastroenterology, [facility] This chart was completed in part utilizing [employer] Speech Voice Recognition Software. Grammatical errors, random word insertions, prounoun errors, and incomplete sentences are an occasional consequence of this system due to software limitations, ambient noise, and hardware issues. Any formal questions or concerns about the content, text, or information contained within the body of this dictation should be directly addressed to the provider for clarification. documented in this encounter Nursing Notes * Felicity Heredia LPN - 06/11/2024 8:53 AM EDT Chief Complaint Patient presents with Follow Up Pt reports that nothing has changed. He is still not eating, because he does not have an appetite. He feels that everything just lays in his stomach, then he gets nauseous. documented in this encounter Plan of Treatment Upcoming Encounters Date Type Department Care Team (Latest Contact Info) Description 06/11/2024 10:40 AM EDT Laboratory Laboratory, James Sneed [address] [place] [address] [address] Naren Lab Dung Yane[address] [facility] [address] [address] [address] Arrived 06/18/2024 8:30 AM EDT Nurse Only Gastroenterology, James Sneed [address] [place] [address] Naren Nurse Gastro Dung Yane[facility] [address] [address] 08/04/2024 8:00 AM EST Imaging Dung [facility] 2nd Floor Cardiology, [address] [address] [address] 08/04/2024 9:30 AM EST [facility], [address] [address] [address] 08/04/2024 10:30 AM EST [facility], [address] [address] [address] 08/04/2024 12:30 PM EST [facility], [address] [address] [address] 09/26/2024 9:20 AM EST Office Visit [facility] [address] [address] [address] Anna Walsh MD [address] [address] [address] 10/13/2024 10:30 AM EST Office Visit Allergy/Immunology [facility] [place] [address] [place] [address] Stephanie Colon PA-C [address] [place] [address] 11/12/2024 2:00 PM EDT Hospital Encounter ENDO [facility], Endoscopy Room [facility] [address] [phone] Latricia Howard MD [address] [place] [address] 11/12/2024 2:00 PM EDT - 11/12/2024 2:30 PM EDT Surgery ENDO [facility], Endoscopy Room [facility] [address] [phone] Latricia Howard MD [address] [place] [address] COLONOSCOPY FLEXIBLE PROXIMAL DIAGNOSTIC Pending Results Name Type Priority Associated Diagnoses Date /Time XR ABDOMEN 1 VIEW Medical Imaging Routine Phelps's esophagus without dysplasia Dysphagia, unspecified type Unintentional weight loss Nausea Appetite loss 06/11/2024 9:36 AM EDT Scheduled Orders Name Type Priority Associated Diagnoses Orde r Schedule COLONOSCOPY, DIAGNOSTIC (RECTUM) Procedures Routine Phelps's esophagus without dysplasia Dysphagia, unspecified type Unintentional weight loss Nausea Appetite loss Ordered: 06/11/2024 NM GASTRIC EMPTYING STUDY SOLID Medical Imaging Routine Phelps's esophagus without dysplasia Dysphagia, unspecified type Unintentional weight loss Nausea Appetite loss Expected: 06/11/2024, Expires: 07/12/2025 MANOMETRY (GI) Gastro Upper Routine Phelps's esophagus without dysplasia Dysphagia, unspecified type Unintentional weight loss Nausea Appetite loss Ordered: 06/11/2024 Scheduled Procedures Name Priority Associated Diagnoses Date/Ti [...] (FLU shot) (#1) 2024 GFR 05/13/2025 05/13/2024, 09/0 05/2024, 05/11/2024, Additional history exists TSH 05/21/2025 [...] this encounter Medical Devices Implanted Type Area Residential Interior Designer Device Identifier Shelf Expiration Date Model / Serial / Lot Mesh Vicryl 6 X 6 Vkm-M - [id number] Implanted:Qty: 1 on 10/02/2011 at OR [facility] N/A: Abdomen DO NOT USE 09/03/2015 [id number] / / [id number] Mesh 10 X 14 [id number] - [id number] Implanted:Qty: 1 on 10/02/2011 at OR [facility] N/A: Abdomen [employer] 04/02/2016 [id number] / / [id number] documented as of this encounter Visit Diagnoses Diagnosis Phelps's esophagus without dysplasia- Primary Phelps's esophagus Dysphagia, unspecified type Unintentional weight loss Loss of weight Nausea Nausea alone Appetite loss Anorexia Phelps's esophagus without dysplasia Phelps's esophagus Dysphagia, [...] Power of Attor melvin? No Care Teams Electronic Organ Technician Relationship Specialty Start Date End Date Anna Walsh MD [address] [place] [address] PCP - General Internal Medicine 05/21/24 documented as of this encounter
--- OUTSIDE RECORDS SUMMARY | 2024-06-26 00:13 | External Medical Summary | Summary of Care ---
Author Name Unknown Organization [facility] Address [address] [facility] [place] [address] Phone [phone] Care Team Providers Care Registered Nursing Professor Name Role Phone Unavailable Primary Care Provider Unavailabl e Reason for Visit * Reason Comments Outpatient Testing Encounter Details Date Type Department Care Team (Late st Contact Info) Description 05/21/2024 10:20 AM EDT Laboratory Laboratory, [facility] [address] [facility] [place] [id number] [facility] 132 [facility] [place] [address] B12 deficiency; Screening for prostate cancer; Hypothyroidism, unspecified type; Esophageal candidiasis (HCC) Allergies Active Allergy Reactions Criticality Noted Date Comments Aspirin 04/30/2003 not an allery but was told not to take by security control center operator Clindamycin Unknown Medium 09/06/2015 Pt states hand swelling Localized Gabapentin Unknown 03/21/2023 Dizziness, made me like a zombie, couldn't walk Iodine Hives 06/19/2001 CT dye (Has been pretreated and did fine) Lorazepam Neuro complications (Please comment),Other (Please comment) 04/30/2003 not an allery but was told not to take by security control center operator hallucinates Penicillins 06/25/2001 hives Shellfish-Derived Products Anaphylaxis,Itching High 10/12/2015 Tongue swelling Tongue swelling documented as of this encounter (statuses as of 05/21/2024) Medications Medication Sig Dispensed Refills Start Date End Date Status levothyroxine (LEVOXYL) 100 MCG Tablet Take one tablet by mouth one time daily 90 Tab 1 01/29/2015 Active ondansetron (ZOFRAN) 4 MG TabletIndications:N ausea alone 1 tablet every 6 hours as needed for nausea 30 Tab 3 02/16/2015 Active dorzolamide-timolol (COSOPT OCUMETER PLUS) 2.23-0.68% ophthalmic solution Instill 1 Drop into eye in the morning and 1 Drop before bedtime. Active Atorvastatin Calcium 40 MG Oral Tablet (Lipitor)Indication s:Phelps's esophagus without dysplasia,Dysphagia , unspecified type,Unintentional weight loss Take 1 Tablet by mouth in the morning. 05/23/2023 Active Brinzolamide 1 % Ophthalmic Suspension (Azopt)Indications: Phelps's esophagus without dysplasia,Dysphagia , unspecified type,Unintentional weight loss Instill 1 Drop into both eyes in the morning and 1 Drop at noon and 1 Drop before bedtime. 04/18/2024 Active Latanoprost 0.005 % Ophthalmic Solution (Xalatan)Indication s:Phelps's esophagus without dysplasia,Dysphagia , unspecified type,Unintentional weight loss Instill 1 Drop into both eyes in the morning. 04/16/2024 Active Pantoprazole Sodium 40 MG Oral Tablet Delayed Release (Protonix)Indicatio ns:Phelps's esophagus without dysplasia,Dysphagia , unspecified type,Unintentional weight loss Take 1 Tablet [...] and 1 Capsule before bedtime. 05/12/2024 Active Sucralfate 1 GM Oral Tablet (Carafate)Indicatio ns:Unintentional weight loss,Phelps's esophagus without dysplasia,Dysphagia , unspecified type Take 1 Tablet by mouth 2 times a day as needed for Other (abdominal pain or acid reflux). 120 Tablet 3 05/13/2024 Active Additional Information Patient not taking.Reported on 05/21/2024 Famotidine 40 MG Oral Tablet (Pepcid) Take 1 Tablet by mouth daily. Active documented as of this encounter (statuses [...] 24 ACTIVE CASE MANAGEMENT Jayla Navarro RN [phone] 03/18/2010 06/20/2010 Overview: ACTIVE CASE MANAGEMENT Jayla Navarro RN [phone] HYPERTENSION NOS 11/12/2001 07/26/2009 Overview: Modified per [...] No 05/14/2024 Does the household have a [facility] source of income? (Household - for ages [...] Office Visit Gastroenterology, [facility] [address] [place] [address] Megan Stephens CRNP [address] [place] [address] 07/18/2024 9:30 AM EST Nutrition Services Nutrition, [facility] [address] [place] [address] Marilee Escudero RDN [address] [place] [address] 09/26/2024 9:20 AM EST Office Visit Family Practice [facility] [address] [place] [address] Anna Walsh MD [address] [place] [address] Pending Results Name Type Priority Associated Diagnoses [...] AM EDT IGM Lab Routine Esophageal candidiasis ([facility]) 05/21/2024 10:17 AM EDT Health Maintenance Due Date Last Done [...] this encounter Medical Devices Implanted Type Area Distribution Tech Device Identifier Shelf Expiration Date Model / Serial / Lot Mesh Vicryl 6 X 6 Vkm-M - [id number] Implanted:Qty: 1 on 10/02/2011 at OR [facility] N/A: Abdomen DO NOT USE 09/03/2015 VKM-M / / [id number] Mesh 10 X 14 [id number] - [id number] Implanted:Qty: 1 on 10/02/2011 at OR [facility] N/A: Abdomen [employer] 04/02/2016 [id number] / / [id number] documented as of this encounter Visit Diagnoses Diagnosis B12 deficiency Other B-complex deficiencies Screening for prostate cancer Special screening for malignant neoplasm of prostate Hypothyroidism, unspecified type Esophageal candidiasis (HCC) Candidiasis of the esophagus documented in this encounter Advance Directives * [...]
--- OUTSIDE RECORDS SUMMARY | 2024-06-26 00:13 | External Medical Summary ---
Author Name Unknown Address Unknown Organization K01[place] [facility] [place] [address] [place] [address] Laboratory Report Ordering Provider Test Date Status PAKO DELAROSA 06/11/2024 10:00:05 Final Observation Date Value Abnormality Reference (Units ) Status WBC, Total 06/11/2024 10:00:05 5.25 4.00-10.80 (K/uL) Final RBC 06/11/2024 10:00:05 4.57 4.50-5.25 (M/uL) Final Hemoglobin 06/11/2024 10:00:05 14.9 14.0-16.8 (g/dL) Final HCT 06/11/2024 10:00:05 44.1 40.0-48.4 (%) Final MCV 06/11/2024 10:00:05 96.5 82.0-99.5 (fL) Final MCH 06/11/2024 10:00:05 32.6 27.0-34.0 (pg) Final MCHC 06/11/2024 10:00:05 33.8 32.0-36.0 (g/dL) Final RDW 06/11/2024 10:00:05 12.6 11.5-15.5 (%) Final Platelets 06/11/2024 10:00:05 161 140-400 (K/uL) Final MPV 06/11/2024 10:00:05 11.8 6.6-11.1 (fL) Final Nucleated erythrocytes/100 leukocytes [Ratio] in Blood by Automated count 06/11/2024 10:00:05 0 <=0 (/100 WBCs) Final Performing Location [facility] [place] [address] [place] [address] [address]
--- OUTSIDE RECORDS SUMMARY | 2024-06-26 00:13 | External Medical Summary ---
Author Name Unknown Address Unknown Organization K01:LAB[facility]ATORY [facility] - [address] [place] [address] Laboratory Report Ordering Provider Test Date Status EVERETT GAINES 05/21/2024 10:17:32 Final Observation Date Value Abnormality Reference (Units ) Status IgE 05/21/2024 10:17:32 21.5 <=214.0 (k U/L) Final Performing Location [facility] - [address] [address]
--- OUTSIDE RECORDS SUMMARY | 2024-06-26 00:13 | External Medical Summary ---
Author Name Unknown Address Unknown Organization K01:[facility] - [address] [place] [address] Laboratory Report Ordering Provider Test Date Status EVERETT GAINES 05/21/2024 10:17:32 Final Observation Date Value Abnormality Reference (Units ) Status IgA 05/21/2024 10:17:32 407 Above high normal 70 -400 (mg/dL) Final Performing Location [facility] - [address] [place] [address]
--- OUTSIDE RECORDS SUMMARY | 2024-06-26 00:13 | External Medical Summary ---
Author Name Unknown Address Unknown Organization : Laboratory Report Ordering Provider Test Date Status PAKO DELAROSA 06/11/2024 10:00:05 Final Observation Date Value Abnormality Reference (Units ) Status Corynebacterium diphtheriae Ab [Units/volume] in Serum by Immunoassay 06/11/2024 10:00:05 0.71 (IU/mL) Final Reference Range: 0.10 IU/mL or greater
Interpretive Criteria:
<0.10 IU/mL Nonprotective Antibody Level
> Or = 0.10 IU/mL Protective Antibody Level
Antibody levels >= 0.10 IU/mL are considered
protective. After a primary series of three properly
spaced diphtheria toxoid doses in adults or four doses
in infants, a protective level of antitoxin (defined as
> or = 0.10 IU of antitoxin/mL) is reached in more
than 95% of immunized persons.
This test was developed and its analytical performance
characteristics have been determined by [facility], [place], [place]. It has
not been cleared or approved by the U.S. Food and Drug
Administration. This assay has been validated pursuant
to the CLIA regulations and is used for clinical
purposes. Clostridium tetani toxoid Ab [Units/volume] in Serum 06/11/2024 10:00:05 0.63 (IU/mL) Final Reference range (Healthy Imm unized):
0.10 IU/mL or greater
Antibody levels of >= 0.10 IU/mL are considered
protective. However, tetanus can still occur in some
individuals with such antibody levels. These results
should not be used to determine the necessity to
administer antitoxin when clinically indicated.
This test was developed and its analytical performance
characteristics have been determined by [facility], [place], [place]. It has
not been cleared or approved by the U.S. Food and Drug
Administration. This assay has been validated pursuant
to the CLIA regulations and is used for clinical
purposes.

Test Performed at:
[facility]
[address] [facility]
[place] [address]
Jason Raman M.D., Ph.D.,Director of Laboratories Performing Location
--- OUTSIDE RECORDS SUMMARY | 2024-06-26 00:13 | External Medical Summary ---
Author Name Unknown Address Unknown Organization K01:[facility]ATORY [facility] - [address] [facility] [place] [address] Laboratory Report Ordering Provider Test Date Status PAKO DELAROSA 06/11/2024 10:00:05 Final Observation Date Value Abnormality Reference (Units ) Status SYNC LEUKOCYTES IN BLOOD BY AUTOMATED COUNT 06/11/2024 10:00:05 5.25 4.00-10.80 (K/uL) Final Segs 06/11/2024 10:00:05 72.0 40.0-75.0 (%) Final Lymphs % 06/11/2024 10:00:05 19.0 18.0-42.0 (%) Final Monos 06/11/2024 10:00:05 6.1 1.0-11.0 (%) Final Eosinophils 06/11/2024 10:00:05 1.9 0.0-6.0 (%) Final Basos 06/11/2024 10:00:05 0.8 0.0-2.0 (%) Final Immature Granulocyte, Percent 06/11/2024 10:00:05 0.2 0.0-2.0 (%) Final Absolute Segs 06/11/2024 10:00:05 3.78 1.80-7.70 (K/uL) Final Lymphs, absolute 06/11/2024 10:00:05 1.00 1.00-4.80 (K/ul) Final Monos, Abs 06/11/2024 10:00:05 0.32 0.00-1.10 (K/uL) Final Eos, Abs 06/11/2024 10:00:05 0.10 0.00-0.70 (K/uL) Final Basos, Abs 06/11/2024 10:00:05 0.04 0.00-0.20 (K/uL) Final Immature Granulocytes, Number 06/11/2024 10:00:05 0.01 0.00-0.20 (K/uL) Final Performing Location [facility] [place] [address] [facility] [address]
--- OUTSIDE RECORDS SUMMARY | 2024-06-26 00:13 | External Medical Summary ---
Author Name Unknown Address Unknown Organization : Laboratory Report Ordering Provider Test Date Status EVERETT GAINES 05/21/2024 10:17:32 Final Observation Date Value Abnormality Reference (Units ) Status METHYLMALONIC ACID 05/21/2024 10:17:32 393 Above high normal 69-390 (nmol/L) Final Serum methylmalonic acid (MM A) levels are used to
diagnose and monitor several rare inborn errors of
metabolism, including methylmalonic aciduria. The
enzymatic conversion of MMA to succinic acid requires
vitamin B12 (adenosyl-cobalamin) as a cofactor. Serum
MMA levels are also used for assessing functional
vitamin B12 deficiency. Vitamin B12 is essential for
neurodevelopment, particularly early in
. Undiagnosed maternal vitamin B12 deficiency
may be associated with adverse / outcomes,
such as neural tube defects and intrauterine growth
restriction.
[facility] utilized Multi-Modal Decomposition
(MMD) analysis to establish first and second trimester-
specific MMA reference intervals in , as given
below:
MMA, First trimester (<13 wks gestation): 58-167 nmol/L
MMA, Second trimester (13-23 wks gestation):
63-241 nmol/L
This test was developed and its analytical performance
characteristics have been determined by [facility]. It has not been cleared or approved by the
FDA. This assay has been validated pursuant to the CLIA
regulations and is used for clinical purposes.

Test Performed at:
[facility]
[address] [facility]
[place] [address]
Jason Raman M.D., Ph.D.,Director of Laboratories Performing Location
--- OUTSIDE RECORDS SUMMARY | 2024-06-26 00:13 | External Medical Summary ---
Author Name Unknown Address Unknown Organization K01:LAB[facility]ATORY [facility] [place] - [address] [facility] [address] Laboratory Report Ordering Provider Test Date Status EDERFLOYD 05/21/2024 10:17:32 Final Observation Date Value Abnormality Reference (Units ) Status TSH 05/21/2024 10:17:32 2.28 0.27-4.20 (uIU/mL) Final Performing Location LAB[facility] [address] [facility] [address]
--- OUTSIDE RECORDS SUMMARY | 2024-06-26 00:14 | External Medical Summary ---
Author Name Unknown Address Unknown Organization K1F:LABORATORY [facility] - [address] [place] [address] Laboratory Report Ordering Provider Test Date Status ARNIE COLMENARES 05/11/2024 10:20:00 Final Observation Date Value Abnormality Reference (Units ) Status WBC, Total 05/11/2024 10:20:00 5.45 4.00-10.80 (K/uL) Final RBC 05/11/2024 10:20:00 5.01 4.50-5.25 (M/uL) Final Hemoglobin 05/11/2024 10:20:00 15.7 14.0-16.8 (g/dL) Final HCT 05/11/2024 10:20:00 47.0 40.0-48.4 (%) Final MCV 05/11/2024 10:20:00 93.8 82.0-99.5 (fL) Final MCH 05/11/2024 10:20:00 31.3 27.0-34.0 (pg) Final MCHC 05/11/2024 10:20:00 33.4 32.0-36.0 (g/dL) Final RDW 05/11/2024 10:20:00 12.0 11.5-15.5 (%) Final Platelets 05/11/2024 10:20:00 187 140-400 (K/uL) Final MPV 05/11/2024 10:20:00 10.3 6.6-11.1 (fL) Final Nucleated erythrocytes/100 leukocytes [Ratio] in Blood by Automated count 05/11/2024 10:20:00 0 <=0 (/100 WBCs) Final Performing Location LABORATORY [facility] - [address] [place] [address]
--- OUTSIDE RECORDS SUMMARY | 2024-06-26 00:14 | External Medical Summary ---
Author Name Unknown Address Unknown Organization : Laboratory Report Ordering Provider Test Date Status SUKUMAR JACOBO 05/11/2024 21:47:02 Final Observation Date Value Abnormality Reference (Units ) Status Glucose Point of Care 05/11/2024 21:47:02 89 70-120 (mg/dL) Final Performing Location
--- OUTSIDE RECORDS SUMMARY | 2024-06-26 00:14 | External Medical Summary ---
Author Name Unknown Address Unknown Organization K1F:LABORATORY [facility] - [address] [place] [address] Laboratory Report Ordering Provider Test Date Status MIN,MAW 05/12/2024 05:35:00 Final Observation Date Value Abnormality Reference (Units ) Status WBC, Total 05/12/2024 05:35:00 6.53 4.00-10.80 (K/uL) Final RBC 05/12/2024 05:35:00 5.28 4.50-5.25 (M/uL) Final Hemoglobin 05/12/2024 05:35:00 16.6 14.0-16.8 (g/dL) Final HCT 05/12/2024 05:35:00 49.1 Above high normal 40.0-48.4 (%) Final MCV 05/12/2024 05:35:00 93.0 82.0-99.5 (fL) Final MCH 05/12/2024 05:35:00 31.4 27.0-34.0 (pg) Final MCHC 05/12/2024 05:35:00 33.8 32.0-36.0 (g/dL) Final RDW 05/12/2024 05:35:00 12.4 11.5-15.5 (%) Final Platelets 05/12/2024 05:35:00 187 140-400 (K/uL) Final MPV 05/12/2024 05:35:00 10.9 6.6-11.1 (fL) Final Nucleated erythrocytes/100 leukocytes [Ratio] in Blood by Automated count 05/12/2024 05:35:00 0 <=0 (/100 WBCs) Final Performing Location LABORATORY [facility] - [address] [place] [address]
--- OUTSIDE RECORDS SUMMARY | 2024-06-26 00:14 | External Medical Summary ---
Author Name Unknown Address Unknown Organization K1F:LABORATORY [facility] - [address] [place] [address] Laboratory Report Ordering Provider Test Date Status DAVIDSON LOZA 05/13/2024 06:13:00 Final Observation Date Value Abnormality Reference (Units ) Status WBC, Total 05/13/2024 06:13:00 5.66 4.00-10.80 (K/uL) Final RBC 05/13/2024 06:13:00 4.71 4.50-5.25 (M/uL) Final Hemoglobin 05/13/2024 06:13:00 15.1 14.0-16.8 (g/dL) Final HCT 05/13/2024 06:13:00 44.1 40.0-48.4 (%) Final MCV 05/13/2024 06:13:00 93.6 82.0-99.5 (fL) Final MCH 05/13/2024 06:13:00 32.1 27.0-34.0 (pg) Final MCHC 05/13/2024 06:13:00 34.2 32.0-36.0 (g/dL) Final RDW 05/13/2024 06:13:00 12.2 11.5-15.5 (%) Final Platelets 05/13/2024 06:13:00 209 140-400 (K/uL) Final MPV 05/13/2024 06:13:00 10.5 6.6-11.1 (fL) Final Nucleated erythrocytes/100 leukocytes [Ratio] in Blood by Automated count 05/13/2024 06:13:00 0 <=0 (/100 WBCs) Final Performing Location LABORATORY [facility] - [address] [place] [address]
--- OUTSIDE RECORDS SUMMARY | 2024-06-26 00:14 | External Medical Summary | Summary of Care ---
Author Name Unknown Organization [facility] Address [address] [facility] [place] [address] Phone [phone] Care Team Providers Care Floral Designer Salesperson Name Role Phone Solo Stock DO Primary Care Provider Reason for Visit * Reason Onset Date Comments Advice 05/09/2024 Encounter Details Date Type Department Care Team (Late st Contact Info) Description 05/09/2024 Telephone Gastroenterology, [facility] [address] [facility] [place] [address] Megan Stephens, transfer worker Allergies Active Allergy Reactions Criticality Noted Date Comments Aspirin 04/30/2003 not an allery but was told not to take by straight edger Clindamycin Unknown Medium 09/06/2015 Pt states hand swelling Localized Gabapentin Unknown 03/21/2023 Dizziness, made me like a zombie, couldn't walk Iodine Hives 06/19/2001 CT dye (Has been pretreated and did fine) Lorazepam Neuro complications (Please comment),Other (Please comment) 04/30/2003 not an allery but was told not to take by straight edger hallucinates Penicillins 06/25/2001 hives Shellfish-Derived Products Anaphylaxis,Itching High 10/12/2015 Tongue swelling Tongue swelling documented as of this encounter (statuses as of 05/09/2024) Medications Medication Sig Dispensed Refills Start Date End Date Status levothyroxine (LEVOXYL) 100 MCG Tablet Take one tablet by mouth one time daily 90 Tab 1 01/29/2015 Active ondansetron (ZOFRAN) 4 MG TabletIndications:Na usea alone 1 tablet every 6 hours as needed for nausea 30 Tab 3 02/16/2015 Active albuterol (PROVENTIL HFA) 108 (90 BASE) MCG/ACT inhaler Inhale 2 Puffs by mouth every 4 hours as needed. For shortness of breath/wheezing. 03/05/2015 Active dorzolamide-timolol (COSOPT OCUMETER PLUS) 2.23-0.68% ophthalmic solution Instill 1 Drop into eye in the morning and 1 Drop before bedtime. Active amLODIPine (NORVASC) 10 MG TabletIndications:In terstitial lung disease (HCC),HTN, goal below 140/90 Take 1 Tab by mouth every morning. 90 Tab 3 03/29/2015 Active Atorvastatin Calcium 40 MG Oral Tablet (Lipitor)Indications :Phelps's esophagus without dysplasia,Dysphagia, unspecified type,Unintentional weight loss Take 1 Tablet by mouth in the morning. 05/23/2023 Active Brinzolamide 1 % Ophthalmic Suspension (Azopt)Indications:B arrett's esophagus without dysplasia,Dysphagia, unspecified type,Unintentional weight loss Instill 1 Drop into both eyes in the morning and 1 Drop at noon and 1 Drop before bedtime. 04/18/2024 Active Famotidine 40 MG Oral Tablet (Pepcid)Indications: Phelps's esophagus without dysplasia,Dysphagia, unspecified type,Unintentional weight loss Take 0.5 Tablets by mouth at bedtime as needed. Active Furosemide 40 MG Oral Tablet (Lasix)Indications:B arrett's esophagus without dysplasia,Dysphagia, unspecified type,Unintentional weight loss Take 1 Tablet by mouth in the morning. 04/23/2024 Active Latanoprost 0.005 % Ophthalmic Solution (Xalatan)Indications :Phelps's esophagus without dysplasia,Dysphagia, unspecified type,Unintentional weight loss Instill 1 Drop into both eyes in the morning. 04/16/2024 Active traMADol-Acetaminoph en 37.5-325 MG Oral Tablet (Ultracet)Indication s:Phelps's esophagus without dysplasia,Dysphagia, unspecified type,Unintentional weight loss Take 1 Tablet by mouth every 4 hours as needed. Active Pantoprazole Sodium 40 MG Oral Tablet Delayed Release (Protonix)Indication s:Phelps's esophagus without dysplasia,Dysphagia, unspecified type,Unintentional weight loss Take 1 Tablet by mouth in the morning and 1 Tablet before bedtime. 180 Tablet 3 05/09/2024 Active Sucralfate 1 GM Oral Tablet (Carafate)Indication s:Phelps's esophagus without dysplasia,Dysphagia, unspecified type,Unintentional weight loss Take 1 Tablet by mouth in the morning and 1 Tablet before bedtime. 120 Tablet 3 05/09/2024 Active documented as of this encounter (statuses as of 05/09/2024) Active Problems Problem Noted Date Diagnosed Date [...] as of this encounter (statuses as of 05/09/2024) Resolved Problems Problem Noted Date Diagnosed Date Resolved Date ACTIVE CASE MANAGEMENT Jayla Ramon RN [phone] 03/18/2010 06/20/2010 Overview: ACTIVE CASE MANAGEMENT Jayla Ramon RN [phone] HYPERTENSION NOS 11/12/2001 07/26/2009 Overview: Modified per HTN protocol #16. documented as of this encounter (statuses as of 05/09/2024) Immunizations Name Administration Dates Next Due Pneumococcal [...] on file Sexual Orientation Not on file Job Start Date Occupation Industry Not on file Not on file Not on file documented as of this encounter Miscellaneous Notes * Telephone Encounter - Jessica Posey CMA - 05/09/2024 3:50 PM EDT This was addressed in another TE by GI office. * Telephone Encounter - Dayana Danielson OSA - 05/09/2024 3:19 PM EDT Patients is calling in pt [facility] to pt having a hard time to swallowing and provider said she was going to prescribe a liquid for patient they went to the pharmacy and the medication was in pill form but it a "huge Pill" that is going to be hard for patient to swallow name of the medication is sucralfate 1 gram tablet Pt asked for it to be shaina and urgent documented in this encounter Plan of Treatment Upcoming Encounters Date Type Department Care Team (Late st Contact Info) Description 05/14/2024 9:00 AM EDT Office Visit Gastroenterology, [facility] [address] [place] [address] [place] Stephens CRNP [address] [place] [address] 05/21/2024 9:00 AM EDT Office Visit Family Practice [facility] [address] [place] [address] [place] MD [address] [place] [address] Health Maintenance Due Date Last Done Comments Albumin/Creatinine Ratio 1968 Hepatitis C Screening 1968 Zoster Vaccines (1 of 2) 1998 Pneumococcal Vaccine: 65+ Years (2 of 2 - PCV) 2013 05/01/2009 TSH 12/11/2014 12/11/2013, 04/03, 05/25/2010, Additional history exists Depression Screening 04/30/2015 04/30/2014 DTap/Tdap Vaccines (3 - Td or Tdap) 04/30/2024 04/30/2014, 07/28/2008 COVID-19 Vaccine ( - 2022- season) 2024 Influenza Vaccine (FLU shot) (#1) 2024 GFR 06/05/2024 06/05/2023, 10/2022, 05/10/2023, Additional history exists Colonoscopy Discontinued 05/16/2013, 05/04, 01/04/2010, Additional history [...] this encounter Medical Devices Implanted Type Area Assistant County Attorney Device Identifier Shelf Expiration Date Model / Serial / Lot Mesh Vicryl 6 X 6 Vkm-M - [id number] Implanted:Qty: 1 on 10/02/2011 at OR [facility] N/A: Abdomen DO NOT USE 09/03/2015 VKM-M / / [id number] Mesh 10 X 14 [id number] - [id number] Implanted:Qty: 1 on 10/02/2011 at OR [facility] N/A: Abdomen [employer] 04/02/2016 [id number] / / [id number] documented as of this encounter Advance Directives [...] Power of Attor melvin? No Care Teams Floral Designer Salesperson Relationship Specialty Start Date End Date Solo Stock DO [address] [place] [address] PCP - General Family Medicine 04/25/24 documented as of this encounter
--- OUTSIDE RECORDS SUMMARY | 2024-06-26 00:14 | External Medical Summary ---
Author Name Unknown Address Unknown Organization K1F:LABORATORY [facility] - [address] [place] [address] Laboratory Report Ordering Provider Test Date Status MINMAAdi 05/12/2024 05:35:00 Final Observation Date Value Abnormality Reference (Units ) Status Phosphate 05/12/2024 05:35:00 3.4 2.5-4.8 (m g/dL) Final Performing Location LABORATORY [facility] - [address] [place] [address]
--- OUTSIDE RECORDS SUMMARY | 2024-06-26 00:14 | External Medical Summary ---
Author Name Unknown Address Unknown Organization K1F:[facility] - [address] [address] Laboratory Report Ordering Provider Test Date Status DAVIDSON LOZA 05/13/2024 06:13:00 Final Observation Date Value Abnormality Reference (Units ) Status BUN 05/13/2024 06:13:00 15 6-20 (mg/dL) Final Creatinine 05/13/2024 06:13:00 0.9 0.6-1.2 (mg/dL) Final Glomerular filtration rate/1.73 sq M.predicted [Volume Rate/Area] in Serum, Plasma or Blood by Creatinine-based formula (CKD-EPI) 05/13/2024 06:13:00 86 >=60 (mL/min) Final eGFR is calculated based on the CKD-EPI 2020 equation. Sodium 05/13/2024 06:13:00 138 135-146 (m mol/L) Final Potassium 05/13/2024 06:13:00 4.9 3.5-5.1 (m mol/L) Final Cl 05/13/2024 06:13:00 102 98-107 (mm ol/L) Final CO2 05/13/2024 06:13:00 28 22-32 (mmo l/L) Final Anion gap 05/13/2024 06:13:00 8 7-15 (mmol /L) Final Glucose 05/13/2024 06:13:00 101 70-120 (mg /dL) Final Calcium 05/13/2024 06:13:00 9.1 8.4-10.2 ( mg/dL) Final Performing Location [facility] - [address] [address]
--- OUTSIDE RECORDS SUMMARY | 2024-06-26 00:14 | External Medical Summary ---
Author Name Unknown Address Unknown Organization K01:LABORATORY [facility] - [address] [facility] [address] Laboratory Report Ordering Provider Test Date Status DAVIDSON LOZA 05/12/2024 05:35:00 Final Observation Date Value Abnormality Reference (Units ) Status HbA1C 05/12/2024 05:35:00 5.6 4.0-5.6 (% ) Final The use of HbA1c to monitor glycemic status is based on normal hemoglobin and HbA composition. This test should not be used in patients with abnormal hemoglobin that affects the half life of the red blood cell or the in vivo glycation rates. Glucose, estimated average 05/12/2024 05:35:00 114 <126 (mg/dL) Final Performing Location LABORATORY [facility] - [address] [facility] [address]
--- OUTSIDE RECORDS SUMMARY | 2024-06-26 00:14 | External Medical Summary ---
Author Name Unknown Address Unknown Organization K1F:LABORATORY [facility] - [address] [address] Laboratory Report Ordering Provider Test Date Status SUKUMAR JACOBO 05/12/2024 05:35:00 Final Observation Date Value Abnormality Reference (Units ) Status BUN 05/12/2024 05:35:00 15 6-20 (mg/dL) Final Creatinine 05/12/2024 05:35:00 0.9 0.6-1.2 (mg/dL) Final Glomerular filtration rate/1.73 sq M.predicted [Volume Rate/Area] in Serum, Plasma or Blood by Creatinine-based formula (CKD-EPI) 05/12/2024 05:35:00 89 >=60 (mL/min) Final eGFR is calculated based on the CKD-EPI 2020 equation. Sodium 05/12/2024 05:35:00 138 135-146 (m mol/L) Final Potassium 05/12/2024 05:35:00 3.9 3.5-5.1 (m mol/L) Final Cl 05/12/2024 05:35:00 102 98-107 (mm ol/L) Final CO2 05/12/2024 05:35:00 25 22-32 (mmo l/L) Final Anion gap 05/12/2024 05:35:00 11 7-15 (mmol /L) Final Glucose 05/12/2024 05:35:00 89 70-120 (mg /dL) Final Calcium 05/12/2024 05:35:00 9.4 8.4-10.2 ( mg/dL) Final Performing Location [facility] - [address] [place] [address]
--- OUTSIDE RECORDS SUMMARY | 2024-06-26 00:14 | External Medical Summary | Summary of Care ---
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 Pt reports that he was diagnosed with Phelps's since 2014. Difficulty swallow food and drinks. Lost 30 pounds since February.Being treated for Thrush at this time. Encounter Details Date Type Department Care Team (Late st Contact Info) Description 05/09/2024 3:00 PM EDT Office Visit [facility], [facility] [address] [place] [address] [address] Megan Stephens CRNP [address] [place] [address] [address] Phelps's esophagus without dysplasia*; Dysphagia, unspecified type; Unintentional weight loss Allergies Active Allergy Reactions Criticality Noted Date Comments Aspirin 04/30/2003 not an allery but was told not to take by agricultural pilot Clindamycin Unknown Medium 09/06/2015 Pt states hand swelling Localized Gabapentin Unknown 03/21/2023 Dizziness, made me like a zombie, couldn't walk Iodine Hives 06/19/2001 CT dye (Has been pretreated and did fine) Lorazepam Neuro complications (Please comment),Other (Please comment) 04/30/2003 not an allery but was told not to take by agricultural pilot hallucinates Penicillins 06/25/2001 hives Shellfish-Derived Products Anaphylaxis,Itching High 10/12/2015 Tongue swelling Tongue swelling documented as of this encounter (statuses as of 05/09/2024) Medications Medication Sig Dispensed Refills Start Date End Date Status levothyroxine (LEVOXYL) 100 MCG Tablet Take one tablet by mouth one time daily 90 Tab 1 5 Active ondansetron (ZOFRAN) 4 MG TabletIndications:N ausea alone 1 tablet every 6 hours as needed for nausea 30 Tab 3 5 Active albuterol (PROVENTIL HFA) 108 (90 BASE) MCG/ACT inhaler Inhale 2 Puffs by mouth every 4 hours as needed. For shortness of breath/wheezin g. 5 Active dorzolamide-timolol (COSOPT OCUMETER PLUS) 2.23-0.68% ophthalmic solution Instill 1 Drop into eye in the morning and 1 Drop before bedtime. Active amLODIPine (NORVASC) 10 MG TabletIndications:I nterstitial lung disease (HCC),HTN, goal below 140/90 Take 1 Tab by mouth every morning. 90 Tab 3 5 Active Atorvastatin Calcium 40 MG Oral Tablet (Lipitor)Indication s:Phelps's esophagus without dysplasia,Dysphagia , unspecified type,Unintentional weight loss Take 1 Tablet by mouth in the morning. 3 Active Brinzolamide 1 % Ophthalmic Suspension (Azopt)Indications: Phelps's esophagus without dysplasia,Dysphagia , unspecified type,Unintentional weight loss Instill 1 Drop into both eyes in the morning and 1 Drop at noon and 1 Drop before bedtime. 4 Active Famotidine 40 MG Oral Tablet (Pepcid)Indications :Phelps's esophagus without dysplasia,Dysphagia , unspecified type,Unintentional weight loss Take 0.5 Tablets by mouth at bedtime as needed. Active Furosemide 40 MG Oral Tablet (Lasix)Indications: Phelps's esophagus without dysplasia,Dysphagia , unspecified type,Unintentional weight loss Take 1 Tablet by mouth in the morning. 4 Active Latanoprost 0.005 % Ophthalmic Solution (Xalatan)Indication s:Phelps's esophagus without dysplasia,Dysphagia , unspecified type,Unintentional weight loss Instill 1 Drop into both eyes in the morning. 4 Active traMADol-Acetaminop hen 37.5-325 MG Oral Tablet (Ultracet)Indicatio ns:Phelps's esophagus without dysplasia,Dysphagia , unspecified type,Unintentional weight loss Take 1 Tablet by mouth every 4 hours as needed. Active Pantoprazole Sodium 40 MG Oral Tablet Delayed Release (Protonix)Indicatio ns:Phelps's esophagus without dysplasia,Dysphagia , unspecified type,Unintentional weight loss Take 1 Tablet by mouth in the morning and 1 Tablet before bedtime. 180 Tablet 3 4 Active Sucralfate 1 GM Oral Tablet (Carafate)Indicatio ns:Phelps's esophagus without dysplasia,Dysphagia , unspecified type,Unintentional weight loss Take 1 Tablet by mouth in the morning and 1 Tablet before bedtime. 120 Tablet 3 4 Active PARoxetine (PAXIL) 20 MG TabletIndications:D epressive disorder, not elsewhere classified TAKE 1 TABLET BY MOUTH EACH DAY FOR DEPRESSION 90 Tab 3 5 Discontinued(Me dication List Clean Up) MIDRIN 325-65-100 MG CapsuleIndications: Migraine 2 at onset of [place], january repeat 1 tab hourly for max of 5 doses in 90 Cap 3 5 Discontinued(Me dication List Clean Up) clopidogrel (PLAVIX) 75 MG TabletIndications:S mall vessel disease, cerebrovascular Take 1 Tab by mouth daily. 90 Tab 3 5 Discontinued(Me dication List Clean Up) pantoprazole (PROTONIX) 40 MG TBEC Take 1 Tablet by mouth every morning. 5 Discontinued ibuprofen (ADVIL) 200 MG Tablet Take 2 Tabs by mouth 3 times a day as needed. For arthritic pain. 024 Discontinued(Me dication List Clean Up) Sucralfate 1 GM Oral Tablet (Carafate) Take 1 Tablet by mouth in the morning and 1 Tablet before bedtime. 120 Tablet 3 4 024 Discontinued Pantoprazole Sodium 40 MG Oral Tablet Delayed Release (Protonix) Take 1 Tablet by mouth in the morning and 1 Tablet before bedtime. 180 Tablet 3 4 024 Discontinued documented as of this encounter (statuses [...] Date ACTIVE CASE MANAGEMENT Jayla Navarro RN [phone] 03/18/2010 06/20/2010 Overview: ACTIVE CASE MANAGEMENT Jayla Navarro RN [phone] HYPERTENSION NOS 11/12/2001 07/26/2009 Overview: Modified per HTN protocol #16. documented as of this encounter (statuses as of 05/09/2024) Immunizations Name Administration Dates Next Due PPD [...] Sign Reading Time Taken Comments Blood Pressure 125/79 05/09/2024 1:48 PM EDT Pulse 93 05/09/2024 1:48 PM EDT Temperature 36.6 C (97.9 F) 05/09/2024 1:48 PM ED T Respiratory Rate - - Oxygen Saturation - - Inhaled Oxygen Concentration - - Weight 103.4 kg (228 lb) 05/09/2024 1:48 PM EDT Height 171.5 cm (5' 7.5") 05/09/2024 1:48 PM EDT Body Mass Index 35.18 05/09/2024 1:48 PM EDT documented in this encounter Patient Instructions * Patient Instructions* Megan Stephens CRNP - 05/09/2024 2:32 PM EDT Increase pantoprazole to 40 mg twice per day Start Carafate 1g twice per day Come back in 1 week ED with any emergency- can't swallow, extremely weak, etc. documented in this encounter Progress Notes * Megan Stephens CRNP - 05/09/2024 3:00 PM EDT Images from the original note were not included. Gastroenterology Outpatient Visit 05/09/2024 Referring physician:Tameka Ruiz PA-C PCP: Solo Stock DO Past medical history: Barretts esophagus, dx approximally 2013 Esophageal dysmotility per barium swallow, 2023 Hiatal hernia Diverticulosis Status post cholecystectomy Hypertension Hypothyroidism CC: Esophageal reflux and dysphagia HPI: 73-year-old male presents to the gastroenterology office today as a new patient. Patient was referred for a 2nd opinion from [facility]. Previous [facility] hospital records and appointments reviewed. In January 2024 patient established with [facility] GI after moving from [facility]. Formally followed with Gastroenterology team there for Barretts esophagus. This diagnosis was initially made about 10+ years ago. At this time he had concerns regarding postprandial nausea and epigastric discomfort. Gastric emptying study 01/23/2024: Minimally delayed excretion at 2 and 4 hours as above. Barium swallow 02/13/2024: No esophageal mass or stricture identified. 13 mm barium tablet passed into the stomach. Moderate esophageal dysmotility. Several episodes of gastroesophageal reflux. CT of the abdomen pelvis 03/25/2024: No acute intra-abdominal or intrapelvic abnormality, colonic diverticulosis. Symptoms progressively worsened. Patient presented to the [facility] Emergency Room on 04/25/2024 due to progressively worsening dysphagia, inability to tolerate oral intake, and weight loss. [facility] GI was consulted and evaluated by BRENT Nielson in patient. An endoscopy was performed (04/2024) showing a 2 cm, LA grade B reflux esophagitis with no bleeding.Biopsies taken- results showed moderate chronic active Phelps's esophagitis with diffuse intestinal metaplasia, no dysplasia or carcinoma seen. Esophageal plaque was suspicious for candidiasis-- biopsy taken; fungal spores were not seen Duodenum was normal. Patient was placed on PPI twice daily as well as Diflucan (x10 days) for candidiasis, recommendations for an esophageal manometry noted. Colonoscopy 2020: Per records noted to have a tubular adenoma. Was told to have a 5 year recall Today the patient presents with his . Overall he is feeling poorly-symptoms have significantly worsened since his hospitalization. Notes that he has barely able to take in any oral food or fluids. Notes significant dysphagia. Sometimes has difficulty with saliva. Having significant throat pain with swallowing. Mentions abdominal discomfort with the use of Diflucan. Has a very poor appetite. Not eating much-barely able to eat mashed potatoes or drink a protein shake. Losing about 1 lb a day.He is down 30 lb since February. Feels weak and fatigued. No change in bowel habits. No history of jaundice. No fever, chills, cough, hematochezia, melena, or hemoptysis. No symptoms of chest pain or shor tness of breath. No lower extremity edema or new skin changes/rashes. Denies lightheadedness/dizziness. Patient is compliant with all medications, and offers no side effects. Taking pantoprazole 40 mg daily and Pepcid 20 mg daily. On day 2 of his Diflucan. Current Outpatient Medications Medication Sig Dispense Refill levothyroxine (LEVOXYL) 100 MCG Tablet Take one tablet by mouth one time daily 90 Tab 1 ondansetron (ZOFRAN) 4 MG Tablet 1 tablet every 6 hours as needed for nausea 30 Tab 3 dorzolamide-timolol (COSOPT OCUMETER PLUS) 2.23-0.68% ophthalmic solution Instill 1 Drop into eye in the morning and 1 Drop before bedtime. amLODIPine (NORVASC) 10 MG Tablet Take 1 Tab by mouth every morning. 90 Tab 3 Atorvastatin Calcium 40 MG Oral Tablet (Lipitor) Take 1 Tablet by mouth in the morning. Brinzolamide 1 % Ophthalmic Suspension (Azopt) Instill 1 Drop into both eyes in the morning and 1 Drop at noon and 1 Drop before bedtime. Furosemide 40 MG Oral Tablet (Lasix) Take 1 Tablet by mouth in the morning. Latanoprost 0.005 % Ophthalmic Solution (Xalatan) Instill 1 Drop into both eyes in the morning. Pantoprazole Sodium 40 MG Oral Tablet Delayed Release (Protonix) Take 1 Tablet by mouth in the morning and 1 Tablet before bedtime. 180 Tablet 3 Sucralfate 1 GM Oral Tablet (Carafate) Take 1 Tablet by mouth in the morning and 1 Tablet before bedtime. 120 Tablet 3 albuterol (PROVENTIL HFA) 108 (90 BASE) MCG/ACT inhaler Inhale 2 Puffs by mouth every 4 hours as needed. For shortness of breath/wheezing. (Patient not taking: Reported on 05/09/2024) Famotidine 40 MG Oral Tablet (Pepcid) Take 0.5 Tablets by mouth at bedtime as needed. traMADol-Acetaminophen 37.5-325 MG Oral Tablet (Ultracet) Take 1 Tablet by mouth every 4 hours as needed. No current facility-administered medications for this visit. [...] by Latricia Howard MD at [facility], GI REFERRAL OP 05/14/2006 diverticulosis noted, with internal hemorrhoids, repeat in 2016 EGD, FLEXIBLE, W/BIOPSY 08/15/2006 [facility], jovany esophagitis, neg for H pylori EXPLORATION OF ABDOMEN 10/06/2010 Exploratory laparotomy; extensive adhesiolysis; incisional hernia x 3 Dr Beltran 10/06/2010 [facility] EXPLORATION OF ABDOMEN 12/29/2010 1.Exploratory Laparotomy. 2. Removal of infected mesh. 3. Closure with wound VAC. Dr Beltran 12/29/2010 [facility] EXPLORATION OF ABDOMEN 02/09/2011 1.Exploratory laparotomy 2. Extensive lysis of adhesions 3. Removal of infected mesh 4. Enterotomy repair X 4 5. Closure of abdominal wound. Dr Beltran 02/09/2011 [facility] IMPLANT MESH W/ ABD HERNIA REPR/DEBRIDE 10/02/2011 IMPLANTATION MESH WITH INCISIONAL/VENTRAL HERNIA performed by NAMRATA WAGNER at [facility] INFORMATION fx back LAPAROSCOPY; CHOLECYSTECTOMY 08/12/2011 LAPAROSCOPIC CHOLECYSTECTOMY performed by NAMRATA WAGNER at OR [facility] OTHER 07/27/2009 exploratory laparotomy. extensive adhesiolysis. Partial small bowel resection with primary anastomosis. Incision hernia repair (primary), 07/27/09, Dr. Beltran OTHER 09/15/2009 exploratory laparotomy, extensive lysis of adhesions (greater than 3 hours), partial small bowel resection with primiary anastomosis (30 cm of jejunum): partial small bowel resection with primary anastomosis (25 cm of distal ileum):incisional hernia repair (primary): omentectomy 09/15/09 [facility], Dr. Aicha harley PARTIAL COLECTOMY W/ANASTOMOSIS 08/22/2007 Sigmoid colectomy w/ primary anastomosis and completion proctoscopy/[facility]/ REMOVAL OF RUPTURED APPENDIX 09/03/1981 Appendectomy, Rupt Appendx+Abscess REPAIR INITIAL INCISIONAL OR VENTRAL HERNIA; REDUCIBLE 10/02/2011 REPAIR INITIAL INCISIONAL /VENTRAL HERNIA REDUCIBLE performed by NAMRATA WAGNER at OR [facility] UPPER GI ENDOSCOPY Social History Tobacco Use Smoking status: Never Smokeless tobacco: Never Vaping Use Vaping status: Never Used Substance Use Topics Alcohol use: No Drug use: No Review of patient's allergies indicates: Allergen Reactions Shellfish-Derived Products Anaphylaxis and Itching Tongue swelling Tongue swelling Clindamycin Unknown Pt states hand swelling Localized Aspirin not an allery but was told not to take by agricultural pilot Gabapentin Unknown Dizziness, made me like a zombie, couldn't walk Iodine Hives CT dye (Has been pretreated and did fine) Lorazepam Neuro complications (Please comment) and Other (Please comment) not an allery but was told not to take by agricultural pilot hallucinates Penicillins hives Review of Systems: See HPI for pertinent positives. All others negative, other than those noted in HPI. Physical Exam: BP 125/79 | Pulse 93 | Temp 36.6 C (97.9 F) | Ht 1.715 m (5' 7.5") | Wt 103.4 kg (228 lb) | BMI35.18 kg/m | BSA 2.22 m GENERAL: No acute distress. SKIN: No rashes, ulcers, jaundice or spider angiomata. HEENT: Normocephalic, sclera clear, pharynx normal. NECK: Supple, no lymphadenopathy, no masses or thyroid enlargement. LUNGS: Clear to auscultation bilaterally, no respiratory distress or accessory muscles used. HEART: Regular rate & rhythm, no murmurs and no gallops. ABDOMEN: Normal bowel sounds, soft. + epigastric tenderness. No masses or hepatosplenomegaly. EXTREMITIES: No palmar erythema, no ankle edema, no skin discoloration, no clubbing, no cyanosis. NEURO: No lateralizing findings. Sensory/Motor grossly normal. Lab data/imaging study review: EGD at [facility] 04/25/2024 EGD Biopsy at [facility] 04/25/2024 Impression/Plan: This is a(n) 73 year old male who is being evaluated in the office for ongoing care/risk managementfor the below diagnoses. 1. Phelps's esophagus without dysplasia 2. Dysphagia, unspecified type -Chronic active Phelps's esophagitis with diffuse intestinal metaplasia, no dysplasia or carcinomaseen, per EGD 04/2024 -Worsening dysphagia and throat discomfort Increase pantoprazole to 40 mg twice daily, PPI will be lifelong. Start Carafate 1 g twice daily Continue famotidine 20 mg daily Continue Diflucan for thrush Once acute swallowing issues have improved will consider manometry versus 24 hour pH study. Consider speech therapy eval due to esophageal dysmotility on barium swallow at [facility] Discussed emergency symptoms including inability to swallow or handle own secretions. Advised emergency department evaluation over the weekend his symptoms progressively worsen or he becomes so weak he is unable to ambulate. Given Barretts esophagus will need EGD every 3 years, possibly sooner pending clinical course. 3. Unintentional weight loss -30 lb weight loss since 02/2024 -CT of abdomen and pelvis at [facility] 03/2024 negative for acute findings - No contrast used due to contrast dye allergy Weight loss likely due to poor oral intake from dysphagia May also need to consider repeat colonoscopy The patient agrees to the above plan and will call with additional questions or concerns. ER with all emergencies advised. Follow Up: Return in about 1 week (around 05/16/2024). I spent a total of Greater than 55 mins (exact time 80 mins) on the date of service in preparation,delivery, and documentation of the care provided to Dallin Reed excluding any time spent in the performance of separately billed services or time spent by another provider/QHP. BRENT Gutierrez [facility], [facility] This chart was completed in part utilizing [employer] Voice Recognition Software. Grammatical errors, random [...] Nursing Notes * Felicity Heredia LPN - 05/09/2024 1:48 PM EDT Chief Complaint Patient presents with NEW PATIENT Referred by Tameka Hensley PA-C for Manometry Testing. Pt reports that he was diagnosed with Phelps's since 2014. Difficulty swallow food and drinks. Lost 30 pounds since February.Being treated for Thrush at this time. documented in this encounter Plan of Treatment Upcoming Encounters Date Type Department Care Team (Late st Contact Info) Description 05/21/2024 9:00 AM EDT Office Visit Family [facility] [address] [place] [address] [address] Anna Walsh MD [address] [place] [address] [address] Health Maintenance Due Date Last Done Comments [...] this encounter Medical Devices Implanted Type Area Home Demonstrator Device Identifier Shelf Expiration Date Model / Serial / Lot Mesh Vicryl 6 X 6 Vkm-M - [id number] Implanted:Qty: 1 on 10/02/2011 at OR [facility] N/A: Abdomen DO NOT USE 09/03/2015 VKM-M / / [id number] Mesh 10 X 14 [id number] - [id number] Implanted:Qty: 1 on 10/02/2011 at OR [facility] N/A: Abdomen [employer] 04/02/2016 [id number] / / [id number] documented as of this encounter Visit Diagnoses Diagnosis Phelps's esophagus without dysplasia- Primary Phelps's esophagus Dysphagia, unspecified type Unintentional weight loss Loss of weight documented in this encounter Advance Directives * [...] Power of Attor melvin? No Care Teams Pipe Production Worker Relationship Specialty Start Date End Date Solo Stock DO [address] [place] [address] PCP - General Family Medicine 04/25/24 documented as of this encounter
--- OUTSIDE RECORDS SUMMARY | 2024-06-26 00:14 | External Medical Summary ---
Author Name Unknown Address Unknown Organization K1F:[facility] - [address] [address] Laboratory Report Ordering Provider Test Date Status ARNIE COLMENARES 05/11/2024 10:20:00 Final Observation Date Value Abnormality Reference (Units ) Status Lactic Acid 05/11/2024 10:20:00 0.9 0.4-2.0 (mmol/L) Final Performing Location [facility] - [address] [address]
--- OUTSIDE RECORDS SUMMARY | 2024-06-26 00:14 | External Medical Summary ---
Author Name Unknown Address Unknown Organization K1F:LABORATORY [facility] - [address] [address] Laboratory Report Ordering Provider Test Date Status DAVIDSON LOZA 05/12/2024 05:35:00 Final Observation Date Value Abnormality Reference (Units ) Status TSH 05/12/2024 05:35:00 1.54 0.27-4.20 (uIU/mL) Final Performing Location [facility] - [address] [address]
--- OUTSIDE RECORDS SUMMARY | 2024-06-26 00:14 | External Medical Summary ---
Author Name Unknown Address Unknown Organization K1F:[facility] - [address] [address] Laboratory Report Ordering Provider Test Date Status MINMAAdi 05/12/2024 05:35:00 Final Observation Date Value Abnormality Reference (Units ) Status Magnesium 05/12/2024 05:35:00 2.3 1.5-2.6 (m g/dL) Final Performing Location [facility] - [address] [address]
--- OUTSIDE RECORDS SUMMARY | 2024-06-26 00:14 | External Medical Summary ---
Author Name Unknown Address Unknown Organization K1F:LABORATORY [facility] - [address] [address] Laboratory Report Ordering Provider Test Date Status SUKUMAR JACOBO 05/12/2024 05:35:00 Final Warfarin Therapy
INR: 2 .0-3.0 conventional anticoagulation
INR: 2.5- 3.5 high intensity anticoagulation Observation Date Value Abnormality Reference (Units ) Status PT 05/12/2024 05:35:00 13.6 11.6-15.2 (seconds) Final INR 05/12/2024 05:35:00 1.0 0.8-1.2 Final Performing Location LABORATORY [facility] - [address] [address]
--- OUTSIDE RECORDS SUMMARY | 2024-06-26 00:14 | External Medical Summary ---
Author Name Unknown Address Unknown Organization K1F:[facility] - [address] [facility]. [place] [id number] Laboratory Report Ordering Provider Test Date Status ARNIE COLMENARES 05/11/2024 10:20:00 Final Observation Date Value Abnormality Reference (Units ) Status SYNC LEUKOCYTES IN BLOOD BY AUTOMATED COUNT 05/11/2024 10:20:00 5.45 4.00-10.80 (K/uL) Final Segs 05/11/2024 10:20:00 67.4 40.0-75.0 (%) Final Lymphs % 05/11/2024 10:20:00 24.6 18.0-42.0 (%) Final Monos 05/11/2024 10:20:00 6.1 1.0-11.0 (%) Final Eosinophils 05/11/2024 10:20:00 1.1 0.0-6.0 (%) Final Basos 05/11/2024 10:20:00 0.6 0.0-2.0 (%) Final Immature Granulocyte, Percent 05/11/2024 10:20:00 0.2 0.0-2.0 (%) Final Absolute Segs 05/11/2024 10:20:00 3.68 1.80-7.70 (K/uL) Final Lymphs, absolute 05/11/2024 10:20:00 1.34 1.00-4.80 (K/ul) Final Monos, Abs 05/11/2024 10:20:00 0.33 0.00-1.10 (K/uL) Final Eos, Abs 05/11/2024 10:20:00 0.06 0.00-0.70 (K/uL) Final Basos, Abs 05/11/2024 10:20:00 0.03 0.00-0.20 (K/uL) Final Immature Granulocytes, Number 05/11/2024 10:20:00 0.01 0.00-0.20 (K/uL) Final Performing Location [facility] - [address] [place] [address]
--- OUTSIDE RECORDS SUMMARY | 2024-06-26 00:14 | External Medical Summary ---
Author Name Unknown Address Unknown Organization K1F[facility] [address] [place] [id number] Laboratory Report Ordering Provider Test Date Status DARRIANARNIE 05/11/2024 10:20:00 Final Observation Date Value Abnormality Reference (Units ) Status BUN 05/11/2024 10:20:00 12 6-20 (mg/dL) Final Creatinine 05/11/2024 10:20:00 1.0 0.6-1.2 (mg/dL) Final Glomerular filtration rate/1.73 sq M.predicted [Volume Rate/Area] in Serum, Plasma or Blood by Creatinine-based formula (CKD-EPI) 05/11/2024 10:20:00 78 >=60 (mL/min) Final eGFR is calculated based on the CKD-EPI 2020 equation. Sodium 05/11/2024 10:20:00 138 135-146 (m mol/L) Final Potassium 05/11/2024 10:20:00 4.2 3.5-5.1 (m mol/L) Final Cl 05/11/2024 10:20:00 103 98-107 (mm ol/L) Final CO2 05/11/2024 10:20:00 25 22-32 (mmo l/L) Final Anion gap 05/11/2024 10:20:00 10 7-15 (mmol /L) Final Glucose 05/11/2024 10:20:00 110 70-120 (mg /dL) Final Albumin 05/11/2024 10:20:00 3.9 3.8-5.0 (g /dL) Final AST (Aspartate aminotransferase) 05/11/2024 10:20:00 16 10-50 (U/L) Final Alk Phos 05/11/2024 10:20:00 125 35-130 (U/ L) Final Bilirubin, Total 05/11/2024 10:20:00 0.6 <=1 .2 (mg/dL) Final Calcium 05/11/2024 10:20:00 9.4 8.4-10.2 ( mg/dL) Final Protein 05/11/2024 10:20:00 6.9 6.0-8.3 (g /dL) Final ALT (Alanine aminotransferase) 05/11/2024 10:20:00 20 10-50 (U/L) Final Performing Location [facility] - [address] [place], [place] [address]. [place] [id number]
--- OUTSIDE RECORDS SUMMARY | 2024-06-26 00:14 | External Medical Summary | Summary of Care ---
Author Name Unknown Organization [facility] Address [address] [facility] [place] [address] Phone [phone] Care Team Providers Care Physical Therapy Assistant Name Role Phone Stock Solo Serra DO Primary Care Provider Reason for Referral * Evaluate & Treat - Unlimited Visits (Within 10 days (routine)) - Pending Review Specialty Diagnoses / Procedures Referred By Kalin dubose Referred To Contact Dietitian / Nutrition Services Diagnoses Malnutrition of moderate degree (HCC) Unintentional weight loss Hiatal hernia Shana Ellison PA-C [address] [facility] [place] [address] Referral ID Status Reason Start Date Expiration Date Visits Requested Visits Authorized [id number] Pending Review Specialty Services Required 05/13/[phone] Question Answer Referral Priority Within 10 days (routine) Where should this appointment be scheduled? [facility] What condition is the patient being seen for? All other conditions Other: Malnutrition/ Increase nutrient intake Is this for 63 Forward? No Comments Medical Nutrition Therapy Discharge Order Reason for Visit * Reason Comments Trouble Swallowing * Auth/Cert Specialty Diagnoses / Procedures Referred By Kalin dubose Referred To Contact [facility] [address] [facility] [place] [address] Phone: [phone] Emergency Medicine [facility] [address] [place] [address] Referral ID Status Reason Start Date Expiration Date Visits Re quested Visits Authorized [id number] Encounter Details Date Type Department Care Team (Latest Contact Info) Description 05/11/2024 9:21 AM EDT - 05/13/2024 11:40 AM EDT Hospital Encounter 5A [facility] 5th Floor [address] [place] [id number] Darrian Parker MD [address] [place] [id number] Vic Umanzor MD [address] [place], [place] [address] [address] Gordo Garcia MD [address] [place] [id number] Various: KRAVS,UGI Discharge Disposition: Home - Self Care Allergies Active Allergy Reactions Criticality Noted Date Comments Aspirin 04/30/2003 not an allery but was told not to take by employee wellness/fitness coordinator Clindamycin Unknown Medium 09/06/2015 Pt states hand swelling Localized Gabapentin Unknown 03/21/2023 Dizziness, made me like a zombie, couldn't walk Iodine Hives 06/19/2001 CT dye (Has been pretreated and did fine) Lorazepam Neuro complications (Please comment),Other (Please comment) 04/30/2003 not an allery but was told not to take by employee wellness/fitness coordinator hallucinates Penicillins 06/25/2001 hives Shellfish-Derived Products Anaphylaxis,Itching High 10/12/2015 Tongue swelling Tongue swelling documented as of this encounter (statuses as of 05/13/2024) Medications Medication Sig Dispensed Refills Start Date [...] both eyes in the morning. 04/16/2024 Active traMADol-Acetami nophen 37.5-325 MG Oral Tablet (Ultracet)Indica tions:Phelps's esophagus without dysplasia,Dyspha salo, unspecified type,Unintention [...] Active amLODIPine Besylate 10 MG Oral Tablet (Norvasc)Indicat ions:Interstitia l lung disease (HCC),HTN, goal below 140/90 Take 0.5 Tablets by mouth every morning. 05/13/2024 Active Sucralfate 1 GM Oral Tablet (Carafate)Indica tions:Unintentio nal weight loss,Phelps's esophagus without dysplasia,Dyspha salo, unspecified type Take 1 Tablet by mouth 2 times a day as needed for Other (abdominal pain or acid reflux). 120 Tablet 3 05/13/2024 Active albuterol (PROVENTIL HFA) 108 (90 BASE) MCG/ACT inhaler Inhale 2 Puffs by mouth every 4 hours as needed. For shortness of breath/wheezin g. 03/05/2015 05/12/20 24 Discontinued(Med ication List Clean Up) amLODIPine (NORVASC) 10 MG TabletIndication s:Interstitial lung disease (HCC),HTN, goal below 140/90 Take 1 Tab by mouth every morning. 90 Tab 3 03/29/2015 05/13/20 24 Discontinued Famotidine 40 MG Oral Tablet (Pepcid)Indicati ons:Phelps's esophagus without dysplasia,Dyspha salo, unspecified type,Unintention al weight loss Take 0.5 Tablets by mouth at bedtime as needed. 05/12/20 24 Discontinued(Med ication List Clean Up) Furosemide 40 MG Oral Tablet (Lasix)Indicatio ns:Phelps's esophagus without dysplasia,Dyspha salo, unspecified type,Unintention al weight loss Take 1 Tablet by mouth in the morning. 04/23/2024 05/13/20 24 Discontinued Sucralfate 1 GM Oral Tablet (Carafate)Indica tions:Phelps's esophagus without dysplasia,Dyspha salo, unspecified type,Unintention al weight loss Take 1 Tablet by mouth in the morning and 1 Tablet before bedtime. 120 Tablet 3 05/09/2024 05/13/20 24 Discontinued Fluconazole 100 MG Oral Tablet (Diflucan) Take 1 Tablet by mouth in the morning. 05/08/2024 05/13/20 24 Discontinued documented as of this encounter (statuses as of 05/13/2024) Active Problems Problem Noted Date Diagnosed Date [...] as of this encounter (statuses as of 05/13/2024) Resolved Problems Problem Noted Date Diagnosed Date Resolved Date Epigastric pain 05/12/2024 05/13/2024 Jovany esophagitis 05/11/2024 05/13/20 24 ACTIVE CASE MANAGEMENT Jayla Navarro RN [phone] 03/18/2010 06/20/2010 Overview: ACTIVE CASE MANAGEMENT Jayla Navarro RN [phone] HYPERTENSION NOS 11/12/2001 07/26/2009 Overview: Modified per HTN protocol #16. documented as of this encounter (statuses as of 05/13/2024) Immunizations Name Administration Dates Next Due Pneumococcal [...] Sign Reading Time Taken Comments Blood Pressure 122/78 05/13/2024 7:19 AM EDT Pulse 65 05/13/2024 7:19 AM EDT Temperature 36.4 C (97.5 F) 05/13/2024 7:19 AM ED T Respiratory Rate 16 05/13/2024 7:19 AM EDT Oxygen Saturation 97% 05/13/2024 7:19 AM EDT Inhaled Oxygen Concentration - - Weight 102.9 kg (226 lb 12.8 oz) 05/13/2024 6:00 AM EDT Height 172.7 cm (5' 8") 05/11/2024 2:01 PM EDT Body Mass Index 34.48 05/11/2024 2:01 PM EDT documented in this encounter Functional [...] shopping? (15 years old or older) Yes 09/08/20 24 Cognitive Status Response Date of Assessm ent Because of a physical, menta l, or emotional condition, do you have serious difficulty concentrating, remembering, or making decisions? (5 years old or older) No 05/11/2024 documented as of this encounter Discharge Instructions * Discharge Instr - AVS* Shana Ellison PA-C - 05/13/2024 9:31 AM EDT Discharge Date: 05/13/2024 The information below provides you with the instructions and the list of medications you need to betaking following discharge from the hospital. If you have any questions, please ask before leaving. If you have questions after leaving, you can reach us at the numbers below. YOUR HOSPITAL PROVIDERS: Discharging Provider: Gordo Garcia MD Provider Department: Hospital Medicine To reach this Provider Sunday through Sunday (8:00 AM to 4:30 PM) for any questions or test results: Call [phone] For after-hours concerns: Call [phone] and have your provider paged, or the provider concaving machine operator for the Department of Hospital Medicine paged. [...] available, you can go to your [facility] or [facility] Clinic during their business hours. In an EMERGENCY situation: Call [phone] or go to the nearest emergency room. A BRIEF SUMMARY OF YOUR HOSPITAL STAY: You came to the hospital with: complaint of trouble swallowing Your main diagnosis at discharge was: hiatal hernia, esophageal dysmotility Operations & Procedures performed: 05/12/24: - Tortuous esophagus. - 2 cm hiatal hernia. - Normal gastric fundus, gastric body, incisura and antrum. - Normal examined duodenum. - No specimens collected. - s/p esophageal dilation Complications: none significant Inpatient test results that are pending at discharge: Yes, HIV screen. Discuss results with PCP. Advance Directive Documented: Advance Directive Does the Patient have an Advance Directive? No YOUR FOLLOW UP APPOINTMENTS: Primary Care Provider Information: PCP: No primary care provider on file. No primary physician on file. None (office) None (fax) An appointment was requested with your PCP (No primary care provider on file.) within 7 days. Also requested follow up with GI in 2-3 weeks and card game operator follow up. (Please take this form to this visit with your primary care physician.) You need the following studies in the future: none INSTRUCTIONS: Diet: soft foods, progress as tolerated and use either boost or carnation instant breakfast 3 timesa day Activity: No restrictions and As tolerated Additional Instructions: - Call your primary care physician or seek medical attention if cannot swallow liquids, increased abdominal pain, shortness of breath. - Do not take [id number] NSAIDs (nonsteroid anti-inflammatory medications); ie. Advil, Motrin, Ibuprofen, etc. Decrease amlodipine to 5 mg once daily and stop furosemide. Check blood pressure once daily and record. Taking readings to primary care provider to review. documented in this encounter Progress Notes * Shana Ellison PA-C - 05/12/2024 10:00 AM EDT Images from the original note were not included. [facility] [id number] Clinical Background: 73 yo male patient with PMHx ANGEL on BiPAP (no longer using since esophageal issues started), HTN, hypothyroidism, pseudomonas pneumonia 04/2023 treated with IV cefepime, esophageal dysmotility, Phelps's esophagus, esophageal plaque suspicious for candidiasis on EGD 04/2024 (biopsy negative), received 4 days IV diflucan inpatient and 6 more days as an outpatient presented to [facility] ED due to worsening dysphagia and odynophagia. Admitted due to severe dysphagia and intolerance Elisabeth intake. INTERVAL HISTORY: This morning he has pain in his throat which is worse when he tries to swallow saliva. Also reportsdysphagia. Feels like there is a film in his mouth. Has nausea, weakness, epigastric pain that radiates into chest and has lost about 35 lb since February. Denies dizziness, fever, shortness of breath, vomiting, constipation. Last bowel movement was yesterday 05/11. Had esophageal dilation during EGD September 2023 which helped dysphagia for a few weeks. Was [facility] to [facility] April 25 through . Had EGD without dilation. Symptoms improved while he was on IV Diflucan and worsened once he completed total 10 days of Diflucan. PCP restarted Diflucan on May 08 but dysphagia continued to worsen and he was not tolerating liquids yesterday so he came to the ED. Reports he has had recurrent thrush throughout the past year. Objective Physical Exam Most Recent Vital Signs: BP: 130 mmHg/75 mmHg (05/12/241544) Pulse: 70 (05/12/24 154) Resp: 16 (05/12/241544) Temp: 36 C (05/12/241544) Temp Summary: Temp Min: 35.8 C (96.4 F) Max: 36.7 C (98 F) SpO2: 92 % (05/12/241544) O2 flow rate: Supplemental O2 Delivery: Room Air, None (05/12/241544) Physical Exam Vitals and nursing note reviewed. Constitutional: General: He is not in acute distress. Appearance: He is not ill-appearing or diaphoretic. HENT: Head: Normocephalic and atraumatic. Mouth/Throat: Tongue: Lesions (scant white plaques on tongue, mouth is dry) present. Eyes: Extraocular Movements: Extraocular movements intact. Conjunctiva/sclera: Conjunctivae normal. Cardiovascular: Rate and Rhythm: Normal rate and regular rhythm. Heart sounds: No murmur heard. Pulmonary: Effort: Pulmonary effort is normal. No respiratory distress. Breath sounds: No wheezing, rhonchi or rales. Abdominal: General: Abdomen is flat. Bowel sounds are normal. Palpations: Abdomen is soft. Tenderness: There is abdominal tenderness in the epigastric area. Musculoskeletal: General: No swelling or deformity. Right lower leg: No edema. Left lower leg: No edema. Skin: General: Skin is warm and dry. Neurological: General: No focal deficit present. Mental Status: He is alert and oriented to person, place, and time. Psychiatric: Mood and Affect: Mood normal. Thought Content: Thought content normal. Judgment: Judgment normal. Peripheral Line Right;Lower;Anterior Arm 20 Gauge (Active) Number of days: 0 STUDIES: Encounter Orders Labs and other studies reviewed with pertinent findings noted below: Lab results within last 7 days (see chart for full results) Units 05/12/24 0535 05/11/24 1020 Sodium mmol/L 138 138 Potassium mmol/L 3.9 4.2 Chloride mmol/L 102 103 CO2 mmol/L 25 25 BUN mg/dL 15 12 Creatinine mg/dL 0.9 1.0 Lab results within last 7 days (see chart for full results) Units 05/12/24 0535 05/11/24 1020 HGB g/dL 16.6 15.7 HCT % 49.1* 47.0 WBC K/uL 6.53 5.45 PLT K/uL 187 187 Latest Reference Range & Units 05/12/24 05:35 TSH 0.27 - 4.20 uIU/mL 1.54 TSH WITH FREE T4 IF INDICATED Rpt Assessment and Plan IMPRESSION/PLAN: Principal Problem: Dysphagia Active Problems: Hypertension Jovany esophagitis (HCC) Hiatal hernia Unintentional weight loss Epigastric pain Malnutrition of moderate degree (HCC) Esophageal dysmotility Phelps's esophagus without dysplasia Resolved Problems: * No resolved hospital problems. * I have examined the patient and consistent with the dietitian's findings found malnutrition presentof Moderate (05/12/24 1103) degree. This is consistent with such due to Inadequate energy intake;Weight loss (05/12/24 1103). I have also reviewed and agree with the dietitian's plan of care which include Monitored NPO/clear liquid status (05/12/24 1103). 73 yo male patient with PMHx ANGEL on BiPAP (no longer using since esophageal issues started), HTN, hypothyroidism, pseudomonas pneumonia 04/2023 treated with IV cefepime, esophageal dysmotility, Phelps's esophagus, esophageal plaque suspicious for candidiasis on EGD 04/2024 (biopsy negative), received 4 days IV diflucan inpatient and 6 more days as an outpatient presented to [facility] ED due to worseningdysphagia and odynophagia. Admitted due to severe dysphagia and intolerance to PO intake. Appreciate GI input EGD: esophageal dilated, tortuous esophagus, 2 cm hiatal hernia IV PPI BID Ok soft diet today GI to sign off Has outpatient GI follow up scheduled 05/14 Discontinue IV diflucan - no evidence of esophageal candidiasis on EGD Nutrition input appreciated; liquid nutritional supplement ordered Speech therapy following peripherally Resume CLOTH WORKER prozac, tramadol, amlodipine (at reduced dose), brinzolamide, levothyroxine Lasix on hold D5 1/2 NSS this morning prior to EGD; will d/c this afternoon as patient is tolerating liquids and plans to drink boost and attempt to eat supper Follow up A1C and check HIV screen due to report of recurrent thrush PHARMACOLOGIC VTE PROPHYLAXIS: Enoxaparin CODE STATUS: Full Code EXPECTED DISCHARGE DATE: 05/14/2024 Case and plan of care were discussed with Dr. Garcia. I spent a total of 45 minutes coordinating, documenting, and providing care for this patient excluding time spent in the performance of separately billed services. Associated attestation - Gordo Garcia MD - 05/13/2024 1:37 PM EDT I have reviewed the advanced practitioner's documentation on the date of service referenced in note, and I agree with, and take responsibility for the plan of care. * Kirsty Groves RN - 05/12/2024 2:17 AM EDT Nursing Critical Care Response Note [facility] [address] Name: Dallin Reed Date: 05/12/2024 Time: 2:18 AM Event Location: [facility], Unit Area: 5A In the role of the Critical Response Nurse I was involved in the care of this patient. Method of notification to the critical care response nurse: Unit call/request for assistance Reason for notification or follow up: Vascular access Observations/Interventions/Assessment: Primary RN asked for me to come look at ultrasound guided PIV. Pt had PIV with contrast infiltrate in R hand during the day. Outcome/Plan Ultrasound guided IV site flushed and assessed. Site flushed without difficulty. Pt denies pain/burning. Pt educated to report if site ruvalcaba or becomes painful. 0021: propellant charge loader reached out to reassess site. Site is more red/swollen per staff. This RN went to see site. Site is red around insertion and below dressing. Pt reports site is painful when palpated. Site flushed with another 10 ml. Site flushes easily, pt denies pain or burning. It appears more like a hematoma vs infiltration/phlebitis. Please reach out if there more more concerns with site. documented in this encounter H&P Notes * Dawit Fernando DO - 05/12/2024 12:24 PM EDT Endoscopy Pre-Procedure Assessment Name: Dallin Reed Date: 05/12/2024 Time: 12:24 PM Procedure(s): Upper GI Endoscopy; with Indication(s) of dysphagia or odynophagia Endoscopy Pre-Procedure Assessment: Prior to the procedure, the patient is identified. The patient's history, medications and allergieshave been reviewed. The patient is competent. The risks and benefits of the proposed procedure and the planned sedation have been discussed with the patient. All questions have been answered and informed consent for the procedure has been obtained. Prior to Admission medications Medication Sig Last Dose Discont. Brinzolamide 1 % Ophthalmic Suspension (Azopt) Instill 1 Drop into both eyes in the morning and 1 Drop at noon and 1 Drop before bedtime. 05/11/2024 Furosemide 40 MG Oral Tablet (Lasix) Take 1 Tablet by mouth in the morning. 05/10/2024 Latanoprost 0.005 % Ophthalmic Solution (Xalatan) Instill 1 Drop into both eyes in the morning. 05/11/2024 Pantoprazole Sodium 40 MG Oral Tablet Delayed Release (Protonix) Take 1 Tablet by mouth in the morning and 1 Tablet before bedtime. 05/10/2024 Sucralfate 1 GM Oral Tablet (Carafate) Take 1 Tablet by mouth in the morning and 1 Tablet before bedtime. 05/10/2024 traMADol-Acetaminophen 37.5-325 MG Oral Tablet (Ultracet) Take 1 Tablet by mouth every 4 hours as needed. Past Week amLODIPine (NORVASC) 10 MG Tablet Take 1 Tab by mouth every morning. 05/10/2024 ondansetron (ZOFRAN) 4 MG Tablet 1 tablet every 6 hours as needed for nausea Past Week levothyroxine (LEVOXYL) 100 MCG Tablet Take one tablet by mouth one time daily 05/10/2024 Atorvastatin Calcium 40 MG Oral Tablet (Lipitor) Take 1 Tablet by mouth in the morning. 05/10/2024 dorzolamide-timolol (COSOPT OCUMETER PLUS) 2.23-0.68% ophthalmic solution Instill 1 Drop into eye in the morning and 1 Drop before bedtime. Patient not taking: Reported on 05/11/2024 Not Taking Review of patient's allergies indicates: Allergen Reactions Shellfish-Derived Products Anaphylaxis and Itching Tongue swelling Tongue swelling Clindamycin Unknown Pt states hand swelling Localized Aspirin not an allery but was told not to take by employee wellness/fitness coordinator Gabapentin Unknown Dizziness, made me like a zombie, couldn't walk Iodine Hives CT dye (Has been pretreated and did fine) Lorazepam Neuro complications (Please comment) and Other (Please comment) not an allery but was told not to take by employee wellness/fitness coordinator hallucinates Penicillins hives BP 145/87 | Pulse 70 | Temp 36.3 C (97.4 F) (Temporal Artery) | Resp 15 | Ht 1.727 m (5' 8") | Wt 102.4 kg (225 lb 11.2 oz) | SpO2 93% | BMI 34.32 kg/m | BSA 2.22 m Physical Exam: Mental Status Examination: alert and oriented. Airway Examination: normal oropharyngeal airway and neck mobility. Respiratory Examination: clear to auscultation. CV Examination: systolic murmur. ASA Grade: III - A patient with severe systemic disease. Abdomen: soft This patient has undergone a preprocedural evaluation. A determination has been made to proceed with the planned procedure under [facility] [place] procedural guidelines and the [facility] Non-Emergent, Elective Medical Services and Treatment Recommendations (published on 12-09-19). The community and hospital prevalence of COVID-19 has been discussed as well as this patient's specific risks associated with SARS-CoV-19 infection. Based upon the clinical acuity and patient-specific care considerations, this procedure is deemed a Tier II - Intermediate acuity treatment or service with either progression or the threat of progressive disease related to the delay in treatment. Not providing the service has the potential for increasing morbidity or mortality. After reviewing the risks and benefits, the patient is deemed in satisfactory condition to undergo the procedure. The anesthesia plan is to use general anesthesia. We have discussed the risks and benefits of upper endoscopy to include bleeding, infection, perforation, discomfort, aspiration and need for follow-up studies. We discussed the increased risk of perioperative complications given the patient's comorbid medical conditions. These a complications include perforation bleeding infection pain aspiration and cardiac complications Dawit Fernando DO 05/12/2024 * Vic Umanzor MD - 05/11/2024 1:21 PM EDT Images from the original note were not included. [facility] PRESENTING PROBLEM: dysphagia HPI: 73 yo M who admitted to [facility] 2 weeks ago for dysphagia off and on for the past 6 week . He is only able to eat smoothie and mashed potatoes at some time and he is not able to eat at all at othertimes. He lost 35 lbs in 6 weeks associated with general weakness. He had EGD 2 weeks ago and foundto have jovany esophagitis. He was treated with IV antifungal in hospital for 5 days. Once he is able to eat some smoothie and he was discharged home. He was seen in GI office on Sunday. He was suggested come to [facility] if his symptoms worsened. He could not able to drink water and swallow pills today. Denies nausea, vomiting, fever, cough. He felt like mucus ball in his throat and sore in his neck.He had history of hiatal hernia , esophageal dilatation in Sep, acid reflux , chronic chest pain related with reflux, sinus/lung infection related with fungus . He also had a lot of stress lately since he moved back to [place] from [place] in December and he has been building his house. Currently , he lives in . Work up was unremarkable for soft tissue mass or foreign body in the neck CXR are unremarkable. Subjective Patient's past history, medications, and allergies were reviewed. Objective Physical Exam Most Recent Vital Signs: BP: 149 mmHg/88 mmHg (05/11/24 1300) Pulse: 61 (05/11/24 1300) Resp: 18 (05/11/24 1300) Temp: 36.28 C (05/11/24925) Temp Summary: Temp Min: 36.3 C (97.3 F) Max: 36.3 C (97.3 F) SpO2: 97 % (05/11/24 1300) O2 flow rate: Supplemental O2 Delivery: Constitutional: no acute distress HEENT: normal: normocephalic, atraumatic; no masses, tenderness, or adenopathy CV: normal rate and rhythm, no murmur, gallops or rub Chest: normal respiratory effort, breath sounds normal Abdomen: soft, normal bowel sounds, mild tenderness on deep palpation in right abdomen , no rebound, no rigidity Extremities: no edema Skin: warm, dry, intact: Neuro: alert, oriented to person, place, and time, normal mental status exam, gait normal, reflexesnormal and symmetric, sensory normal Psych: normal mood and affect, nonsuicidal, judgement normal, memory normal Oral exam-white patches in his pharynx STUDIES: Encounter Orders Labs and other studies reviewed with pertinent findings noted below: Results for orders placed or performed during the hospital encounter of 05/11/24 COMPREHENSIVE METABOLIC PANEL Result Value Ref Range BUN 12 6 - 20 mg/dL Creatinine 1.0 0.6 - 1.2 mg/dL Estimated Glomerular Filtration Rate 78 >=60 mL/min Sodium 138 135 - 146 mmol/L Potassium 4.2 3.5 - 5.1 mmol/L Chloride 103 98 - 107 mmol/L CO2 25 22 - 32 mmol/L Anion Gap 10 7 - 15 mmol/L Glucose 110 70 - 120 mg/dL Albumin 3.9 3.8 - 5.0 g/dL AST 16 10 - 50 U/L Alkaline Phosphatase 125 35 - 130 U/L Bilirubin, Total 0.6 <=1.2 mg/dL Calcium 9.4 8.4 - 10.2 mg/dL Protein 6.9 6.0 - 8.3 g/dL ALT 20 10 - 50 U/L LIPASE Result Value Ref Range Lipase 12 (L) 13 - 60 U/L LACTATE Result Value Ref Range Lactate 0.9 0.4 - 2.0 mmol/L CBC Result Value Ref Range WBC 5.45 4.00 - 10.80 K/uL RBC 5.01 4.50 - 5.25 M/uL HGB 15.7 14.0 - 16.8 g/dL HCT 47.0 40.0 - 48.4 % MCV 93.8 82.0 - 99.5 fL MCH 31.3 27.0 - 34.0 pg MCHC 33.4 32.0 - 36.0 g/dL RDW 12.0 11.5 - 15.5 % PLT 187 140 - 400 K/uL MPV 10.3 6.6 - 11.1 fL nRBCs 0 <=0 /100 WBCs DIFFERENTIAL, AUTOMATED Result Value Ref Range WBC 5.45 4.00 - 10.80 K/uL Neutrophils % 67.4 40.0 - 75.0 % Lymphocytes % 24.6 18.0 - 42.0 % Monocytes % 6.1 1.0 - 11.0 % Eosinophils % 1.1 0.0 - 6.0 % Basophils % 0.6 0.0 - 2.0 % Immature Granulocytes % 0.2 0.0 - 2.0 % Absolute Neutrophils 3.68 1.80 - 7.70 K/uL Absolute Lymphocytes 1.34 1.00 - 4.80 K/ul Absolute Monocytes 0.33 0.00 - 1.10 K/uL Absolute Eosinophils 0.06 0.00 - 0.70 K/uL Absolute Basophils 0.03 0.00 - 0.20 K/uL Absolute Immature Granulocytes 0.01 0.00 - 0.20 K/uL PROCEDURE INFORMATION: Exam: XR Chest Exam date and time: 05/11/2024 9:34 AM Age: 73 years old Clinical indication: Other: "swallowing issues" TECHNIQUE: Imaging protocol: Radiologic exam of the chest. Views: 1 view. COMPARISON: DX XR NECK TISSUE 05/11/2024 9:34 AM FINDINGS: Lungs: A 5 mm calcified granulomas noted in the left midlung. Lungs are otherwise clear. Pleural spaces: Unremarkable. No pleural effusion. No pneumothorax. Heart/Mediastinum: Unremarkable. No cardiomegaly. Bones/joints: Degenerative changes are noted in the bones. IMPRESSION IMPRESSION: No acute cardiopulmonary disease. THIS DOCUMENT HAS BEEN ELECTRONICALLY SIGNED BY DARRIAN BALLARD MD Exam Ended: 05/11/24 09:51 Last Resulted: 05/11/24 10:07 PROCEDURE INFORMATION: Exam: XR Soft Tissue Neck Exam date and time: 05/11/2024 9:34 AM Age: 73 years old Clinical indication: Other: "swallowing issues" TECHNIQUE: Imaging protocol: Radiologic exam of the soft tissues of the neck. COMPARISON: DX XR CHEST 1 VIEW 05/11/2024 9:34 AM FINDINGS: Airway: Normal. No abnormal narrowing. Soft tissues: Normal. Normal epiglottis. Bones/joints: Unremarkable. IMPRESSION IMPRESSION: No acute findings. THIS DOCUMENT HAS BEEN ELECTRONICALLY SIGNED BY DARRIAN BALLARD MD Exam Ended: 05/11/24 09:51 Last Resulted: 05/11/24 10:07 PROCEDURE INFORMATION: Exam: CT Chest With Contrast; Diagnostic Exam date and time: 05/11/2024 10:54 AM Age: 73 years old Clinical indication: Other: Problems swallowing. Prior surgery; Surgery date: 6+ months; Surgery type: Egd with dilatation. ; Additional info: Trouble swallowing TECHNIQUE: Imaging protocol: Diagnostic computed tomography of the chest with contrast. 3D rendering (Not supervised by radiologist): MIP and/or 3D reconstructed images were created by the technologist. Radiation optimization: All CT scans at this facility use at least one of these dose optimization techniques: automated exposure control; mA and/or kV adjustment per patient size (includes targeted exams where dose is matched to clinical indication); or iterative reconstruction. Contrast material: ISOVUE 370; Contrast volume: 80 ml; Contrast route: INTRAVENOUS (IV); COMPARISON: DX XR CHEST 1 VIEW 05/11/2024 9:34 AM FINDINGS: Lungs: Several scattered granulomata.No air bronchograms or focal consolidation identified. Pleural spaces: Unremarkable. No pneumothorax. No pleural effusion. Heart: Unremarkable. No cardiomegaly. No pericardial effusion. Coronary arteries: There is moderate atherosclerotic calcification of the coronary arteries. Lymph nodes: Unremarkable. No enlarged lymph nodes. Vasculature: Unremarkable. No aortic aneurysm. Gallbladder and biliary ducts: There has been a cholecystectomy. Bones/joints: The spine demonstrates moderate degenerative changes at multiple levels. Soft tissues: Unremarkable. IMPRESSION IMPRESSION: No active intrathoracic disease identified. THIS DOCUMENT HAS BEEN ELECTRONICALLY SIGNED BY BRITTNEY FRITZ MD Exam Ended: 05/11/24 11:07 Last Resulted: 05/11/24 11:38 PROCEDURE INFORMATION: Exam: CT Neck With Contrast Exam date and time: 05/11/2024 10:54 AM Age: 73 years old Clinical indication: Dysphagia / difficulty swallowing; Prior surgery; Surgery date: 6+ months; Surgery type: Egd with dilation. ; Additional info: Trouble swallowing TECHNIQUE: Imaging protocol: Computed tomography of the neck with contrast. Radiation optimization: All CT scans at this facility use at least one of these dose optimization techniques: automated exposure control; mA and/or kV adjustment per patient size (includes targeted exams where dose is matched to clinical indication); or iterative reconstruction. Contrast material: ISOVUE 370; Contrast volume: 80 ml; Contrast route: INTRAVENOUS (IV); COMPARISON: DX XR NECK TISSUE 05/11/2024 9:34 AM FINDINGS: Orbital cavities: The patient is post bilateral cataract surgery. Paranasal sinuses: There is notable mural thickening of the right maxillary antrum indicating chronic disease. 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 The patient is post right maxillary antrostomy. Salivary glands: Normal. Glands are normal in size. Pharynx: Unremarkable. No significant tonsillar enlargement. Prevertebral and retropharyngeal spaces: Unremarkable. Larynx: Unremarkable. Epiglottis is normal. Thyroid: Normal. No enlarged or calcified nodules. Trachea: Visualized trachea is unremarkable. Lungs: Unremarkable as visualized. Lymph nodes: Unremarkable. No lymphadenopathy. Bones/joints: Cervical spondylosis is noted. Soft tissues: Unremarkable. No significant soft tissue swelling. IMPRESSION IMPRESSION: No suspicious soft tissue mass, lymphadenopathy or drainable fluid collection in the neck. No foreign body identified. THIS DOCUMENT HAS BEEN ELECTRONICALLY SIGNED BY DARRIAN BALLARD MD Exam Ended: 05/11/24 11:07 Last Resulted: 05/11/24 11:33 Assessment and Plan IMPRESSION: Active Problems: Hypertension Dysphagia Jovany esophagitis (HCC) Hiatal hernia Unintentional weight loss Resolved Problems: * No resolved hospital problems. * DIFFERENTIAL AND PLAN: 73 yo M with intermittent dysphagia, reflux symptoms, feeling of mucus ball in his throat and throat pain for the past 6 weeks, s/p EGD showed jovany esophagitis. Oral exam showed white patches in his pharynx Hx of esophageal dilation in Sep 2023, hiatal hernia, acid reflux. -start IV fluconazole 200 mg daily for 1-2 weeks to cover jovany -per nursing, patient failed swallow test, Keep NPO -IV tylenol 1 g Q 6 H prn for pain -GI , nutrition, speech consult -defer esophageal manometry study to GI -continue [employer] med's levothyroxine, amlodipine , Lipitor , Protonix eye drops -hold lasix since he is not able to drink -SC Lovenox for VTE PPX -PT consult for general weakness. PHARMACOLOGIC VTE PROPHYLAXIS:Enoxaparin CODE STATUS: Full Code EXPECTED DISCHARGE DATE: No information available I spent a total of 75 minutes coordinating, documenting, and providing care for this patient excluding time spent in the performance of separately billed services. documented in this encounter Procedure Notes * Solo Stock DO - 05/12/2024 12:50 PM EDTAssociated Order(s): UPPER GI ENDOSCOPY [facility] Patient Name: Dallin Reed Procedure Date: 05/12/2024 12:50 PM Date of : 1950 Admit Type: Inpatient Note Status: Finalized Date of : 1950 Admit Type: Inpatient Age: 73 Room: [facility] 2 Gender: Male Note Status: Finalized Procedure: Upper GI endoscopy Indications: Dysphagia Providers: Dawit Fernando DO (Doctor), Artem Harris DO (Fellow) Referring MD: Solo Stock DO Medicines: General Anesthesia Complications: No immediate complications. Estimated blood loss: Minimal. Procedure: Pre-Anesthesia Assessment: - Prior to the procedure, a History and Physical was performed, and patient medications, allergies and sensitivities were reviewed. The patient's tolerance of previous anesthesia was reviewed. - The risks and benefits of the procedure and the sedation options and risks were discussed with the patient. All questions were answered and informed consent was obtained. - Patient identification and proposed procedure were verified prior to the procedure by the physician, the nurse and the employee communications specialist. The procedure was verified in the procedure room. - Pre-procedure physical examination revealed no contraindications to sedation. - ASA Grade Assessment: III - A patient with severe systemic disease. - After reviewing the risks and benefits, the patient was deemed in satisfactory condition to undergo the procedure. - The anesthesia plan was to use general anesthesia. - Immediately prior to administration of medications, the patient was re- assessed for adequacy to receive sedatives. - The heart rate, respiratory rate, oxygen saturations, blood pressure, adequacy of pulmonary ventilation, and response to care were monitored throughout the procedure. - The physical status of the patient was re-assessed after the procedure. After obtaining informed consent, the endoscope was passed under direct vision. All instruments were visually inspected immediately before and after removal from the patient to ensure they are fully intact. Throughout the procedure, the patient's blood pressure, pulse, and oxygen saturations were monitored continuously. The GIF-H180J Endoscope ([id number]) was introduced through the mouth, and advanced to the third part of duodenum. The upper GI endoscopy was accomplished without difficulty. The patient tolerated the procedure well. I was present and participated during the entire procedure from insertion to removal of the endoscope Findings & Specimens: The lower third of the esophagus was mildly tortuous. A guidewire was placed and the scope was withdrawn. Dilation was performed with a Savary dilator with no resistance at 45 Fr, 48 Fr, 51 Fr and 54 Fr. The dilation site was examined following endoscope reinsertion and showed no change. Estimated blood loss was minimal. A 2 cm hiatal hernia was found. The proximal extent of the gastric folds (end of tubular esophagus)was 38 cm from the incisors. The hiatal narrowing was 40 cm from the incisors. The Z-line was 38 cm from the incisors. The gastric fundus, gastric body, incisura and gastric antrum were normal. The examined duodenum was normal. Impression: - Tortuous esophagus. - 2 cm hiatal hernia. - Normal gastric fundus, gastric body, incisura and antrum. - Normal examined duodenum. - No specimens collected. Recommendation: - Return patient to [facility] for [facility] care. - Mechanical soft diet today. - Repeat upper endoscopy PRN for retreatment. Dawit Fernando DO 05/12/2024 1:25:15 PM This report has been signed electronically. Artem Harris DO Estimated Blood Loss: Estimated blood loss was minimal. documented in this encounter Consult Notes * Florencia Sierra, PT - 05/12/2024 1:11 PM EDTAssociated Order(s): ADULT PHYSICAL THERAPY CONSULT IP PT consult noted. Patient off of floor for EGD at this time. Will reschedule consult for 05/13. * Lashell Staples, RDN - 05/12/2024 9:27 AM EDTAssociated Order(s): NUTRITION SERVICES (DIETITIAN) CONSULT IP CLINICAL NUTRITION CONSULT/PROGRESS NOTE [address] [id number] Name: Dallin Reed Location: [facility] 5A-5113/W Date: 05/12/2024 Time: 9:27 AM How patient was identified (select 2): date and Name Discussed in interdisciplinary rounds: Dedra Reed is a 73 year old male being seen for consult by provider, reduced dietary intake, and significant unintentional weight loss Primary Diagnosis: Esophageal dysmotility Other pertinent information: Patient reports he has been having difficulties with swallowing since September, and has progressively gotten worse. Patient reports about 1 month ago, he started consumingsmoothies and liquidy mashed potatoes and that is it. Patient tells me he uses the [employer] Instant Breakfast powder to boost his calorie intakes with whole milk, but it still is not meeting his needs. Patient reports he has lost about 35 lbs in the past 6 weeks (severe 13% wt loss). Patient seen by GI prior to our meeting, pt will have EGD today with esophageal dilation. Patient allowed me to perform a nutrition focused physical exam, findings unremarkable at this time. However, due to pt's severe wt loss and decreased energy intakes, pt still meets criteria for malnutrition. Patient agreeable to boost very high calorie supplements once diet is advanced and pt ableto consume PO intake. Did discuss possible other options with patient, if pt continues to have difficulties with dysphagia, such as a feeding tube - pt had questions regarding what would happen if hewas not able to swallow. At this time, will monitor how pt does with esophageal dilation. NUTRITION ASSESSMENT: Past medical/surgical history and medications reviewed. Food/Nutrition-Related History Diet: NPO Previously followed diet: Regular as tolerated Food Allergies/Intolerances: NKFA Adult Energy Intake: Less than 75% of estimated energy requirement for greater than 1 month (moderate/severe, chronic illness). Oral Nutrition Supplement (ONS): None Pertinent medications/vitamins/minerals/supplements: Medications reviewed. No significant nutritionrelated medications noted. Pertinent Biochemical Data: Labs reviewed. There are no biochemical abnormalities requiring a change in nutrition plan of care at this time. Nutrition-Focused Physical Findings: Appearance: Edematous (location): L arm, R hand Respiratory support: Supplemental O2 Delivery: Room Air, None Nasal/Oral: Swallow function, compromised or painful Digestive: Nausea Last Bowel Movement: 05/11/24 (05/11/24 1350) Cognition: Awake, alert and Oriented Skin: Intact Enteral access: None Nutrition Focused Physical Exam: NFPE completed on 05/12/2024 Subcutaneous Fat Loss: No significant subcutaneous fat loss noted. Muscle Loss: No significant muscle loss noted. Edema Location: Upper Extremities;Right (05/12/24 0742) Edema Assessment: +3 - Description (05/12/24 0742) Anthropometrics Measurements Height: 172.7 cm (5' 8") (05/11/24 1401) Admission weight: 102.4 kg Weight: 102.4 kg (225 lb 11.2 oz) (05/12/24 0600) BMI: 34.43 (05/11/24 1401) Usual Body Weight: 118.2 kg [place] weight: 74.3 kg [place] Weight Based on BMI: 24.9 Interpretation of Weight Change Prior to Admission: Greater than 5% weight loss in 1 month (Severe) Nutrition Prescription: Energy needs: 22-25 Kcal/kg Kcal/day: 2981-6474 Based on current weight Protein needs: 0.8-1.0 gm/kg Protein: 82-102 Based on current weight Fluid needs: 25 ml/kg Fluid: 2560 ml/day Based on current weight Malnutrition: Malnutrition Present: Yes (05/12/24 110) Adult Malnutrition Classification: Moderate (05/12/24 110) Malnutrition Characteristics: Inadequate energy intake;Weight loss (05/12/24 110) Malnutrition Care Plan: Patient meets ASPEN/AND criteria for moderate malnutrition. Patient is currently NPO secondary to dysphagia and EGD today. To follow for initiation of diet and/or implementation of appropriate malnutrition intervention per clinical guidelines. Should diet notbe initiated in 3-5 days, will consider enteral or parenteral nutrition. NUTRITION DIAGNOSIS: Malnutrition moderate related to chronic illness as evidenced by patient consuming less than 75% ofestimated energy requirements x 1 month and greater than 5% weight loss x 1 month. Swallowing difficulty related to dysphagia as evidenced by need for NPO status and esophageal dilation. Goals: Diet advancement or initiation of enteral/parenteral nutrition within 24-48 hours. NUTRITION INTERVENTION/PLAN: Continue to monitor NPO/clear liquid status Clinical Nutrition Recommendations: Diet: Advance diet when clinically feasible NUTRITION MONITORING AND EVALUATION: NPO status/diet advancement and tolerance Lab values warranting change with MNT Weight for trends Plan follow-up: Will follow and adjust nutrition plan of care as medical condition requires. Please contact for change(s) in patient condition requiring earlier intervention. Lashell Staples, , RDN, LDN Clinical Dietitian [facility] Available via [employer] Text [phone] * Anais Levy PA-C - 05/12/2024 8:39 AM EDTAssociated Order(s): GASTROENTEROLOGY CONSULT IP CONSULT - Gastroenterology [facility]-[address] [address] Name: Dallin Reed Location: [facility] 5A-5113/W Date: 05/12/2024 Time: 8:39 AM REQUESTING SERVICE: medicine REASON FOR CONSULT: dysphagia HPI: Dallin Reed is a 73 year old male with a PMH as listed, s/p EGD at [facility] 2 weeks ago by Desire just seen as OP in our clinic 05/09/24 for second opinion, admitted with worsening dysphagia. Barium swallow 02/13/2024: No esophageal mass or stricture identified. 13 mm barium tablet passed into the stomach. Moderate esophageal dysmotility. Several episodes of gastroesophageal reflux. CT of the abdomen pelvis 03/25/2024: No acute intra-abdominal or intrapelvic abnormality, colonic diverticulosis. EGD 04/2024 - showing a 2 cm HH, LA grade B reflux esophagitis with no bleeding. Biopsies taken- results showed moderate chronic active Phelps's esophagitis with diffuse intestinal metaplasia, no dysplasia or carcinoma seen. Esophageal plaque was suspicious for candidiasis-- biopsy taken; fungal spores were not seen Duodenum was normal. Placed on BID PPI and Diflucan, which he continues. Patient states that Sunday was the last time he was able to successfully swallow anything. When he tries, even water will come back up. He is tolerating his secretions. He reports ss chest discomfort, epigastric pain and reflux despite BID PPI. Bowels are moving regularly. No red blood or dark stools. Chest CT - IMPRESSION: No active intrathoracic disease identified. Neck CT - IMPRESSION: No suspicious soft tissue mass, lymphadenopathy or drainable fluid collection in the neck. No foreign body identified. HISTORY: Past Medical History: Past Medical History: Diagnosis [...] by Latricia Howard MD at [facility], GI REFERRAL OP 05/14/2006 diverticulosis noted, with internal hemorrhoids, repeat in 2016 EGD, FLEXIBLE, W/BIOPSY 08/15/2006 [facility], jovany esophagitis, neg for H pylori EXPLORATION OF ABDOMEN 10/06/2010 Exploratory laparotomy; extensive adhesiolysis; incisional hernia x 3 Dr Beltran 10/06/2010 [facility] EXPLORATION OF ABDOMEN 12/29/2010 1.Exploratory Laparotomy. 2. Removal of infected mesh. 3. Closure with wound VAC. Dr Beltran 12/29/2010 [facility] EXPLORATION OF ABDOMEN 02/09/2011 1.Exploratory laparotomy 2. Extensive lysis of adhesions 3. Removal of infected mesh 4. Enterotomy repair X 4 5. Closure of abdominal wound. Dr Beltran 02/09/2011 [facility] IMPLANT MESH W/ ABD HERNIA REPR/DEBRIDE 10/02/2011 IMPLANTATION MESH WITH INCISIONAL/VENTRAL HERNIA performed by SEMIAN, JAKOB at [place] [facility] INFORMATION fx back LAPAROSCOPY; CHOLECYSTECTOMY 08/12/2011 LAPAROSCOPIC CHOLECYSTECTOMY performed by NAMRATA WAGNER at [place] [facility] OTHER 07/27/2009 exploratory laparotomy. extensive adhesiolysis. Partial small bowel resection with primary anastomosis. Incision hernia repair (primary), 07/27/09, Dr. Beltran OTHER 09/15/2009 exploratory laparotomy, extensive lysis of adhesions (greater than 3 hours), partial small bowel resection with primiary anastomosis (30 cm of jejunum): partial small bowel resection with primary anastomosis (25 cm of distal ileum):incisional hernia repair (primary): omentectomy 09/15/09 [facility], Dr. Aicha harley PARTIAL COLECTOMY W/ANASTOMOSIS 08/22/2007 Sigmoid colectomy w/ primary anastomosis and completion proctoscopy/[facility]/ REMOVAL OF RUPTURED APPENDIX 09/03/1981 Appendectomy, Rupt Appendx+Abscess REPAIR INITIAL INCISIONAL OR VENTRAL HERNIA; REDUCIBLE 10/02/2011 REPAIR INITIAL INCISIONAL /VENTRAL HERNIA REDUCIBLE performed by NAMRATA WAGNER [facility] UPPER GI ENDOSCOPY Social History: Social History Tobacco Use Smoking status: Never Smokeless tobacco: Never Vaping Use Vaping status: Never Used Substance Use Topics Alcohol use: No Drug use: No Family History: Family History Problem Relation Name Age of Onset Cancer Mother Diabetes Mother Lung cancer Father Macular degeneration Father Diabetes Father Breast Cancer Sister Bone cancer Sister Colon cancer Brother Cancer Grandfather (Paternal) colon Allergies: Shellfish-derived products, Clindamycin, Aspirin, Gabapentin, Iodine, Lorazepam, and Penicillins ROS: Constitutional: (-) fever, chills, sweats Eyes: (-) negative, no scleral icterus, pain, blurred vision, or redness ENT: (-) negative: no acute hearing loss, sinus, ear or throat problems Cardiovascular: (+) chest discomfort Pulmonary: (-) negative: no cough, wheezing, or shortness of breath Abdominal/GI: as per HPI, otherwise negative Musculoskeletal: (-) negative: no joint swelling or tenderness Endocrine: (-) heat intolerance and (-) cold intolerance Hematology/oncology: (-) negative: no night sweats, masses, or swollen nodes Skin: (-) negative: no rash or jaundice Neurology: (-) negative: no focal neurologic defect or confusion Male : unremarkable PHYSICAL EXAMINATION: Most Recent Vital Signs: BP: 128 mmHg/80 mmHg (05/12/24731) Pulse: 80 (05/12/24731) Resp: 16 (05/12/24731) Temp: 35.78 C (05/12/24731) Temp Summary: Temp Min: 35.8 C (96.4 F) Max: 36.3 C (97.3 F) SpO2: 96 % (05/12/24731) O2 flow rate: Supplemental O2 Delivery: Room Air, None (05/12/24741) Vital Signs Last 24 Hours: Systolic BP: Most Recent Systolic BP Av.2 mmHg Min: 125 mmHg Max: 155 mmHg Temperature: Most Recent Temperature Av C Min: 35.78 C Max: 36.28 C Pulse: Pulse Av.3 Min: 61 Max: 80 Respirations: Resp Av.1 Min: 16 Max: 18 SpO2: SpO2 Av.6 % Min: 94 % Max: 97 % Constitutional: no acute distress HEENT: normal: normocephalic, atraumatic Eyes: no scleral icterus, redness, or injection Neck: supple, normal range of motion CV: normal rate, normal rhythm Chest: normal respiratory effort, lungs clear to auscultation with equal chest exertion Abdomen: soft, normal bowel sounds, nondistended, +epigastric tenderness to palpation Musculoskeletal: (-) no joint effusions or tenderness Extremities: (+) BUE extremity edema. No lower extremity edema Skin: warm and dry, no rashes Neuro: alert Psych: normal mood and affect, nonsuicidal LABS: Labs reviewed. Recent Results (from the past 24 hour(s)) COMPREHENSIVE METABOLIC PANEL Collection Time: 05/11/24 10:20 AM Result Value Ref Range BUN 12 6 - 20 mg/dL Creatinine 1.0 0.6 - 1.2 mg/dL Estimated Glomerular Filtration Rate 78 >=60 mL/min Sodium 138 135 - 146 mmol/L Potassium 4.2 3.5 - 5.1 mmol/L Chloride 103 98 - 107 mmol/L CO2 25 22 - 32 mmol/L Anion Gap 10 7 - 15 mmol/L Glucose 110 70 - 120 mg/dL Albumin 3.9 3.8 - 5.0 g/dL AST 16 10 - 50 U/L Alkaline Phosphatase 125 35 - 130 U/L Bilirubin, Total 0.6 <=1.2 mg/dL Calcium 9.4 8.4 - 10.2 mg/dL Protein 6.9 6.0 - 8.3 g/dL ALT 20 10 - 50 U/L LIPASE Collection Time: 05/11/24 10:20 AM Result Value Ref Range Lipase 12 (L) 13 - 60 U/L LACTATE Collection Time: 05/11/24 10:20 AM Result Value Ref Range Lactate 0.9 0.4 - 2.0 mmol/L CBC Collection Time: 05/11/24 10:20 AM Result Value Ref Range WBC 5.45 4.00 - 10.80 K/uL RBC 5.01 4.50 - 5.25 M/uL HGB 15.7 14.0 - 16.8 g/dL HCT 47.0 40.0 - 48.4 % MCV 93.8 82.0 - 99.5 fL MCH 31.3 27.0 - 34.0 pg MCHC 33.4 32.0 - 36.0 g/dL RDW 12.0 11.5 - 15.5 % PLT 187 140 - 400 K/uL MPV 10.3 6.6 - 11.1 fL nRBCs 0 <=0 /100 WBCs DIFFERENTIAL, AUTOMATED Collection Time: 05/11/24 10:20 AM Result Value Ref Range WBC 5.45 4.00 - 10.80 K/uL Neutrophils % 67.4 40.0 - 75.0 % Lymphocytes % 24.6 18.0 - 42.0 % Monocytes % 6.1 1.0 - 11.0 % Eosinophils % 1.1 0.0 - 6.0 % Basophils % 0.6 0.0 - 2.0 % Immature Granulocytes % 0.2 0.0 - 2.0 % Absolute Neutrophils 3.68 1.80 - 7.70 K/uL Absolute Lymphocytes 1.34 1.00 - 4.80 K/ul Absolute Monocytes 0.33 0.00 - 1.10 K/uL Absolute Eosinophils 0.06 0.00 - 0.70 K/uL Absolute Basophils 0.03 0.00 - 0.20 K/uL Absolute Immature Granulocytes 0.01 0.00 - 0.20 K/uL GLUCOSE METER, POINT OF CARE Collection Time: 05/11/24 9:47 PM Result Value Ref Range Glucose Meter 89 70 - 120 mg/dL BASIC METABOLIC PANEL Collection Time: 05/12/24 5:35 AM Result Value Ref Range BUN 15 6 - 20 mg/dL Creatinine 0.9 0.6 - 1.2 mg/dL Estimated Glomerular Filtration Rate 89 >=60 mL/min Sodium 138 135 - 146 mmol/L Potassium 3.9 3.5 - 5.1 mmol/L Chloride 102 98 - 107 mmol/L CO2 25 22 - 32 mmol/L Anion Gap 11 7 - 15 mmol/L Glucose 89 70 - 120 mg/dL Calcium 9.4 8.4 - 10.2 mg/dL CBC Collection Time: 05/12/24 5:35 AM Result Value Ref Range WBC 6.53 4.00 - 10.80 K/uL RBC 5.28 4.50 - 5.25 M/uL HGB 16.6 14.0 - 16.8 g/dL HCT 49.1 (H) 40.0 - 48.4 % MCV 93.0 82.0 - 99.5 fL MCH 31.4 27.0 - 34.0 pg MCHC 33.8 32.0 - 36.0 g/dL RDW 12.4 11.5 - 15.5 % PLT 187 140 - 400 K/uL MPV 10.9 6.6 - 11.1 fL nRBCs 0 <=0 /100 WBCs PT INR Collection Time: 05/12/24 5:35 AM Result Value Ref Range Prothrombin Time 13.6 11.6 - 15.2 seconds INR 1.0 0.8 - 1.2 MAGNESIUM Collection Time: 05/12/24 5:35 AM Result Value Ref Range Magnesium 2.3 1.5 - 2.6 mg/dL PHOSPHORUS Collection Time: 05/12/24 5:35 AM Result Value Ref Range Phosphorus 3.4 2.5 - 4.8 mg/dL IMPRESSION: Dallin Reed is a(n) 73 year old male admitted with progressive dysphagia. RECOMMENDATIONS/PLAN: Patient states he had esophageal dilation in September and had relief for several weeks. He was not dilated with his most recent EGD. Will plan an EGD today with esophageal dilation, pending IV access (currently no IV access and IV team is having some difficulty.) Keep NPO. Continue BID IV PPI and IV fluconazole as current. I have discussed the case with my attending, Dr Fernando Associated attestation - Dawit Fernando DO - 05/12/2024 12:52 PM EDT I have reviewed the advanced practitioner's documentation on the date of service referenced in note, and I agree with, and take responsibility for the plan of care. The patient presents with progressive solid food dysphagia. The patient reports that he underwent upper endoscopy 9 months ago while living in [facility], at that time a dilation was performed,he notes that he had significant improvement of his symptoms at that time. Unfortunately the patient did have upper endoscopy at [facility] they elected to not perform dilation and the patient has had progressive symptoms. The patient did have a barium swallow performed which showed hiatal hernia and nonspecific dysmotility. Given these findings we will proceed with upper endoscopy and esophageal dilation as this help withhis symptoms and past. Should the patient's symptoms not improve with this therapy then outpatient motility would be of benefit to evaluate for a potential motility disorder. I have discussed the risks of the procedure with the patient to include bleeding infection perforation pain aspiration and the need for follow-up studies. I spent a total of 20 minutes coordinating, documenting, and providing care for this patient excluding time spent in the performance of separately billed services or time spent by another provider/QHP. documented in this encounter Nursing Notes * Nicola Fraire LPN - 05/13/2024 6:44 AM EDT Pt slept in recliner during this shift. Pt spoke of chronic back pain and received prn pain medication. Pt reported no pain at rest but increased pain with movement. Pt did have a snack of cracker during this shift and denied issues with pain when swallowing or after finishing them. * Jayla Horton RN - 05/12/2024 1:59 PM EDT Returned to via liter. * Jayla Horton RN - 05/12/2024 1:50 PM EDT Report called to Ariadne on 5A. * Jayla Horton RN - 05/12/2024 1:50 PM EDT D/C instructions reviewed and given to pt and verbalized understanding. Med list sent with pt. * Jayla Horton RN - 05/12/2024 1:41 PM EDT HOB elevated, tolerating drink * Jayla Horton RN - 05/12/2024 1:27 PM EDT Pt received in recovery post EGD,airway patent, lying on left side * Jayla Horton RN - 05/12/2024 1:25 PM EDT EGD completed. Patient tolerated well. Airway patent. Sedated by TECHNICIAN INVENTORY SPECIALIST, see anesthesia record for medications and vital signs. Abd soft. Resting with HOB elevated. To recovery room via stretcher. Report given to recovery room staff nurse. Dilated to 54FR Bedside pre clean of endoscope performed at completion of procedure * Mary Beth Chin RN - 05/12/2024 12:09 PM EDT Nursing assessment completed. Pt awaiting procedure. Declines any needs. Anesthesia made aware pt ready to be seen. * Michael Villasenor RN - 05/11/2024 4:23 PM EDT Pt arrived to floor at 1350. VS and standing weight obtained. Dual skin assessment completed. Admission assessment completed and documented. Admission questions completed at bedside. Pt oriented to call [facility]. Pt failed 3oz water swallow challenge. Provider made aware. Pt came from ED with infiltrated IV site wrapped with an RORY bandage. IV nurse Cuca removed the RORY wrap. Per her instructions, this RN elevated the RUE on 2 pillows and applied ice. * Emily Villasenor RN - 05/11/2024 1:57 PM EDT Dual Licensed Skin Assessment completed by galina hunter and Michael. The patient is/has a N/A Skin Breakdown (includes non blanchable erythema): No * Meenakshi Kim RN - 05/11/2024 9:36 AM EDT Patient presents to ER for difficulty swallowing. Patient states this has been an issue since September. He has seen GI and had an EGD in September and he states he was dilated and then recently had an EGD 2 weeks ago at [facility]. States he was treated for esophageal thrush and just finished PO diflucan. He was instructed by GI to come here if difficulty swallowing continued. Patient states he tried to swallow gatorade this morning and he could not and immediately spit it back out. Mouth and throat pink and moist. [address] getting contrast dye. IV site infiltrated +2 1340 Report called to Emily on 5a documented in this encounter ED Notes * Darrian Parker MD - 05/11/2024 10:13 AM EDT HISTORY OF PRESENT ILLNESS Dallin Reed is a 73 year old male who presents to the ED for evaluation of Trouble Swallowing. The patient was seen at 05/11/24 0924. 73 y/o M presents to the ED with difficulty swallowing. He and his are at bedside and togetherthey provide the history. They relocated from the [facility] earlier this year. Since September of this year, patient was had difficulty swallowing intermittently. Intermittent abdominal pain. He has lost proximally 35 lbs since February of this year. He has been unable tolerate any solids. He can only really tolerate protein shakes. He can now no longer tolerate liquids. This occurred more abruptly this morning. They describe having a detailed discussion with various outpatient GI providers. They describe being scheduled for an esophageal manometry test 2 days ago. Unfortunately, patient had an upper GI on 04/25/2024 which diagnosed candidiasis. He has been on fluconazole. They wereunable to perform the manometry test due to patient's inability to swallow and his active infection. He was scheduled with an appointment with a GI professional later this week. The patient's allergies, past history, and medications were reviewed. PHYSICAL EXAM Initial Vitals (see all): BP 135/99 | Pulse 80 | Resp 18 | Temp 97.3 | O2 97 %, Room Air, None | Weight 102.69 kg | Height 172.7 cm | BMI 34.42 kg/m2 Initial Pain Assessment (see all): 7 (severe pain)/10, Throbbing, location: abdomen ([facility] Adult Scale 0-10) Physical Exam Vitals and nursing note reviewed. Constitutional: General: He is not in acute distress. Comments: Well-appearing; speaking and breathing without difficulty HENT: Head: Normocephalic and atraumatic. Mouth/Throat: Pharynx: Uvula midline. No pharyngeal swelling, oropharyngeal exudate or posterior oropharyngeal erythema. Cardiovascular: Rate and Rhythm: Normal rate and regular rhythm. Pulmonary: Effort: Pulmonary effort is normal. No respiratory distress. Breath sounds: No wheezing. Abdominal: Palpations: Abdomen is soft. Tenderness: There is abdominal tenderness (mild). There is no guarding or rebound. Musculoskeletal: General: Normal range of motion. Skin: General: Skin is warm and dry. Neurological: Mental Status: He is alert. Mental status is at baseline. Psychiatric: Behavior: Behavior is cooperative. PROCEDURES AND TREATMENTS ED Orders | ED Results MEDICAL DECISION MAKING Nursing notes and vital signs were reviewed. ED consults were placed. Differential Diagnoses Based on my history, physical exam, and evaluation, the differential includes, but is not limited, to the following diagnoses: Esophagitis, Jovany infection, achalasia, esophageal dysmotility. Patient presents to the emergency department with longstanding issues with swallowing. Today's unable to even swallow liquids. Previously, he has been able to swallow liquids but is losing weight. Describes 35 lb weight loss over the past 3 months. He appears well here in no acute distress. He was followed with various hospitals and providers outside [facility]. We will perform advanced imaging ofhis neck and chest at this time. Suspect likely achalasia. Suspect his Jovany infection is causingsome of his concerns as well. Consider esophageal dysmotility. Amount and/or Complexity of Data Reviewed Labs: ordered. Decision-making details documented in ED Course. Radiology: ordered. Risk Prescription drug management. Decision regarding hospitalization. ED Course as of 05/11/24 1718 Sun May 11, 2024 1008 Chest x-ray negative for acute process [DR] 1008 Neck x-ray negative [DR] 1016 Upper GI from [facility] performed on 04/25/2024: 2 cm hiatal hernia. Grade B reflux esophagitis with no bleeding. Esophageal plaques were found, suspicious for candidiasis. These were biopsied. Normal examined duodenum. [DR] 1129 Lipase(!): 12 [DR] 1129 Lactate: 0.9 [DR] 1129 CBC and CMP reassuring [DR] 1206 CT neck: IMPRESSION: No suspicious soft tissue mass, lymphadenopathy or drainable fluid collection in the neck. No foreign body identified. [DR] 1206 CT chest: IMPRESSION: No active intrathoracic disease identified. [DR] 1239 Patient unable to tolerate liquid. Will contact on-call Dr. Vamshi PARMAR. Patient and in agreement [DR] [address] Vamshi PARMAR: Admit Speech tx GI consult Sips and chips as tolerated Ppi Diflucan Npo after midnight [DR] 1254 Patient was reassessed and deemed ready for admission. I discussed the case with the Hospital Medicine service and they will accept patient for admission and further management [DR] ED Course User Index [] Darrian Parker MD Clinical Impressions Esophageal dysmotility Disposition Admitted. I discussed the management of this patient with the admitting provider and I made a decision to admit the patient. Admission Order Ordered Status . 05/11/24 1254 Admit for Inpatient Services (incl ZPO) ONCE Completed Darrian Parker * Rayshawn Tadeo RN - 05/11/2024 9:24 AM EDT Pt c/o not being able to swallow. Pt states this has been ongoing for "quite some time" but is intermittent. Pt states that today, he tried to drink gatorade but regurgitated it. Pt was recently seenby GI and was told to come to ED if he worsened. documented in this encounter Miscellaneous Notes * Communication - Nicole Dubon RN - 05/13/2024 10:30 AM EDT Appointments: You have a appointment with Gastroenterology June 11, 2024 at 9:00 am. [facility] [address] [facility] [place] You have a hospital follow up appointment with Anna Walsh May 21, 2024 at 9:00 am. [facility], [address] [place] You have a appointment with [facility] May 16, 2024 at 9:00 am [address] [facility] [place] * Pt Handout (on AVS) - Nicole Dubon RN - 05/13/2024 9:55 AM EDT Images from the original note were not included. [address]1387 Esophageal Dilation An esophageal dilation is a procedure used to widen a narrowed section of your esophagus. This is the tube that leads from your throat to your stomach. Narrowing (stricture) of the esophagus can cause problems. These include trouble swallowing. This sheet explains what to expect with esophageal dilation. Why esophageal dilation is needed Several problems can be treated with esophageal dilation. They include: Peptic stricture. This is caused by reflux esophagitis. With this problem, the esophagus is irritated by acid reflux (heartburn). This occurs when acid from your stomach flows back up into the esophagus. Stomach acid damages the lining of the esophagus. This leads to a buildup of scar tissue. Asa result, the esophagus is narrowed. Schatzki?s ring. This is an abnormal ring of tissue. It forms where the esophagus meets the stomach. It can cause trouble swallowing. It can also cause food to get stuck in the esophagus. The cause of this condition is not known. Achalasia. This condition stops food and liquids from moving into your stomach from the esophagus. It affects the lower esophageal sphincter (LES). The LES is a muscular ring that opens (relaxes) when you swallow. With achalasia, the LES does not relax. This condition can also cause problems with peristalsis. This is the normal muscular action of the esophagus that moves food into the stomach. Eosinophilic esophagitis. This is a redness and swelling (inflammation) in the esophagus. It's caused by an environmental trigger, such as a food allergy. It can lead to pain, trouble swallowing, and strictures. Less common causes of stricture. Other causes of stricture include radiation treatment and cancer. Before you have esophageal dilation Tell your healthcare provider about any medicines you take. This includes prescription medicines, [id number] medicines, herbs, vitamins, and other supplements. Be sure to mention aspirin or any blood thinners you?re taking. Let your provider know if you need to take antibiotics before dental procedures. You may need totake them before esophageal dilation as well. Tell your provider about any health conditions you have, such as heart or lung disease. Also mention any recent illnesses and any allergies to medicines. You?ll need to have an empty stomach for the procedure. Follow your provider?s instructions for not eating and drinking before the procedure. Arrange to have a family member or friend drive you home after the procedure. During the procedure A balloon dilator may be used to widen a stricture in the esophagus. You may be given local anesthesia to numb your throat. You?ll also likely be given medicine to relax you. The procedure takes about 15 minutes. It does not cause trouble breathing. A tube called an endoscope (scope) is used. This is a narrow tube with a tiny light and camera at the end. The scope is inserted through your mouth and into your esophagus. It lets your healthcareprovider see inside your esophagus. To help guide your provider, an imaging method called fluoroscopy may also be used. This creates a moving X-ray image on a computer screen. Next, special tiny tools are carefully guided through your mouth and down into the esophagus. They widen the stricture and are then removed. Different types of instruments are used. The type used depends on the size and cause of the stricture. Types include: o Balloon dilator. A tiny, empty balloon is put into the stricture using an endoscope. The balloon is slowly filled with air. The air is removed from the balloon when the stricture is widened to the right size. Balloon dilators are used to treat many types of strictures. o Guided wire dilator. A thin wire is eased down the esophagus. A small tube that?s wider on one end is guided down the wire. It's put into the stricture to stretch it. These dilators are used to treat all kinds of strictures. o Bougies. These are weighted, cone-shaped tubes. Starting with smaller cones, your provider uses increasingly larger cones until the stricture is stretched the right amount. Bougies are often used to treat strictures that are simple (short, straight, and not very narrow). After the procedure You?ll be watched closely until your healthcare provider says you?re ready to go home. You?ll need to have a friend or family member drive you home. You may have a sore throat for the rest of the day. You may have pain behind your breastbone for a short time afterwards. You can start drinking fluids again after the numbness in your throat goes away. You can resume eating the same day or the next day. Risks and possible complications Risks and possible complications of esophageal dilation include: Infection A tear or hole in the esophagus lining, causing bleeding and possibly needing surgery to fix Risks of anesthesia Follow-up You may need to have the procedure repeated one or more times. This depends on the cause and extentof the narrowing. Repeat procedures can allow the dilation to take place more slowly. This reduces the risks of the procedure. If your stricture was caused by reflux esophagitis, you?ll likely need to take medicine to treat that condition. Your healthcare provider will tell you more. When to call your healthcare provider Call your healthcare provider right away if you have any of the following after the procedure: Fever of 100.4F (38.0C) or higher, or as directed by your healthcare provider Chest pain Trouble swallowing Vomiting blood or material that looks like coffee grounds Bleeding Black, tarry, or bloody stools Last Reviewed Date: 11/01/202119992161-0987 [employer]. All rights reserved. This information is not intended as a substitute for professional medical care. Always follow your healthcare professional's instructions. * Pt Handout (on AVS) - Nicole Dubon RN - 05/13/2024 9:55 AM EDT [id number] Hiatal Hernia The diaphragm is a thin sheet of muscle that runs across the top of the stomach. The small opening in the diaphragm where the food pipe (esophagus) and stomach meet is called the hiatus. When you eat, the muscle around the hiatus relaxes to let food pass from the esophagus into the stomach. The hiatus tightens to keep food and acid in the stomach. In some people, the hiatus is too large or the muscle around it is weak. Then the top of the stomach can push upward through the hiatus. This is called a hiatal hernia. A hiatal hernia can let stomach acid flow back up the esophagus. This is called acid reflux. Hiatal hernias are common. You may also hear them called diaphragmatic hernias. The cause of a hiatal hernia is not certain, but some things may make it more likely. These may include obesity, , and vomiting or coughing. Many people with hiatal hernia don't have symptoms. Often the symptoms are like those of GERD (gastroesophageal reflux disease or acid reflux). They can include: Burning feeling under the breastbone (heartburn) Other mild chest pain Frequent burping Food coming back up into the throat or mouth Acid taste in the mouth Trouble swallowing food or liquid Nighttime choking, coughing, or wheezing Feeling full after eating only a small amount of food Nausea and vomiting Treatment can reduce symptoms. This includes medicines and lifestyle changes. In severe cases, you may need surgery to tighten the hiatus. Home care Medicines help control symptoms, but they can't fix the hernia. Antacids help neutralize the normal acids in your stomach. You may find one works better than another for you. Acid blockers (H2 blockers) decrease acid production. Acid inhibitors (PPIs) decrease acid production in a different way than the blockers. Don't take nonsteroidal anti-inflammatory drugs (NSAIDs) such as aspirin, ibuprofen, and naproxen. These may worsen symptoms in some people. If you are taking these medicines for another health problem, talk with your healthcare provider before stopping them. Lifestyle changes are important in treating your symptoms. You can help reduce or ease your symptoms if you: Stop smoking and using tobacco. Also if possible, stay away from secondhand smoke. Lose excess weight. Excess weight puts pressure on the stomach and esophagus. Symptoms can be worsened by certain foods. Limit or stay away from fatty, fried, and spicy foods, as well as coffee, chocolate, and mint. Also stay away from foods with high acid content. These include tomatoes and citrus fruit and juices (orange, grapefruit, lemon). Eat smaller amounts at a time. Don't get overfull. Don't use alcohol, caffeine, or tobacco. They can delay healing and worsen your symptoms. If you get symptoms overnight, prop up the head of your bed. For instance, use 2 bed risers under the frame, at the head of the bed. Or use a wedge pillow to raise (elevate) your head. Follow-up care Follow up with your healthcare provider. Regular visits may be needed to check on your health. Be sure to take any medicines as prescribed and keep all your appointments. In some cases, you may need surgery to stop symptoms. Your healthcare provider will talk with you about this option if needed. When to get medical advice Call your healthcare provider right away if any of these occur: Severe pain in your chest or belly (abdomen) Can?t keep down food or liquid Symptoms get worse Other symptoms as indicated by your healthcare provider Call 911 Call 911 if any of these occur: Trouble breathing or swallowing Worsening chest pain, especially if different from normal Vomiting blood Large amounts of blood in stool Last Reviewed Date: 07/04/202119992512-3331 [employer]. All rights reserved. This information is not intended as a substitute for professional medical care. Always follow your healthcare professional's instructions. * Care Plan - Araceli Dejesus RN - 05/13/2024 5:00 AM EDT Clinical Goal(s): Pt will sleep for at least 4 hours during this shift (05/12/242004) Possible barriers to meeting goal(s)/advancing plan of care: Stress, pain, hospital environment Stability of the patient: Moderately stable - low risk of patient condition declining or worsening Summary regarding today's goal(s): Met: Pt slept for at least 4 hours during this shift Recommendations: Continue to implement stress reduction strategies and monitor pain level, providing appropriate interventions as needed. Follow plan of care. * Care Plan - Octavia Soto RN - 05/12/2024 5:25 PM EDT Clinical Goal(s): Pt will remain free of falls this shift. (05/12/24741) Possible barriers to meeting goal(s)/advancing plan of care: admitting diagnosis Stability of the patient: Moderately stable - low risk of patient condition declining or worsening Summary regarding today's goal(s): Met: Pt remained free of falls this shift. Recommendations: continue plan of care * Progress Notes - Non-Billable - Dawit Fernando DO - 05/12/2024 1:25 PM EDT The patient underwent upper endoscopy today, the endoscopy was notable for a small hiatal hernia. Empiric dilation was performed up to 54 [place] day. Recommendations Full liquid diet today then mechanical soft diet tomorrow then as needed if tolerates Please call with any additional questions or concerns GI to sign off * Ancillary Progress Note - Domenica Olmos CCC-SLP - 05/12/2024 11:43 AM EDT Swallow consult noted. Patient here with chronic esophageal dysphagia, regurgitation with foods andliquids. GI following with plan for EGD today. Will follow along. * Care Plan - Keyanna Bryan RN - 05/12/2024 6:40 AM EDT Clinical Goal(s): Pt will remain free of falls this shift. (05/11/241919) Possible barriers to meeting goal(s)/advancing plan of care: Admitting diagnosis Stability of the patient: Moderately stable - low risk of patient condition declining or worsening Summary regarding today's goal(s): Met: Patient remained free from falls this shift. Recommendations: Continue with plan of care. * Pt Handout (on AVS) - Mckenzie Ascencio RN - 05/11/2024 9:05 PM EDT Images from the original note were not included. [id number] Dysphagia (Adult) Dysphagia is trouble swallowing. If [...] treating the cause. Your healthcare provider may assess you using X-ray, special esophagus monitors, a fiber optic look at swallowing, or an upper endoscopy. This test uses a thin, lighted tube (catheter) sent through your mouth to the esophagus. You may be given medicine toreduce stomach acid or control muscle spasms. If the problem doesn't go away, you may have a procedure to widen (dilate) the esophagus. If you have muscle or nerve problems, you may be advised to seea speech or occupational therapist. They may give [...] least 5 to10 times. Chew more dense food such as meats and vegetables up to 30 times before swallowing. Count [...] o Ask for a referral to a operations welder if you are losing weight or having trouble getting enough food each day Follow-up care Follow up with your healthcare provider or as directed. Your healthcare provider can give you information about tests you may need. When to seek medical advice Call your healthcare provider right away for any of the following: [...] secretions Loss of consciousness Last Reviewed Date: 07/04/202119994903-5612 [employer]. All rights reserved. This information is not intended as a substitute for professional medical care. Always follow your healthcare professional's instructions. * Care Plan - Michael Villasenor RN - 05/11/2024 5:15 PM EDT Clinical Goal(s): Pt will have no falls this shift. (05/11/24 1350) Possible barriers to meeting goal(s)/advancing plan of care: fall risk Stability of the patient: Moderately stable - low risk of patient condition declining or worsening Summary regarding today's goal(s): Met: pt had no falls this shift. Recommendations: continue w/current plan of care, continue to implement fall precautions * Medical Necessity - Genoveva Veras RN - 05/11/2024 1:27 PM EDT AdmissionCare Guideline: Head and Neck Disease, Inpatient Based on the indications selected for the patient, the bed status of Inpatient was determined to beMET The following indications were selected as present at the time of evaluation of the patient: - Clinical Indications for Admission to Inpatient Care - Hospital admission is needed for appropriate care of the patient because of 1 or more of the following: - Airway blockage or inability to swallow Additional Information: recently had an EGD 2 weeks ago at [facility]. States he was treated foresophageal thrush and just finished PO diflucan. He was instructed by GI to come here if difficultyswallowing continued. Patient states he tried to swallow gatorade this morning and he could not andimmediately spit it back out AdmissionCare documentation entered by: Genoveva Veras [facility] Maptia, 28th edition, Copyright 2023 [facility] Carena All Rights Reserved. [id number]:00 Solely for purpose of utilization review and payment; not a diagnostic tool * Ancillary Progress Note - Anais Crane, RT - 05/11/2024 11:11 AM EDT Dallin Vargas Derek presented for CT examination. During injection through existing 20 gauge catheter, in right hand, approximately 40mls of Isovue 370 extravasated. Site was examined and found to be swollen . ED was notified. Testing was completed. Site was monitored. Upon discharge, there were no issues. documented in this encounter Plan of Treatment Upcoming Encounters Date Type Department Care Team (Late st Contact Info) Description 05/16/2024 9:00 AM EDT Nutrition Services Nutrition, [facility] [address] [facility] [place] [address] Marilee Escudero RDN [address] [place] [address] 05/21/2024 9:00 AM EDT Office Visit Family Practice [facility] [address] [facility] [place] [address] Anna Walsh MD [address] [place] [address] 06/11/2024 9:00 AM EDT Office Visit Gastroenterology, [facility] [address] [facility] [place] [address] Megan Stephens CRNP [address] [facility] [place] [address] Scheduled Orders Name Type Priority Associated Diagnoses Orde r Schedule EGD, FLEXIBLE, DIAGNOSTIC Procedures Routine One Time for 1 Occurrences starting 05/12/2024 until 05/12/2024 Scheduled Referrals Name Type Priority Associated Diagnoses [...] this encounter Medical Devices Implanted Type Area Clinical Psychologist Private Practice Device Identifier Shelf Expiration Date Model / Serial / Lot Mesh Vicryl 6 X 6 Vkm-M - [id number] Implanted:Qty: 1 on 10/02/2011 at [place] [facility] N/A: Abdomen DO NOT USE 09/03/2015 VKM-[id number] / / [id number] Mesh 10 X 14 [id number] - [id number] Implanted:Qty: 1 on 10/02/2011 at [place] [facility] N/A: Abdomen [employer] 04/02/2016 [id number] / / [id number] documented as of this encounter Procedures Procedure Name Priority Date/Time Associated Diagnosis Comments HIV ANTIGEN & ANTIBODY SCREEN W/ CONFIRMATION Routine 05/13/2024 6:13 AM EDT BASIC METABOLIC PANEL Routine 05/13/2024 6:13 AM EDT CBC Routine 05/13/2024 6:13 AM EDT UPPER GI ENDOSCOPY 05/12/2024 12 :50 PM EDT TSH WITH FREE T4 IF INDICATED Add-on 05/12/2024 5:35 AM EDT HEMOGLOBIN A1C Add-on 05/12/2024 5:35 AM EDT BASIC METABOLIC PANEL Routine 05/12/2024 5:35 AM EDT PT INR Routine 05/12/2024 5:35 AM EDT PHOSPHORUS Routine 05/12/2024 5:35 AM EDT CBC Routine 05/12/2024 5:35 AM EDT MAGNESIUM Routine 05/12/2024 5:35 AM EDT GLUCOSE METER, POINT OF CARE GALILEA 05/11/2024 9:[address] CHEST W CONTRAST STAT 05/11/2024 1 1:[address] NECK W CONTRAST STAT 05/11/2024 11 :07 AM EDT Dysphagia, unspecified Other specified postprocedural states DIFFERENTIAL, AUTOMATED STAT 05/11/2024 10:20 AM EDT COMPREHENSIVE METABOLIC PANEL STAT 05/11/2024 10:20 AM EDT CBC STAT 05/11/2024 10:20 AM EDT LIPASE STAT 05/11/2024 10:20 AM EDT LACTATE STAT 05/11/2024 10:20 AM EDT CBC STAT 05/11/2024 10:20 AM EDT EXTRA LIGHT BLUE TOP Routine 05/11/2024 10:17 AM EDT EXTRA TUBES Routine 05/11/2024 10:17 AM EDT XR CHEST 1 VIEW STAT 05/11/2024 9:51 AM EDT XR NECK TISSUE STAT 05/11/2024 9:51 AM EDT documented in this encounter Results * BASIC METABOLIC PANEL (05/13/2024 6:13 AM EDT) BUN 15 6 - 20 mg/dL 05/13/2024 6:37 AM EDT LAB[facility]ATORY [facility] Creatinine 0.9 0.6 - 1.2 mg/dL 05/13/2024 6:37 AM EDT [facility] Estimated Glomerular Filtration Rate 86 >=60 mL/min 05/13/2024 6:37 AM EDT [facility] Comment:eGFR is calculated b ased on the CKD-EPI 2020 equation. Sodium 138 135 - 146 mmol/L 05/13/2024 6:37 AM EDT [facility] Potassium 4.9 3.5 - 5.1 mmol/L 05/13/2024 6:37 AM EDT [facility] Chloride 102 98 - 107 mmol/L 05/13/2024 6:37 AM EDT [facility] CO2 28 22 - 32 mmol/L 05/13/2024 6:37 AM EDT [facility] Anion Gap 8 7 - 15 mmol/L 05/13/2024 6:37 AM EDT [facility] Glucose 101 70 - 120 mg/dL 05/13/2024 6:37 AM EDT [facility] Calcium 9.1 8.4 - 10.2 mg/dL 05/13/2024 6:37 AM EDT [facility] Blood Venous blood specimen / Unknown Venipuncture / Unknown 05/13/2024 6:13 AM EDT 05/13/2024 6:18 AM EDT Shana Ellison PA-C LAB BLOOD ORDERABLES [facility] [address] [facility] [address] * CBC (05/13/2024 6:13 AM EDT) WBC 5.66 4.00 - 10.80 K/uL 05/13/2024 6:22 AM EDT LABORATORY [facility] RBC 4.71 4.50 - 5.25 M/uL 05/13/2024 6:22 AM EDT LABORATORY [facility] HGB 15.1 14.0 - 16.8 g/dL 05/13/2024 6:22 AM EDT LABORATORY [facility] HCT 44.1 40.0 - 48.4 % 05/13/2024 6:22 AM EDT LABORATORY [facility] MCV 93.6 82.0 - 99.5 fL 05/13/2024 6:22 AM EDT LABORATORY [facility] MCH 32.1 27.0 - 34.0 pg 05/13/2024 6:22 AM EDT LABORATORY [facility] MCHC 34.2 32.0 - 36.0 g/dL 05/13/2024 6:22 AM EDT LABORATORY [facility] RDW 12.2 11.5 - 15.5 % 05/13/2024 6:22 AM EDT LABORATORY [facility] PLT 209 140 - 400 K/uL 05/13/2024 6:22 AM EDT LABORATORY [facility] MPV 10.5 6.6 - 11.1 fL 05/13/2024 6:22 AM EDT LABORATORY [facility] nRBCs 0 <=0 /100 WBCs 05/13/2024 6:22 AM EDT LABORATORY [facility] Blood Venous blood specimen / Unknown Venipuncture / Unknown 05/13/2024 6:13 AM EDT 05/13/2024 6:18 AM EDT Shana Ellison PA-C LAB BLOOD ORDERABLES LABORATORY [address] [place] [address] * HIV ANTIGEN & ANTIBODY SCREEN W/ CONFIRMATION (05/13/2024 6:13 AM EDT) HIV Antigen & Antibody Negative Negative 05/13/2024 3:53 PM EDT LAB[facility]ATORY [facility] Comment:Negative HIV-1/2 ant igen and antibody screening tset results usually indicate the absence of HIV-1 and HIV-2 infection. However, such negative results do not rule-out acute HIV infection. If acute HIV-1 infection is highly suspected, it is recommended that a specimen be submitted for detection of HIV-1 RNA. Blood Venous blood specimen / Unknown Venipuncture / Unknown 05/13/2024 6:13 AM EDT 05/13/2024 6:18 AM EDT Shana Ellison PA-C LAB BLOOD ORDERABLES LAB[facility]ATORY [facility] [address] [place] [address] * UPPER GI ENDOSCOPY (05/12/2024 12:50 PM EDT) 05/12/2024 12:5 0 PM EDT Narrative Procedure Note Solo Stock DO - 05/12/2024 12:50 PM EDT [facility] Patient Name: Dallin Reed Procedure Date: 05/12/2024 12:50 PM Date of : 1950 Admit Type: Inpatient Note Status:Finalized Date of : 1950 Admit Type: Inpatient Age: 73 Room: [facility] 2 Gender: Male Note Status: Finalized Procedure: Upper GI endoscopy Indications: Dysphagia Providers: Dawit Fernando DO (Doctor), Artem Harris DO(Fellow) Referring MD: Solo Stock DO Medicines: General Anesthesia Complications: No immediate complications. Estimated blood loss:Minimal. Procedure: Pre-Anesthesia Assessment: - Prior to the procedure, a History and Physicalwas performed, and patient medications, allergies and sensitivities werereviewed. The patient's tolerance of previous anesthesia was reviewed. - The risks and benefits of the procedure and thesedation options and risks were discussed with the patient. All questions wereanswered and informed consent was obtained. - Patient identification and proposed procedurewere verified prior to the procedure by the physician, the nurse and the employee communications specialist.The procedure was verified in the procedure room. - Pre-procedure physical examination revealed nocontraindications to sedation. - ASA Grade Assessment: III - A patient with severesystemic disease. - After reviewing the risks and benefits, thepatient was deemed in satisfactory condition to undergo the procedure. - The anesthesia plan was to use generalanesthesia. - Immediately prior to administration ofmedications, the patient was re-assessed for adequacy to receive sedatives. - The heart rate, respiratory rate, oxygensaturations, blood pressure, adequacy of pulmonary ventilation, and response to care weremonitored throughout the procedure. - The physical status of the patient wasre-assessed after the procedure. After obtaining informed consent, the endoscope waspassed under direct vision. All instruments were visually inspected immediatelybefore and after removal from the patient to ensure they are fully intact. Throughout the procedure, the patient's bloodpressure, pulse, and oxygen saturations were monitored continuously. The [id number] ([id number]) was introduced through the mouth, and advanced to the third part ofduodenum. The upper GI endoscopy was accomplished without difficulty. The patienttolerated the procedure well. I was present and participated during the entireprocedure from insertion to removal of the endoscope Findings & Specimens: The lower third of the esophagus was mildly tortuous. A guidewire wasplaced and the scope was withdrawn. Dilation was performed with a Savary dilator with noresistance at 45 Fr, 48 Fr, 51 Fr and 54 Fr. The dilation site was examined following endoscope reinsertionand showed no change. Estimated blood loss was minimal. A 2 cm hiatal hernia was found. The proximal extent of the gastricfolds (end of tubular esophagus) was 38 cm from the incisors. The hiatal narrowing was 40 cm from theincisors. The Z- line was 38 cm from the incisors. The gastric fundus, gastric body, incisura and gastric antrum werenormal. The examined duodenum was normal. Impression: - Tortuous esophagus. - 2 cm hiatal hernia. - Normal gastric fundus, gastric body, incisura andantrum. - Normal examined duodenum. - No specimens collected. Recommendation: - [facility]. - Mechanical soft diet today. - Repeat upper endoscopy PRN for retreatment. Dawit Fernando DO 05/12/2024 1:25:15 PM This report has been signed electronically. Artem Harris DO Estimated Blood Loss: Estimated blood loss was minimal. Solo Stock DO GASTRO UPPER * HEMOGLOBIN A1C (05/12/2024 5:35 AM EDT) Hemoglobin A1C 5.6 4.0 - 5.6 % 05/12/2024 11:35 PM EDT LABORATORY [facility] Comment:The use of HbA1c to monitor glycemic status is based on normal hemoglobin and HbA composition. This test should not be used in patients with abnormal hemoglobin that affects the half life of the red blood cell or the in vivo glycation rates. Estimated Average Glucose 114 <126 mg/dL 05/12/2024 11:35 PM EDT LABORATORY [facility] Blood Venous blood specimen / Unknown Venipuncture / Unknown 05/12/2024 5:35 AM EDT 05/12/2024 6:33 AM EDT Shana Ellison PA-C LAB BLOOD ORDERABLES LAB[facility]ATORY [facility] [address] [place] [address] * TSH WITH FREE T4 IF INDICATED (05/12/2024 5:35 AM EDT) Pathologist [facility] TSH 1.54 0.27 - 4.20 uIU/mL 05/12/2024 1:50 PM EDT LABORATORY [facility] Blood Venous blood specimen / Unknown Venipuncture / Unknown 05/12/2024 5:35 AM EDT 05/12/2024 6:33 AM EDT Shana Ellison PA-C LAB BLOOD ORDERABLES LABORATORY [address] [id number] * PHOSPHORUS (05/12/2024 5:35 AM EDT) [facility] Phosphorus 3.4 2.5 - 4.8 mg/dL 05/12/2024 6:56 AM EDT LABORATORY [facility] Blood Venous blood specimen / Unknown Venipuncture / Unknown 05/12/2024 5:35 AM EDT 05/12/2024 6:33 AM EDT Min Min Erna MACKENZIE LAB BLOOD ORDERABLES Performing Organization Address City/[facility] Co de Phone Number LABORATORY [address] [address] * MAGNESIUM (05/12/2024 5:35 AM EDT) Magnesium 2.3 1.5 - 2.6 mg/dL 05/12/2024 6:56 AM EDT LABORATORY [facility] Blood Venous blood specimen / Unknown Venipuncture / Unknown 05/12/2024 5:35 AM EDT 05/12/2024 6:33 AM EDT Min Min Erna MACKENZIE LAB BLOOD ORDERABLES Performing Organization Address [facility] de Phone Number LABORATORY [address] [address] * PT INR (05/12/2024 5:35 AM EDT) Prothrombin Time 13.6 11.6 - 15.2 seconds 05/12/2024 6:52 AM EDT LABORATORY [facility] INR 1.0 0.8 - 1.2 05/12/2024 6:52 AM EDT LABORATORY [facility] Blood Venous blood specimen / Unknown Venipuncture / Unknown 05/12/2024 5:35 AM EDT 05/12/2024 6:33 AM EDT Narrative LABORATORY [facility] - 05/12/2024 6:52 AM EDT Warfarin Therapy INR: 2.0-3.0 conventional anticoagulation INR: 2.5-3.5 high intensity anticoagulation Min Min Erna MACKENZIE LAB BLOOD ORDERABLES Performing Organization Address City/[facility] de Phone Number LABORATORY [address] [address] * (ABNORMAL) CBC (05/12/2024 5:35 AM EDT) WBC 6.53 4.00 - 10.80 K/uL 05/12/2024 6:40 AM EDT LABORATORY [facility] RBC 5.28 4.50 - 5.25 M/uL 05/12/2024 6:40 AM EDT LABORATORY [facility] HGB 16.6 14.0 - 16.8 g/dL 05/12/2024 6:40 AM EDT LABORATORY [facility] HCT 49.1(H) 40.0 - 48.4 % 05/12/2024 6:40 AM EDT LABORATORY [facility] MCV 93.0 82.0 - 99.5 fL 05/12/2024 6:40 AM EDT LABORATORY [facility] MCH 31.4 27.0 - 34.0 pg 05/12/2024 6:40 AM EDT LABORATORY [facility] MCHC 33.8 32.0 - 36.0 g/dL 05/12/2024 6:40 AM EDT LABORATORY [facility] RDW 12.4 11.5 - 15.5 % 05/12/2024 6:40 AM EDT LABORATORY [facility] PLT 187 140 - 400 K/uL 05/12/2024 6:40 AM EDT LABORATORY [facility] MPV 10.9 6.6 - 11.1 fL 05/12/2024 6:40 AM EDT LABORATORY [facility] nRBCs 0 <=0 /100 WBCs 05/12/2024 6:40 AM EDT LABORATORY [facility] Blood Venous blood specimen / Unknown Venipuncture / Unknown 05/12/2024 5:35 AM EDT 05/12/2024 6:33 AM EDT Min Min Erna MACKENZIE LAB BLOOD ORDERABLES [facility] [address] [id number] * BASIC METABOLIC PANEL (05/12/2024 5:35 AM EDT) BUN 15 6 - 20 mg/dL 05/12/2024 6:56 AM EDT [facility] Creatinine 0.9 0.6 - 1.2 mg/dL 05/12/2024 6:56 AM EDT [facility] Estimated Glomerular Filtration Rate 89 >=60 mL/min 05/12/2024 6:56 AM EDT [facility] Comment:eGFR is calculated b ased on the CKD-EPI 2020 equation. Sodium 138 135 - 146 mmol/L 05/12/2024 6:56 AM EDT [facility] Potassium 3.9 3.5 - 5.1 mmol/L 05/12/2024 6:56 AM EDT [facility] Chloride 102 98 - 107 mmol/L 05/12/2024 6:56 AM EDT [facility] CO2 25 22 - 32 mmol/L 05/12/2024 6:56 AM EDT [facility] Anion Gap 11 7 - 15 mmol/L 05/12/2024 6:56 AM EDT [facility] Glucose 89 70 - 120 mg/dL 05/12/2024 6:56 AM EDT [facility] Calcium 9.4 8.4 - 10.2 mg/dL 05/12/2024 6:56 AM EDT [facility] Blood Venous blood specimen / Unknown Venipuncture / Unknown 05/12/2024 5:35 AM EDT 05/12/2024 6:33 AM EDT Min Min Erna MACKENZIE LAB BLOOD ORDERABLES Performing Organization Address City/[facility]/ZIP Co de Phone Number LABORATORY [address] [address] * GLUCOSE METER, POINT OF CARE (05/11/2024 9:47 PM EDT) [facility] Glucose Meter 89 70 - 120 mg/dL 05/11/2024 9:51 PM EDT [facility] Blood Whole blood specimen / Unknown 05/11/2024 9:47 PM EDT 05/11/2024 9:51 PM EDT Min Min Erna MACKENZIE LAB POINT OF CARE TE ST DOCKED DEVICE UNSOLICITED RESULTS Performing Organization Address City/[facility] Co de Phone Number [facility] [address] [place] [phone] * CT NECK W CONTRAST (05/11/2024 11:07 AM EDT) Anatomical Region Laterality Modality Neck, Head, Sinus Computed Tomog hector 05/11/2024 10:5 4 AM EDT Impressions 05/11/2024 11:33 AM EDT IMPRESSION: No suspicious soft tissue mass, lymphadenopathy or drainable fluid collection in the neck. No foreign body identified. THIS DOCUMENT HAS BEEN ELECTRONICALLY SIGNED BY DARRIAN BALLARD MD Narrative 05/11/2024 11:33 AM EDT PROCEDURE INFORMATION: Exam: CT Neck With Contrast Exam date and time: 05/11/2024 10:54 AM Age: 73 years old Clinical indication: Dysphagia / difficulty swallowing; Prior surgery; Surgery date: 6+ months; Surgery type: Egd with dilation. ; Additional info: Trouble swallowing TECHNIQUE: Imaging protocol: Computed tomography of the neck with contrast. Radiation optimization: All CT scans at this facility use at least one of these dose optimization techniques: automated exposure control; mA and/or kV adjustment per patient size (includes targeted exams where dose is matched to clinical indication); or iterative reconstruction. Contrast material: ISOVUE 370; Contrast volume: 80 ml; Contrast route: INTRAVENOUS (IV); COMPARISON: DX XR NECK TISSUE 05/11/2024 9:34 AM FINDINGS: Orbital cavities: The patient is post bilateral cataract surgery. Paranasal sinuses: There is notable mural thickening of the right maxillary antrum indicating chronic disease. 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 The patient is post right maxillary antrostomy. Salivary glands: Normal. Glands are normal in size. Pharynx: Unremarkable. No significant tonsillar enlargement. Prevertebral and retropharyngeal spaces: Unremarkable. Larynx: Unremarkable. Epiglottis is normal. Thyroid: Normal. No enlarged or calcified nodules. Trachea: Visualized trachea is unremarkable. Lungs: Unremarkable as visualized. Lymph nodes: Unremarkable. No lymphadenopathy. Bones/joints: Cervical spondylosis is noted. Soft tissues: Unremarkable. No significant soft tissue swelling. Procedure Note Darrian Ballard MD - 05/11/2024 PROCEDURE INFORMATION: Exam: CT Neck With Contrast Exam date and time: 05/11/2024 10:54 AM Age: 73 years old Clinical indication: Dysphagia / difficulty swallowing; Prior surgery;Surgery date: 6+ months; Surgery type: Egd with dilation. ; Additional info:Trouble swallowing TECHNIQUE: Imaging protocol: Computed tomography of the neck with contrast. Radiation optimization: All CT scans at this facility use at least one ofthese dose optimization techniques: automated exposure control; mA and/or kV adjustment per patient size (includes targeted exams where dose is matchedto clinical indication); or iterative reconstruction. Contrast material: ISOVUE 370; Contrast volume: 80 ml; Contrast route: INTRAVENOUS (IV); COMPARISON: DX XR NECK TISSUE 05/11/2024 9:34 AM FINDINGS: Orbital cavities: The patient is post bilateral cataract surgery. Paranasal sinuses: There is notable mural thickening of the rightmaxillary antrum indicating chronic disease. 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 The patient is post right maxillary antrostomy. Salivary glands: Normal. Glands are normal in size. Pharynx: Unremarkable. No significant tonsillar enlargement. Prevertebral and retropharyngeal spaces: Unremarkable. Larynx: Unremarkable. Epiglottis is normal. Thyroid: Normal. No enlarged or calcified nodules. Trachea: Visualized trachea is unremarkable. Lungs: Unremarkable as visualized. Lymph nodes: Unremarkable. No lymphadenopathy. Bones/joints: Cervical spondylosis is noted. Soft tissues: Unremarkable. No significant soft tissue swelling. IMPRESSION IMPRESSION: No suspicious soft tissue mass, lymphadenopathy or drainable fluidcollection in the neck. No foreign body identified. THIS DOCUMENT HAS BEEN ELECTRONICALLY SIGNED BY DARRIAN BALLARD MD Darrian Parker MD RAD CT * CT CHEST W CONTRAST (05/11/2024 11:07 AM EDT) Anatomical Region Laterality Modality Chest, Body, Cardio Computed Jerardo ography 05/11/2024 10:5 4 AM EDT Impressions 05/11/2024 11:38 AM EDT IMPRESSION: No active intrathoracic disease identified. THIS DOCUMENT HAS BEEN ELECTRONICALLY SIGNED BY BRITTNEY FRITZ MD Narrative 05/11/2024 11:38 AM EDT PROCEDURE INFORMATION: Exam: CT Chest With Contrast; Diagnostic Exam date and time: 05/11/2024 10:54 AM Age: 73 years old Clinical indication: Other: Problems swallowing. Prior surgery; Surgery date: 6+ months; Surgery type: Egd with dilatation. ; Additional info: Trouble swallowing TECHNIQUE: Imaging protocol: Diagnostic computed tomography of the chest with contrast. 3D rendering (Not supervised by radiologist): MIP and/or 3D reconstructed images were created by the technologist. Radiation optimization: All CT scans at this facility use at least one of these dose optimization techniques: automated exposure control; mA and/or kV adjustment per patient size (includes targeted exams where dose is matched to clinical indication); or iterative reconstruction. Contrast material: ISOVUE 370; Contrast volume: 80 ml; Contrast route: INTRAVENOUS (IV); COMPARISON: DX XR CHEST 1 VIEW 05/11/2024 9:34 AM FINDINGS: Lungs: Several scattered granulomata.No air bronchograms or focal consolidation identified. Pleural spaces: Unremarkable. No pneumothorax. No pleural effusion. Heart: Unremarkable. No cardiomegaly. No pericardial effusion. Coronary arteries: There is moderate atherosclerotic calcification of the coronary arteries. Lymph nodes: Unremarkable. No enlarged lymph nodes. Vasculature: Unremarkable. No aortic aneurysm. Gallbladder and biliary ducts: There has been a cholecystectomy. Bones/joints: The spine demonstrates moderate degenerative changes at multiple levels. Soft tissues: Unremarkable. Procedure Note Brittney Fritz MD - 05/11/2024 PROCEDURE INFORMATION: Exam: CT Chest With Contrast; Diagnostic Exam date and time: 05/11/2024 10:54 AM Age: 73 years old Clinical indication: Other: Problems swallowing. Prior surgery; Surgerydate: 6+ months; Surgery type: Egd with dilatation. ; Additional info: Trouble swallowing TECHNIQUE: Imaging protocol: Diagnostic computed tomography of the chest withcontrast. 3D rendering (Not supervised by radiologist): MIP and/or 3D reconstructed images were created by the technologist. Radiation optimization: All CT scans at this facility use at least one ofthese dose optimization techniques: automated exposure control; mA and/or kV adjustment per patient size (includes targeted exams where dose is matchedto clinical indication); or iterative reconstruction. Contrast material: ISOVUE 370; Contrast volume: 80 ml; Contrast route: INTRAVENOUS (IV); COMPARISON: DX XR CHEST 1 VIEW 05/11/2024 9:34 AM FINDINGS: Lungs: Several scattered granulomata.No air bronchograms or focalconsolidation identified. Pleural spaces: Unremarkable. No pneumothorax. No pleural effusion. Heart: Unremarkable. No cardiomegaly. No pericardial effusion. Coronary arteries: There is moderate atherosclerotic calcification of the coronary arteries. Lymph nodes: Unremarkable. No enlarged lymph nodes. Vasculature: Unremarkable. No aortic aneurysm. Gallbladder and biliary ducts: There has been a cholecystectomy. Bones/joints: The spine demonstrates moderate degenerative changes atmultiple levels. Soft tissues: Unremarkable. IMPRESSION IMPRESSION: No active intrathoracic disease identified. THIS DOCUMENT HAS BEEN ELECTRONICALLY SIGNED BY BRITTNEY FRITZ MD Darrian Parker MD RAD CT * DIFFERENTIAL, AUTOMATED (05/11/2024 10:20 AM EDT) WBC 5.45 4.00 - 10.80 K/uL 05/11/2024 10:27 AM EDT [facility] Neutrophils % 67.4 40.0 - 75.0 % 05/11/2024 10:27 AM EDT [facility] Lymphocytes % 24.6 18.0 - 42.0 % 05/11/2024 10:27 AM EDT [facility] Monocytes % 6.1 1.0 - 11.0 % 05/11/2024 10:27 AM EDT [facility] Eosinophils % 1.1 0.0 - 6.0 % 05/11/2024 10:27 AM EDT [facility] Basophils % 0.6 0.0 - 2.0 % 05/11/2024 10:27 AM EDT [facility] Immature Granulocytes % 0.2 0.0 - 2.0 % 05/11/2024 10:27 AM EDT [facility] Absolute Neutrophils 3.68 1.80 - 7.70 K/uL 05/11/2024 10:27 AM EDT [facility] Absolute Lymphocytes 1.34 1.00 - 4.80 K/ul 05/11/2024 10:27 AM EDT [facility] Absolute Monocytes 0.33 0.00 - 1.10 K/uL 05/11/2024 10:27 AM EDT [facility] Absolute Eosinophils 0.06 0.00 - 0.70 K/uL 05/11/2024 10:27 AM EDT [facility] Absolute Basophils 0.03 0.00 - 0.20 K/uL 05/11/2024 10:27 AM EDT LAB[facility]AT[facility] Absolute Immature Granulocytes 0.01 0.00 - 0.20 K/uL 05/11/2024 10:27 AM EDT LAB[facility]AT[facility] Blood Venous blood specimen / Unknown Venipuncture / Unknown 05/11/2024 10:20 AM EDT 05/11/2024 10:24 AM EDT Darrian Parker MD LAB BLOOD ORDERA [facility] LABORATORY [address] [address] * CBC (05/11/2024 10:20 AM EDT) WBC 5.45 4.00 - 10.80 K/uL 05/11/2024 10:27 AM EDT LAB[facility]ATORY [facility] RBC 5.01 4.50 - 5.25 M/uL 05/11/2024 10:27 AM EDT [facility] HGB 15.7 14.0 - 16.8 g/dL 05/11/2024 10:27 AM EDT [facility] HCT 47.0 40.0 - 48.4 % 05/11/2024 10:27 AM EDT LAB[facility] MCV 93.8 82.0 - 99.5 fL 05/11/2024 10:27 AM EDT [facility] MCH 31.3 27.0 - 34.0 pg 05/11/2024 10:27 AM EDT LAB[facility] MCHC 33.4 32.0 - 36.0 g/dL 05/11/2024 10:27 AM EDT LAB[facility]ORY [facility] RDW 12.0 11.5 - 15.5 % 05/11/2024 10:27 AM EDT LAB[facility]ORY [facility] PLT 187 140 - 400 K/uL 05/11/2024 10:27 AM EDT LAB[facility] MPV 10.3 6.6 - 11.1 fL 05/11/2024 10:27 AM EDT [facility] nRBCs 0 <=0 /100 WBCs 05/11/2024 10:27 AM EDT [facility] Blood Venous blood specimen / Unknown Venipuncture / Unknown 05/11/2024 10:20 AM EDT 05/11/2024 10:24 AM EDT Darrian Parker MD LAB BLOOD ORDERA BLES Performing Organization Address [facility] de Phone Number LABORATORY [address] [address] * LACTATE (05/11/2024 10:20 AM EDT) Lactate 0.9 0.4 - 2.0 mmol/L 05/11/2024 10:59 AM EDT LABORATORY [facility] Blood Venous blood specimen / Unknown Venipuncture / Unknown 05/11/2024 10:20 AM EDT 05/11/2024 10:23 AM EDT Darrian Parker MD LAB BLOOD ORDERA BLES Performing Organization Address [facility] de Phone Number LABORATORY [address] [address] * (ABNORMAL) LIPASE (05/11/2024 10:20 AM EDT) Lipase 12(L) 13 - 60 U/L 05/11/2024 11:01 AM EDT LAB[facility]ATORY [facility] Blood Venous blood specimen / Unknown Venipuncture / Unknown 05/11/2024 10:20 AM EDT 05/11/2024 10:24 AM EDT Darrian Parker MD LAB BLOOD ORDERA BLES Performing Organization Address [facility] de Phone Number LABORATORY [address] [address] * COMPREHENSIVE METABOLIC PANEL (05/11/2024 10:20 AM EDT) BUN 12 6 - 20 mg/dL 05/11/2024 11:01 AM EDT LABORATORY GL Creatinine 1.0 0.6 - 1.2 mg/dL 05/11/2024 11:01 AM EDT LABORATORY [facility] Estimated Glomerular Filtration Rate 78 >=60 mL/min 05/11/2024 11:01 AM EDT [facility] Comment:eGFR is calculated b ased on the CKD-EPI 2020 equation. Sodium 138 135 - 146 mmol/L 05/11/2024 11:01 AM EDT [facility] Potassium 4.2 3.5 - 5.1 mmol/L 05/11/2024 11:01 AM EDT [facility] Chloride 103 98 - 107 mmol/L 05/11/2024 11:01 AM EDT [facility] CO2 25 22 - 32 mmol/L 05/11/2024 11:01 AM EDT [facility] Anion Gap 10 7 - 15 mmol/L 05/11/2024 11:01 AM EDT [facility] Glucose 110 70 - 120 mg/dL 05/11/2024 11:01 AM EDT [facility] Albumin 3.9 3.8 - 5.0 g/dL 05/11/2024 11:01 AM EDT [facility] AST 16 10 - 50 U/L 05/11/2024 11:01 AM EDT [facility] Alkaline Phosphatase 125 35 - 130 U/L 05/11/2024 11:01 AM EDT [facility] Bilirubin, Total 0.6 <=1.2 mg/dL 05/11/2024 11:01 AM EDT [facility] Calcium 9.4 8.4 - 10.2 mg/dL 05/11/2024 11:01 AM EDT [facility] Protein 6.9 6.0 - 8.3 g/dL 05/11/2024 11:01 AM EDT [facility] ALT 20 10 - 50 U/L 05/11/2024 11:01 AM EDT [facility] Blood Venous blood specimen / Unknown Venipuncture / Unknown 05/11/2024 10:20 AM EDT 05/11/2024 10:24 AM EDT Darrian Parker MD LAB BLOOD ORDERA BLES [facility] [address] [place] [address] * EXTRA LIGHT BLUE TOP (05/11/2024 10:17 AM EDT) Blood Venous blood specimen / Unknown Venipuncture / Unknown 05/11/2024 10:17 AM EDT 05/11/2024 10:24 AM EDT Darrian Parker MD LAB BLOOD ORDERA BLES LABORATORY [place] [id number] * XR NECK TISSUE (05/11/2024 9:51 AM EDT) Anatomical Region Laterality Modality Neck Digital Radiogra phy 05/11/2024 9:34 AM EDT Impressions 05/11/2024 10:07 AM EDT IMPRESSION: No acute findings. THIS DOCUMENT HAS BEEN ELECTRONICALLY SIGNED BY DARRIAN BALLARD MD Narrative 05/11/2024 10:07 AM EDT PROCEDURE INFORMATION: Exam: XR Soft Tissue Neck Exam date and time: 05/11/2024 9:34 AM Age: 73 years old Clinical indication: Other: "swallowing issues" TECHNIQUE: Imaging protocol: Radiologic exam of the soft tissues of the neck. COMPARISON: DX XR CHEST 1 VIEW 05/11/2024 9:34 AM FINDINGS: Airway: Normal. No abnormal narrowing. Soft tissues: Normal. Normal epiglottis. Bones/joints: Unremarkable. Procedure Note Darrian Ballard MD - 05/11/2024 PROCEDURE INFORMATION: Exam: XR Soft Tissue Neck Exam date and time: 05/11/2024 9:34 AM Age: 73 years old Clinical indication: Other: "swallowing issues" TECHNIQUE: Imaging protocol: Radiologic exam of the soft tissues of the neck. COMPARISON: DX XR CHEST 1 VIEW 05/11/2024 9:34 AM FINDINGS: Airway: Normal. No abnormal narrowing. Soft tissues: Normal. Normal epiglottis. Bones/joints: Unremarkable. IMPRESSION IMPRESSION: No acute findings. THIS DOCUMENT HAS BEEN ELECTRONICALLY SIGNED BY DARRIAN BALLARD MD Darrian Parker MD RADIOLOGY (RAD G ENERAL) * XR CHEST 1 VIEW (05/11/2024 9:51 AM EDT) Anatomical Region Laterality Modality Chest Digital Radiogra phy 05/11/2024 9:34 AM EDT Impressions 05/11/2024 10:07 AM EDT IMPRESSION: No acute cardiopulmonary disease. THIS DOCUMENT HAS BEEN ELECTRONICALLY SIGNED BY DARRIAN BALLARD MD Narrative 05/11/2024 10:07 AM EDT PROCEDURE INFORMATION: Exam: XR Chest Exam date and time: 05/11/2024 9:34 AM Age: 73 years old Clinical indication: Other: "swallowing issues" TECHNIQUE: Imaging protocol: Radiologic exam of the chest. Views: 1 view. COMPARISON: DX XR NECK TISSUE 05/11/2024 9:34 AM FINDINGS: Lungs: A 5 mm calcified granulomas noted in the left midlung. Lungs are otherwise clear. Pleural spaces: Unremarkable. No pleural effusion. No pneumothorax. Heart/Mediastinum: Unremarkable. No cardiomegaly. Bones/joints: Degenerative changes are noted in the bones. Procedure Note Darrian Ballard MD - 05/11/2024 PROCEDURE INFORMATION: Exam: XR Chest Exam date and time: 05/11/2024 9:34 AM Age: 73 years old Clinical indication: Other: "swallowing issues" TECHNIQUE: Imaging protocol: Radiologic exam of the chest. Views: 1 view. COMPARISON: DX XR NECK TISSUE 05/11/2024 9:34 AM FINDINGS: Lungs: A 5 mm calcified granulomas noted in the left midlung. Lungs are otherwise clear. Pleural spaces: Unremarkable. No pleural effusion. No pneumothorax. Heart/Mediastinum: Unremarkable. No cardiomegaly. Bones/joints: Degenerative changes are noted in the bones. IMPRESSION IMPRESSION: No acute cardiopulmonary disease. THIS DOCUMENT HAS BEEN ELECTRONICALLY SIGNED BY DARRIAN BALLARD MD Darrian Parker MD RADIOLOGY (RAD G ENERAL) documented in this encounter Visit Diagnoses Diagnosis Dysphagia- Primary Dysphagia, unspecified Esophageal dysmotility Dyskinesia of esophagus Chest pain Chest pain, unspecified Dysphagia, unspecified type Other specified postprocedural states Malnutrition of moderate degree (HCC) Malnutrition of moderate degree Unintentional weight loss Loss of weight Hiatal hernia Diaphragmatic hernia without mention of obstruction or gangrene Interstitial lung disease (HCC) Postinflammatory pulmonary fibrosis HTN, goal below 140/90 Unspecified essential hypertension Phelps's esophagus without dysplasia Phelps's esophagus Other congenital malformations of esophagus Diaphragmatic hernia without obstruction or gangrene Diaphragmatic hernia without mention of obstruction or gangrene Jovany esophagitis (HCC) Candidiasis of the esophagus Hypertension Unspecified essential hypertension Hiatal hernia Diaphragmatic hernia without mention of obstruction or gangrene Unintentional weight loss Loss of weight Epigastric pain Abdominal pain, epigastric Malnutrition of moderate degree (HCC) Malnutrition of moderate degree Esophageal dysmotility Dyskinesia of esophagus Phelps's esophagus without dysplasia Phelps's esophagus documented in this encounter Administered Medications Inactive Administered Medications - up to 3 most recent administrations Medication Order MAR Action Action Date Dose Rate Site Acetaminophen (Ofirmev) inj 1,000 mg 1,000 mg, Intravenous, Q6H PRN, 6 doses, Starting on Sun05/11/24 at 1438, Until Sun05/12/24 at 1437, Administer over 15 Minutes, Administer undiluted over 15 minutes! NOTE: Maximum of 4000 mg per 24 hours of acetaminophen from all acetaminophen containing products., Indication: Patient is strictly NPO New Bag 05/11/2024 5:00 PM EDT 1,000 mg 400 mL/hr Acetaminophen (Tylenol) tab 650 mg 650 mg, Oral, Q6H PRN Pain, Mild, Fever >38C(100.5F), Starting on Sun05/11/24 at 1310, Until Sun05/13/24 at 1540, Maximum of 4 grams (4000 mg) per day. Given 05/12/2024 9:44 PM EDT 650 mg amLODIPine (Norvasc) tab 5 mg 5 mg, Oral, [id number], First dose (after last modification) on Sun05/13/24 at 0900, Until Discontinued Given 05/13/2024 8:55 AM EDT 5 mg atorvaSTATin (Lipitor) tab 40 mg 40 mg, Oral, Daily(AM), First dose on Sun05/11/24 at 1515, Until Discontinued Given 05/13/2024 8:56 AM EDT 40 mg brinZOLamide (Azopt) 1 % ophthalmic suspension 1 Drop 1 Drop, Both eyes, BID (.AM/PM), First dose on Sun05/11/24 at 2100, Until Discontinued Given 05/13/2024 8:56 AM EDT 1 Drop Given 05/12/2024 9:44 PM EDT 1 Drop Given 05/12/2024 8:26 AM EDT 1 Drop D51/2 NSS infusion Intravenous, at 75 mL/hr, CONTINUOUS, Starting on Sun05/12/24 at 1045, Until Sun05/12/24 at 1648 Restarted 05/12/2024 4:40 PM EDT 75 mL/hr Restarted 05/12/2024 2:20 PM EDT 75 mL/hr Continue from Pre-Op 05/12/2024 1:01 PM EDT 75 mL/hr Enoxaparin (Lovenox) inj 40 mg 40 mg, Subcutaneous, Daily(AM), First dose on Sun05/12/24 at 0900, Until Discontinued, If patient is on warfarin, inform provider if daily INR value is 2 or greater! Given 05/13/2024 8:54 AM EDT 40 mg Abdom en Left Lower Given 05/12/2024 8:27 AM EDT 40 mg Ab domen Left Lower fluconazole in NSS (Diflucan IV) ivpb 200 mg IV Piggyback, 200 mg, [id number], First dose on Sun05/11/24 at 1530, Until Discontinued, Administer over 60 Minutes New Bag 05/12/2024 3:25 PM EDT 200 mg 100 mL/hr New Bag 05/11/2024 5:24 PM EDT 200 mg 100 mL/hr FLUoxetine (PROzac) cap 30 mg 30 mg, Oral, Daily(AM), First dose on Sun05/12/24 at 1700, Until Discontinued Given 05/13/2024 9:00 AM EDT 30 mg Given 05/12/2024 4:36 PM EDT 30 mg Iopamidol (Isovue 370) inj 80 mL 80 mL, Intravenous, ONCE, On Sun05/11/24 at 1200, For 1 dose, Radiology Medication Routing (Non-IR) Given 05/11/2024 11:16 AM EDT 80 mL Hand Right Latanoprost (Xalatan) 0.005 % ophthalmic solution 1 Drop 1 Drop, Both eyes, Daily(AM), First dose on Sun05/12/24 at 0900, Until Discontinued Given 05/13/2024 8:54 AM EDT 1 Drop Given 05/12/2024 8:26 AM EDT 1 Drop levothyroxine (Levoxyl) tab 100 mcg 100 mcg, Oral, [id number], First dose on Sun05/12/24 at 0630, Until Discontinued Given 05/13/2024 6:16 AM EDT 100 mcg morphine sulfate inj 2 mg 2 mg, IV Push, Q3H PRN Pain, Severe, Starting on Sun05/11/24 at 1931, Until Sun05/12/24 at 1617 Given 05/12/2024 3:19 PM EDT 2 mg Given 05/12/2024 12:12 AM EDT 2 mg Given 05/11/2024 7:48 PM EDT 2 mg ondansetron (Zofran) inj 4 mg 4 mg, IV Push, Q6H PRN Nausea, Starting on Sun05/11/24 at 1310, Until Sun05/13/24 at 1540 Given 05/11/2024 7:51 PM EDT 4 mg Given 05/11/2024 2:19 PM EDT 4 mg Pantoprazole (Protonix) inj 40 mg 40 mg, IV Push, Q12H, First dose on Sun05/11/24 at 2100, Until Discontinued, IV push instructions: Flush I.V. Line before and after administration. In-line filter not required. 2-minute infusion: The volume of reconstituted solution (4mg/ml) to be injected may be administered intravenously over at least 2 minutes. ( Dilute each vial with 10 ml of 0.9% saline PF) Given 05/13/2024 8:54 AM EDT 40 mg Given 05/12/2024 10:10 PM EDT 40 mg Given 05/12/2024 8:26 AM EDT 40 mg sodium chloride 0.9 % flush/inj 3 mL 3 mL, IV Push, PRN Other, Line Patency, Starting on Sun05/11/24 at 1309, Until Sun05/13/24 at 1540, Do not flush if lock, PICC, or central line not in place, IV infusing or unable to flush traMADol (Ultram) tab 50 mg 50 mg, Oral, Q6H PRN Pain, Moderate, Pain, Severe, Starting on Sun05/12/24 at 1621, Until Sun05/13/24 at 1540 Given 05/13/2024 1:42 AM EDT 50 mg Given 05/12/2024 4:36 PM EDT 50 mg documented in this encounter Active and Recently Administered Medications Times are shown in EDT. Scheduled Medication Order 05/11/2024 05/12/2024 05/13/2024 amLODIPine (Norvasc) tab 5 mg 5 mg, Oral, [id number], First dose (after last modification) on Sun05/13/24 at 0900, Until Discontinued 0855 (Given - Provider: Josi Tierney, MARGARET) atorvaSTATin (Lipitor) tab 40 mg 40 mg, Oral, Daily(AM), First dose on Sun05/11/24 at 1515, Until Discontinued 1515 (Not Given - Provider: Michael Villasenor RN - Reason: Refused-Notify Provider - Comment: pt does not think he is able to swallow) 0900 (Not Given - Provider: Octavia Soto RN - Reason: NPO) 0856 (Given - Provider: Josi Tierney RN) brinZOLamide (Azopt) 1 % ophthalmic suspension 1 Drop 1 Drop, Both eyes, BID (.AM/PM), First dose on Sun05/11/24 at 2100, Until Discontinued 210 (Given - Provider: Ellie Molina RN) 08 (Given - Provider: Octavia Soto RN)2144 (Given - Provider: Nicola Fraire LPN) 0856 (Given - Provider: Josi Tierney, MARGARET) Enoxaparin (Lovenox) inj 40 mg 40 mg, Subcutaneous, Daily(AM), First dose on Sun05/12/24 at 0900, Until Discontinued, If patient is on warfarin, inform provider if daily INR value is 2 or greater! 0827 (Given - Provider: Octavia Soto RN) 0854 (Given - Provider: Josi Tierney, MARGARET) fluconazole in NSS (Diflucan IV) ivpb 200 mg (CANCELED) IV Piggyback, 200 mg, [id number], First dose on Sun05/11/24 at 1530, Until Discontinued, Administer over 60 Minutes 1724 (New Bag - Provider: Michael Villasenor RN)1824 (Stopped - Provider: Michael Villasenor RN) 1525 (New Bag - Provider: Octavia Soto RN)1624 (Stopped - Provider: Octavia Coudriet, RN) FLUoxetine (PROzac) cap 30 mg 30 mg, Oral, Daily(AM), First dose on Sun05/12/24 at 1700, Until Discontinued 1636 (Given - Provider: Octavia Soto RN) 0900 (Given - Provider: Josi Tierney, MARGARET) Iopamidol (Isovue 370) inj 80 mL (COMPLETED) 80 mL, Intravenous, ONCE, On Sun05/11/24 at 1200, For 1 dose, Radiology Medication Routing (Non-IR) 1116 (Given - Provider: Anais Crane, RT) Latanoprost (Xalatan) 0.005 % ophthalmic solution 1 Drop 1 Drop, Both eyes, Daily(AM), First dose on Sun05/12/24 at 0900, Until Discontinued 08 (Given - Provider: Octavia Soto RN) 0854 (Given - Provider: Josi Tierney, MARGARET) levothyroxine (Levoxyl) tab 100 mcg 100 mcg, Oral, [id number], First dose on Sun05/12/24 at 0630, Until Discontinued 0630 (Not Given - Provider: Keyanna Bryan RN - Reason: NPO) 0616 (Given - Provider: Nicola Fraire LPN) Pantoprazole (Protonix) inj 40 mg 40 mg, IV Push, Q12H, First dose on Sun05/11/24 at 2100, Until Discontinued, IV push instructions: Flush I.V. Line before and after administration. In-line filter not required. 2-minute infusion: The volume of reconstituted solution (4mg/ml) to be injected may be administered intravenously over at least 2 minutes. ( Dilute each vial with 10 ml of 0.9% saline PF) 2103 (Given - Provider: Ellie Molina RN) 08 (Given - Provider: Octavia Soto, MARGARET)2210 (Given - Provider: Araceli Dejesus RN) 0854 (Given - Provider: Josi Tierney, MARGARET) Continuous Medication Order 05/11/2024 05/12/2024 05/13/2024 D51/2 NSS infusion (CANCELED) Intravenous, at 75 mL/hr, CONTINUOUS, Starting on Sun05/12/24 at 1045, Until Sun05/12/24 at 1648 1057 (New Bag - Provider: Octavia Soto RN)1301 (Continue from Pre-Op - Provider: Rene Amezcua CRNA)1323 (Anes Intra-Op Fluid - Provider: Rene Amezcua CRNA)1420 (Restarted - Provider: Octavia Soto RN)1519 (Paused - Provider: Octavia Soto RN)1640 (Restarted - Provider: Octavia Soto RN)1648 (Stopped - Provider: Octavia Soto RN) PRN Medication Order 05/11/2024 05/12/2024 05/13/2024 Acetaminophen (Ofirmev) inj 1,000 mg () 1,000 mg, Intravenous, Q6H PRN, 6 doses, Starting on 05/11/24 at 1438, Until Sun05/12/24 at 1437, Administer over 15 Minutes, Administer undiluted over 15 minutes! NOTE: Maximum of 4000 mg per 24 hours of acetaminophen from all acetaminophen containing products., Indication: Patient is strictly NPO 1700 (New Bag - Provider: Michael Villasenor RN)1715 (Stopped - Provider: Michael Villasenor RN) Acetaminophen (Tylenol) tab 650 mg 650 mg, Oral, Q6H PRN Pain, Mild, Fever >38C(100.5F), Starting on 05/11/24 at 1310, Until Sun05/13/24 at 1540, Maximum of 4 grams (4000 mg) per day. 2143 (Given - Provider: Nicola Fraire LPN) morphine sulfate inj 2 mg (CANCELED) 2 mg, IV Push, Q3H PRN Pain, Severe, Starting on 05/11/24 at 1931, Until Sun05/12/24 at 1617 1948 (Given - Provider: Ellie Molina RN) 0012 (Given - Provider: Ellie Molina RN)1519 (Given - Provider: Octavia Soto, MARGARET) ondansetron (Zofran) inj 4 mg 4 mg, IV Push, Q6H PRN Nausea, Starting on 05/11/24 at 1310, Until Sun05/13/24 at 1540 1419 (Given - Provider: Michael Villasenor RN)1951 (Given - Provider: Ellie Molina RN) sodium chloride 0.9 % flush/inj 3 mL 3 mL, IV Push, PRN Other, Line Patency, Starting on 05/11/24 at 1309, Until Sun05/13/24 at 1540, Do not flush if lock, PICC, or central line not in place, IV infusing or unable to flush traMADol (Ultram) tab 50 mg 50 mg, Oral, Q6H PRN Pain, Moderate, Pain, Severe, Starting on 05/12/24 at 1621, Until Sun05/13/24 at 1540 1636 (Given - Provider: Octavia Soto RN) 0142 (Given - Provider: Nicola Fraire LPN) documented in this encounter Advance Directives * [...] Power of Attor melvin? No Care Teams Physical Therapy Assistant Relationship Specialty Start Date End Date Solo Stock DO [address] [place] [address] PCP - General Family Medicine 04/25/24 05/12/24 documented as of this encounter
--- OUTSIDE RECORDS SUMMARY | 2024-06-26 00:14 | External Medical Summary ---
Author Name Unknown Address Unknown Organization [id number]:LABORATORY [facility] - [address] [place] [id number] Laboratory Report Ordering Provider Test Date Status ARNIE COLMENARES 05/11/2024 10:20:00 Final Observation Date Value Abnormality Reference (Units ) Status Lipase 05/11/2024 10:20:00 12 Below low normal 13- 60 (U/L) Final Performing Location LABORATORY [facility] - [address] [place] [id number]
--- OUTSIDE RECORDS SUMMARY | 2024-06-26 00:14 | External Medical Summary ---
Author Name Unknown Address Unknown Organization K01:LABORATORY [facility] [place] - [address] [place] [address] [address] [facility] [address] Laboratory Report Ordering Provider Test Date Status DAVIDSON LOZA 05/13/2024 06:13:00 Final Observation Date Value Abnormality Reference (Units ) Status HIV 1+2 Ab+HIV1 p24 Ag [Presence] in Serum or Plasma by Immunoassay 05/13/2024 06:13:00 Negative Negative Final Negative HIV-1/2 antigen and antibody screening tset results usually indicate the absence of HIV-1 and HIV-2 infection. However, such negative results do not rule-out acute HIV infection. If acute HIV-1 infection is highly suspected, it is recommended that a specimen be submitted for detection of HIV-1 RNA. Performing Location LABORATORY [facility] [place] - [address] [facility] [address]
--- OUTSIDE RECORDS SUMMARY | 2024-06-26 00:15 | External Medical Summary | Summary of Care ---
Author Name Unknown Organization [facility] Address [address] [address] Phone [phone] Care Team Providers Care Cork Insulator Name Role Phone Solo Stock Ponce DO [...] 05/09/2024 3:00 PM EDT Office Visit [facility]astroenterology, [facility] [address] [place] [address] [address] Megan Stephens CRNP [address] [place] [address] [address] Phelps's esophagus without dysplasia*; Dysphagia, unspecified type; Unintentional weight loss Allergies Active Allergy Reactions Criticality Noted Date Comments Aspirin 04/30/2003 not an allery but was told not to take by life agent Clindamycin Unknown Medium 09/06/2015 Pt states hand swelling Localized Gabapentin Unknown 03/21/2023 Dizziness, made me like a zombie, couldn't walk Iodine Hives 06/19/2001 CT dye (Has been pretreated and did fine) Lorazepam Neuro complications (Please comment),Other (Please comment) 04/30/2003 not an allery but was told not to take by life agent hallucinates Penicillins 06/25/2001 hives Shellfish-Derived Products Anaphylaxis,Itching [...] Date ACTIVE CASE MANAGEMENT Jayla Navarro RN [phone] 03/18/2010 06/20/2010 Overview: ACTIVE CASE MANAGEMENT Jayla Navarro RN [phone] HYPERTENSION NOS 11/12/2001 07/26/2009 Overview: Modified per [...] 171.5 cm (5' 7.5") 05/09/2024 1:48 PM ED T Body Mass Index 35.18 05/09/2024 1:48 PM [...] was referred for a 2nd opinion from [facility] Gastroenterology. Previous [facility] hospital records and appointments reviewed. In January 2024 patient established with [facility] GI after moving from [facility]. Formally followed with Gastroenterology team there for [...] Symptoms progressively worsened. Patient presented to the [facility] Emergency Room on 04/25/2024 due to progressively worsening dysphagia, inability to tolerate oral intake, and weight loss. [facility] GI was consulted and evaluated by BRENT Nielosn in patient. An endoscopy was performed (04/2024) [...] by Latricia Howard MD at [facility], GI REFERRAL OP 05/14/2006 diverticulosis noted, with internal hemorrhoids, repeat in 2016 EGD, FLEXIBLE, W/BIOPSY 08/15/2006 [facility], jovany esophagitis, neg for H pylori EXPLORATION OF ABDOMEN 10/06/2010 Exploratory laparotomy; extensive adhesiolysis; incisional hernia x 3 Dr Beltran 10/06/2010 [facility] EXPLORATION OF ABDOMEN 12/29/2010 1.Exploratory Laparotomy. 2. Removal of infected mesh. 3. Closure with wound VAC. Dr Beltran 12/29/2010 [facility] EXPLORATION OF ABDOMEN 02/09/2011 1.Exploratory laparotomy 2. Extensive lysis of adhesions 3. Removal of infected mesh 4. Enterotomy repair X 4 5. Closure of abdominal wound. Dr Beltran 02/09/2011 [facility] IMPLANT MESH W/ ABD HERNIA REPR/DEBRIDE 10/02/2011 IMPLANTATION MESH WITH INCISIONAL/VENTRAL HERNIA performed by NAMRATA WAGNER at [facility] INFORMATION fx back LAPAROSCOPY; CHOLECYSTECTOMY 08/12/2011 LAPAROSCOPIC CHOLECYSTECTOMY performed by NAMRATA WAGNER at [facility] OTHER 07/27/2009 exploratory laparotomy. extensive adhesiolysis. Partial small bowel resection with primary anastomosis. Incision hernia repair (primary), 07/27/09, Dr. Beltran OTHER 09/15/2009 exploratory laparotomy, extensive lysis of adhesions (greater than 3 hours), partial small bowel resection with primiary anastomosis (30 cm of jejunum): partial small bowel resection with primary anastomosis (25 cm of distal ileum):incisional hernia repair (primary): omentectomy 09/15/09 [facility], Dr. Aicha harley PARTIAL COLECTOMY W/ANASTOMOSIS 08/22/2007 Sigmoid colectomy w/ primary anastomosis and completion proctoscopy/[facility]/ REMOVAL OF RUPTURED APPENDIX 09/03/1981 Appendectomy, Rupt Appendx+Abscess REPAIR INITIAL INCISIONAL OR VENTRAL HERNIA; REDUCIBLE 10/02/2011 REPAIR INITIAL INCISIONAL /VENTRAL HERNIA REDUCIBLE performed by NAMRATA WAGNER at [facility] UPPER GI ENDOSCOPY Social History Tobacco Use Smoking status: Never Smokeless tobacco: Never Vaping Use Vaping status: Never Used Substance Use Topics Alcohol use: No Drug use: No Review of patient's allergies indicates: Allergen Reactions Shellfish-Derived Products Anaphylaxis and Itching Tongue swelling Tongue swelling Clindamycin Unknown Pt states hand swelling Localized Aspirin not an allery but was told not to take by life agent Gabapentin Unknown Dizziness, made me like a zombie, couldn't walk Iodine Hives CT dye (Has been pretreated and did fine) Lorazepam Neuro complications (Please comment) and Other (Please comment) not an allery but was told not to take by life agent hallucinates Penicillins hives Review of Systems: See [...] normal. Lab data/imaging study review: EGD at [facility] 04/25/2024 EGD Biopsy at [facility] 04/25/2024 Impression/Plan: This is a(n) 73 [...] to esophageal dysmotility on barium swallow at [facility] Discussed emergency symptoms including inability to swallow or handle own secretions. Advised emergency department evaluation over the weekend his symptoms progressively worsen or he becomes so weak he is unable to ambulate. Given Barretts esophagus will need EGD every 3 years, possibly sooner pending clinical course. 3. Unintentional weight loss -30 lb weight loss since 02/2024 -CT of abdomen and pelvis at [facility] 03/2024 negative for acute findings - [...] time spent by another provider/QHP. BRENT Gutierrez [facility] Gastroenterology, [facility] This chart was completed in part utilizing [employer] Speech Voice Recognition Software. Grammatical errors, random [...] 05/21/2024 9:00 AM EDT Office Visit Family [facility] [address] [place] [address] [address] Anna Walsh MD [address] [place] [address] Health Maintenance Due Date Last Done Comments [...] this encounter Medical Devices Implanted Type Area Technical Implementation Lead Device Identifier Shelf Expiration Date Model / Serial / Lot Mesh Vicryl 6 X 6 Vkm-M - [id number] Implanted:Qty: 1 on 10/02/2011 at OR [facility] N/A: Abdomen DO NOT USE 09/03/2015 VKM-M / / [id number] Mesh 10 X 14 [id number] - [id number] Implanted:Qty: 1 on 10/02/2011 at OR [facility] N/A: Abdomen [employer] 04/02/2016 [id number] / / [id number] documented as of this encounter Visit Diagnoses [...] Power of Attor melvin? No Care Teams Cork Insulator Relationship Specialty Start Date End Date Solo Stock DO [address] [place] [address] PCP - General Family Medicine 04/25/24 documented as of this encounter
[2024-06-26] MEDS: oxyCODONE HCL IR 5 MG TAB (IMMEDIATE RELEASE) PO STA (03:44)
[2024-06-26] MEDS: hydrALAZINE HCL 20 MG/ML VIAL IV PRN (04:17)
[2024-06-26] MEDS: tiZANidine HCL 4 MG TABLET PO ONE (05:35)
[2024-06-26] MEDS: LEVOTHYROXINE SODIUM 100 MCG TABLET PO SCH (06:39)
[2024-06-26 06:43] LABS: BUN Creatinine Ratio 11.9 (10-20); Calcium 8.2 mg/dl (8.6-10.3); Chol HDL Ratio 3.3 (0-5); Creatinine Clr Calc Pharmacy 88.5 ml/min; Potassium 3.7 mmol/L (3.5-5.1)
[2024-06-26 06:49] LABS: Basophils # (auto) 0.03 K/uL (0.00-0.20); Basophils % (auto) 0.6 %; Eosinophils # (auto) 0.15 K/uL (0.00-0.50); Hematocrit (blood only) 39.1 % (42.0-52.0); Hemoglobin 13.3 g/dl (14.0-18.0); Immature Granulocytes # (auto) 0.01 K/uL (0.01-0.20); Immature Granulocytes % (auto) 0.2 %; Lymphocytes # (auto) 1.15 K/uL (1.20-3.40); Lymphocytes % (auto) 22.9 %; Mean Corpuscular Hemoglobin 30.8 pg (25.0-34.0); Mean Corpuscular Volume 90.5 fL (80.0-100.0); Mean Platelet Volume 10.5 fL (9.4-12.4); Monocytes # (auto) 0.31 K/uL (0.11-0.59); Monocytes % (auto) 6.2 %; Neutrophils # (auto) 3.38 K/uL (1.40-6.50); Neutrophils % (auto) 67.1 %; Platelet Count 200 K/uL (130-400); RDW Coefficient of Variation 12.3 % (11.5-14.5); RDW Standard Deviation 40.6 fL (36.4-46.3); Red Blood Count 4.32 M/uL (4.70-6.10); White Blood Count 5.03 K/ul (4.8-10.8)
[2024-06-26 07:14] LABS: Estimated Average Glucose 117 mg/dl; Hemoglobin A1C 5.7 % (4.5-5.6)
[2024-06-26] MEDS: MIRTAZAPINE TAB 15 MG TAB PO SCH (08:38)
[2024-06-26] MEDS: FLUoxetine HCL 10 MG CAP PO SCH (08:40)
--- NOTE | 2024-06-26 11:32 | Hospitalist Progress Note ---
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 Continue supportive care with symptomatic treatments. CTA head/neck with near complete focal thrombosis of right vertebral artery near skull base (age-indeterminate) MRI negative for acute stroke Lyme screen negative LP with elevated protein 61, normal glucose ID consulted, appreciate recs PRN medications for pain/LOPEZ/muscle spasm: Tylenol, Tramadol, Tizanidine PRN Zofran for nausea (2) Headache: (3) Postprandial nausea: Plan: H/o gastroparesis diagnosed by gastric emptying study (unable to locate study report) - Continue Reglan (4) Dysphagia: Plan: Speech evaluation pending Diet started with full liquids Plan Disposition: PCU telemetry VTE PPx: SCDs FEN/GI: Full liquids Admission and Anticipated Discharge Date Admission Date: June 25, 2024 Supervising Physician Co-Signing Physician Notes I personally examined the patient and verified all fernandez points of history and exam, discussed case, and agree with decision making with Dr Pa no new complaints. ongoing headache/paresthesiae. reglan has helped w PO intake vitals noted nad laying in a dark room no distress heent nc at mmm breathing unlabored no accessory muscles good effort skin no rashes no pallor or icterus headache/paresthesiae - with elevated protein on CSF post-viral encephalitis seems most c/w but will ask ID for input. given endemnicity of the area COURT COLLECTIONS OFFICER lyme obviously on ddx but without other lyme sx and negative lyme screen this dx seems less likely unless new sx unfold or CSF lyme (+) weight loss/nausea - notes was told gastric emptying study slow - sx certainly fit w gastroparesis. reglan. marker delivery consult. education. holistic approach. otherwise as above Subjective Patient reports sx started with photophobia on Sunday, then developed left sided LOPEZ in frontal/retro-orbital region + left sided weakness/sensory changes on Sunday. Recent Covid infection about 2 weeks ago. Currently, denies fever/chills. Notes continued LOPEZ, unchanged in location, improved overnight with Oxycodone and Tizanidine. +photophobia. Notes very distant h/o migraines but only one migraine in the recent past, indicates current sx distinctly different. Review of Systems Review of Systems: as per HPI Physical Exam Physical Exam: General: Alert and oriented. No acute distress Cardiac: Regular rate and rhythm, no murmurs appreciated Respiratory: Lungs clear to auscultation bilaterally, No increased work of breathing Neuro: AOx3, 5/5 in bilateral UEs, 5/5 strength in RLE, 4/5 strength in LLE, decreased sensation in left side of face, LUE, and LLE. Cranial nerves II-XII largely intact with the exception of CN VII - +bilateral facial paralysis with inability to smile or raise either eyebrow. +Nuchal rigidity but negative Brudzinski test. Results & Data Results & Data Vital Signs (Past 12 Hours) Vital Signs Temp Pulse Pulse Resp BP Pulse Ox O2 Del Method 06/26/24 10:45 36.9 C 74 17 106/64 95 Room Air 06/26/24 08:20 36.9 C 72 18 92/56 L 92 Room Air 06/26/24 08:20 93 H 06/26/24 04:35 82 148/81 H 06/26/24 02:31 36.6 C 79 18 205/91 H 96 Room Air 06/25/24 23:57 62 154/88 H Resident Activity Tracking Resident Involvement: Resident Care Provided Care Provided: Adult Hospital Medicine
[2024-06-26 12:30] LABS: Total Protein CSF 60.9 mg/dl (15-45)
[2024-06-26] MEDS: ACETAMINOPHEN 1,000 MG/100 ML VIAL IV STA (12:48)
--- OUTSIDE RECORDS SUMMARY | 2024-06-26 13:02 | External Medical Summary | Summary of Care ---
Author Name Unknown Organization [facility] Address [address] [facility] [place] [address] Phone [phone] Care Team Providers Care Market Research Executive Name Role Phone Anna Walsh MD Primary Care Provider Encounter Details Date Type Department Care Team (Late st Contact Info) Description 06/25/2024 Telephone [facility] [address] [place] [address] Edmond Saleem MD [address] [place] [address] Allergies Active Allergy Reactions Criticality Noted Date Comments Aspirin 04/30/2003 not an allery but was told not to take by bearing ring assembler Clindamycin Unknown Medium 09/06/2015 Pt states hand swelling Localized Gabapentin Unknown 03/21/2023 Dizziness, made me like a zombie, couldn't walk Iodine Hives 06/19/2001 CT dye (Has been pretreated and did fine) Lorazepam Neuro complications (Please comment),Other (Please comment) 04/30/2003 not an allery but was told not to take by bearing ring assembler hallucinates Penicillins 06/25/2001 hives Shellfish-Derived Products Anaphylaxis,Itching High 10/12/2015 Tongue swelling Tongue swelling documented as of this encounter (statuses as of 06/25/2024) Medications Medication Sig Dispensed Refills Start Date [...] as of this encounter (statuses as of 06/25/2024) Active Problems Problem Noted Date Diagnosed Date [...] as of this encounter (statuses as of 06/25/2024) Resolved Problems Problem Noted Date Diagnosed Date Resolved Date Epigastric pain 05/12/2024 05/13/2024 Violette esophagitis 05/11/2024 05/13/20 Severe obesity with body mas s index (BMI) of 35.0 to 39.9 with serious comorbidity 06/29/2011 Overview: ICD-10 update of inactive diagnosis ACTIVE CASE MANAGEMENT Jayla Navarro RN [phone] 03/18/2010 06/20/2010 Overview: ACTIVE CASE MANAGEMENT Jayla Navarro RN [phone] HYPERTENSION NOS 11/12/2001 07/26/2009 Overview: Modified per HTN protocol #16. documented as of this encounter (statuses as of 06/25/2024) Immunizations Name Administration Dates Next Due COVID-19 mRNA, LNP-s, No Pre serve, 2-Dose Series (Moderna) 11/02/2020,09/29/2020 COVID-19, MRNA-LNP, 23-24, P F, 30 MCG/0.3 [...] No 06/16/2024 documented as of this encounter Plan of Treatment Upcoming Encounters Date Type Department Care Team (Latest Contact Info) Description 07/02/2024 8:30 AM EDT Nurse Only Gastroenterology, [facility] [address] [place] [address] Nurse Carine Sneed [facility] [address] [place] [address] 07/14/2024 8:30 AM EST Office Visit Gastroenterology, [facility] [address] [place] [address] Megan Stephens CRNP [address] [place] [address] 08/04/2024 8:00 AM EST Imaging [facility] 2nd Floor Cardiology, [place] [address] [place] [place] [address] 08/04/2024 9:30 AM EST Imaging [facility] 2nd Floor Cardiology, [place] [address] [place] [place] [address] 08/04/2024 10:30 AM EST Imaging [facility] 2nd Floor Cardiology, [place] [address] [place] [address] [address] 08/04/2024 12:30 PM EST Imaging [facility] 2nd [facility] [place] [address] [place] [address] 09/26/2024 9:20 AM EST Office Visit Family [facility] [address] [place] [address] Anna Walsh MD [address] [place] [address] [address] 10/13/2024 10:30 AM EST Office Visit Allergy/Immunology [facility] [address] [place] [address] Stephanie Colon PA-C [address] [place] [address] 11/12/2024 2:00 PM EDT Hospital Encounter ENDO OSS, Endoscopy Room [facility] [address] [place] [phone] Latricia Howard MD [address] [place] [address] [address] 11/12/2024 2:00 PM EDT - 11/12/2024 2:30 PM EDT Surgery ENDO OSSC, Endoscopy Room [facility] [address] [place] [phone] Latricia Howard MD [address] [place] [address] [address] COLONOSCOPY FLEXIBLE PROXIMAL DIAGNOSTIC Pending Results Name Type Priority Associated Diagnoses Date /Time CBC WITH WBC DIFFERENTIAL Lab Routine Selective IgM deficiency (HCC) Candidiasis 06/25/2024 10:39 AM EDT T4 T8 LYMPHOCYTE SUBSET PANEL, FLOW CYTOMETRY PANEL Lab Routine Candidiasis 06/25/2024 10:39 AM EDT IMMUNOGLOBULIN QUANTITATIVE Lab Routine Selective IgM deficiency (HCC) 06/25/2024 10:39 AM EDT S. PNEUMONIAE AB (IGG) (23 SEROTYPES), MAID Lab Routine Selective IgM deficiency (HCC) 06/25/2024 10:39 AM EDT DIPHTHERIA AND TETANUS ANTITOXOIDS Lab Routine Selective IgM deficiency (HCC) 06/25/2024 10:39 AM EDT Scheduled Orders Name Type Priority Associated Diagnoses Orde r Schedule CBC WITH WBC DIFFERENTIAL Lab Routine Selective IgM deficiency (HCC) Candidiasis Expected: 06/25/2024, Expires: 06/25/2025 T4 T8 LYMPHOCYTE SUBSET PANEL, FLOW CYTOMETRY PANEL Lab Routine Candidiasis Expected: 06/25/2024, Expires: 06/25/2025 IMMUNOGLOBULIN QUANTITATIVE Lab Routine Selective IgM deficiency (HCC) Expected: 06/25/2024, Expires: 06/25/2025 S. PNEUMONIAE AB (IGG) (23 SEROTYPES), MAID Lab Routine Selective IgM deficiency (HCC) Expected: 06/25/2024, Expires: 06/25/2025 DIPHTHERIA AND TETANUS ANTITOXOIDS Lab Routine Selective IgM deficiency (HCC) Expected: 06/25/2024, Expires: 06/25/2025 Scheduled Procedures Name Priority Associated Diagnoses Date/Ti [...] 2014 Depression Screening 04/30/2015 04/30/2014 COVID-19 Vaccine ( season) 2024 11/23/2023, 11/02/2020, 09/29/2020 Influenza Vaccine (FLU shot) (#1) 2024 TSH 05/21/2025 05/21/2024, 09/0 05/2024, 12/11/2013, Additional history exists GFR 06/18/2025 [...] this encounter Medical Devices Implanted Type Area Tanyard Worker Device Identifier Shelf Expiration Date Model / Serial / Lot Mesh Vicryl 6 X 6 Vkm-M - [id number] Implanted:Qty: 1 on 10/02/2011 at OR [facility] N/A: Abdomen DO NOT USE 09/03/2015 VKM-M / / [id number] Mesh 10 X 14 [id number] - [id number] Implanted:Qty: 1 on 10/02/2011 at OR [facility] N/A: Abdomen [employer] [facility] 04/02/2016 [id number] / / [id number] documented as of this encounter Visit Diagnoses Diagnosis 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 No Care Teams Market Research Executive Relationship Specialty Start Date End Date Anna Walsh MD [address] [place] [address] PCP - General Internal Medicine 05/21/24 documented as of this encounter
--- OUTSIDE RECORDS SUMMARY | 2024-06-26 13:02 | External Medical Summary | Summary of Care ---
Author Name Unknown Organization [facility] [address] [place] [address] Phone [phone] Care Team Providers Care Graphic Artist Name Role Phone Anna Walsh MD Primary Care Provider Reason for Visit * Reason Comments Outpatient Testing Encounter Details Date Type Department Care Team (Late st Contact Info) Description 06/25/2024 10:20 AM EDT Laboratory Laboratory, [facility] [address] [facility] [place] [place] [phone] [facility] [address] [place] [address] B12 deficiency; Selective IgM deficiency (HCC); Candidiasis Allergies Active Allergy Reactions Criticality Noted Date Comments Aspirin 04/30/2003 not an allery but was told not to take by branch mechanic Clindamycin Unknown Medium 09/06/2015 Pt states hand swelling Localized Gabapentin Unknown 03/21/2023 Dizziness, made me like a zombie, couldn't walk Iodine Hives 06/19/2001 CT dye (Has been pretreated and did fine) Lorazepam Neuro complications (Please comment),Other (Please comment) 04/30/2003 not an allery but was told not to take by branch mechanic hallucinates Penicillins 06/25/2001 hives Shellfish-Derived Products Anaphylaxis,Itching [...] diagnosis ACTIVE CASE MANAGEMENT Jayla Navarro RN [phone] 03/18/2010 06/20/2010 Overview: ACTIVE CASE MANAGEMENT Jayla Navarro RN [phone] HYPERTENSION NOS 11/12/2001 07/26/2009 Overview: Modified per [...] 11:00 AM EDT Office Visit Family Practice [facility] [address] [place] [address] Anna Walsh MD [address] [place] [address] Arrived 07/02/2024 8:30 AM EDT Nurse Only Gastroenterology, [facility] [address] [place] [address] Nurse Carine Sneed [facility] [address] [place] [address] 07/14/2024 8:30 AM EST Office Visit Gastroenterology, [facility] [address] [place] [address] Megan Stephens CRNP [address] [place] [address] [address] 08/04/2024 8:00 AM EST Imaging [facility] 2nd Floor Cardiology, [place] [address] [place] [address] [address] 08/04/2024 9:30 AM EST Imaging [facility] 2nd Floor Cardiology, [address] [place] [address] [address] 08/04/2024 10:30 AM EST Imaging [facility] 2nd Floor Cardiology, [place] [address] [facility] [place] [address] [address] 08/04/2024 12:30 PM EST Imaging [facility] 2nd Floor Cardiology, [place] [address] [facility] [place] [address] [address] 09/26/2024 9:20 AM EST Office Visit Family Practice [facility] [address] [facility] [place] [address] [address] Anna Walsh MD [address] [place] [address] 10/13/2024 10:30 AM EST Office Visit Allergy/Immunology [facility] [address] [place] [address] Stephanie Colon PA-C [address] [place] [address] 11/12/2024 2:00 PM EDT Hospital Encounter ENDO [facility], Endoscopy Room [facility] [address] [place] [phone] Latricia Howard MD [address] [place] [address] [address] 11/12/2024 2:00 PM EDT - 11/12/2024 2:30 PM EDT Surgery ENDO [facility], Endoscopy Room [facility] [address] [facility] [place] [address] [phone] Latricia Howard MD [address] [place] [address] COLONOSCOPY FLEXIBLE PROXIMAL DIAGNOSTIC Pending Results Name Type Priority Associated Diagnoses Date /Time VITAMIN B12 Lab Routine B12 deficiency 06/25/2024 10:39 AM EDT CBC WITH WBC DIFFERENTIAL Lab [...] IgM deficiency (HCC) 06/25/2024 10:39 AM EDT CBC Lab Routine Selective IgM deficiency (HCC) Candidiasis 06/25/2024 10:39 AM EDT DIFFERENTIAL, AUTOMATED Lab Routine Selective IgM deficiency (HCC) Candidiasis 06/25/2024 10:39 AM EDT T4 T8 LYMPHOCYTE SUBSET PANEL, FLOW CYTOMETRY Lab Routine Candidiasis 06/25/2024 10:39 AM EDT WBC/%LYMPH, FLOW CYTOMETRY Lab Routine Candidiasis 06/25/2024 10:39 AM EDT Scheduled Procedures Name Priority Associated Diagnoses Date/Ti [...] (FLU shot) (#1) 2024 TSH 05/21/2025 05/21/2024, 09/05/2024, 12/11/2013, Additional history exists GFR 06/18/2025 06/18/2024, [...] this encounter Medical Devices Implanted Type Area Nurse Charge Rn Device Identifier Shelf Expiration Date Model / Serial / Lot Mesh Vicryl 6 X 6 Vkm-M - [id number] Implanted:Qty: 1 on 10/02/2011 at [place] [facility] N/A: Abdomen DO NOT USE 09/03/2015 VKM-M / / [id number] Mesh 10 X 14 [id number] - [id number] Implanted:Qty: 1 on 10/02/2011 at OR [facility] N/A: Abdomen [employer] [facility] 04/02/2016 [id number] / / [id number] documented as of this encounter Visit Diagnoses Diagnosis B12 deficiency Other B-complex deficiencies 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 No Care Teams Graphic Artist Relationship Specialty Start Date End Date Anna Walsh MD [address] [place] [address] PCP - General Internal Medicine 05/21/24 documented as of this encounter
--- OUTSIDE RECORDS SUMMARY | 2024-06-26 13:02 | External Medical Summary ---
Author Name Unknown Address Unknown Organization K01:[facility] - [facility] [address] [place] [address] Laboratory Report Ordering Provider Test Date Status PAKO DELAROSA 06/25/2024 10:39:56 Final Observation Date Value Abnormality Reference (Units ) Status WBC, Total 06/25/2024 10:39:56 5.76 4.00-10.80 (K/uL) Final RBC 06/25/2024 10:39:56 4.74 4.50-5.25 (M/uL) Final Hemoglobin 06/25/2024 10:39:56 15.1 14.0-16.8 (g/dL) Final HCT 06/25/2024 10:39:56 45.0 40.0-48.4 (%) Final MCV 06/25/2024 10:39:56 94.9 82.0-99.5 (fL) Final MCH 06/25/2024 10:39:56 31.9 27.0-34.0 (pg) Final MCHC 06/25/2024 10:39:56 33.6 32.0-36.0 (g/dL) Final RDW 06/25/2024 10:39:56 12.3 11.5-15.5 (%) Final Platelets 06/25/2024 10:39:56 220 140-400 (K/uL) Final MPV 06/25/2024 10:39:56 11.1 6.6-11.1 (fL) Final Nucleated erythrocytes/100 leukocytes [Ratio] in Blood by Automated count 06/25/2024 10:39:56 0 <=0 (/100 WBCs) Final Performing Location [facility] - [address] [address]
--- OUTSIDE RECORDS SUMMARY | 2024-06-26 13:02 | External Medical Summary | Summary of Care ---
Author Name Unknown Organization [facility] Address [address] [address] Phone [phone] Care Team Providers Care Fondant Cooker Name Role Phone Anna Walsh MD Primary Care Provider Reason for Visit * Reason Onset Date Comments Hospital Follow-Up Discharge , [facility].Pt currently experiencing vertigo, vision changes(blurry) and having SOB currently. Occurring since he was in the waiting room, has been worse since he has gotten into room. Stated he started feeling shaky after waking up today.Pt had labs done prior to appt.Recently Dx with covid on 06/16. Hospital Follow-Up 06/25/2024 Encounter Details Date Type Department Care Team (Latest Contact Info) Description 06/25/2024 11:00 AM EDT Office Visit Family [facility] [address] [place] [address] [address] Anna Walsh MD [address] [place] [address] [address] Confusion*; Shaky; Acute nonintractable headache, unspecified headache type; Dizziness; Hospital discharge follow-up; Malnutrition of moderate degree (HCC) Allergies Active Allergy Reactions Criticality Noted Date Comments Aspirin 04/30/2003 not an allery but was told not to take by window cleaner Clindamycin Unknown Medium 09/06/2015 Pt states hand swelling Localized Gabapentin Unknown 03/21/2023 Dizziness, made me like a zombie, couldn't walk Iodine Hives 06/19/2001 CT dye (Has been pretreated and did fine) Lorazepam Neuro complications (Please comment),Other (Please comment) 04/30/2003 not an allery but was told not to take by window cleaner hallucinates Penicillins 06/25/2001 hives Shellfish-Derived Products Anaphylaxis,Itching [...] diagnosis ACTIVE CASE MANAGEMENT Jayla Navarro RN [phone] 03/18/2010 06/20/2010 Overview: ACTIVE CASE MANAGEMENT Jayla Navarro RN [phone] HYPERTENSION NOS 11/12/2001 07/26/2009 Overview: Modified per [...] Sign Reading Time Taken Comments Blood Pressure 168/96 06/25/2024 11:16 AM EDT Pulse 68 06/25/2024 10:59 AM EDT Temperature 36.3 C (97.3 F) 06/25/2024 1 0:59 AM EDT Respiratory Rate - - Oxygen Saturation 99% 06/25/2024 10: 59 AM EDT Inhaled Oxygen Concentration - - Weight 102.6 kg (226 lb 3.2 oz) 024 10:59 AM EDT Height - - Body Mass Index 33.4 06/16/2024 3:29 PM EDT documented in this [...] No 06/16/2024 documented as of this encounter Progress Notes * Anna Walsh MD - 06/25/2024 11:25 AM EDT SUBJECTIVE: Dallin Reed is a 73 year old male. Chief Complaint Patient presents with Hospital Follow-Up Discharge 06/19/2024, [facility]. Pt currently experiencing vertigo, vision changes(blurry) and having SOB currently. Occurring sincehe was in the waiting room, has been worse since he has gotten into room. Stated he started feelingshaky after waking up today. Pt had labs done prior to appt. Recently Dx with covid on 06/16. Hospital Follow-Up Recent Admission: Patient was recently admitted to [facility] 06/16/24. The date of discharge was 06/18/24. Discharge report received and reviewed. HPI: Ongoing weight loss. NO appetite. Yesterday ate apple sauce, mashed potatoes, noodles and gatorade. Stomach upset after eating. Is already s/p CCY CT chest/neck from 05/11 shows no worrisome masses MRI abdomen 06/2024 unremarkable except for small hepatic cyst Started on remeron and reglan while inpatient. reports appetite is improving, but still not normal. Yesterday felt okay. Today woke up feeling shaky. Went to vote, struggled but was able to complete his ballot. Came here, got blood drawn, then was shaky enough that did not think he could make it tothe exam room. He is confused, has a headache over the left eye, his neck feels painful and stiff, he has numbnessand pain over his left cheek, his vision is blurry. He is accompanied by his who reports that she has watched him eat hardly anything for a week and this feels different. He does have a history of migraines, but this does not feel like a migraine to him. Was diagnosed with COVID earlier this month at [facility]. Patient Active Problem List Diagnosis GENERAL OSTEOARTHROSIS Esophageal reflux ADVANCE DIRECTIVE INFORMATION Hypothyroidism DIVERTICULOSIS OF COLON Other specified glaucoma Patient refuses FLU and PNEUMOVAX Hypertension BMI 35-39 ISOLATED (SEE ACTUAL BMI) ADHESIONS ABDOMINAL Incisional hernia Ventral hernia, unspecified, without mention of obstruction or gangrene Calculus of gallbladder without mention of cholecystitis or obstruction Cellulitis of leg Enchondroma of femur BPH without obstruction/lower urinary tract symptoms Small vessel disease, cerebrovascular Dysphagia Hiatal hernia Unintentional weight loss Malnutrition of moderate degree (HCC) Esophageal dysmotility Phelps's esophagus without dysplasia Unexplained weight loss Generalized weakness COVID-19 Chronic nausea Current Outpatient Medications Medication Sig Dispense Refill [...] (Xalatan) Instill 1 Drop into both eyes at bedtime. Pantoprazole Sodium 40 MG Oral Tablet Delayed [...] as needed for Heartburn. 120 Tablet 3 Metoclopramide HCl 5 MG Oral Tablet (Reglan) Take 0.5 Tablet by mouth 3 times a day as needed to help with nausea prior to meals. 30 Tablet 0 Mirtazapine 7.5 MG Oral Tablet (Remeron) Take 1 Tablet by mouth every night at bedtime. 30 Tablet 0 No current facility-administered medications for this visit. Current and discharge medications have been reconciled. Review of patient's allergies indicates: Allergen Reactions Shellfish-Derived Products Anaphylaxis and Itching Tongue swelling Tongue swelling Clindamycin Unknown Pt states hand swelling Localized Aspirin not an allery but was told not to take by window cleaner Gabapentin Unknown Dizziness, made me like a zombie, couldn't walk Iodine Hives CT dye (Has been pretreated and did fine) Lorazepam Neuro complications (Please comment) and Other (Please comment) not an allery but was told not to take by window cleaner hallucinates Penicillins hives OBJECTIVE: BP 168/96 (BP Cuff Size: Large) | Pulse 68 | Temp 36.3 C (97.3 F) (Tympanic) | Wt 102.6 kg (226lb 3.2 oz) | SpO2 99% | BMI 33.40 kg/m | BSA 2.24 m REVIEW OF SYSTEMS: Review of Systems Constitutional: Positive for unexpected weight change. HENT: Positive for trouble swallowing. Eyes: Positive for visual disturbance. Respiratory: Negative for shortness of breath. Cardiovascular: Negative for chest pain. Gastrointestinal: Positive for abdominal pain. Negative for constipation and diarrhea. Genitourinary: Negative for difficulty urinating. Skin: Negative for rash. Neurological: Positive for dizziness, light-headedness and headaches. Psychiatric/Behavioral: Positive for confusion. PHYSICAL EXAM: BP 168/96 (BP Cuff Size: Large) | Pulse 68 | Temp 36.3 C (97.3 F) (Tympanic) | Wt 102.6 kg (226lb 3.2 oz) | SpO2 99% | BMI 33.40 kg/m | BSA 2.24 m Physical Exam Constitutional: General: He is not in acute distress. Appearance: He is ill-appearing. Comments: Looks weak, shaky HENT: Nose: Nose normal. Mouth/Throat: Mouth: Mucous membranes are moist. Eyes: General: No scleral icterus. Conjunctiva/sclera: Conjunctivae normal. Pupils: Pupils are equal, round, and reactive to light. Comments: L eye struggles with L lateral gaze. Struggles to keep eyes stable with lateral gaze, L>R Denies diplopia but I am not sure he understands question Neck: Comments: Decreased ROM at neck due to pain/stiffness Cardiovascular: Rate and Rhythm: Normal rate and regular rhythm. Heart sounds: No murmur heard. Pulmonary: Effort: Pulmonary effort is normal. Breath sounds: Normal breath sounds. Abdominal: General: Abdomen is flat. There is no distension. Palpations: Abdomen is soft. Tenderness: There is abdominal tenderness (LUQ). There is no guarding. Musculoskeletal: Right lower leg: Edema present. Left lower leg: Edema present. Neurological: Mental Status: He is alert. 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 Maybe related to side effects from Reglan and significant malnutrition. Did recently have COVID. Agreeable to proceed to the emergency department at [facility] for more acute evaluation I have advised the patient to call our office in case of any worsening or new symptoms. The above was discussed and understanding was expressed. I spent a total of 37 minutes on the date of service in preparation, delivery and documentation of the care provided to Dallin Reed excluding any time spent in the performance of any procedure or separately billable services. Anna Walsh MD [facility] documented in this encounter Nursing Notes * Graham Chandra CMA - 06/25/2024 10:59 AM EDT The patient has been properly identified by confirmation of name and date of . Chief Complaint Patient presents with Hospital Follow-Up Discharge 06/19/2024, [facility]. Pt currently experiencing vertigo, vision changes(blurry) and having SOB currently. Occurring sincehe was in the waiting room, has been worse since he has gotten into room. Recently Dx with covid on 06/16. documented in this encounter Plan of Treatment Upcoming Encounters Date Type Department Care Team (Latest Contact Info) Description 07/02/2024 8:30 AM EDT [facility] [address] [place] [address] Nurse Carine Sneed Dung [address] [facility] [place] [address] 07/14/2024 8:30 AM EST [facility] [address] [place] [address] Megan Stephens CRNP [address] [facility] [address] 08/04/2024 8:00 AM EST Imaging [facility] 2nd Floor Cardiology, [place] [facility] [address] [address] [address] 08/04/2024 9:30 AM EST Imaging [facility] 2nd Floor Cardiology, [place] [address] [address] 08/04/2024 10:30 AM EST Imaging [facility] 2nd Floor Cardiology, [address] [place] [phone] 08/04/2024 12:30 PM EST Imaging [facility] 2nd Floor Cardiology, [address] [address] 09/26/2024 9:20 AM EST Office Visit Family Practice [facility] [address] [place] [address] Anna Walsh MD [address] [facility] [place] [address] [address] 10/13/2024 10:30 AM EST Office Visit Allergy/Immunology [facility] [address] [place] [address] Stephanie Colon PA-C [address] [place] [address] 11/12/2024 2:00 PM EDT Hospital Encounter ENDO [facility], Endoscopy Room [facility] [address] [place], [place] [phone] Latricia Howard MD [address] [place] [address] 11/12/2024 2:00 PM EDT - 11/12/2024 2:30 PM EDT Surgery ENDO [facility], Endoscopy Room [facility] [address] [place] [phone] Latricia Howard MD [address] [place] [address] COLONOSCOPY FLEXIBLE PROXIMAL DIAGNOSTIC Scheduled Procedures Name [...] this encounter Medical Devices Implanted Type Area Workers Compensation Administrator Device Identifier Shelf Expiration Date Model / Serial / Lot Mesh Vicryl 6 X 6 Vkm-M - [id number] Implanted:Qty: 1 on 10/02/2011 at [place] [facility] N/A: Abdomen DO NOT USE 09/03/2015 VKM-M / / [id number] Mesh 10 X 14 [id number] - [id number] Implanted:Qty: 1 on 10/02/2011 at [place] [facility] N/A: Abdomen [employer] [facility] 04/02/2016 [id number] / / [id number] documented as of this encounter Procedures Procedure Name Priority Date/Time Associated Diagnosis Comments GLUCOSE METER, POINT OF CARE Routine 06/25/2024 11:13 AM EDT Shaky Dizziness documented in this encounter Results * GLUCOSE METER, POINT OF CARE (06/25/2024 11:13 AM EDT) [facility] GLUCOSE - POCT 87 70 - 120 mg/dL 06/25/2024 11:25 AM EDT LAB[facility] [place] 57-10 Blood 06/25/2024 11:1 3 AM EDT 06/25/2024 11:25 AM EDT Anna Walsh MD LAB POINT OF C ARE TEST DOCKED DEVICE UNSOLICITED RESULTS [facility] [place] 57-10 [address] [place] [address] documented in this encounter Visit Diagnoses Diagnosis Confusion- Primary Unspecified psychosis Shaky Abnormal involuntary movements Acute nonintractable headache, unspecified headache type Dizziness Dizziness and giddiness Hospital discharge follow-up Other follow-up examination Malnutrition of moderate degree (HCC) Malnutrition of moderate degree Phelps's esophagus without dysplasia Phelps's esophagus Dysphagia, [...] Power of Attor melvin? No Care Teams Fondant Cooker Relationship Specialty Start Date End Date Anna Walsh MD [address] [place] [address] PCP - General Internal Medicine 05/21/24 documented as of this encounter"
--- OUTSIDE RECORDS SUMMARY | 2024-06-26 13:02 | External Medical Summary ---
Author Name Unknown Address Unknown Organization K[facility] - [address] [facility] [place] [address] Laboratory Report Ordering Provider Test Date Status PAKO DELAROSA 06/25/2024 10:39:56 Final Observation Date Value Abnormality Reference (Units ) Status SYNC LEUKOCYTES IN BLOOD BY AUTOMATED COUNT 06/25/2024 10:39:56 5.76 4.00-10.80 (K/uL) Final Segs 06/25/2024 10:39:56 64.2 40.0-75.0 (%) Final Lymphs % 06/25/2024 10:39:56 25.2 18.0-42.0 (%) Final Monos 06/25/2024 10:39:56 6.1 1.0-11.0 (%) Final Eosinophils 06/25/2024 10:39:56 2.8 0.0-6.0 (%) Final Basos 06/25/2024 10:39:56 0.5 0.0-2.0 (%) Final Immature Granulocyte, Percent 06/25/2024 10:39:56 1.2 0.0-2.0 (%) Final Absolute Segs 06/25/2024 10:39:56 3.70 1.80-7.70 (K/uL) Final Lymphs, absolute 06/25/2024 10:39:56 1.45 1.00-4.80 (K/ul) Final Monos, Abs 06/25/2024 10:39:56 0.35 0.00-1.10 (K/uL) Final Eos, Abs 06/25/2024 10:39:56 0.16 0.00-0.70 (K/uL) Final Basos, Abs 06/25/2024 10:39:56 0.03 0.00-0.20 (K/uL) Final Immature Granulocytes, Number 06/25/2024 10:39:56 0.07 0.00-0.20 (K/uL) Final Performing Location LABORATORY [facility] [place] - [address] [facility] [address]
--- OUTSIDE RECORDS SUMMARY | 2024-06-26 13:02 | External Medical Summary ---
Author Name Unknown Address Unknown Organization K01:[facility] - [address] [place] [address] Laboratory Report Ordering Provider Test Date Status EVERETT GAINES 06/25/2024 10:39:56 Final Observation Date Value Abnormality Reference (Units ) Status Vitamin B12 06/25/2024 10:39:56 [phone] (pg/mL) Final Performing Location [facility] - [address] [address]
--- OUTSIDE RECORDS SUMMARY | 2024-06-26 13:02 | External Medical Summary ---
Author Name Unknown Address Unknown Organization K01:[facility] - [address] [place] [address] Laboratory Report Ordering Provider Test Date Status PAKO DELAROSA 06/25/2024 10:39:56 Final Observation Date Value Abnormality Reference (Units ) Status IgG 06/25/2024 10:39:56 [phone] ( mg/dL) Final IgA 06/25/2024 10:39:56 397 70-400 (mg /dL) Final IgM 06/25/2024 10:39:56 23 Below low normal 40- 230 (mg/dL) Final Performing Location [facility] - [address] [place] [address]
[2024-06-26 13:15] LABS: Appearance CSF Clear; CSF Count Tube # 3; CSF Xanthrochromic No xanthochromia; Color CSF Colorless; Red Blood Cell CSF Manual 190 (0-); White Blood Cell CSF Manual 0 (0-5)
--- NOTE | 2024-06-26 14:01 | Fluoroscopy Report ---
Fluoroscopic guided lumbar puncture INDICATION: Meningitis evaluation PROCEDURE: Procedure and risks were explained. Informed consent was obtained. A final timeout was com pleted. The patient was placed prone on the fluoroscopic exam table. The lower lumbar region was prep ped and draped in sterile fashion. 1% lidocaine was utilized for skin anesthesia. Utilizing fluoroscopic guidance, a 20-gauge spinal needle was advanced into the intrathecal space at the L3-4 disc space level. Permanent spot images were obtained. Approximately 8 mL of CSF fluid was r emoved and sent to lab for analysis. The needle was removed and Band-Aid applied. The patient tolerat ed the procedure well. Vital signs we monitored postprocedure. Total fluoroscopy time 53 seconds. Study dose is 63.68 mGy. IMPRESSION: Lumbar puncture as detailed above. Performed, dictated, and signed by Adelso Tejada PA-C; to be co-signed by Dr. Kenneth Maldonado. Electronically signed by: Kenneth Maldonado M.D. 06/26/2024 5:14 PM
--- NOTE | 2024-06-26 14:22 | XCELERA ---
[id number] \\[id number]
[2024-06-26] MEDS: tiZANidine HCL 4 MG TABLET PO PRN (16:03)
--- NOTE | 2024-06-26 16:15 | Infectious Disease Consult ---
Date of Consultation June 26, 2024 Assessment & Plan (1) Stroke-like symptoms: (2) Headache: (3) History of COVID-19: Plan 73yo M with h/o diverticulitis, GERD, depression, chronic low back pain, TIA 15yrs ago, recent admission to OSH with abdominal issues and dysphagia (dcd las t week), recent COVID infection 2 weeks ago who presented on 06/25 with left sided weakness, numbness, neck pain, confusion, and left sided headache. On admission, he was afebrile, vss. Initial labs with WBC 6.8, Cr and AST/ALT wnl. Lyme screen negative. Admission exam noted decreased sensation with 4/5 strength in LUE/LLE, no facial droop, pain with neck flexion but no Brudzinski sign. CT head negative. MRI brain negative. TTE negative for significant valvular abnormalities. S/p LP with 0 WBC, elevated protein to 60.9, normal glucose. CSF gram stain negative. ID consulted 06/26. I was not able to see the patient since no telepresenter available at this time. Based on chart review, his symptoms seem atypical for post-COVID neurological disease. COVID encephalitis often has been reported to have changes on CSF and on MRI, which he does not. Covid encephalopathy would often be seen as delirium, somnolence, decreased level of consciousness, seizures. COVID brain has also been reported with decreased cognitive function and brain fog. There are also demyelinating conditions or MIS-A (multisystem inflammatory syndrome in adults) which can include neurologic involvement, but these are not consistent with patients presentation. CSF also has 0 WBC, if considering other infectious etiologies. Interestingly, he has elevated CSF protein. May consider autoimmune etiology. Would suggest neurology input. If there is some component of COVID involvement, management is supportive. CSF could be sent for COVID however, it would be a send out study (assuming our partner labs perform it) which would take a long time to result, but it would not ticket dispenser changer. # Headache # Stroke-like symptoms # H/o COVID infection - suggest neurology consultation - supportive care - I will see patient with telepresenter tomorrow ID will continue to follow. If questions or concerns, contact via PhysicianPortal or Infectious Disease Call Center . Alley Amaya MD [facility], Division of Infectious Diseases IDConnect: [phone] Consultation Information This patient recommendation is based on a telemedicine consult request which was completed asynchronously through chart review and information provided by the primary physician. The patient was not seen or examined today. The evaluation is consultative in nature and all patient care and treatment decisions can either be accepted or rejected by the patient's primary hospital-based treating physician using their own independent medical judgment for their patient. Dispute Resolution Specialist contact information: Please call ID Connect Call Center [phone]. (Phone Number For Physician Use Only) Time Spent Reviewing Chart: 31+ minutes History of Present Illness Reason for Consultation: ?post COVID encephalitis Attending Physician: Yamil Smiley, History of Present Illness 73yo M with h/o diverticulitis, GERD, depression, chronic low back pain, TIA 15yrs ago, recent admission to OSH with abdominal issues and dysphagia (dcd last week), recent COVID infection 2 weeks ago who presented on 06/25 with left sided weakness, numbness, neck pain, confusion, and left sided headache. He had felt well when he went to bed the night before, and woke at night let his dog out but noted stumbling and like the left side of body was weaker. When he woke again in the morning, he had a pounding headache and left sided facial numbness. Noted difficulty concentrating, blurry vision, feelings of confusion. had noted slurred speech and that he could not lift his eyebrows. No facial droop. On admission, he was afebrile, vss. Initial labs with WBC 6.8, Cr and AST/ALT wnl. Lyme screen negative. Admission exam noted decreased sensation with 4/5 strength in LUE/LLE, no facial droop, pain with neck flexion but no Brudzinski sign. CT head negative. MRI brain negative. TTE negative for significant valvular abnormalities. S/p LP with 0 WBC, elevated protein to 60.9, normal glucose. CSF gram stain negative. ID consulted 06/26. No telepresenter available at this time. Allergies Allergy/AdvReac Type Severity Reaction Status Date / Time cefazolin Allergy Severe CP/FELT Verified 05/07/24 09:11 LIKE THROAT CLOSING Gadolinium-Containing Allergy Severe SHORTNESS Verified 05/07/24 09:11 Contrast Medi OF BREATH aspirin Allergy Unknown PATIENT Verified 05/07/24 09:11 TOLD NOT TO TAKE BY AUTOMOTIVE FINANCE MANAGER Iodinated Contrast Media Allergy Unknown Unknown Rxn Verified 05/07/24 09:11 Penicillins Allergy Unknown PT HAS Verified 05/07/24 09:11 TOLERATED MEFOXIN IN PAST shellfish derived Allergy Unknown Unknown Verified 05/07/24 09:11 Home Medications Medication Instructions Recorded Confirmed Type famotidine 40 mg tablet 40 mg PO QPM #90 tabs 01/16/24 06/25/24 Rx ondansetron 8 mg disintegrating 8 mg PO Q8H PRN nausea and 01/16/24 06/25/24 Rx tablet vomiting 90 days #180 tabs levothyroxine 100 mcg tablet 100 mcg PO DAILYBB #90 tabs 02/21/24 06/25/24 Rx dicyclomine 10 mg capsule 10 mg PO BID #60 caps 04/10/24 06/25/24 Rx dorzolamide 2 % eye drops 1 drp OPB BID #30 mL 04/16/24 06/25/24 Rx latanoprost 0.005 % eye drops 1 drp OPB HS #7.5 mL 04/16/24 06/25/24 Rx brinzolamide 1 % eye 1 drp OPB BID 04/25/24 06/25/24 History drops,suspension fluoxetine 10 mg capsule 30 mg PO DAILY 04/25/24 06/25/24 History pantoprazole 40 mg tablet,delayed 40 mg PO BID #60 tabs 04/28/24 06/25/24 Rx release atorvastatin 40 mg tablet 20 mg (1/2 x 40 mg) PO HS #90 tabs 05/07/24 06/25/24 Rx metoclopramide HCl 5 mg tablet 5 mg PO HS 06/25/24 06/25/24 History mirtazapine 7.5 mg tablet 7.5 mg PO DAILY 06/25/24 06/25/24 History ondansetron 4 mg disintegrating 4 mg PO DIRECTED PRN n/v 06/25/24 06/25/24 History tablet tramadol 50 mg tablet 50 mg PO BID 06/25/24 06/25/24 History Patient History Medical History Bowel obstruction Surgical History S/P hernia surgery S/P sinus surgery Family History Sister Breast cancer Cancer of spine Cancer Brother Colorectal cancer Father COPD (chronic obstructive pulmonary disease) Denies family history of Ovarian cancer Prostate cancer Myocardial infarction Social History (Updated 02/14/24 @ 11:08 by Seda Chandler LPN) Smoking Status: Never smoker Second Hand Exposure: Yes; Do You Dip or Chew Tobacco: No; Tobacco Cessation Education Requested by Patient: No Hx Alcohol Use: Yes Alcohol type: wine Alcohol Intake Frequency: Monthly or Less Hx Substance Use: No Preferred Language: Azerbaijani Communication Ability: Effective Visual Impairment: Limited Hearing Ability: Normal [employer] Math Teacher Required: No Beliefs That Will Affect Care: None marital status: Current Living Situation: Spouse Current Living Situation Comment: worked at [employer] current occupational status: retired Other Information That Helps Us Care for You: No Feels Safe at Home: Yes Safety Concerns: Feels Safe At This Time Childhood Exposure to Second-Hand Smoke: Yes Diet: regular caffeine: Yes Dental Care, Regularly: Yes Physical Activity Frequency: Daily Seatbelt Use: always Sunscreen Use: No Assistive Devices: None Results & Data Vital Signs (Past 12 Hours) Vital Signs Temp Pulse Pulse Resp BP Pulse Ox O2 Del Method 06/26/24 15:30 87 155/82 H 91 Room Air 06/26/24 15:13 69 06/26/24 15:00 36.9 C 77 17 143/83 H 93 Room Air 06/26/24 14:30 37 C 78 16 128/72 93 Room Air 06/26/24 14:00 78 133/74 Room Air 06/26/24 13:30 79 133/70 94 Room Air 06/26/24 13:21 36.9 C 80 17 125/75 92 Room Air 06/26/24 12:51 36.9 C 68 16 120/72 94 Room Air 06/26/24 12:36 36.8 C 74 16 144/76 H 97 Room Air 06/26/24 12:21 36.9 C 66 17 132/72 96 Room Air 06/26/24 12:06 36.7 C 67 17 130/69 95 Room Air 06/26/24 10:45 36.9 C 74 17 106/64 95 Room Air 06/26/24 08:20 36.9 C 72 18 92/56 L 92 Room Air 06/26/24 08:20 93 H 06/26/24 04:35 82 148/81 H Laboratory Results Labs reviewed. Diagnostic Findings Imaging reviewed.
--- NOTE | 2024-06-26 18:38 | Billing Data ---
Date of Service June 26, 2024 Coding Level of Care Code 47345 SUB INP/OBS CARE
[2024-06-26] MEDS: ACETAMINOPHEN 1,000 MG/100 ML VIAL IV PRN (22:41)
[2024-06-27] MEDS: ONDANSETRON INJ 2 MG/ML 2 ML VIAL IV PRN (01:38)
--- NOTE | 2024-06-27 05:52 | Electrocardiogram Report ---
Test Reason : Blood Pressure : */* mmHG Vent. Rate : 62 BPM Atrial Rate : 62 BPM P-R Int : 182 ms QRS Dur : 76 ms QT Int : 448 ms P-R-T Axes : 66 29 55 degrees QTcB Int : 454 ms Normal sinus rhythm Normal ECG When compared with ECG of 25-Apr-2024 08:58, No significant change Confirmed by Alverto Emerson ([id number]) on 06/27/2024 5:52:14 AM Referred By: REFERRED SELF Confirmed By: Alverto Emerson
[2024-06-27 06:21] LABS: Basophils # (auto) 0.03 K/uL (0.00-0.20); Basophils % (auto) 0.5 %; Eosinophils # (auto) 0.08 K/uL (0.00-0.50); Eosinophils % (auto) 1.4 %; Hematocrit (blood only) 36.3 % (42.0-52.0); Hemoglobin 12.9 g/dl (14.0-18.0); Immature Granulocytes # (auto) 0.03 K/uL (0.01-0.20); Immature Granulocytes % (auto) 0.5 %; Lymphocytes # (auto) 1.81 K/uL (1.20-3.40); Lymphocytes % (auto) 32.3 %; Mean Corpuscular Hemoglobin 31.7 pg (25.0-34.0); Mean Corpuscular Hgb Conc 35.5 g/dL (32.0-36.0); Mean Corpuscular Volume 89.2 fL (80.0-100.0); Mean Platelet Volume 10.5 fL (9.4-12.4); Monocytes # (auto) 0.53 K/uL (0.11-0.59); Monocytes % (auto) 9.5 %; Neutrophils # (auto) 3.12 K/uL (1.40-6.50); Neutrophils % (auto) 55.8 %; Platelet Count 184 K/uL (130-400); RDW Coefficient of Variation 12.1 % (11.5-14.5); Red Blood Count 4.07 M/uL (4.70-6.10)
[2024-06-27 06:51] LABS: BUN Creatinine Ratio 13.1 (10-20); Calcium 8.1 mg/dl (8.6-10.3); Creatinine Clr Calc Pharmacy 69.9 ml/min; Potassium 3.4 mmol/L (3.5-5.1)
--- NOTE | 2024-06-27 07:33 | Hospitalist Progress Note ---
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 After curbside discussion with neurology, presentation more in line with atypical/complex migraine: CTA head/neck with near complete focal thrombosis of right vertebral artery near skull base (age-indeterminate) MRI negative for acute stroke Lyme screen negative LP CSF studies with elevated protein 61, normal glucose ID consulted, felt this was less so infectious in etiology given absence of WBC in CSF, recommended neurology consult. Per neurology, CSF protein can be elevated in the setting of complex migraine. Will trial dose of PO prednisone 60mg + IV Depakote 500mg - if improving, consider steroid taper +/- additional Depakote. PRN medications for pain/muscle spasm: Tylenol, Tramadol, Tizanidine PRN Zofran for nausea Postprandial Nausea// Dysphagia//Weight loss: - Gastric emptying study notable for mild prolongation in gastric emptying time - Continue Reglan at this time as patient reports improvement in PO tolerance since starting, but results of gastric emptying study less suggestive of overt gastroparesis - Speech therapy eval completed, suspect esophageal dysfunction but no evidence of aspiration - Continue home GI meds Ambulatory Dysfunction: - Likely secondary to complex migraine, hopeful that LLE weakness will resolve with migraine treatment - PT/OT eval and tx Candidal Intertrigo: - Skin folds under bilateral abdominal pannus consistent with cutaneous candidiasis - recommend daily application of Nystatin powder VTE PPx: SCDs FEN/GI: Regular, pureed Admission and Anticipated Discharge Date Admission Date: June 26, 2024 Supervising Physician Co-Signing Physician Notes I personally examined the patient and verified all fernandez points of history and exam, discussed case, and agree with decision making with Dr Pa seen a few times through the day- headache improved as day progressed. vitals noted nad laying in a dark room no distress heent nc at mmm breathing unlabored no accessory muscles good effort skin no rashes no pallor or icterus headache/paresthesiae -after d/w ID and neuro - CSF total protein can actually be up from migraine - which then really makes complicated migraine #1 ddx - will manage as such - improved after prednisone and depakote in afternoon f/u weight loss/nausea - yesterday was not able to find gastric emptying results - today located/reviewed - fairly mild. suspect trigger points as main differential vs also possibly FD or esophageal dysmotility as per w/u underway by GI. discussed with pt extensively - trigger point injections done (see separate note), volatern gel otherwise as above Subjective Patient reports fairly severe LOPEZ overnight, still left sided LOPEZ in frontal/retro-orbital region with new involvement of right occipital region. Left sided weakness/sensory changes ongoing. Denies fever/chills. Also notes blurred vision that has been present since admission, denies overt deficits in visual field but states that he cannot read things on the board in his room even with his glasses on. Overnight had brief nausea, responsive to Zofran, also diarrhea x2 that started shortly after eating. Review of Systems Review of Systems: as per HPI Physical Exam Physical Exam: General: Alert and oriented. No acute distress Neuro: AOx3, 5/5 in bilateral UEs, 5/5 strength in RLE, 4/5 strength in LLE, decreased sensation in LUE, and LLE. Visual field testing without deficits, subjectively feels blurry distance vision, +Nuchal rigidity but negative Brudzinski test. Skin: bilateral abdominal skin folds under pannus with erythematous patches affecting both sides of the skin fold Results & Data Results & Data Vital Signs (Past 12 Hours) Vital Signs Temp Pulse Pulse Resp BP Pulse Ox O2 Del Method 06/27/24 04:24 36.5 C 67 18 92/60 L 93 Room Air 06/26/24 22:52 36.6 C 79 18 128/74 93 Room Air 06/26/24 22:45 77 06/26/24 20:39 36.6 C 84 18 107/69 92 Room Air 06/26/24 20:10 Room Air Resident Activity Tracking Resident Involvement: Resident Care Provided Care Provided: Adult Hospital Medicine
--- NOTE | 2024-06-27 09:10 | Infectious Disease Progress Nt ---
Date of Service June 27, 2024 Assessment & Plan (1) Stroke-like symptoms: (2) Headache: (3) History of COVID-19: Plan 73yo M with h/o diverticulitis, GERD, depression, chronic low back pain, TIA 15yrs ago, recent admission to OSH with abdominal issues and dysphagia (dcd la st week), recent asymptomatic COVID infection 2.5 weeks ago who presented on 06/25 with left sided weakness, numbness, neck pain, confusion, and left sided headache. On admission, he was afebrile, vss. Initial labs with WBC 6.8, Cr and AST/ALT wnl. Lyme screen negative. Admission exam noted decreased sensation with 4/5 strength in LUE/LLE, no facial droop, pain with neck flexion but no Brudzinski sign. CT head negative. MRI brain negative. TTE negative for significant valvular abnormalities. S/p LP 06/26 with 0 WBC, elevated protein to 60.9, normal glucose. CSF gram stain negative. ID consulted 06/26. Patient states not having any symptoms with recent COVID infection, and didnt know until test was positive. Brain fog reported since COVID infection, which may be related. Per primary team , c/f migraine causing his symptoms since CSF protein can be elevated in migraines, per neuro. I do not think his symptoms are related to COVID encephalitis based on clinical hx, CSF, and MRI. # Headache # Stroke-like symptoms # H/o COVID infection - supportive care - counseled patient regarding COVID and literature reports of brain fog eventually resolves in most individuals - remainder of care per primary team ID will discontinue active follow up at this time. Please do not hesitate to reconsult the Infectious Diseases service as needed. Alley Amaya MD [facility], Division of Infectious Diseases [facility]: [phone] Admission and Anticipated Discharge Date Admission Date: June 26, 2024 Subjective Subsequent visit was provided via telemedicine using two-way real-time interactive telecommunication between the patient and the telemedicine provider. For the duration of the visit, the provider was performing the assessment from a different facility than the patient. This includesuse of bluetooth stethoscope forauscultationperformed by the telepresenter that the telemedicine provider can hear if described in the physical exam. Vinyl Dipper contact information: Please call ID Connect Call Center . (Phone Number For Physician Use Only) After establishing a telemedicine visit, patient was: Patient was verified with two unique identifiers, Patient/authorized rep acknowledged consent and understanding and Gave permission to continue telehealth session Time Spent with Patient: Subsequent => 55 min Patient reports that he still has the headache that comes down to the back of his neck. But muscle relaxer has helped with neck pain. No spinal pain aside from where he had the LP. He still feels some weakness in his left side since his knee was shaky with standing. Blurred vision started this Sunday. He says he had COVID 2.5 weeks ago, no symptoms at that time until he was tested with his and was found positive. Has had brain fogginess since then. Recently has developed a cough. No SOB. Had diarrhea this morning. Physical Exam Physical Exam: General: Awake, alert, no acute distress HEENT: NC/AT, EOMI, mmm Neck: supple, some mild ttp of back of neck Lungs: respirations non-labored Heart: nl peripheral perfusion Abdomen: soft, NT/ND Back: no spinal tenderness Ext: no LE edema Skin: no rash Neuro: moving all extremities Results & Data Vital Signs (Past 12 Hours) Vital Signs Temp Pulse Pulse Resp BP Pulse Ox O2 Del Method 06/27/24 08:43 36.6 C 78 18 131/75 93 Room Air 06/27/24 08:00 36.8 C 78 18 131/75 93 Room Air 06/27/24 07:38 65 06/27/24 04:24 36.5 C 67 18 92/60 L 93 Room Air 06/26/24 22:52 36.6 C 79 18 128/74 93 Room Air 06/26/24 22:45 77 Laboratory Results Labs reviewed. Diagnostic Findings Imaging reviewed.
[2024-06-27] MEDS: NYSTATIN POWDER 15GM BTL EXT SCH (11:38)
[2024-06-27] MEDS: DIVALPROEX EXTENDED RELEASE 500 MG TAB PO ONE (13:07)
[2024-06-27] MEDS: predniSONE 20 MG TAB PO STA (13:43)
[2024-06-27] MEDS: VALPROATE SOD 500 MG in DEXTROSE 5% 50 ML IV ONE ×2 (13:57→20:44)
[2024-06-27] MEDS: LIDOCAINE 2% LOCAL 20 ML VIAL INFIL ONE (16:23)
--- NOTE | 2024-06-27 18:22 | Billing Data ---
Date of Service June 27, 2024 Coding Level of Care Code 15411 SUB INP/OBS CARE
--- NOTE | 2024-06-27 18:24 | Communication Note ---
Date of Service: June 27, 2024 procedure note - abdominal wall trigger point injection pre procedure dx - abdominal wall trigger points precpitating somatovisceral nausea post procedure dx - same procedure - informed consent obtained, discussed risk/benefit and rationale for procedure. area cleansed with chlorhexadine and EtOH, 5 trigger points injected with a total of 5ml 2% lidocaine without epi (3 by myself, [address] angel under my supervision and with pt's permission) - pt tolerated well discussed what to watch for as far as improvement/worsening/etc hemostasis spontaneously
--- NOTE | 2024-06-27 18:25 | Billing Data ---
Date of Service June 27, 2024 Coding Level of Care Code 59324 SUB INP/OBS CARE 3/50MIN Comment abdominal wall trigger point injection x5
[2024-06-27] MEDS: DICLOFENAC SOD 1% GEL 100 GM TUBE EXT SCH (20:42)
--- NOTE | 2024-06-28 07:56 | Hospitalist Progress Note ---
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 After curbside discussion with neurology, presentation more in line with atypical/complex migraine: CTA head/neck with near complete focal thrombosis of right vertebral artery near skull base (age-indeterminate) MRI negative for acute stroke Lyme screen negative LP CSF studies with elevated protein 61, normal glucose ID consulted, felt this was less so infectious in etiology given absence of WBC in CSF, recommended neurology consult. Per neurology, CSF protein can be elevated in the setting of complex migraine. Trial dose of PO prednisone 60mg + IV Depakote 500mg - symptoms had improved, still left sided weakness present. Will repeat dose today and re eval tomorrow am PRN medications for pain/muscle spasm: Tylenol, Tramadol, Tizanidine PRN Zofran for nausea Postprandial Nausea// Dysphagia//Weight loss: - Gastric emptying study notable for mild prolongation in gastric emptying time - Continue Reglan at this time as patient reports improvement in PO tolerance since starting, but results of gastric emptying study less suggestive of overt gastroparesis - Speech therapy eval completed, suspect esophageal dysfunction but no evidence of aspiration - abdominal wall trigger points yesterday for precipitating somatovisceral [place] - Continue home GI meds Ambulatory Dysfunction: - Likely secondary to complex migraine, hopeful that LLE weakness will resolve with migraine treatment - PT/OT eval and tx Candidal Intertrigo: - Skin folds under bilateral abdominal pannus consistent with cutaneous candidiasis - recommend daily application of Nystatin powder VTE PPx: SCDs, lovenox sq FEN/GI: Regular, pureed Admission and Anticipated Discharge Date Admission Date: June 26, 2024 Supervising Physician Co-Signing Physician Notes I personally examined the patient and verified all fernandez points of history and exam, discussed case, and agree with decision making with Dr Timothy Evangelista headache better numbness weakness a little better nausea significantly better vitals noted nad sitting up in bed breathing unlabored no accessory muscles good effort skin no rashes no pallor or icterus neuro no focal deficits headache/paresthesiae -after d/w ID and neuro - CSF total protein can actually be up from migraine - which then really makes complicated migraine #1 ddx - will manage as such - improved after prednisone and depakote but with numbness/weakness remaining will retreat today weight loss/nausea -gastric emptying study too mild to really correspond with symptoms - yesterday identified several notable and tender L upper abdominal wall trigger points - after d/w pt -> injection and continuuing with voltaren g el. feeling notably better - making it quite suspicious that a somatovisceral reflex precipitating essentially "phantom nausea" was likely culprit (or if multifactorial, at least a significant culprit) - quite encouraged by his improvement. continue voltaren gel, may need repeat injections (will ask for pain management referral at [facility]) otherwise as above, probably for rehab after discharge, although if he continues to improve dramatically may be able to go directly home Subjective Seen this morning. Refers no headaches since last night. Left side weakness seem to be improving but he doesn't feel as strong. He's worry about ambulatory dysfunction in the setting of [place] Had a poor sleep due to the steroids. Nausea seem to be improving too. No need for Zofran this morning Review of Systems Review of Systems: as per HPI Physical Exam Physical Exam: General: Alert and oriented. No acute distress Neuro: AOx3, 5/5 in bilateral UEs, 5/5 strength in RLE, 4/5 strength in LLE, decreased sensation in LUE, and LLE. Visual field testing without deficits, subjectively feels blurry distance vision, but negative Brudzinski test. Skin: bilateral abdominal skin folds under pannus with erythematous patches affecting both sides of the skin fold Cardiovascular: RRR, no murmurs, no edema Respiratory: Lungs clear to auscultation, no wheezing, no rhonchi Results & Data Results & Data Vital Signs (Past 12 Hours) Vital Signs Temp Pulse Pulse Resp BP BP Pulse Ox 06/28/24 07:23 85 06/28/24 04:50 36.6 C 95 H 17 95/57 L 94 06/28/24 00:27 36.7 C 93 H 17 141/69 H 92 06/27/24 21:57 91 H 06/27/24 20:20 36.9 C 81 17 157/77 H 92 O2 Del Method 06/28/24 07:23 06/28/24 04:50 Room Air 06/28/24 00:27 Room Air 06/27/24 21:57 06/27/24 20:20 Room Air Resident Activity Tracking Resident Involvement: Resident Care Provided Care Provided: Adult Hospital Medicine
[2024-06-28 08:32] LABS: Basophils # (auto) 0.01 K/uL (0.00-0.20); Basophils % (auto) 0.1 %; Hematocrit (blood only) 37.5 % (42.0-52.0); Hemoglobin 13.4 g/dl (14.0-18.0); Immature Granulocytes # (auto) 0.04 K/uL (0.01-0.20); Immature Granulocytes % (auto) 0.3 %; Lymphocytes # (auto) 1.19 K/uL (1.20-3.40); Lymphocytes % (auto) 9.6 %; Mean Corpuscular Hemoglobin 31.6 pg (25.0-34.0); Mean Corpuscular Hgb Conc 35.7 g/dL (32.0-36.0); Mean Corpuscular Volume 88.4 fL (80.0-100.0); Mean Platelet Volume 10.9 fL (9.4-12.4); Monocytes # (auto) 0.68 K/uL (0.11-0.59); Monocytes % (auto) 5.5 %; Neutrophils # (auto) 10.45 K/uL (1.40-6.50); Neutrophils % (auto) 84.5 %; Platelet Count 231 K/uL (130-400); RDW Coefficient of Variation 11.9 % (11.5-14.5); RDW Standard Deviation 38.5 fL (36.4-46.3); Red Blood Count 4.24 M/uL (4.70-6.10); White Blood Count 12.37 K/ul (4.8-10.8)
[2024-06-28] MEDS: ENOXAPARIN INJ 40 MG/0.4 ML SYR SQ SCH (08:34)
[2024-06-28] MEDS: CLOPIDOGREL BISULFATE 75 MG TAB PO SCH (08:35)
[2024-06-28] MEDS: POTASSIUM CHLORIDE CRTAB 20 MEQ TABCR PO ONE (08:39)
[2024-06-28 08:55] LABS: BUN Creatinine Ratio 12.6 (10-20); Calcium 9.1 mg/dl (8.6-10.3); Creatinine Clr Calc Pharmacy 85.9 ml/min; Potassium 3.7 mmol/L (3.5-5.1)
[2024-06-28] MEDS: predniSONE 20 MG TAB PO ONE (10:40)
--- NOTE | 2024-06-28 16:12 | Billing Data ---
Date of Service June 28, 2024 Coding Level of Care Code 72449 SUB INP/OBS CARE
[2024-06-28] MEDS: DIVALPROEX EXTENDED RELEASE 500 MG TAB PO ONE (18:43)
[2024-06-28] MEDS ORDERED: DIVALPROEX EXTENDED RELEASE 500 MG TAB PO ONE (19:00)
[2024-06-28] MEDS: METOPROLOL TARTRATE 1 MG/ML VIAL IV STA (19:10)
[2024-06-28] MEDS: VALPROATE SOD 500 MG in DEXTROSE 5% 50 ML IV ONE (20:08)
[2024-06-28] MEDS: MELATONIN 3 MG TAB PO PRN (20:12)
[2024-06-29 06:11] LABS: Basophils # (auto) 0.02 K/uL (0.00-0.20); Basophils % (auto) 0.1 %; Hematocrit (blood only) 37.2 % (42.0-52.0); Immature Granulocytes # (auto) 0.12 K/uL (0.01-0.20); Immature Granulocytes % (auto) 0.7 %; Lymphocytes # (auto) 1.17 K/uL (1.20-3.40); Lymphocytes % (auto) 7.1 %; Mean Corpuscular Hemoglobin 31.6 pg (25.0-34.0); Mean Corpuscular Hgb Conc 34.9 g/dL (32.0-36.0); Mean Corpuscular Volume 90.3 fL (80.0-100.0); Mean Platelet Volume 11.1 fL (9.4-12.4); Monocytes # (auto) 0.48 K/uL (0.11-0.59); Monocytes % (auto) 2.9 %; Neutrophils # (auto) 14.76 K/uL (1.40-6.50); Neutrophils % (auto) 89.2 %; Platelet Count 213 K/uL (130-400); RDW Coefficient of Variation 12.3 % (11.5-14.5); RDW Standard Deviation 40.7 fL (36.4-46.3); Red Blood Count 4.12 M/uL (4.70-6.10); White Blood Count 16.55 K/ul (4.8-10.8)
[2024-06-29 06:28] LABS: BUN Creatinine Ratio 18.8 (10-20); Calcium 8.8 mg/dl (8.6-10.3)
--- NOTE | 2024-06-29 09:27 | Hospitalist Progress Note ---
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 After curbside discussion with neurology, presentation more in line with atypical/complex migraine: CTA head/neck with near complete focal thrombosis of right vertebral artery near skull base (age-indeterminate) MRI negative for acute stroke Lyme screen negative LP CSF studies with elevated protein 61, normal glucose ID consulted, felt this was less so infectious in etiology given absence of WBC in CSF, recommended neurology consult. Per neurology, CSF protein can be elevated in the setting of complex migraine. Trial dose of PO prednisone 60mg + Depakote 500mg - symptoms had improved Continue short course of prednisone 60 mg daily and Depakote Depakote was change to sprinkles PRN medications for pain/muscle spasm: Tylenol, Tramadol, Tizanidine PRN Zofran for nausea Postprandial Nausea// Dysphagia//Weight loss: - Gastric emptying study notable for mild prolongation in gastric emptying time - Continue Reglan at this time as patient reports improvement in PO tolerance since starting, but results of gastric emptying study less suggestive of overt gastroparesis - Speech therapy eval completed, suspect esophageal dysfunction but no evidence of aspiration - abdominal wall trigger points yesterday for precipitating somatovisceral nausea - Continue home GI meds Ambulatory Dysfunction: - Likely secondary to complex migraine, hopeful that LLE weakness will resolve with migraine treatment - PT/OT eval and tx Candidal Intertrigo: - Skin folds under bilateral abdominal pannus consistent with cutaneous candidiasis - recommend daily application of Nystatin powder VTE PPx: SCDs, lovenox sq FEN/GI: Regular, pureed Admission and Anticipated Discharge Date Admission Date: June 26, 2024 Supervising Physician Co-Signing Physician Notes I personally examined the patient and verified all fernandez points of history and exam, discussed case, and agree with decision making with Dr Timothy Evangelista feeling better overall. still feels abnormal sensation in head a little but no true headache. numbness/weakness markedly better. did get lightheaded with walking last night and needed help back to bed. nausea basically gone. vitals noted nad sitting up in bed breathing unlabored no accessory muscles good effort skin no rashes no pallor or icterus neuro no focal deficits headache/paresthesiae -after d/w ID and neuro - CSF total protein can actually be up from migraine - which then really makes complicated migraine #1 ddx - managing as such, improving weight loss/nausea -gastric emptying study too mild to really correspond with symptoms - yesterday identified several notable and tender L upper abdominal wall trigger points - after d/w pt -> injection and continuuing with voltaren gel. feeling notably better - making it quite suspicious that a somatovisceral reflex precipitating essentially "phantom nausea" was likely culprit (or if multifactorial, at least a significant culprit) - quite encouraged by his improvement. continue voltaren gel, may need repeat injections (will ask for pain management referral at [place]) but doing quite well otherwise as above, still makes the most sense for rehab after discharge - especially since he got so lightheaded with ambulation Subjective Seen this morning. Refers mild headache this morning. LAst night had an acute headache in left temporal area with dizziness, and blurry vision. It resolved after depakote IV. Patient refers that he cut the Depakote in half and had a shocking event. Denied any swallowing problems with food or liquids. He's improving otherwise. Review of Systems Review of Systems: as per HPI Physical Exam Physical Exam: General: Alert and oriented. No acute distress Neuro: AOx3, 5/5 in bilateral UEs, 5/5 strength in RLE, 4/5 strength in LLE, decreased sensation in LUE, and LLE. Visual field testing without deficits, subjectively feels blurry distance vision, but negative Brudzinski test. Skin: bilateral abdominal skin folds under pannus with erythematous patches affecting both sides of the skin fold Cardiovascular: RRR, no murmurs, no edema Respiratory: Lungs clear to auscultation, no wheezing, no rhonchi Results & Data Results & Data Vital Signs (Past 12 Hours) Vital Signs Temp Pulse Pulse Resp BP BP Pulse Ox 06/29/24 08:01 36.7 C 66 20 144/83 H 94 06/29/24 07:36 68 06/29/24 04:39 36.4 C L 64 17 143/75 H 96 06/29/24 00:20 36.5 C 63 18 159/79 H 96 06/28/24 21:46 74 O2 Del Method O2 Flow Rate 06/29/24 08:01 Room Air 06/29/24 07:36 06/29/24 04:39 Room Air 06/29/24 00:20 Nasal Cannula 2 06/28/24 21:46 Resident Activity Tracking Resident Involvement: Resident Care Provided Care Provided: Adult Hospital Medicine
[2024-06-29] MEDS: predniSONE 20 MG TAB PO STA (09:28)
[2024-06-29] MEDS: DIVALPROEX SODIUM SPRINKLE/DEL-REL 125 MG CAP PO ONE (09:28)
--- NOTE | 2024-06-29 09:52 | Billing Data ---
Date of Service June 29, 2024 Coding Level of Care Code 35593 SUB INP/OBS CARE
[2024-06-29] MEDS: guaiFENesin/DEXTROM SYRUP 100MG/10MG 5ML UDC PO PRN (12:16)
[2024-06-29] MEDS: COUGH DROP (SUGAR FREE) LOZ 24 LOZ/1 BOX BUCCAL STA (12:17)
--- NOTE | 2024-06-30 07:24 | Hospitalist Progress Note ---
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 After curbside discussion with neurology, presentation more in line with atypical/complex migraine: CTA head/neck with near complete focal thrombosis of right vertebral artery near skull base (age-indeterminate) MRI negative for acute stroke Lyme screen negative LP CSF studies with elevated protein 61, normal glucose ID consulted, felt this was less so infectious in etiology given absence of WBC in CSF, recommended neurology consult. Per neurology, CSF protein can be elevated in the setting of complex migraine. Trial dose of PO prednisone 60mg + Depakote 500mg - symptoms had improved Continue short course of prednisone 60 mg daily and Depakote Depakote was change to sprinkles PRN medications for pain/muscle spasm: Tylenol, Tramadol, Tizanidine PRN Zofran for nausea Postprandial Nausea// Dysphagia//Weight loss: - Gastric emptying study notable for mild prolongation in gastric emptying time - Continue Reglan at this time as patient reports improvement in PO tolerance since starting, but results of gastric emptying study less suggestive of overt gastroparesis - Speech therapy eval completed, suspect esophageal dysfunction but no evidence of aspiration - abdominal wall trigger points yesterday for precipitating somatovisceral nausea - Continue home GI meds Ambulatory Dysfunction: - Likely secondary to complex migraine, hopeful that LLE weakness will resolve with migraine treatment - PT/OT eval and tx Candidal Intertrigo: - Skin folds under bilateral abdominal pannus consistent with cutaneous candidiasis - recommend daily application of Nystatin powder VTE PPx: SCDs, lovenox sq FEN/GI: Regular, pureed Admission and Anticipated Discharge Date Admission Date: June 26, 2024 Supervising Physician Co-Signing Physician Notes I personally examined the patient and verified fernandez points of history and exam, discussed case, and agree with decision making and plan documented by Dr. Harp. Patient endorses mild right-sided headache today, states that historically migraines have been on the left side. Patient has had improvement with steroids and Depakote. He is hopeful for transfer to rehab to help improve function and conditioning, he continues to describe "buckling" of his left knee. Patient is currently living in an RV with his while they build a house nearby. Awaiting updates on discharge. Subjective Patient seen and evaluated at bedside this morning. No acute events overnight. Review of Systems Review of Systems: reviewed, per HPI Physical Exam Physical Exam: Constitutional: well-appearing, no acute distress HEENT: NCAT, no conjunctival injection CV: regular rhythm, no murmur appreciated, extremities well-perfused, no LE edema Resp: no increased WOB GI: soft, nondistended, nontender, BS normoactive MSK: no gross deformities appreciated Skin: warm, dry, no rash appreciated Neuro: alert, oriented, no focal neurologic deficit appreciated Results & Data Results & Data Vital Signs (Past 12 Hours) Vital Signs Temp Pulse Pulse Resp BP Pulse Ox O2 Del Method 06/30/24 04:20 36.5 C 59 L 16 155/93 H 95 Room Air 06/30/24 00:34 36.4 C L 60 17 154/79 H 96 Room Air 06/29/24 22:36 59 L 06/29/24 21:11 36.6 C 73 17 164/90 H 96 Room Air 06/29/24 21:00 Room Air Resident Activity Tracking Resident Involvement: Resident Care Provided Care Provided: Adult Hospital Medicine
[2024-06-30] MEDS: DIVALPROEX SODIUM SPRINKLE/DEL-REL 125 MG CAP PO ONE ×2 (10:51→20:30)
[2024-06-30] MEDS ORDERED: ACETAMINOPHEN 1,000 MG/100 ML VIAL IV STA (19:50)
[2024-06-30] MEDS: ACETAMINOPHEN 500 MG TAB PO STA (20:15)
[2024-06-30] MEDS: MAGNESIUM SULFATE / D5W 1 GM/100 ML BAG IV SCH (20:16)
[2024-07-01 07:44] VITALS: RESP 18; O2SAT 96
--- NOTE | 2024-07-01 08:26 | Hospitalist Progress Note ---
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 After curbside discussion with neurology, presentation more in line with atypical/complex migraine: CTA head/neck with near complete focal thrombosis of right vertebral artery near skull base (age-indeterminate) MRI negative for acute stroke Lyme screen negative LP CSF studies with elevated protein 61, normal glucose ID consulted, felt this was less so infectious in etiology given absence of WBC in CSF, recommended neurology consult. Per neurology, CSF protein can be elevated in the setting of complex migraine. Trial dose of PO prednisone 60mg + Depakote 500mg - symptoms had improved Continue short course of prednisone 60 mg daily and Depakote Depakote was change to sprinkles PRN medications for pain/muscle spasm: Tylenol, Tramadol, Tizanidine PRN Zofran for nausea Postprandial Nausea// Dysphagia//Weight loss: - Gastric emptying study notable for mild prolongation in gastric emptying time - Continue Reglan at this time as patient reports improvement in PO tolerance since starting, but results of gastric emptying study less suggestive of overt gastroparesis - Speech therapy eval completed, suspect esophageal dysfunction but no evidence of aspiration - abdominal wall trigger points yesterday for precipitating somatovisceral nausea - Continue home GI meds Ambulatory Dysfunction: - Likely secondary to complex migraine, hopeful that LLE weakness will resolve with migraine treatment - PT/OT eval and tx Candidal Intertrigo: - Skin folds under bilateral abdominal pannus consistent with cutaneous candidiasis - recommend daily application of Nystatin powder Diffiulty 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 -Will order speech eval VTE PPx: SCDs, lovenox sq FEN/GI: Regular, pureed Admission and Anticipated Discharge Date Admission Date: June 26, 2024 Supervising Physician Co-Signing Physician Notes I personally examined the patient and verified fernandez points of history and exam, discussed case, and agree with decision making and plan documented by Dr. Harp. Today, patient reported improvement of his symptoms. He did have a concern about a pill getting stuck in his throat, was seen by [employer]ER CC/CM, was given guidance on crushing pills as able and ways to mitigate aspiration. In terms of physical therapy, patient not meeting criteria for inpatient PT, discussed with him consideration of outpatient PT at a site near his RV as home PT may be difficult due to lack of space in the RV. Patient denied headache today but was provided a prescription for sumatriptan to trial outpatient when he is presented with migraines. We discussed the importance of sleep hygiene, adequate hydration, and stress reduction for prevention of migraines. Patient advised to schedule follow-up with PCP and neurology upon discharge, he is understanding. Subjective Patient seen and evaluated at bedside this morning. Had migraine again overnight. Received Depakote, 2g Mg 2+, Tylenol with good relief. This am having increased difficulty swallowing medications with sensation that they are getting stuck. Review of Systems Review of Systems: reviewed, per HPI Physical Exam Physical Exam: Constitutional: well-appearing, no acute distress HEENT: NCAT, no conjunctival injection CV: regular rhythm, no murmur appreciated, extremities well-perfused, no LE edema Resp: no increased WOB GI: soft, nondistended, nontender, BS normoactive MSK: no gross deformities appreciated Skin: warm, dry, no rash appreciated Neuro: alert, oriented, no focal neurologic deficit appreciated Results & Data Results & Data Vital Signs (Past 12 Hours) Vital Signs Temp Pulse Resp BP Pulse Ox O2 Del Method 07/01/24 07:44 36.6 C 60 18 141/83 H 96 Room Air 07/01/24 03:13 36.5 C 66 19 138/88 95 Room Air 06/30/24 23:06 36.6 C 60 18 102/64 94 Room Air 06/30/24 20:51 36.7 C 68 18 130/72 95 Room Air Resident Activity Tracking Resident Involvement: Resident Care Provided Care Provided: Adult Hospital Medicine
[2024-07-01] MEDS ORDERED: SUMAtriptan succinate 25 MG TAB PO PRN (10:56)
[2024-07-01 11:49] VITALS: TEMP 98.4
[2024-07-01 15:03] VITALS: BP 155/93; PULSE 70
--- NOTE | 2024-07-01 17:21 | Discharge Summary ---
Date of Service July 01, 2024 Admission HPI Per Admitting Provider Dallin is a pleasant 73-year-old male with PMH of glaucoma, rectal bleed, diverticulitis, HTN, GERD, anxiety, depression, ANGEL, and chronic low back pain. He presented on 06/25 after waking up with left-sided body weakness, sensation deficits, neck pain, confusion, and left-sided headache. Patient reports that he felt fine when he went to bed at 0930 last night. He then woke up around 0230 to let his dog out, and noted that he was stumbling and felt like the left side of his body was much weaker. He almost fell several times. He then went back to bed, and when he woke up around 0600 he had a pounding headache and left-sided facial numbness. He reports that he could not concentrate and that everything was blurry in both eyes. He was also feeling very confused. He lives with his , who noted that he was having some slurred speech and could not lift his eyebrows up. No facial droop appreciated at that time. Patient does have a history of a TIA 15 years ago, but denies history of stroke. He was recently hospitalized at [facility] for abdominal issues and dysphagia; discharged either last Sunday or ; was scheduled for a transitional care appointment with his PCP today. When he went into his PCPs office today, they sent him in the ED due to his symptoms. Patient took his regular morning medicine today. Only recent changes in medication were that he was placed on Reglan to increase his appetite and prevent sickness after eating. Patient manages his own medicine at home. No recent injuries to the head or neck. He did have a pretty severe COVID infection 2 weeks ago, from which she feels somewhat recovered. Patient has lost around 40 pounds since February due to dysphagia and difficulty with eating. He had an EGD done for esophageal dilation, but reports still having difficulty with eating and decreased appetite. For instance he has not had anything to eat since yesterday at 4 PM. Additionally, he reports that around a month ago he had a severe complex migraine while at [facility]; it would not alleviate with morphine, tramadol, or Tylenol, but did resolve after being given caffeine. His head pain today feels constant, and he characterizes it as an aching/pounding pain on the left side of his head and posterior neck. He rates the pain 8/10, but reports that his prior migraine felt more severe than this. Despite listed aspirin allergy, he reports that he has no problem taking aspirin and was previously on aspirin 81 mg daily; he is unsure why he stopped taking it. He also reports that he is able to tolerate NSAIDs such as ibuprofen without any problems. He does have chronic left shoulder pain, but no bilateral shoulder or hip girdle pain. Patient denies smoking, tobacco use, or recent alcohol use. He is mildly hypertensive at 144/98 at time of admission; vitals otherwise stable. ED course: Diphenhydramine 50 mg IV Solu-Medrol 40 mg IV ROS: Patient endorses dizziness like the room was spinning (this morning), lightheadedness, blurry vision (in the last 24h hours), photophobia, neck pain, productive cough (yellow), and weakness in the left upper and lower legs. Patient denies fever, chills, night-sweats, syncope, recent falls, loss of vision (does have hx of glaucoma in R eye; chronic), chest pain, SOB, hemoptysis, abdominal pain, NV/D, burning with urination, blood in the urine/stool, or changes in urinary/bowel habits. Admission Exam Per Admitting Provider General: no acute distress; non-toxic appearing; well-nourished; cooperative; SpO2 97% on RA HEENT: normocephalic, atraumatic; no scleral icterus; PERRLA w/ EOMs intact; vision and hearing intact; patient reports that sensation in the forehead is intact and symmetric bilaterally, but does note that sensation in his left cheek is decreased compared to the right; he has difficulty smiling and raising his eyelid brows bilaterally; he does demonstrate ability to protrude and wiggle his tongue bilaterally Neck: supple; no lymphadenopathy; trachea midline Skin: Erythematous rashes noted in the creases of the lower abdomen bilaterally; warm, dry without signs of tenting; no cyanosis; no bruising or lesions noted CV: chest wall NTP; RRR; S1/S2 normal; no murmurs/rubs/gallops; pulses intact and symmetric at radial, DP, and PT Lungs: no acute respiratory distress; symmetrical chest wall expansion; clear breath sounds across all lung soriano w/o adventitious sounds; no wheezing ABD: Soft, NTP; BS present; no rebound/guarding; no distention MSK: no tics or fasciculations; no edema noted in the LEs b/l, nonerythematous; 5/5 tool grinder set up operator gear strength bilaterally; 5/5 strength when lifting the right leg off the bed, 4/5 strength when lifting left leg off the bed Neuro: A&Ox3; normal mood and affect; fluent speech; no slurred speech; no facial droop; patient reports decrease sensation in the left upper extremity and left lower extremity when compared to the right; pain with flexion of the neck to the chest, however negative Brudzinski sign Principal Diagnosis Migraine Discharge Exam Constitutional: well-appearing, no acute distress HEENT: NCAT, no conjunctival injection CV: regular rhythm, no murmur appreciated, extremities well-perfused, no LE edema Resp: no increased WOB GI: soft, nondistended, nontender, BS normoactive MSK: no gross deformities appreciated Skin: warm, dry, no rash appreciated Neuro: alert, oriented, no focal neurologic deficit appreciated Discharge Data Allergies Allergy/AdvReac Type Severity Reaction Status Date / Time cefazolin Allergy Severe CP/FELT Verified 05/07/24 09:11 LIKE THROAT CLOSING Gadolinium-Containing Allergy Severe SHORTNESS Verified 05/07/24 09:11 Contrast Medi OF BREATH aspirin Allergy Unknown PATIENT Verified 05/07/24 09:11 TOLD NOT TO TAKE BY DIRECTOR OF INTERCOLLEGIATE ATHLETICS Iodinated Contrast Media Allergy Unknown Unknown Rxn Verified 05/07/24 09:11 Penicillins Allergy Unknown PT HAS Verified 05/07/24 09:11 TOLERATED MEFOXIN IN PAST shellfish derived Allergy Unknown Unknown Verified 05/07/24 09:11 Consultations 06/25/24 14:59 ED Decision to Admit Stat 06/26/24 15:23 Consult Infectious Diseases Routine Ordered Studies 06/25/24 12:26 CT angio head w con Stat CT angio neck with con Stat CT head/brain wo con Stat 06/25/24 16:03 MR brain wo con Urgent 06/26/24 09:00 IR lumbar puncture diagnostic Routine Hospital Course (1) Stroke-like symptoms: (2) Headache: (3) Postprandial nausea: (4) Dysphagia: Plan Stroke-like Sx//Headache: Given imaging work-up incompatible with acute stroke and incongruous neuro exam findings in the setting of recent viral infection, 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 After curbside d iscussion with neurology, presentation more in line with atypical/complex migraine: CTA head/neck with near complete focal thrombosis of right vertebral artery near skull base (age-indeterminate) MRI negative for acute stroke Lyme screen negative LP CSF studies with elevated protein 61, normal glucose ID consulted, felt this was less so infectious in etiology given absence of WBC in CSF, recommended neurology consult. Per neurology, CSF protein can be elevated in the setting of complex migraine. Trial dose of PO prednisone 60mg + Depakote 500mg - symptoms had improved Continue short course of prednisone 60 mg daily and Depakote Depakote was change to sprinkles PRN medications for pain/muscle spasm: Tylenol, Tramadol, Tizanidine PRN Zofran for nausea Postprandial Nausea// Dysphagia//Weight loss: - Gastric emptying study notable for mild prolongation in gastric emptying time - Continue Reglan at this time as patient reports improvement in PO tolerance since starting, but results of gastric emptying study less suggestive of overt gastroparesis - Speech therapy eval completed, suspect esophageal dysfunction but no evidence of aspiration - abdominal wall trigger points yesterday for precipitating somatovisceral nausea - Continue home GI meds Ambulatory Dysfunction: - Likely secondary to complex migraine, hopeful that LLE weakness will resolve with migraine treatment - PT/OT eval and tx Candidal Intertrigo: - Skin folds under bilateral abdominal pannus consistent with cutaneous candidiasis - recommend daily application of Nystatin powder Total Time Total Time Spent Total Time Spent (In Minutes): see attending documentation Discharge Plan Discharge Items Patient Disposition: Home - Self-Care Reason For Visit: STROKE-LIKE SYMPTOMS Discharge Diagnosis: stroke like symptoms, atypical/complex migraine Activity: Per Instructions section Non-emergency contact: Primary Care Provider Call non-emergency contact if: your pain is concerning for you and your temperature is above 101 Follow-up/Referrals: Anna Walsh MD [Primary Care Provider] - Diet: Regular Diet Texture: Pureed (blended smooth) Addtl Attending Provider Instructions: You were admitted to hospital for complex migraine. It is recommended you follow-up with your PCP and neurology. A medication called sumatriptan was prescribed for you to try if you get a migraine headache, please take as advised. Recommend you get adequate sleep, hydration, and work on stress reduction in your life. Please pursue physical therapy outpatient as directed. Recommend continued crushing of pills and pureed foods as tolerated for your chronic swallowing concerns. Pending Studies at Discharge: No Stand-Alone Forms: [facility], Smoking Cessation Medications and DC Order Prescriptions: New sumatriptan succinate 50 mg tablet 50 mg PO DAILY PRN (Reason: migraine headache) Qty: 9 0RF Rx Instructions: Take one tablet by mouth (50 mg) for migraine headache. May repeat dose in 2 hours if migraine remains. Max daily dose 200 mg. melatonin 5 mg capsule 5 mg PO HS PRN (Reason: insomnia) Qty: 30 0RF Continued levothyroxine 100 mcg tablet 100 mcg PO DAILYBB Qty: 90 1RF dicyclomine 10 mg capsule 10 mg PO BID Qty: 60 2RF latanoprost 0.005 % drops 1 drp OPB HS Qty: 7.5 1RF Rx Instructions: 1 drop into each eye at night dorzolamide 2 % drops 1 drp OPB BID Qty: 30 1RF atorvastatin 40 mg tablet 20 mg PO HS Qty: 90 3RF ondansetron 8 mg tablet,disintegrating 8 mg PO Q8H PRN (Reason: nausea and vomiting) 90 Days Qty: 180 3RF famotidine 40 mg tablet 40 mg PO QPM Qty: 90 3RF brinzolamide 1 % drops,suspension 1 drp OPB BID fluoxetine 10 mg capsule 30 mg PO DAILY pantoprazole 40 mg tablet,delayed release (DR/EC) 40 mg PO BID Qty: 60 1RF metoclopramide HCl 5 mg tablet 5 mg PO HS Rx Instructions: per pt he takes 5 mg po hs fill history has 30 for 20 day supply ondansetron 4 mg tablet,disintegrating 4 mg PO DIRECTED PRN (Reason: n/v) mirtazapine 7.5 mg tablet 7.5 mg PO DAILY Rx Instructions: 1 hour before each meal per pt fill history shows 30 for 30 day supply tramadol 50 mg tablet 50 mg PO BID Discharge Orders: Discharge Order (Routine); Ordered 07/01/24 Ordered By: Misty Keyes Admission Data Admit Date/Time: 06/26/24 18:38 Attending Provider: Misty Keyes Admit Provider: Yamil Smiley Primary Care Provider: Anna Walsh Other Providers: Teto Mustafa Other Interventions: Discharge Summary Assessment (RN) Last Done: 07/01/24 15:00 Supervising Physician Co-Signing Physician Notes I personally examined the patient and verified fernandez points of history and exam, discussed case, and agree with decision making and plan documented by Dr. Harp. Today, patient reported improvement of his symptoms. He did have a concern about a pill getting stuck in his throat, was seen by COMPUTER SYSTEMS MANAGER, was given guidance on crushing pills as able and ways to mitigate aspiration. In terms of physical therapy, patient not meeting criteria for inpatient PT, discussed with him consideration of outpatient PT at a site near his RV as home PT may be difficult due to lack of space in the RV. Patient denied headache today but was provided a prescription for sumatriptan to trial outpatient when he is presented with migraines. We discussed the importance of sleep hygiene, adequate hydration, and stress reduction for prevention of migraines. Patient advised to schedule follow-up with PCP and neurology upon discharge, he is understanding. Resident Activity Tracking Resident Involvement: Resident Care Provided Care Provided: Adult Hospital Medicine
[2024-07-02 05:42] LABS: CSF, LDH 26 U/L (<=25); Lyme DNA PCR CSF or Synovial Not Detected (Not Detected); Lyme DNA Source CSF
--- OUTSIDE RECORDS SUMMARY | 2024-07-03 13:14 | External Medical Summary | Summary of Care ---
Author Name Unknown Organization [facility] Address [address] [facility] [facility] [place] [address] Phone [phone] Care Team Providers Care Director Diversity Name Role Phone Anna Walsh MD Primary Care Provider Reason for Visit * Reason Onset Date Comments Hospital Follow-Up 07/02/2024 Encounter Details Date Type Department Care Team (Late st Contact Info) Description 07/02/2024 Telephone Family Practice [facility] [address] [facility] [place] [address] Poppy Tejada, MARGARET Hospital Follow-Up Allergies Active Allergy Reactions Criticality Noted Date Comments Aspirin 04/30/2003 not an allery but was told not to take by adjustment supervisor Clindamycin Unknown Medium 09/06/2015 Pt states hand swelling Localized Gabapentin Unknown 03/21/2023 Dizziness, made me like a zombie, couldn't walk Iodine Hives 06/19/2001 CT dye (Has been pretreated and did fine) Lorazepam Neuro complications (Please comment),Other (Please comment) 04/30/2003 not an allery but was told not to take by adjustment supervisor hallucinates Penicillins 06/25/2001 hives Shellfish-Derived Products Anaphylaxis,Itching High 10/12/2015 Tongue swelling Tongue swelling documented as of this encounter (statuses as of 07/02/2024) Medications Medication Sig Dispensed Refills Start Date [...] as of this encounter (statuses as of 07/02/2024) Active Problems Problem Noted Date Diagnosed Date [...] as of this encounter (statuses as of 07/02/2024) Resolved Problems Problem Noted Date Diagnosed Date Resolved Date Epigastric pain 05/12/2024 05/13/2024 Violette esophagitis 05/11/2024 05/13/20 24 Severe obesity with body mas s index (BMI) of 35.0 to 39.9 with serious comorbidity 06/29/2011 Overview: ICD-10 update of inactive diagnosis ACTIVE CASE MANAGEMENT Jayla Navarro RN [phone] 03/18/2010 06/20/2010 Overview: ACTIVE CASE MANAGEMENT Jayla Navarro RN [phone] HYPERTENSION NOS 11/12/2001 07/26/2009 Overview: Modified per HTN protocol #16. documented as of this encounter (statuses as of 07/02/2024) Immunizations Name Administration Dates Next Due COVID-19 [...] encounter Miscellaneous Notes * Telephone Encounter - Poppy Tejada RN - 07/02/2024 8:45 AM EDT Transitions of Care Note Reason for Referral:Recent Admission Phone visit for follow up: MAT Admitted to: [facility], Date: 06/25 Discharged to: home, Date: 07/01 Diagnosis driving hospitalization: stroke like symptoms Source/Contact: Patient SUBJECTIVE Consent: Verbal consent for review of hospital discharge: Yes REVIEW OF SYSTEMS Patient/Other Reports: Current patient/caregiver problems or concerns: "mild headache" CV: Denies problems Pulmonary: Denies problems Chills/Sweats/Fever:Denies chills/sweats Denies fever Appetite:Denies problems such as nausea, vomiting, burning, decreased appetite Current diet: regular Bowel: denies problems Bladder: denies problems Wound (If applicable): N/A Pain:Location- headache Sleep:Denies problems FUNCTIONAL STATUS: ADL'S: Needs Assistance With:N/A as pt is independent IADL'S: Needs Assistance With:N/A as pt is independent Cognitive and Mental Health: denies problems, alert and oriented x 3, and able to communicate, understand instructions, process information. MEDICATION RECONCILIATION Medications: Discharge med list reviewed with patient or caregiver New medication(s) filled since hospitalization- Imitrex OBJECTIVE ASSESSMENT Medication Risk Assessment: No risks identified Did patient fail outpatient treatment? No Discharge instructions available for review? Yes PLAN Symptom Monitoring Interventions:Member/caregiver education - signs and symptoms to contact PrimaryCare (DO NOT DELETE-Three fernandez symptoms patient is to report to PCP) 1. dizziness 2. Blurry vision 3. Worsening headache Agile DeveloperAgile Developer of Care interventions/Action Plan: Medication reconciliation and 5 - 7 day follow-up with PCP in place - Date: 07/14/24 Educated on role of MAT completed with patient/caregiver. Educated patient/caregiver on patient right to have input on MAT plan of care. Verification of Home Health/DME if indicated: [facility] Identified Care Gaps: Yes Care Gaps closed this call: Medication optimization, Safety and self care issues addressed, and Transition of Care follow-up communication Re-evaluation of Plan of Care and progress towards goals achievement: Patient education this visit: Verbal, as above Plan to instructed to call Primary Care Provider with change in symptoms or as needed before next follow-up, discharge needs met, verbalizes understanding and agrees with plan. Poppy Tejada RN documented in this encounter Plan of Treatment Upcoming Encounters Date Type Department Care Team (Latest Contact Info) Description 07/14/2024 8:30 AM EST Office Visit Gastroenterology, [facility] [address] [place] [id number] Megan Stephens CRNP [address] [address] 07/14/2024 11:20 AM EST Office Visit [facility] [address] [place] [address] Anna Walsh MD [address] [place] [address] 09/26/2024 9:20 AM EST Office Visit [facility] [address] [place] [address] Anna Walsh MD [address] [place] [address] 10/13/2024 10:30 AM EST Office Visit Allergy/Immunology [employer] [address] [place] [address] Stephanie Colon PA-C [address] [place] [address] 11/12/2024 2:00 PM EDT Hospital Encounter ENDO [facility], Endoscopy Room [facility] [address] [place] [phone] Latricia Howard MD [address] [place] [address] 11/12/2024 2:00 PM EDT - 11/12/2024 2:30 PM EDT Surgery ENDO [facility], Endoscopy Room [facility] [address] [place] [id number] Latricia Howard MD [address] [place] [address] COLONOSCOPY FLEXIBLE PROXIMAL DIAGNOSTIC Scheduled Procedures Name [...] this encounter Medical Devices Implanted Type Area Property Caretaker Device Identifier Shelf Expiration Date Model / Serial / Lot Mesh Vicryl 6 X 6 Vkm-M - [id number] Implanted:Qty: 1 on 10/02/2011 at [place] [facility] [place]A: Abdomen DO NOT USE 09/03/2015 [id number] / / [id number] Mesh 10 X 14 [id number] - [id number] Implanted:Qty: 1 on 10/02/2011 at [place] [facility] [place] N/A: Abdomen [employer] 04/02/2016 [id number] / / [id number] documented as of this encounter Additional Health [...] 4:32 PM 05/09/2011 9:14 PM This order re flects the patients wishes and were consensually agreed upon. Question Answer Comments Discussion of Advance Directives occurred with: Not Discussed Does the patient have a Living Will? No Does the patient have Health Care Power of Attor melvin? No Care Teams Director Diversity Relationship Specialty Start Date End Date Anna Walsh MD [address] [place] [address] PCP - General Internal Medicine 05/21/24 documented as of this encounter
--- OUTSIDE RECORDS SUMMARY | 2024-07-03 13:14 | External Medical Summary | Summary of Care ---
Author Name Unknown Organization [facility] Address [address] [facility] [place] [address] Phone [phone] Care Team Providers Care Communications Engineer Name Role Phone Anna Walsh MD Primary Care Provider Reason for Visit * Reason Onset Date Comments Test Results 06/30/2024 Encounter Details Date Type Department Care Team (Late st Contact Info) Description 06/30/2024 Telephone Allergy/Immunology [facility] [address] [place] [address] [place] [address] Edmond Saleem MD [address] [place] [address] Test Results Allergies Active Allergy Reactions Criticality Noted Date Comments Aspirin 04/30/2003 not an allery but was told not to take by compliance representative Clindamycin Unknown Medium 09/06/2015 Pt states hand swelling Localized Gabapentin Unknown 03/21/2023 Dizziness, made me like a zombie, couldn't walk Iodine Hives 06/19/2001 CT dye (Has been pretreated and did fine) Lorazepam Neuro complications (Please comment),Other (Please comment) 04/30/2003 not an allery but was told not to take by compliance representative hallucinates Penicillins 06/25/2001 hives Shellfish-Derived Products Anaphylaxis,Itching High 10/12/2015 Tongue swelling Tongue swelling documented as of this encounter (statuses as of 06/30/2024) Medications Medication Sig Dispensed Refills Start Date [...] as of this encounter (statuses as of 06/30/2024) Active Problems Problem Noted Date Diagnosed Date [...] as of this encounter (statuses as of 06/30/2024) Resolved Problems Problem Noted Date Diagnosed Date Resolved Date Epigastric pain 05/12/2024 05/13/2024 Violette esophagitis 05/11/2024 05/13/20 Severe obesity with body mas s index (BMI) of 35.0 to 39.9 with serious comorbidity 06/29/2011 Overview: ICD-10 update of inactive diagnosis ACTIVE CASE MANAGEMENT Jayla Navarro RN [phone] 03/18/2010 06/20/2010 Overview: ACTIVE CASE MANAGEMENT Jayla Navarro RN [phone] HYPERTENSION NOS 11/12/2001 07/26/2009 Overview: Modified per HTN protocol #16. documented as of this encounter (statuses as of 06/30/2024) Immunizations Name Administration Dates Next Due COVID-19 [...] encounter Miscellaneous Notes * Telephone Encounter - Luisa Spencer LPN - 06/30/2024 11:49 AM EDT My chart message sent advising of such. * Telephone Encounter - Luisa Spencer LPN - 06/30/2024 11:48 AM EDT ----- Message from Edmond Saleem MD sent at 06/30/2024 11:39 AM EDT ----- Bloodwork reviewed. IgM returned low but consistent with previous bloodwork. Rest of workup including rest of generalized antibody levels, white blood cells, subsets of white blood cells, and response to previous vaccines all returned within normal limits. No changes to the plan of care. Edmond Saleem MD documented in this encounter Plan of Treatment Upcoming Encounters Date Type Department Care Team (Latest Contact Info) Description 07/14/2024 8:30 AM EST Office Visit Gastroenterology, [facility] [address] [place] [address] Megan Stephens CRNP [address] [place] [address] 07/16/2024 9:30 AM EST Nurse Only Gastroenterology, [facility] [address] [place] [address] Sneed, Nurse [facility] [address] [place] [address] 09/26/2024 9:20 AM EST Office Visit Family Practice [facility] [address] [place] [address] Anna Walsh MD [address] [place] [address] 10/13/2024 10:30 AM EST Office Visit Allergy/Immunology [facility] [address] [place], [place] [address] Stephanie Colon PA-C [address] [place], [place] [address] 11/12/2024 2:00 PM EDT Hospital Encounter ENDO OSSC, Endoscopy Room [facility] [address] [place] [phone] Latricia Howard MD [address] [place] [address] 11/12/2024 2:00 PM EDT - 11/12/2024 2:30 PM EDT Surgery ENDO O[facility], Endoscopy Room [facility] [address] [place] [address] Latricia Howard MD [address] [place] [address] COLONOSCOPY FLEXIBLE PROXIMAL DIAGNOSTIC Scheduled Procedures Name [...] this encounter Medical Devices Implanted Type Area Ems Director Device Identifier Shelf Expiration Date Model / Serial / Lot Mesh Vicryl 6 X 6 Vkm-M - [id number] [place]planted:Qty: 1 on 10/02/2011 [place] [facility] [place]: Abdomen DO NOT USE 09/03/2015 VKM-M / / [id number] Mesh 10 X 14 [id number] - [id number] Implanted:Qty: 1 on 10/02/2011 [place] [facility] [place]A: Abdomen [employer] KENNETH 04/02/2016 [id number] / / [id number] documented as of this encounter Additional Health [...] Power of Attor melvin? No Care Teams Communications Engineer Relationship Specialty Start Date End Date Anna Walsh MD [address] [place] [address] PCP - General Internal Medicine 05/21/24 documented as of this encounter
--- OUTSIDE RECORDS SUMMARY | 2024-07-03 13:15 | External Medical Summary ---
Author Name Unknown Address Unknown Organization K01:LABORATORY [facility] - [address] [place] [address] Laboratory Report Ordering Provider Test Date Status PAKO DELAROSA 06/25/2024 10:39:56 Final Observation Date Value Abnormality Reference (Units ) Status WHITE BLOOD CELL COUNT FLOW 06/25/2024 10:39:56 5.8 4.0-10.8 (K/uL) Final PERCENT LYMPHS FLOW 06/25/2024 10:39:56 25.2 18.0-42.0 (%) Final ABSOLUTE LYMPHS FLOW 06/25/2024 10:39:56 1462 3301-7849 (cells/uL) Final CD3 (T Cells), percent 06/25/2024 10:39:56 80 61-88 (%) Final CD3 (T Cells), absolute 06/25/2024 10:39:56 5431 809-1813 (cells/uL) Final CD3+CD8+ (T8 suppressor cells) cells/100 cells in Blood 06/25/2024 10:39:56 27 13-35 (%) Final CD3+CD8+ (T8 suppressor cells) cells [#/volume] in Blood 06/25/2024 10:39:56 402 150-790 (cells/uL) Final CD3+CD4+ (T4 helper) cells/100 cells in Blood 06/25/2024 10:39:56 53 35-62 (%) Final CD3+CD4+ (T4 helper) cells [#/volume] in Blood 06/25/2024 10:39:56 581 117-8141 (cells/uL) Final CD3+CD4+ (T4 helper) cells/CD3+CD8+ (T8 suppressor cells) cells [# Ratio] in Blood 06/25/2024 10:39:56 1.9 0.8-3.5 (%) Final CD3-CD16+CD56+ (Natural killer) cells/100 cells in Blood 06/25/2024 10:39:56 17 3-21 (%) Final CD3-CD16+CD56+ (Natural killer) cells [#/volume] in Blood 06/25/2024 10:39:56 244 50-400 (cells/uL) Final CD3-CD19+ cells/100 cells in Blood 06/25/2024 10:39:56 3 Below low normal 4-21 (%) Final CD3-CD19+ cells [#/volume] in Blood 06/25/2024 10:39:56 41 33-550 (cells/uL) Final Performing Location LABORATORY [facility] - [facility] [address]. [facility] [address]
--- OUTSIDE RECORDS SUMMARY | 2024-07-03 13:15 | External Medical Summary | Continuity of Care Document ---
Author Name Unknown Organization [facility] [[email or web address]] [address] Address [address] [place], [place] [id number] Care Team Providers Care Risk And Insurance Consultant Name Role Phone Solo Stock Primary Care Physician [phone] Encounter [facility] [id number] Date(s): 06/25/24 - 06/25/24 [facility] [[email or web address]] [address] [place], [place] [id number] Discharge Disposition: Home or Self Care Attending Physician: MD Soto Evan David Referring Physician: MD Karthik, Teresa Bates Social History Social History Type Response Sex Male Sex Representation Male (finding) Patient Care team information Care Team Personnel Name: DO Stock Philip A Position: Referring Member Role: Primary Care Provider Address: [address] [place] [address]
--- OUTSIDE RECORDS SUMMARY | 2024-07-03 13:15 | External Medical Summary | Summary of Care ---
Author Name Unknown Organization [facility] Address [address] [facility] [place] [address] Phone [phone] Care Team Providers Care Home Service Director Name Role Phone Anna Walsh MD Primary Care Provider Reason for Referral * Evaluate & Treat - Unlimited Visits (Within 10 days (routine)) - Pending Review Specialty Diagnoses / Procedures Referred By Kalin dubose Referred To Contact Allergy & Immunology / Allergy and Immunology Diagnoses Esophageal candidiasis (HCC) Anna Walsh MD [address] [employer] [place] [address] Referral ID Status Reason Start Date Expiration Date Visits Requested Visits Authorized [id number] Pending Review Specialty Services Required 05/25/[phone] Question Answer Referral Priority Within 10 days (routine) Where should this appointment be scheduled? [facility] For what condition is the patient being referred? Recurrent infections/Immunodeficiency Is the patient being referred for an autoimmune condition such as psoriasis, rheumatoid arthritis or lupus? 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 HIV neg. Low IgM level. Encounter Details Date Type Department Care Team (Late st Contact Info) Description 05/25/2024 Telephone Family Practice [facility] [address] [place] [address] Anna Walsh MD [address] [place] [address] Allergies Active Allergy Reactions Criticality Noted Date Comments Aspirin 04/30/2003 not an allery but was told not to take by field handyman Clindamycin Unknown Medium 09/06/2015 Pt states hand swelling Localized Gabapentin Unknown 03/21/2023 Dizziness, made me like a zombie, couldn't walk Iodine Hives 06/19/2001 CT dye (Has been pretreated and did fine) Lorazepam Neuro complications (Please comment),Other (Please comment) 04/30/2003 not an allery but was told not to take by field handyman hallucinates Penicillins 06/25/2001 hives Shellfish-Derived Products Anaphylaxis,Itching High 10/12/2015 Tongue swelling Tongue swelling documented as of this encounter (statuses as of 06/29/2024) Medications Medication Sig Dispensed Refills Start Date [...] for severe Pain 30 Tablet 05/21/2024 Active Dicyclomine HCl 10 MG Oral Capsule (Bentyl) Take 1 Capsule by mouth in the morning and 1 Capsule before bedtime. 05/12/2024 4 Discontinued(Pat ient preference/disco ntinuation) Famotidine 40 MG Oral Tablet (Pepcid) Take 1 Tablet by mouth daily. 4 Discontinued(Ref ill) Clotrimazole 10 MG Mouth/Throat Vasyl (Mycelex Vasyl)Indicatio ns:Oral jovany Take 1 Lozenge by mouth 5 times a day for 14 days. Allow tablet to slowly dissolve in your mouth 70 Vasyl 05/21/2024 4 Discontinued documented as of this encounter (statuses as of 06/29/2024) Active Problems Problem Noted Date Diagnosed Date [...] as of this encounter (statuses as of 06/29/2024) Resolved Problems Problem Noted Date Diagnosed Date Resolved Date Epigastric pain 05/12/2024 05/13/2024 Jovany esophagitis 05/11/2024 05/13/20 24 Severe obesity with body mas s index (BMI) of 35.0 to 39.9 with serious comorbidity 06/29/2011 Overview: ICD-10 update of inactive diagnosis ACTIVE CASE MANAGEMENT Jayla Navarro RN [phone] 03/18/2010 06/20/2010 Overview: ACTIVE CASE MANAGEMENT Jayla Navarro RN [phone] HYPERTENSION NOS 11/12/2001 07/26/2009 Overview: Modified per HTN protocol #16. documented as of this encounter (statuses as of 06/29/2024) Immunizations Name Administration Dates Next Due COVID-19 [...] encounter Miscellaneous Notes * Telephone Encounter - Kiera Villasenor OSA - 05/26/2024 6:38 AM EDT Appt was scheduled documented in this encounter Plan of Treatment Upcoming Encounters Date Type Department Care Team (Latest Contact Info) Description 07/02/2024 8:30 AM EDT Nurse Only Gastroenterology, [facility] [address] [facility] [place] [address] Nurse Carine Sneed [facility] [address] [facility] [place] [address] 07/14/2024 8:30 AM EST Office Visit Gastroenterology, [facility] [address] [facility] [place] [address] Megan Stephens CRNP [address] [facility] [place] [address] 08/04/2024 8:00 AM EST Imaging [facility] 2nd Floor Cardiology, [address] [place] [address] 08/04/2024 9:30 AM EST Imaging [facility] 2nd Floor Cardiology, [address] [address] 08/04/2024 10:30 AM EST Imaging [facility] 2nd Floor Cardiology, [address] [place] [address] 08/04/2024 12:30 PM EST Imaging [facility] 2nd Floor Cardiology, [address] [place] [address] 09/26/2024 9:20 AM EST Office Visit Family Practice [facility] [address] [facility] [place] [address] Anna Walsh MD [address] [facility] [place] [address] 10/13/2024 10:30 AM EST [facility] [address] [place] [address] Stephanie Colon PA-C [address] [facility], [place] [address] 11/12/2024 2:00 PM EDT Hospital Encounter ENDO [facility], Endoscopy Room [facility] [address] [place], [place] [phone] Latricia Howard MD [address] [place] [address] 11/12/2024 2:00 PM EDT - 11/12/2024 2:30 PM EDT Surgery ENDO [facility], Endoscopy Room [facility] [address] [place] [address] Latricia Howard MD [address] [place] [address] COLONOSCOPY FLEXIBLE PROXIMAL DIAGNOSTIC Scheduled Procedures Name Priority Associated Diagnoses Date/Ti me COLONOSCOPY FLEXIBLE PROXIMAL DIAGNOSTIC Phelps's esophagus without dysplasia Dysphagia, unspecified type Unintentional weight loss Nausea Appetite loss 11/12/2024 2:00 PM EDT Scheduled Referrals Name Type Priority Associated Diagnoses Orde r Schedule ALLERGY REFERRAL OP Referral Within 10 da ys (routine) Esophageal candidiasis (HCC) Ordered: 05/25/2024 Health Maintenance Due Date Last Done Comments Albumin/Creatinine Ratio 1968 Hepatitis C Screening 1968 Zoster Vaccines (1 of 2) 1998 Pneumococcal Vaccine: 65+ Years (2 of 2 - PCV) 05/01/2010 05/01/2009 Adult Wellness Visit 2014 Depression Screening 04/30/2015 04/30/2014 COVID-19 Vaccine ( season) 2024 11/23/2023, 11/02/2020, 09/29/2020 Influenza Vaccine (FLU shot) (#1) 2024 TSH 05/21/2025 05/21/2024, 090 05/2024, 12/11/2013, Additional history exists GFR 06/18/2025 [...] this encounter Medical Devices Implanted Type Area Automatic Head Sawyer Device Identifier Shelf Expiration Date Model / Serial / Lot Mesh Vicryl 6 X 6 Vkm-M - [id number] Implanted:Qty: 1 on 10/02/2011 at [place] [facility] [place] N/A: Abdomen DO NOT USE 09/03/2015 VKM-M / / [id number] Mesh 10 X 14 [id number] - [id number] Implanted:Qty: 1 on 10/02/2011 at [place] [facility] [place] N/A: Abdomen [employer] KENNETH 04/02/2016 [id number] / / [id number] documented as of this encounter Results * VITAMIN B12 (06/25/2024 10:39 AM EDT) Vitamin B12 425 232 - 1,245 pg/mL 06/25/2024 9:17 PM EDT LABORATORY [facility] Blood Venous blood specimen / Unknown Venipuncture / Unknown 06/25/2024 10:39 AM EDT 06/25/2024 10:39 AM EDT Anna Walsh MD LAB BLOOD ED[facility]A MONTES LABORATORY [facility] [address] [place] [address] documented in this encounter Visit Diagnoses Diagnosis Esophageal candidiasis (HCC)- Primary Candidiasis of the esophagus B12 deficiency Other B-complex deficiencies Phelps's esophagus without dysplasia Phelps's esophagus Dysphagia, [...] Power of Attor melvin? No Care Teams Home Service Director Relationship Specialty Start Date End Date Anna Walsh MD [address] [place] [address] PCP - General Internal Medicine 05/21/24 documented as of this encounter
--- OUTSIDE RECORDS SUMMARY | 2024-07-03 13:15 | External Medical Summary ---
Author Name Unknown Address Unknown Organization : Laboratory Report Ordering Provider Test Date Status PAKO DELAROSA 06/25/2024 10:39:56 Final Observation Date Value Abnormality Reference (Units ) Status Corynebacterium diphtheriae Ab [Units/volume] in Serum by Immunoassay 06/25/2024 10:39:56 0.83 (IU/mL) Final Reference Range: 0.10 IU/mL or [...] analytical performance
characteristics have been determined by [facility], [place], [place]. It has
not been cleared or approved by the U.S. Food and Drug
Administration. This assay has been validated pursuant
to the CLIA regulations and is used for clinical
purposes. Clostridium tetani toxoid Ab [Units/volume] in Serum 06/25/2024 10:39:56 0.91 (IU/mL) Final Reference range (Healthy Imm unized):
0.10 IU/mL or greater
Antibody levels of >= 0.10 IU/mL are considered
protective. However, tetanus can still occur in some
individuals with such antibody levels. These results
should not be used to determine the necessity to
administer antitoxin when clinically indicated.
This test was developed and its analytical performance
characteristics have been determined by [facility], [place], [place]. It has
not been cleared or approved by the U.S. Food and Drug
Administration. This assay has been validated pursuant
to the CLIA regulations and is used for clinical
purposes.

Test Performed at:
[facility]
[address] [facility]
[place] [address]
Jason Raman M.D., Ph.D.,Director of Laboratories Performing Location
--- OUTSIDE RECORDS SUMMARY | 2024-07-03 13:17 | External Medical Summary ---
Author Name Unknown Address Unknown Organization : Laboratory Report Ordering Provider Test Date Status PAKO DELAROSA 06/11/2024 10:00:05 Final Observation Date Value Abnormality Reference (Units ) Status SEROTYPE 1 (1) 06/11/2024 10:00:05 8.4 >=1.0 (mcg/mL) Final SEROTYPE 2 (2) 06/11/2024 10:00:05 0.3 >=1.0 (mcg/mL) Final SEROTYPE 3 (3) 06/11/2024 10:00:05 0.2 >=1.0 (mcg/mL) Final SEROTYPE 4 (4) 06/11/2024 10:00:05 0.2 >=1.0 (mcg/mL) Final SEROTYPE 5 (5) 06/11/2024 10:00:05 0.7 >=1.0 (mcg/mL) Final SEROTYPE 8 (8) 06/11/2024 10:00:05 1.2 >=1.0 (mcg/mL) Final SEROTYPE 9N (9) 06/11/2024 10:00:05 0.2 >=1.0 (mcg/mL) Final SEROTYPE 12F (12) 06/11/2024 10:00:05 0.3 >=1.0 (mcg/mL) Final SEROTYPE 14 (14) 06/11/2024 10:00:05 0.3 >=1.0 (mcg/mL) Final SEROTYPE 17F (17) 06/11/2024 10:00:05 0.2 >=1.0 (mcg/mL) Final SEROTYPE 19F (19) 06/11/2024 10:00:05 2.5 >=1.0 (mcg/mL) Final SEROTYPE 20 (20) 06/11/2024 10:00:05 0.7 >=1.0 (mcg/mL) Final SEROTYPE 22F (22) 06/11/2024 10:00:05 1.3 >=1.0 (mcg/mL) Final SEROTYPE 23F (23) 06/11/2024 10:00:05 1.0 >=1.0 (mcg/mL) Final SEROTYPE 6B (26) 06/11/2024 10:00:05 0.4 >=1.0 (mcg/mL) Final SEROTYPE 10A (34) 06/11/2024 10:00:05 4.6 >=1.0 (mcg/mL) Final SEROTYPE 11A (43) 06/11/2024 10:00:05 0.3 >=1.0 (mcg/mL) Final SEROTYPE 7F (51) 06/11/2024 10:00:05 1.4 >=1.0 (mcg/mL) Final SEROTYPE 15B (54) 06/11/2024 10:00:05 0.4 >=1.0 (mcg/mL) Final SEROTYPE 18C (56) 06/11/2024 10:00:05 24.5 >=1.0 (mcg/mL) Final SEROTYPE 19A (57) 06/11/2024 10:00:05 0.7 >=1.0 (mcg/mL) Final SEROTYPE 9V (68) 06/11/2024 10:00:05 10.3 >=1.0 (mcg/mL) Final SEROTYPE 33F (70) 06/11/2024 10:00:05 1.4 >=1.0 (mcg/mL) Final STREP PNEUMO INTERPRETATION 06/11/2024 10:00:05 SEE BELOW Final RESULT: SEE BELOW
Evalua tion of the immune response following pneumococcal
vaccination can be assessed by measuring serotype-specific
Streptococcus pneumonia IgG antibodies. Either of the
following conditions is consistent with a normal response
to Streptococcus pneumonia vaccination: 1. When comparing
pre and post- vaccination samples, antibody concentrations
increased by at least 2-fold for either >50% of serotypes
in children <6 years of age or >70% of serotypes for
individuals >6 years of age. 2. In either a pre- or
post-vaccination sample, antibody concentrations >=1.0
mcg/mL for either >50% of serotypes for children <6 years
of age or >70% of serotypes for individuals >6 years of
age. Results >=1.0 mcg/mL or those showing a >=2-fold
change are consistent with an immune response, but are not
necessarily sufficient to provide protection against
infection.
ADDITIONAL INFORMATION
This test was developed and its performance characteristics
determined by [facility] in a manner consistent with CLIA
requirements. This test has not been cleared or approved by
the U.S. Food and Drug Administration.
Test performed by:
[facility]
[address] [place] [address]

Automotive Mechanic:
Renuka Reed M.D. Ph.D. ;CLIA# [id number]
Test Reported by [facility],
[facility],
[address] [place], [place]
Jason Raman M.D., Ph.D., Director of Laboratories
, CLIA [id number] Performing Location
== END 2024-07-01 15:53 | disposition home or self-care (01) | DRG 103 ==
LOC: ED 12:11 → 4W 12:11 → SUATTDRO 16:28 → 4W 22:39 → SUATTDRO 06-26 18:38

== ENCOUNTER 2025-07-27 18:27 | Observation (INO) ==
[2025-07-27 19:06] LABS: Hematocrit (blood only) 41.7 % (42.0-52.0); Hemoglobin 14.9 g/dL (14.0-18.0); Immature Granulocytes # (auto) 0.04 K/uL (0.01-0.20); Immature Granulocytes % (auto) 0.6 %; Mean Corpuscular Hemoglobin 32.7 pg (25.0-34.0); Mean Corpuscular Volume 91.4 fL (80.0-100.0); Platelet Count 151 K/uL (130-400); RDW Standard Deviation 39.3 fL (36.4-46.3); Red Blood Count 4.56 M/uL (4.70-6.10); White Blood Count 7.25 K/ul (4.8-10.8)
--- NOTE | 2025-07-27 19:13 | Emergency Department Note ---
History of Present Illness General Chief complaint: Abdominal Pain Stated complaint: DIZZY, WEAK, PAIN Time Seen by Provider: 07/27/25 18:35 Source: patient Mode of arrival: EMS History of Present Illness Maximum Pain Intensity: 6 Patient is a 74-year-old male who presents from the PACU after laser vaporization of his prostate today. According to the transfer form patient experience uncontrolled pain in the PACU. Patient's also stated in the PACU that she was not able to take him home due to him being a "fall risk and safety concern". She also states that she cannot drive in the dark and he needed to be in an overnight facility. Patient was given general anesthesia for the procedure itself. Also received multiple IV pain medication. Currently patient's pain is a 5 out of 10 improved from initial pain after the procedure. He does have a Webber catheter in place. Hematuria noted within the catheter. Reports some mild nausea with no vomiting. Patient denies any headache, vision change, speech change, numbness or weakness of extremities. No chest pain or shortness of breath reported. Home Medications Medication Instructions Recorded Confirmed Type levothyroxine 100 mcg tablet 100 mcg PO DAILYBB #90 tabs 02/21/24 07/27/25 Rx latanoprost 0.005 % eye drops 1 drp OPB HS #7.5 mL 04/16/24 07/27/25 Rx atorvastatin 40 mg tablet 40 mg PO HS 10/31/24 07/27/25 History famotidine 40 mg tablet 40 mg PO HS 10/31/24 07/27/25 History fluoxetine 20 mg capsule 20 mg PO DAILY 11/23/24 07/27/25 History fluoxetine 10 mg capsule 10 mg PO DAILY 02/14/25 07/27/25 History amlodipine 5 mg tablet 5 mg PO QAM 05/17/25 07/27/25 History acetaminophen 1,000 mg/100 mL (10 1,000 mg IV ONCE 07/27/25 07/27/25 History mg/mL) intravenous solution acetaminophen 325 mg tablet 975 mg PO Q6H PRN Pain 07/27/25 07/27/25 History (Tylenol) cefazolin 2 gram intravenous 2 g IV ONCE 07/27/25 07/27/25 History solution dorzolamide 22.3 mg-timolol 6.8 1 drp ophthalmic (eye) AMPM 07/27/25 07/27/25 History mg/mL eye drops (Cosopt) hydromorphone 2 mg/mL injection 2 mg IM ONCE 07/27/25 07/27/25 History solution ketorolac 30 mg/mL (1 mL) 30 mg IM ONCE 07/27/25 07/27/25 History injection solution meclizine 12.5 mg tablet 12.5 mg PO TID PRN dizziness 07/27/25 07/27/25 History metoprolol succinate 25 mg 12.5 mg PO DAILY 07/27/25 07/27/25 History tablet,extended release 24 hr ondansetron HCl 4 mg tablet 4 mg PO Q6H PRN NAUSEA/VOMITING 07/27/25 07/27/25 History oxybutynin chloride 5 mg tablet 5 mg PO DIRECTED 07/27/25 07/27/25 History oxycodone 5 mg tablet 5 mg PO ONCE 07/27/25 07/27/25 History oxycodone-acetaminophen 5 mg-325 1 tab PO Q8H PRN Pain 07/27/25 07/27/25 History mg tablet phenazopyridine 200 mg tablet 200 mg PO TID PRN BLADDER PAIN 07/27/25 07/27/25 History (Pyridium) sulfamethoxazole 800 1 tab PO BID 07/27/25 07/27/25 History mg-trimethoprim 160 mg tablet tizanidine 2 mg tablet 2 - 4 mg PO HS PRN MUSCLE 07/27/25 07/27/25 History SPASMS/PAIN Allergies Allergy/AdvReac Type Severity Reaction Status Date / Time cefazolin Allergy Severe CP/FELT Verified 07/27/25 20:46 LIKE THROAT CLOSING Gadolinium-Containing Allergy Severe SHORTNESS Verified 07/27/25 20:45 Contrast Medi OF BREATH clindamycin Allergy Intermediate HANDS Verified 07/27/25 20:45 SWELLED Penicillins Allergy Intermediate Hives Verified 07/27/25 20:45 shellfish derived Allergy Intermediate Anaphylaxis Verified 07/27/25 20:45 /ITCHING aspirin Allergy Unknown PATIENT Verified 07/27/25 20:45 TOLD NOT TO TAKE BY [facility]CRAPPER Iodinated Contrast Media Allergy Unknown HAS TO BE Verified 07/27/25 20:45 PRETREATED PER [facility] finasteride AdvReac Intermediate SNYCOPE/LIG Verified 07/27/25 20:45 HTHEADED gabapentin AdvReac Intermediate HALLUCINATIONS/DIZZINESS/COULDN'T Verified 20:45 WALK lorazepam AdvReac Intermediate HALLUCINATI Verified 07/27/25 20:45 ONS Past Med/Surg History Problem List (Updated 07/27/25 @ 21:26 by Artem Louis MD) Hypoxia (Acute) Adverse effect of anesthesia (Acute) Syncope (Acute) Dizziness (Acute) Difficulty swallowing pills History of COVID-19 Stroke-like symptoms (Acute) Headache (Acute) Left arm weakness (Acute) Abdominal pain (Acute) Dysphagia (Acute) Postprandial nausea Lumbar facet joint syndrome Chronic low back pain ANGEL (obstructive sleep apnea) Anxiety and depression Carotid artery stenosis Phelps esophagus (Acute) Lumbar spondylosis Osteopenia Hiatal hernia with gastroesophageal reflux disease (02/09/11) HTN (hypertension) S/P cholecystectomy H/O colectomy Diverticulitis Rectal bleed (Acute) Abdominal pain (Acute) Glaucoma (Chronic) Numbness of face (Acute 04/24/14) Headache (Acute) Left shoulder pain (Acute) Stomach problems (Acute) Bronchospasm (Acute) Epigastric abdominal pain (Acute) SOBOE (shortness of breath on exertion) (Acute) Shortness of breath (Acute) Medical History Bowel obstruction Surgical History S/P hernia surgery S/P sinus surgery Family History Sister Breast cancer Cancer of spine Cancer Brother Colorectal cancer Father COPD (chronic obstructive pulmonary disease) Denies family history of Ovarian cancer Prostate cancer Myocardial infarction Social History Smoking Status: Never smoker Second Hand Exposure: Yes; Do You Dip or Chew Tobacco: No; Hx Alcohol Use: No Hx Substance Use: No Preferred Language: Syriac Communication Ability: Effective Visual Impairment: Limited Hearing Ability: Normal Gas Combustion Engineer Required: No Beliefs That Will Affect Care: None marital status: Current Living Situation: Spouse Current Living Situation Comment: worked at [employer] current occupational status: retired Feels Safe at Home: Yes Childhood Exposure to Second-Hand Smoke: Yes Diet: regular caffeine: Yes Dental Care, Regularly: Yes Physical Activity Frequency: Daily Seatbelt Use: always Sunscreen Use: No Assistive Devices: Other Review of Systems Review of systems negative outside of positive findings mentioned in HPI. Physical Exam Vital Signs Vital Signs - 24 hr 07/27/25 18:33 07/27/25 19:28 07/27/25 19:28 Temperature 37.1 C Temperature Source Oral Pulse Rate 80 73 76 Pulse Rate [Right Finger] Pulse Rhythm Regular Pulse Rhythm [Right Finger] Pulse Strength [Right Finger] Respiratory Rate 22 12 Respiratory Effort / Characteristics Non-Labored Spontaneous Respiratory Depth Normal Respiratory Pattern Blood Pressure 145/95 H Blood Pressure [Right Arm] Blood Pressure Mean 111 Blood Pressure Mean [Right Arm] Blood Pressure Position [Right Arm] Pulse Oximetry 95 93 Oxygen Delivery Method Room Air Room Air Sepsis Recent Fever Within 48 Hours No Sepsis New/Unexplained Change in Mental Status N/A Sepsis Action Taken by Nursing No Action Required 07/27/25 20:33 Temperature Temperature Source Pulse Rate Pulse Rate [Right Finger] 75 Pulse Rhythm Pulse Rhythm [Right Finger] Regular Pulse Strength [Right Finger] Normal Respiratory Rate 16 Respiratory Effort / Characteristics Non-Labored Spontaneous Respiratory Depth Normal Respiratory Pattern Regular Blood Pressure Blood Pressure [Right Arm] 137/81 Blood Pressure Mean Blood Pressure Mean [Right Arm] 99 Blood Pressure Position [Right Arm] Lying Pulse Oximetry 90 Oxygen Delivery Method Room Air Sepsis Recent Fever Within 48 Hours Sepsis New/Unexplained Change in Mental Status Sepsis Action Taken by Nursing See below Constitutional WD/WN, vitals as above Respiratory normal respiratory effort, lungs clear to auscultation Cardiovascular RRR, no murmur, no edema Gastrointestinal (Abdomen) Inspection/Auscultation: abdomen normal to inspection; abdomen not distended Percussion/Palpation: abdomen soft; no guarding Tenderness to palpation of the suprapubic region, dried blood along the meatus and scrotum, no scrotal swelling or ecchymosis, Webber catheter in place with hematuria noted within the catheter Medical Decision Making Differential Diagnosis DDx includes but not limited to: Postanesthesia reaction, atelectasis, pulmonary edema, urinary retention, prostate capsular perforation, adjacent structural damage Medical Records Attestation: I reviewed the patient's medical records. Home Medications Current Medication List: was personally reviewed by me Laboratory Data Attestation: I reviewed the patient's lab results. 07/27/25 18:35 07/27/25 18:35 Lab Results 07/27/25 07/27/25 Range/Units 18:35 20:41 WBC 7.25 (4.8-10.8) K/ul RBC 4.56 L (4.70-6.10) M/uL Hgb 14.9 (14.0-18.0) g/dL Hct 41.7 L (42.0-52.0) % MCV 91.4 (80.0-100.0) fL MCH 32.7 (25.0-34.0) pg MCHC 35.7 (32.0-36.0) g/dL RDW Std Deviation 39.3 (36.4-46.3) fL RDW Coeff of Yolande 11.7 (11.5-14.5) % Plt Count 151 (130-400) K/uL MPV 10.3 (9.4-12.4) fL Immature Gran % (Auto) 0.6 % Neut % (Auto) 87.7 % Lymph % (Auto) 10.8 % [place] % (Auto) 0.8 % Eos % (Auto) 0.0 % Baso % (Auto) 0.1 % Neut # (Auto) 6.36 (1.40-6.50) K/uL Lymph # (Auto) 0.78 L (1.20-3.40) K/uL [place] # (Auto) 0.06 L (0.11-0.59) K/uL Eos # (Auto) 0.00 (0.00-0.50) K/uL Baso # (Auto) 0.01 (0.00-0.20) K/uL Immature Gran # (Auto) 0.04 (0.01-0.20) K/uL Sodium 139 (136-145) mmol/L Potassium 4.0 (3.5-5.1) mmol/L Chloride 104 (98-107) mmol/L Carbon Dioxide 28 (21-32) mmol/L Anion Gap 7 (3-11) BUN 13 (6-23) mg/dl Creatinine 0.92 (0.6-1.4) mg/dl Est Cr Clr Drug Dosing 82.7 ml/min eGFR 86.21 BUN/Creatinine Ratio 14.1 (10-20) Glucose 135 H (70-99(Fasting)) mg/dl Lactate 1.7 (0.4-2.0) mmol/L Calcium 8.4 L (8.6-10.3) mg/dl Total Bilirubin 0.9 (0.2-1.0) mg/dl AST 15 (13-39) U/L ALT 11 (7-52) U/L Alkaline Phosphatase 91 (34-104) U/L Troponin I High Sens 2.7 (0-20) pg/ml Total Protein 6.6 (6.0-8.3) gm/dl Albumin 3.6 (3.4-5.0) gm/dl Globulin 3.0 (2.5-4.0) gm/dl Albumin/Globulin Ratio 1.2 (0.9-2) Lipase 7 L (11-82) U/L Urine Color See Comment Urine Appearance Slightly Cloudy (Clear) Urine pH Not Reportable Ur Specific [place] 1.030 (1.000-1.030) Urine Protein Not Reportable Urine Glucose (UA) Not Reportable Urine Ketones Not Reportable Urine Blood Not Reportable Urine Nitrite Not Reportable Urine Bilirubin Not Reportable Urine Urobilinogen Not Reportable Ur Leukocyte Esterase Not Reportable Urine RBC >20 H (0-2) /hpf Urine WBC 11-20 H (0-5) /hpf Ur Epithelial Cells 3-5 H (0-2) /hpf Urine Bacteria 1+ H (None Seen) Urine Comment Imaging Data Radiologist's Impression: Abdomen/Pelvis CT 07/27/25 18:38 CT of the abdomen pelvis without contrast Technique: Noncontrast axial images of the abdomen pelvis. Coronal and sagittal reformatted images made for review Comparison made to prior exam dated 07/07/2025 Findings: Lung bases are clear Postoperative changes prior cholecystectomy. No hydronephrosis. No renal, ureteral, or bladder calculi. Prostate is enlarged.. Urinary bladder is unremarkable. Postoperative changes of the colon. No free air or intestinal obstruction. Bone windows demonstrate no focal abnormality. Impression: Postoperative changes prior cholecystectomy CT of the abdomen pelvis negative for acute intra-abdominal pathology. Electronically signed by Yamil Dougherty 07-27-2025 8:36 PM MDM Narrative Patient is a 74-year-old male who presents from [facility] after an adverse reaction to his anesthesia. He was noted to have respiratory depression and difficulty ambulating in the PACU. He was also complaining of significant suprapubic pain. His pain improved upon arrival. He was hemodynamically stable. Minimal hematuria noted within his catheter but no evidence of urinary retention or issues with drainage from the catheter. CT of the abdomen and pelvis was ordered and reviewed. No acute postsurgical findings noted. Unfortunately his urologist does not have privileges here at [facility] however I did speak to on-call urologist Dr. Nava here today. No indication for urologic intervention at this time. Patient did have a brief desaturation event to 89% was placed on 2 L. No concern for PE. Chest x-ray nonconcerning for acute cardiopulmonary process on my independent review. Hypoxia is likely secondary to atelectasis in the setting of his recent surgery. Will admit however for observation in the setting of his new oxygen requirement. Impression & Plan Adverse effect of anesthesia, Hypoxia Discharge Plan Visit Data Chief Complaint: Abdominal Pain Stated Complaint: DIZZY, WEAK, PAIN ED Provider: Artem Louis Discharge Problem: Adverse effect of anesthesia, Hypoxia Patient Disposition: Admitted As Inpatient Condition: Good Forms Stand Alone Forms: My [facility] Prescriptions Prescriptions: No Action levothyroxine 100 mcg tablet 100 mcg PO DAILYBB Qty: 90 1RF latanoprost 0.005 % drops 1 drp OPB HS Qty: 7.5 1RF fluoxetine 10 mg capsule 10 mg PO DAILY Rx Instructions: Take w/ 20mg to equal 30mg by mouth every morning. amlodipine 5 mg tablet 5 mg PO QAM atorvastatin 40 mg tablet 40 mg PO HS famotidine 40 mg tablet 40 mg PO HS fluoxetine 20 mg capsule 20 mg PO DAILY Rx Instructions: Take w/ 10mg to equal 30mg by mouth every morning. acetaminophen [Tylenol] 325 mg Tablet 975 mg PO Q6H PRN (Reason: Pain) tizanidine 2 mg tablet 2 - 4 mg PO HS PRN (Reason: MUSCLE SPASMS/PAIN) phenazopyridine [Pyridium] 200 mg Tablet 200 mg PO TID PRN (Reason: BLADDER PAIN) Rx Instructions: ORDERED 07/27/25 NOT STARTED YET ondansetron HCl [Zofran] 4 mg Tablet 4 mg PO Q6H PRN (Reason: NAUSEA/VOMITING) sulfamethoxazole-trimethoprim 800-160 mg tablet 1 tab PO BID Rx Instructions: ORDERED 07/27/25 NOT STARTED YET ketorolac [Toradol] 30 mg/mL (1 mL) Solution 30 mg IM ONCE oxycodone-acetaminophen 5-325 mg Tablet 1 tab PO Q8H PRN (Reason: Pain) hydromorphone [Dilaudid] 2 mg/mL Solution 2 mg IM ONCE dorzolamide-timolol [Cosopt] 22.3-6.8 mg/mL Drops 1 drp OPHTHALMIC (EYE) AMPM metoprolol succinate 25 mg tablet extended release 24 hr 12.5 mg PO DAILY oxybutynin chloride 5 mg tablet 5 mg PO DIRECTED Rx Instructions: TAKE 10 MG "STAT" THEN 5 MG Q8HR NEEDED. oxycodone 5 mg Tablet 5 mg PO ONCE acetaminophen 1,000 mg/100 mL (10 mg/mL) Solution 1,000 mg IV ONCE Rx Instructions: administer over 15 minutes cefazolin 2 gram Recon Soln 2 g IV ONCE Rx Instructions: PREOP meclizine 12.5 mg tablet 12.5 mg PO TID PRN (Reason: dizziness) Referrals Referrals: Ildefonso Werner M.D. [Primary Care Provider] -
[2025-07-27 19:26] LABS: Alanine Aminotransferase 11.0 U/L (7-52); Albumin Globulin Ratio 1.2 (0.9-2); Albumin Level 3.6 gm/dl (3.4-5.0); Alkaline Phosphatase 91.0 U/L (34-104); Anion Gap 7.0 (3-11); Bilirubin,Total 0.9 mg/dl (0.2-1.0); Blood Urea Nitrogen 13.0 mg/dl (6-23); Calcium 8.4 mg/dl (8.6-10.3); Carbon Dioxide 28.0 mmol/L (21-32); Chloride 104.0 mmol/L (98-107); Creatinine Clr Calc Pharmacy 82.7 ml/min; Globulin 3.0 gm/dl (2.5-4.0); Glucose 135.0 mg/dl (70-99(Fasting)); Lipase 7.0 U/L (11-82); Potassium 4.0 mmol/L (3.5-5.1); Sodium 139.0 mmol/L (136-145); Total Protein 6.6 gm/dl (6.0-8.3)
--- NOTE | 2025-07-27 20:37 | CT Scan Report ---
CT of the abdomen pelvis without contrast Technique: Noncontrast axial images of the abdomen pelvis. Coronal and sagittal reformatted images made for review Comparison made to prior exam dated 07/07/2025 Findings: Lung bases are clear Postoperative changes prior cholecystectomy. No hydronephrosis. No renal, ureteral, or bladder calculi. Prostate is enlarged.. Urinary bladder is unremarkable. Postoperative changes of the colon. No free air or intestinal obstruction. Bone windows demonstrate no focal abnormality. Impression: Postoperative changes prior cholecystectomy CT of the abdomen pelvis negative for acute intra-abdominal pathology. Electronically signed by Yamil Dougherty 07-27-2025 8:36 PM
[2025-07-27 21:08] LABS: Appearance Urine Slightly Cloudy (Clear)
--- NOTE | 2025-07-27 22:36 | History & Physical Report ---
Date of Service July 27, 2025 Assessment & Plan (1) Postoperative hypoxia: (2) Ambulatory dysfunction: Plan 74-year-old male PMHx of prostate vaporization on the day of arrival, TIA, carotid stenosis, BPH, lumbar spondylolysis, LBO, hiatal hernia, BPH, GERD, HLD, and history of mood disorder presenting for abdominal pain, hematuria, and "brain fogginess" starting day of arrival after outpatient surgery. Evaluation was without clear infection, stable H&H, and normal lactate. Patient did display some hypoxia while in ED, with CXR overall unremarkable with exception of elevation R hemidiaphragm as seen before. Admission for hypoxia, ambulatory dysfunction, and pain management. #Post-operative hypoxia Occurring day of arrival s/p vaporization of the prostate, general anesthesia via laryngeal mask. Received Percocet for pain at outpatient center, found to be hypoxic when arrived to ED for complaints of abdominal pain. Lowest oxygen saturation was 88% on RA. No SOB at present, utilizing supplemental O2 via NC. - CBC w/o leukocytosis/leukopenia, lactate 1.7 - CXR mild elevation of R hemidiaphragm - IC - DuoNebs prn wheezing/SOB - O2 prn - none at baseline - wean as patient tolerates #Ambulatory dysfunction Concerns for falls per and patient following his surgical intervention the day of arrival. Suspect likely 2/2 recovering from general anesthesia. - Fall precautions - PT/OT if not improved #S/p vaporization of prostate/BPH Completed day of arrival at outpatient [facility] facility by Dr. Stock. Follows with urology outpatient, most recent visit 07/27/2025 for GreenLight vaporization of prostate for refractory BPH. Oxybutynin was provided to pt at time of his d/c from urology, took 2 doses of 5mg at that time, now ordered prn. - BMP BUN 13, Cr 0.92 - BMP am - UA RBC/WBC/Bacteria - Pain management with acetaminophen mild pain/fever, ketorolac moderate pain, morphine severe pain - Continue Bactrim po - Hold oxybutynin at time of admission - ED provider discussed case with [facility] -- keep Webber in place, hematuria is expected - Consider urology consult as appropriate - none placed at time of admission #History of TIA/Vertebral artery stenosis- Atorvastatin - continue #HTN- Amlodipine, metoprolol - continue #GERD- Famotidine - continue #Psych- Fluoxetine - continue #Hypothyroidism- Levothyroxine - continue Dispo: Obs, med/tele VTE Prophylaxis: SCDs This document was dictated utilizing Liquid [employer]. Please excuse any grammatical errors that may be secondary to use of this software. Admission and Anticipated Discharge Date Admission Date: 07/27/2025 History of Present Illness Chief Complaint: Abd pain Primary Care Provider: Ildefonso Werner 74-year-old male PMHx of prostate vaporization on the day of arrival, TIA, carotid stenosis, BPH, lumbar spondylolysis, LBO, hiatal hernia, BPH, GERD, HLD, and history of mood disorder presenting for abdominal pain, hematuria, and "brain fogginess" starting day of arrival after outpatient surgery. S/p Gre enLight vaporization of the prostate 07/27/2025. Pt reports that his pain following surgery was continuous, so he wanted to be evaluated. He described abdominal pain in the lower abdomen, rating it an 8/10 on the pain scale at its worst, and presently a 6/10. It does not radiate. His surgery was around 1315 the day of arrival, and he was told there were no complications. He occasionally has syncope, but none the day of arrival. No CP, SOB, palpitations, N/V/D/C, numbness/tingling, F/C, URI symptoms, weakness, syncope, or falls. His main concerns were regarding his pain and then low O2 readings in the ED. He was intubated during surgery, given general anesthesia, and given Percocet for pain control prior to the found hypoxia. Denies cough. ED evaluation for CBC without leukocytosis or leukopenia, H&H 14.9/41.7; CMP glucose 135; lactate 1.7; calcium 8.4; troponin 2.7; lipase 7; UA with RBC, WBC; CXR mild elevation R hemidiaphragm; CTAP postop changes prior cholecystectomy, negative for acute intra-abdominal pathology; EKG NSR at 73 bp.; Provided with ketorolac 15mg IV in ED. Please see Dr. Meehan's attestation for adjustments/additions to treatment plan. Allergies Allergy/AdvReac Type Severity Reaction Status Date / Time cefazolin Allergy Severe CP/FELT Verified 07/27/25 20:46 LIKE THROAT CLOSING Gadolinium-Containing Allergy Severe SHORTNESS Verified 07/27/25 20:45 Contrast Medi OF BREATH clindamycin Allergy Intermediate HANDS Verified 07/27/25 20:45 SWELLED Penicillins Allergy Intermediate Hives Verified 07/27/25 20:45 shellfish derived Allergy Intermediate Anaphylaxis Verified 07/27/25 20:45 /ITCHING aspirin Allergy Unknown PATIENT Verified 07/27/25 20:45 TOLD NOT TO TAKE BY [employer] ENGINE[employer] Iodinated Contrast Media Allergy Unknown HAS TO BE Verified 07/27/25 20:45 PRETREATED PER [facility] finasteride AdvReac Intermediate SNYCOPE/LIG Verified 07/27/25 20:45 HTHEADED gabapentin AdvReac Intermediate HALLUCINATIONS/DIZZINESS/COULDN'T Verified 07/27/25 20:45 WALK lorazepam AdvReac Intermediate HALLUCINATI Verified 07/27/25 20:45 ONS Home Medications Medication Instructions Recorded Confirmed Type levothyroxine 100 mcg tablet 100 mcg PO DAILYBB #90 tabs 02/21/24 07/27/25 Rx latanoprost 0.005 % eye drops 1 drp OPB HS #7.5 mL 04/16/24 07/27/25 Rx atorvastatin 40 mg tablet 40 mg PO HS 10/31/24 07/27/25 History famotidine 40 mg tablet 40 mg PO HS 10/31/24 07/27/25 History fluoxetine 20 mg capsule 20 mg PO DAILY 11/23/24 07/27/25 History fluoxetine 10 mg capsule 10 mg PO DAILY 02/14/25 07/27/25 History amlodipine 5 mg tablet 5 mg PO QAM 05/17/25 07/27/25 History acetaminophen 325 mg tablet 975 mg PO Q6H PRN Pain 07/27/25 07/27/25 History (Tylenol) dorzolamide 22.3 mg-timolol 6.8 1 drp ophthalmic (eye) AMPM 07/27/25 07/27/25 History mg/mL eye drops (Cosopt) meclizine 12.5 mg tablet 12.5 mg PO TID PRN dizziness 07/27/25 07/27/25 History metoprolol succinate 25 mg 12.5 mg PO DAILY 07/27/25 07/27/25 History tablet,extended release 24 hr ondansetron HCl 4 mg tablet 4 mg PO Q6H PRN NAUSEA/VOMITING 07/27/25 07/27/25 History oxybutynin chloride 5 mg tablet 5 mg PO DIRECTED 07/27/25 07/27/25 History oxycodone 5 mg tablet 5 mg PO ONCE 07/27/25 07/27/25 History oxycodone-acetaminophen 5 mg-325 1 tab PO Q8H PRN Pain 07/27/25 07/27/25 History mg tablet phenazopyridine 200 mg tablet 200 mg PO TID PRN BLADDER PAIN 07/27/25 07/27/25 History (Pyridium) sulfamethoxazole 800 1 tab PO BID 07/27/25 07/27/25 History mg-trimethoprim 160 mg tablet tizanidine 2 mg tablet 2 - 4 mg PO HS PRN MUSCLE 07/27/25 07/27/25 History SPASMS/PAIN Past Med/Surg History Problem List (Updated 07/28/25 @ 01:52 by Harjinder Patel PA-C) Ambulatory dysfunction Postoperative hypoxia Hypoxia (Acute) Adverse effect of anesthesia (Acute) Syncope (Acute) Dizziness (Acute) Difficulty swallowing pills History of COVID-19 Stroke-like symptoms (Acute) Headache (Acute) Left arm weakness (Acute) Abdominal pain (Acute) Dysphagia (Acute) Postprandial nausea Lumbar facet joint syndrome Chronic low back pain ANGEL (obstructive sleep apnea) Anxiety and depression Carotid artery stenosis Phelps esophagus (Acute) Lumbar spondylosis Osteopenia Hiatal hernia with gastroesophageal reflux disease (02/09/11) HTN (hypertension) S/P cholecystectomy H/O colectomy Diverticulitis Rectal bleed (Acute) Abdominal pain (Acute) Glaucoma (Chronic) Numbness of face (Acute 04/24/14) Headache (Acute) Left shoulder pain (Acute) Stomach problems (Acute) Bronchospasm (Acute) Epigastric abdominal pain (Acute) SOBOE (shortness of breath on exertion) (Acute) Shortness of breath (Acute) Medical History Hypertension Adverse drug reaction Contusion of left shoulder Head injury Weakness Bowel obstruction Surgical History S/P hernia surgery S/P sinus surgery Family History Sister Breast cancer Cancer of spine Cancer Brother Colorectal cancer Father COPD (chronic obstructive pulmonary disease) Denies family history of Ovarian cancer Prostate cancer Myocardial infarction Social History Smoking Status: Never smoker Second Hand Exposure: Yes; Do You Dip or Chew Tobacco: No; Hx Alcohol Use: No Hx Substance Use: No Preferred Language: Malaysian Communication Ability: Effective Visual Impairment: Limited Hearing Ability: Normal Ambulance Paramedic Required: No Beliefs That Will Affect Care: None marital status: Current Living Situation: Spouse Current Living Situation Comment: worked at [employer] current occupational status: retired Feels Safe at Home: Yes Safety Concerns: Feels Safe At This Time Childhood Exposure to Second-Hand Smoke: Yes Diet: regular caffeine: Yes Dental Care, Regularly: Yes Physical Activity Frequency: Daily Seatbelt Use: always Sunscreen Use: No Assistive Devices: Glasses and Other Assistive Devices Comment: usescane as needed Review of Systems Review of Systems: All systems reviewed & are unremarkable except as noted in Subjective Physical Exam Physical Exam: General: No acute distress Skin: Warm and dry Head: Normocephalic, atraumatic Eyes: PERRL, conjunctivae clear, sclera non-icteric; wearing glasses ENT: External ear and ear canal without swelling; nose atraumatic; good dentition, tongue normal appearance, pharynx normal Neck: Supple, no LAD Cardio: RRR, no M/G/R, S1 and S2 normal Resp: O2 via NC; No respiratory distress, Lungs CTA in all lobes bilaterally, no wheezes, rales, or rhonchi Abdomen: Soft, symmetric, very mild tenderness palpation lower abdomen; No ma sses or hepatosplenomegaly; Bowel sounds normoactive MSK: No deformities; pulses palpable and equal; no edema. : Catheter draining Neuro: Awake, alert; Sensation intact bilaterally; CN grossly intact Psych: Appropriate mood and affect; good judgement and insight. Results & Data Results & Data Vital Signs (Past 12 Hours) Vital Signs Temp Pulse Pulse Resp BP BP Pulse Ox 07/27/25 20:33 75 16 137/81 90 07/27/25 19:28 76 07/27/25 19:28 73 12 93 07/27/25 18:33 37.1 C 80 22 145/95 H 95 O2 Del Method 07/27/25 20:33 Room Air 07/27/25 19:28 07/27/25 19:28 Room Air 07/27/25 18:33 Room Air Laboratory Results 07/27/25 20:41 Urine Culture - Pending Urine,Clean Catch 07/27/25 07/27/25 20:41 18:35 WBC 7.25 RBC 4.56 L Hgb 14.9 Hct 41.7 L MCV 91.4 MCH 32.7 MCHC 35.7 RDW Std Deviation 39.3 RDW Coeff of Yolande 11.7 Plt Count 151 MPV 10.3 Immature Gran % (Auto) 0.6 Neut % (Auto) 87.7 Lymph % (Auto) 10.8 Sharp % (Auto) 0.8 Eos % (Auto) 0.0 Baso % (Auto) 0.1 Neut # (Auto) 6.36 Lymph # (Auto) 0.78 L Sharp # (Auto) 0.06 L Eos # (Auto) 0.00 Baso # (Auto) 0.01 Immature Gran # (Auto) 0.04 Sodium 139 Potassium 4.0 Chloride 104 Carbon Dioxide 28 Anion Gap 7 BUN 13 Creatinine 0.92 Est Cr Clr Drug Dosing 82.7 eGFR 86.21 BUN/Creatinine Ratio 14.1 Glucose 135 H Lactate 1.7 Calcium 8.4 L Total Bilirubin 0.9 AST 15 ALT 11 Alkaline Phosphatase 91 Troponin I High Sens 2.7 Total Protein 6.6 Albumin 3.6 Globulin 3.0 Albumin/Globulin Ratio 1.2 Lipase 7 L Urine Color See Comment Urine Appearance Slightly Cloudy Urine pH Not Reportable Ur Specific [place] 1.030 Urine Protein Not Reportable Urine Glucose (UA) Not Reportable Urine Ketones Not Reportable Urine Blood Not Reportable Urine Nitrite Not Reportable Urine Bilirubin Not Reportable Urine Urobilinogen Not Reportable Ur Leukocyte Esterase Not Reportable Urine RBC >20 H Urine WBC 11-20 H Ur Epithelial Cells 3-5 H Urine Bacteria 1+ H Urine Comment Diagnostic Findings Abdomen/Pelvis CT 07/27/25 18:38 CT of the abdomen pelvis without contrast Technique: Noncontrast axial images of the abdomen pelvis. Coronal and sagittal reformatted images made for review Comparison made to prior exam dated 07/07/2025 Findings: Lung bases are clear Postoperative changes prior cholecystectomy. No hydronephrosis. No renal, ureteral, or bladder calculi. Prostate is enlarged.. Urinary bladder is unremarkable. Postoperative changes of the colon. No free air or intestinal obstruction. Bone windows demonstrate no focal abnormality. Impression: Postoperative changes prior cholecystectomy CT of the abdomen pelvis negative for acute intra-abdominal pathology. Electronically signed by Yamil Dougherty 07-27-2025 8:36 PM Medications Administered Ketorolac 15mg IV ECG Additional Comments: NSR 73 bpm, AR 208, QRS 82, QT/QTc 400/440, PRT 63/0/50 Code Status & VTE Plan Code Status Full Supervising Physician Co-Signing Physician Notes Attending addendum: I have supervised the CRISSY's activities, and agree with the H&P unless as otherwise noted. Assessment and Plan: The patient is a 74-year-old male with a past medical history including prostate vaporization on the day of arrival, TIA, carotid stenosis, BPH, lumbar spondylosis, LBO, hiatal hernia, BPH, GERD, hyperlipidemia, and history of mood disorder. He presented to the emergency department with abdominal pain, hematuria, and brain fogginess that began the day of arrival after outpatient prostate vaporization surgery. Patient had been referred to the emergency department from the [facility] outpatient clinic where he had the surgery, due to some hypoxia, however, in the emergency department this was only transient and he had improved oxygenation 93-97% on room air. [facility]. Postoperative hypoxia- Occurred after prostate vaporization performed today at [facility]. He reportedly did undergo general anesthesia via laryngeal mask. He also received Percocet for pain. He was found to be mildly hypoxic on arrival to the ED, but primarily was complaining of abdominal pain at that time. Initial pulse ox on room air was 88%, and did initially require supplemental oxygen, which was able to be tapered to room air. Likely an element of cardiac induced hypoxia due to the decreased respiratory excursion. Chest x-ray with redemonstration of elevated right hemidiaphragm Incentive spirometry DuoNebs every 2 hours as needed Ambulatory dysfunction- His was concerned about the possibility patient following after surgical intervention. Likely still in the process of recovering from general anesthesia Status post vaporization of prostate/BPH- Performed by Dr. Stock at [facility] facility earlier today CBC with differential and chemistry profile unremarkable Urinalysis suggestive of infection Continue Bactrim he was prescribed by urology On oxybutynin Remaining orders and notations as noted PG Care Time/CCT Total # of Minutes Spent Total Time Spent with Patient: Total time spent is greater than 50% in coordination of care (as documented) at patient's floor/unit and/or counseling patient: Coding Level of Care Code 72905 INT INP/OBS CARE 3/75MIN Diagnoses Postoperative hypoxia R09.02; Z98.890 Ambulatory dysfunction R26.2
[2025-07-27] MEDS: KETOROLAC TROMETHAMINE 15 MG/ML VIAL IV ONE (22:47)
--- NOTE | 2025-07-27 23:40 | XRay Report ---
Exam(s): XR CXR 1 VIEW EXAM: XR Chest, 1 View CLINICAL HISTORY: Reason for exam: hypoxia/ post anesthesia. TECHNIQUE: Frontal view of the chest. COMPARISON: Chest x-ray: 04/21/2025 FINDINGS: Lungs: Unremarkable. No consolidation. Pleural space: Unremarkable. No pneumothorax. Heart: Unremarkable. No cardiomegaly. Mediastinum: Unremarkable. Normal mediastinal contour. Bones/joints: Unremarkable. No acute fracture. Upper abdomen: There is mild elevation of the right hemidiaphragm. IMPRESSION: Mild elevation of the right hemidiaphragm. No acute finding. Electronically signed by: Rd Villegas MD 07/27/25 23:39 PM
[2025-07-28] MEDS ORDERED: MELATONIN 3 MG TAB PO PRN (01:42)
[2025-07-28] MEDS ORDERED: POLYETHYLENE (MIRALAX) 17 GM PACK PO PRN (01:42)
[2025-07-28] MEDS ORDERED: MoRPHine SULFATE 2 MG/ML CARP IV PRN (01:42)
[2025-07-28] MEDS ORDERED: ONDANSETRON INJ 2 MG/ML 2 ML VIAL IV PRN (01:42)
[2025-07-28] MEDS ORDERED: ALBUT/IPRATROP 3MG/0.5MG NEB 3 ML VIAL NEB PRN (01:51)
[2025-07-28] MEDS: KETOROLAC TROMETHAMINE 15 MG/ML VIAL IV PRN (02:21)
[2025-07-28] MEDS: DORZOLAMIDE/TIMOLOL 22.3/6.8MG/ML 10 ML BTL OP SCH (02:22)
[2025-07-28] MEDS: SULFAMETHOXAZOLE/TRIMETHOPRIM DS 800/160MG TAB PO SCH (02:23)
[2025-07-28] MEDS: LEVOTHYROXINE SODIUM 100 MCG TABLET PO SCH (06:27)
[2025-07-28] MEDS: ACETAMINOPHEN 325 MG TAB PO PRN (06:35)
[2025-07-28 07:09] LABS: Anion Gap 6.0 (3-11); Blood Urea Nitrogen 19.0 mg/dl (6-23); Calcium 8.2 mg/dl (8.6-10.3); Carbon Dioxide 27.0 mmol/L (21-32); Chloride 105.0 mmol/L (98-107); Creatinine Clr Calc Pharmacy 92.3 ml/min; Glucose 147.0 mg/dl (70-99(Fasting)); Potassium 4.0 mmol/L (3.5-5.1); Sodium 138.0 mmol/L (136-145)
[2025-07-28] MEDS: METOPROLOL SUCC 25MG EXT REL TAB PO SCH (07:47)
[2025-07-28 12:15] VITALS: BP 136/78; RESP 16; TEMP 97.7; O2SAT 93
--- NOTE | 2025-07-28 12:54 | Discharge Summary ---
Discharge Summary Date of Service July 28, 2025 Principal Dx & Hospital Course #1 = Principal Diagnosis (1) Postoperative hypoxia: (2) Ambulatory dysfunction: Plan 74-year-old male PMHx of prostate vaporization on the day of arrival, TIA, carotid stenosis, BPH, lumbar spondylolysis, LBO, hiatal hernia, BPH, GERD, HLD, and history of mood disorder presenting for abdominal pain, hematuria, and "brain fogginess" starting day of arrival after outpatient surgery. Evaluation was without clear infection, stable H&H, and normal lactate. Patient did display some hypoxia while in ED, with CXR overall unremarkable with exception of elevation R hemidiaphragm as seen before. Admission for hypoxia, ambulatory dysfunction, and pain management. #Post-operative hypoxia Occurring day of arrival s/p vaporization of the prostate, general anesthesia via laryngeal mask. Received Percocet for pain at outpatient center, found to be hypoxic when arrived to ED for complaints of abdominal pain. Lowest oxygen saturation was 88% on RA. No SOB at present, utilizing supplemental O2 via NC. - CBC w/o leukocytosis/leukopenia, lactate 1.7 - CXR mild elevation of R hemidiaphragm - IC - DuoNebs prn wheezing/SOB - O2 prn - none at baseline - wean as patient tolerates #Ambulatory dysfunction Concerns for falls per and patient following his surgical intervention the day of arrival. Suspect likely 2/2 recovering from general anesthesia. - Fall precautions - PT/OT if not improved #S/p vaporization of prostate/BPH Completed day of arrival at outpatient [facility] facility by Dr. Stock. Follows with urology outpatient, most recent visit 07/27/2025 for GreenLight vaporization of prostate for refractory BPH. Oxybutynin was provided to pt at time of his d/c from urology, took 2 doses of 5mg at that time, now ordered prn. - BMP BUN 13, Cr 0.92 - BMP am - UA RBC/WBC/Bacteria - Pain management with acetaminophen mild pain/fever, ketorolac moderate pain, morphine severe pain - Continue Bactrim po - Hold oxybutynin at time of admission - ED provider discussed case with [facility] -- keep Webber in place, hematuria is expected - Consider urology consult as appropriate - none placed at time of admission #History of TIA/Vertebral artery stenosis- Atorvastatin - continue #HTN- Amlodipine, metoprolol - continue #GERD- Famotidine - continue #Psych- Fluoxetine - continue #Hypothyroidism- Levothyroxine - continue Dispo: Obs, med/tele VTE Prophylaxis: SCDs This document was dictated utilizing [employer]. Please excuse any grammatical errors that may be secondary to use of this software. Admission HPI Per Admitting Provider 74-year-old male PMHx of prostate vaporization on the day of arrival, TIA, carotid stenosis, BPH, lumbar spondylolysis, LBO, hiatal hernia, BPH, GERD, HLD, and history of mood disorder presenting for abdominal pain, hematuria, and "brain fogginess" starting day of arrival after outpatient surgery. S/p GreenLight vaporization of the prostate 07/27/2025. Pt reports that his pain following surgery was continuous, so he wanted to be evaluated. He described abdominal pain in the lower abdomen, rating it an 8/10 on the pain scale at its worst, and presently a 6/10. It does not radiate. His surgery was around 1315 the day of arrival, and he was told there were no complications. He occasionally has syncope, but none the day of arrival. No CP, SOB, palpitations, N/V/D/C, numbness/tingling, F/C, URI symptoms, weakness, syncope, or falls. His main concerns were regarding his pain and then low O2 readings in the ED. He was intubated during surgery, given general anesthesia, and given Percocet for pain control prior to the found hypoxia. Denies cough. ED evaluation for CBC without leukocytosis or leukopenia, H&H 14.9/41.7; CMP glucose 135; lactate 1.7; calcium 8.4; troponin 2.7; lipase 7; UA with RBC, WBC; CXR mild elevation R hemidiaphragm; CTAP postop changes prior cholecystectomy, negative for acute intra-abdominal pathology; EKG NSR at 73 bp.; Provided with ketorolac 15mg IV in ED. Please see Dr. Meehan's attestation for adjustments/additions to treatment plan. Discharge Plan Discharge Items Patient Disposition: Home - Home Health Services Reason For Visit: HYPOXIA, ABD PAIN S/P PROSTATE VAPOR Discharge Diagnosis: hypoxia Condition on Discharge: Good Activity: Resume your previous activity Non-emergency contact: Primary Care Provider Call non-emergency contact if: you have any medication questions Follow-up/Referrals: Ildefonso Werner M.D. [Primary Care Provider] - Diet: Regular Addtl Attending Provider Instructions: Followup with [facility] Followup with PCP in 1-2 weeks Resume your current home meds Pending Studies at Discharge: No Stand-Alone Forms: [facility] [employer], Smoking Cessation Medications and DC Order Prescriptions: Continued levothyroxine 100 mcg tablet 100 mcg PO DAILYBB Qty: 90 1RF latanoprost 0.005 % drops 1 drp OPB HS Qty: 7.5 1RF fluoxetine 10 mg capsule 10 mg PO DAILY Rx Instructions: Take w/ 20mg to equal 30mg by mouth every morning. amlodipine 5 mg tablet 5 mg PO QAM atorvastatin 40 mg tablet 40 mg PO HS famotidine 40 mg tablet 40 mg PO HS fluoxetine 20 mg capsule 20 mg PO DAILY Rx Instructions: Take w/ 10mg to equal 30mg by mouth every morning. acetaminophen [Tylenol] 325 mg Tablet 975 mg PO Q6H PRN (Reason: Pain) tizanidine 2 mg tablet 2 - 4 mg PO HS PRN (Reason: MUSCLE SPASMS/PAIN) phenazopyridine [Pyridium] 200 mg Tablet 200 mg PO TID PRN (Reason: BLADDER PAIN) Rx Instructions: ORDERED 07/27/25 NOT STARTED YET ondansetron HCl [Zofran] 4 mg Tablet 4 mg PO Q6H PRN (Reason: NAUSEA/VOMITING) sulfamethoxazole-trimethoprim 800-160 mg tablet 1 tab PO BID Rx Instructions: ORDERED 07/27/25 NOT STARTED YET ketorolac [Toradol] 30 mg/mL (1 mL) Solution 30 mg IM ONCE oxycodone-acetaminophen 5-325 mg Tablet 1 tab PO Q8H PRN (Reason: Pain) hydromorphone [Dilaudid] 2 mg/mL Solution 2 mg IM ONCE dorzolamide-timolol [Cosopt] 22.3-6.8 mg/mL Drops 1 drp OPHTHALMIC (EYE) AMPM metoprolol succinate 25 mg tablet extended release 24 hr 12.5 mg PO DAILY oxybutynin chloride 5 mg tablet 5 mg PO DIRECTED Rx Instructions: TAKE 10 MG "STAT" THEN 5 MG Q8HR NEEDED. oxycodone 5 mg Tablet 5 mg PO ONCE acetaminophen 1,000 mg/100 mL (10 mg/mL) Solution 1,000 mg IV ONCE Rx Instructions: administer over 15 minutes cefazolin 2 gram Recon Soln 2 g IV ONCE Rx Instructions: PREOP meclizine 12.5 mg tablet 12.5 mg PO TID PRN (Reason: dizziness) Admission Data Admit Date/Time: 07/27/25 22:59 Attending Provider: Nigel Aguila Admit Provider: Coleman Meehan Primary Care Provider: Ildefonso Werner Other Providers: Coleman Meehan Hospital Stay Data Consultations 07/27/25 22:10 ED Decision to Admit Stat Diagnostic Imagining Performed 07/27/25 18:38 CT abd pelvis wo con Stat Pending Results Patient Have Any Pending Studies at Discharge: No Discharge Instructions Given to Patient (Per Discharging Provider) Followup with [facility] Followup with PCP in 1-2 weeks Resume your current home meds Coding Diagnoses Postoperative hypoxia R09.02; Z98.890 Ambulatory dysfunction R26.2
--- NOTE | 2025-07-28 13:03 | Electrocardiogram Report ---
Test Reason : Blood Pressure : */* mmHG Vent. Rate : 73 BPM Atrial Rate : 73 BPM P-R Int : 208 ms QRS Dur : 82 ms QT Int : 400 ms P-R-T Axes : 63 0 50 degrees QTcB Int : 440 ms Normal sinus rhythm Normal ECG When compared with ECG of 21-Apr-2025 16:19, No significant change was found Confirmed by Lucien Sanchez ([id number]) on 07/28/2025 1:02:42 PM Referred By: REFERRED SELF Confirmed By: Lucien Sanchez
[2025-07-28] MEDS: INFLUENZA VACC TS2025-26(65y+)/PF (IIV3) 0.5mL Syr IM ONE (14:02)
[2025-07-28 14:41] VITALS: PULSE 61
[2025-07-28] MEDS ORDERED: FAMOTIDINE 40 MG TABLET PO SCH (21:00)
[2025-07-28] MEDS ORDERED: ATORVASTATIN 40 MG TAB PO SCH (21:00)
[2025-07-28] MEDS ORDERED: LATANOPROST 0.005% OP SOLN 2.5 ML BTL OPB SCH (21:00)
== END 2025-07-28 14:46 | disposition home health service (06) ==
LOC: 2N 18:27 → ED 18:27 → SUATTDRO 22:59 → 2N 07-28 00:54